=== PATIENT | male | born 1970 | race African-American/Black ===

== ENCOUNTER 2024-12-15 10:56 | Inpatient (IN) ==
--- NOTE | 2024-12-15 11:53 | Emergency Department Note ---
History of Present Illness General Chief complaint: Urinary Symptoms Stated complaint: CHEMO PATIENT, TROUBLE URINATING, DIARRHEA Time Seen by Provider: 12/15/24 11:50 History of Present Illness This is a 54-year-old male that presents to the emergency department via private vehicle accompanied by mother with complaints of "chemo, trouble urinating, diarrhea". The patient states that he was doing quite well up until Thanks of this past year. He notes from then he has had an overall decline. He states that he had his first chemotherapy session last and was fine for about 1 to 2 days. Then over the past few days he notes a sore mouth, trouble eating and can only have a few sips of water secondary to the mouth pain. He notes no vomiting. No cough. No chest pain or shortness of breath. No abdominal pain. The patient does note that he does have trouble urinating. He states he has metastatic colon cancer to the liver. He recently notes that he had a drain placed on 11/25/24 exiting from the left side of the abdomen. He states that following placement, there has been some yellow thin fluid draining which he states was previously evaluated at [facility] where the procedure was performed. He notes that prior to the procedure the T. bili reached 25 however post procedure was in the mid teens. He states that he was to take cephalexin but only took a few tablets and then felt unwell and stopped taking the medicine. He notes preceding diarrhea but no current diarrhea. No blood in the stool. He denies any fever. Home Medications Medication Instructions Recorded Confirmed Type furosemide 20 mg tablet 20 mg PO UD 04/13/22 12/15/24 History cephalexin 250 mg capsule 250 mg PO QID 12/15/24 12/15/24 History dexamethasone 4 mg tablet 4 mg PO DIRECTED 12/15/24 12/15/24 History furosemide 20 mg tablet (Lasix) 20 mg PO UD PRN edema 12/15/24 12/15/24 History loperamide 2 mg capsule 2 mg PO DIRECTED PRN Diarrhea 12/15/24 12/15/24 History ondansetron HCl 4 mg tablet 8 mg PO TID PRN n/v 12/15/24 12/15/24 History pantoprazole 40 mg tablet,delayed 40 mg PO DAILY 01/29/25 01/29/25 History release tamsulosin 0.4 mg capsule 0.4 mg PO UD 12/15/24 12/15/24 History Allergies Allergy/AdvReac Type Severity Reaction Status Date / Time levofloxacin Allergy Intermediate Difficulty Unverified 04/13/22 21:51 Breathing Penicillins Allergy Intermediate Difficulty Unverified 04/13/22 21:51 Breathing Past Med/Surg History Problem List (Updated 12/15/24 @ 23:10 by Renny Randolph PA-C) Mouth sore (Acute) Elevated bilirubin (Acute) Difficulty urinating (Acute) Metastatic colorectal cancer Medical History Metastatic colorectal cancer Social History Smoking Status: Never smoker Hx Alcohol Use: No Hx Substance Use: No Preferred Language: Nepali Security Ambassador Required: No Beliefs That Will Affect Care: None Current Living Situation: Family Current Living Situation Comment: Home with mother Feels Safe at Home: Yes Safety Concerns: Feels Safe At This Time Assistive Devices: Glasses Review of Systems A total of 10 systems reviewed and were otherwise negative Physical Exam Vital Signs Vital Signs - 24 hr 12/15/24 11:00 12/15/24 11:56 12/15/24 12:03 Temperature 36.0 C L Temperature Source Temporal Artery Scan Pulse Rate 97 H 89 Pulse Rate [Apical] 89 Pulse Strength Normal Pulse Strength [Apical] Respiratory Rate 16 18 Respiratory Effort / Characteristics Non-Labored Non-Labored Respiratory Depth Normal Normal Respiratory Pattern Regular Blood Pressure 154/110 H Blood Pressure [Right Arm] 146/97 H Blood Pressure Mean 124 Blood Pressure Mean [Right Arm] 113 Blood Pressure Position Sitting Blood Pressure Position [Right Arm] Pulse Oximetry 97 97 Oxygen Delivery Method Room Air Room Air Sepsis Recent Fever Within 48 Hours No Sepsis New/Unexplained Change in Mental Status No Sepsis Action Taken by Nursing No Action Required 12/15/24 13:00 12/15/24 14:42 12/15/24 16:13 Temperature Temperature Source Pulse Rate 84 Pulse Rate [Apical] 83 85 Pulse Strength Pulse Strength [Apical] Respiratory Rate 20 20 Respiratory Effort / Characteristics Non-Labored Respiratory Depth Normal Normal Respiratory Pattern Blood Pressure Blood Pressure [Right Arm] 144/81 H 141/85 H Blood Pressure Mean Blood Pressure Mean [Right Arm] 102 103 Blood Pressure Position Blood Pressure Position [Right Arm] Pulse Oximetry 96 98 Oxygen Delivery Method Room Air Room Air Sepsis Recent Fever Within 48 Hours Sepsis New/Unexplained Change in Mental Status Sepsis Action Taken by Nursing 12/15/24 16:18 Temperature Temperature Source Pulse Rate Pulse Rate [Apical] 94 H Pulse Strength Pulse Strength [Apical] Normal Respiratory Rate 26 H Respiratory Effort / Characteristics Non-Labored Spontaneous Respiratory Depth Normal Respiratory Pattern Regular Blood Pressure Blood Pressure [Right Arm] 142/77 H Blood Pressure Mean Blood Pressure Mean [Right Arm] 98 Blood Pressure Position Blood Pressure Position [Right Arm] Sitting Pulse Oximetry 98 Oxygen Delivery Method Room Air Sepsis Recent Fever Within 48 Hours Sepsis New/Unexplained Change in Mental Status Sepsis Action Taken by Nursing VITAL SIGNS - Vital signs and nursing notes were reviewed. Stable and afebrile. GENERAL -54-year-old male appearing his stated age who is in no acute distress. Communicates well with provider and answers questions appropriately. SKIN - Without rashes. No meningeal or petechial rash. Diffuse jaundice noted. HEAD - NC/AT. EYES - PERRL with EOMI bilaterally. Sclera significantly icteric. Palpebral conjunctiva pink and moist with no injection noted. EARS - No deformities of external structures noted on gross examination bilaterally. NOSE - Midline and without cyanosis. No epistaxis or purulent drainage noted. Septum midline without deviation or septal hematoma noted. MOUTH/OROPHARYNX - Without perioral cyanosis. Buccal mucosa pink and moist and without leukoplakia. Tongue midline with equal elevation of palate bilaterally. No tonsillar hypertrophy, erythema, or exudates noted. Good dentition noted. NECK - Neck with FROM. No nuchal rigidity. LUNGS - CTA CARDIAC - RRR ABDOMEN -bowel sounds normoactive. abdomen nontender. Drain exiting left upper quadrant region. Small amount of yellow drainage present on the bandage overlying the drain site to the left upper abdomen. No purulence. Small amount of surrounding erythema at the site ascites noted. No tenderness. No guarding or rigidity. EXTREMITIES - No clubbing or peripheral cyanosis. +5/5 strength noted in UE/LE bilaterally. NEUROLOGIC - Cranial nerves grossly intact. PSYCH -alert, oriented and pleasant on exam Course Administered Medications Heparin Sodium (Porcine) (Heparin Sod 5,000 Unit/0.5 Ml Vial) 5,000 units SQ Q12 MOHAN Stop: 01/14/25 20:59 Last Admin: 12/15/24 20:35 Dose: Not Given Documented By: THOMAS Sodium Chloride (Nss) 1,000 mls @ 125 mls/hr IV .Q8H MOHAN Stop: 12/16/24 00:00 Last Infusion: 12/15/24 22:28 Dose: Infused Documented By: Admin: 12/15/24 17:35 Dose: Not Given Documented By: Admin: 12/15/24 14:26 Dose: 125 mls/hr Documented By: BLADE Cefepime HCl (Maxipime 2000mg) 2,000 mg in 20 mls @ 5 mls/min IV Q8H MOHAN; Protocol Stop: 12/17/24 22:59 Last Admin: 12/15/24 22:33 Dose: 5 mls/min Documented By: THOMAS Sodium Chloride (Nss) 1,000 mls @ 80 mls/hr IV .[id number] [facility] Stop: 12/16/24 18:01 Last Admin: 12/15/24 22:33 Dose: 80 mls/hr Documented By: THOMAS Lidocaine HCl (Lidocaine Viscous 2% 15 Ml Udc) 15 ml MT QID PRN PRN Reason: mouth pain Stop: 01/14/25 16:50 Last Admin: 12/15/24 20:35 Dose: 15 ml Documented By: BOBO Multi-Ingredient Mouthwash/Gargle (First - Mouthwash Blm 5 Ml Udp) 5 ml PO QID MOHAN Stop: 01/14/25 20:59 Last Admin: 12/15/24 20:34 Dose: 5 ml Documented By: THOMAS Discontinued Medications Cefepime HCl (Maxipime 2000mg) 2,000 mg in 20 mls @ 5 mls/min IV NOW STA; Protocol Stop: 12/15/24 14:13 Last Admin: 12/15/24 14:26 Dose: 5 mls/min Documented By: BUNNYG Vancomycin HCl 1,750 mg/ (Sodium Chloride) 535 mls @ 200 mls/hr IV NOW ONE Stop: 12/15/24 19:40 Last Infusion: 12/15/24 20:12 Dose: Infused Documented By: Admin: 12/15/24 17:31 Dose: 200 mls/hr Documented By: LEXX Multi-Ingredient Mouthwash/Gargle (First - Mouthwash Blm 5 Ml Udp) 5 ml PO NOW ONE Stop: 12/15/24 16:01 Last Admin: 12/15/24 16:17 Dose: 5 ml Documented By: LEXX Medical Decision Making Laboratory Data 12/15/24 11:28 12/15/24 11:28 Lab Results 12/15/24 12/15/24 12/15/24 Range/Units 11:28 13:46 14:15 WBC 7.40 (4.8-10.8) K/ul RBC 3.95 L (4.70-6.10) M/uL Hgb 12.1 L (14.0-18.0) g/dl Hct 35.2 L (42.0-52.0) % MCV 89.1 (80.0-100.0) fL MCH 30.6 (25.0-34.0) pg MCHC 34.4 (32.0-36.0) g/dL RDW Std Deviation 50.9 H (36.4-46.3) fL RDW Coeff of Cris 15.5 H (11.5-14.5) % Plt Count 135 (130-400) K/uL Immature Gran % (Auto) 0.7 % Neut % (Auto) 90.1 % Lymph % (Auto) 6.8 % Lassen % (Auto) 1.6 % Eos % (Auto) 0.7 % Baso % (Auto) 0.1 % Neut # (Auto) 6.67 H (1.40-6.50) K/uL Lymph # (Auto) 0.50 L (1.20-3.40) K/uL Lassen # (Auto) 0.12 (0.11-0.59) K/uL Eos # (Auto) 0.05 (0.00-0.50) K/uL Baso # (Auto) 0.01 (0.00-0.20) K/uL Immature Gran # (Auto) 0.05 (0.01-0.20) K/uL Tear Drop Cells 1+ Ovalocytes 1+ PT 15.6 H (9.0-12.0) Seconds INR 1.5 H (0.9-1.1) Sodium 134 L (136-145) mmol/L Potassium 3.6 (3.5-5.1) mmol/L Chloride 104 (98-107) mmol/L Carbon Dioxide 23 (21-32) mmol/L Anion Gap 7 (3-11) BUN 18 (6-23) mg/dl Creatinine 0.80 (0.6-1.4) mg/dl Est Cr Clr Drug Dosing 101.3 ml/min eGFR 103.87 BUN/Creatinine Ratio 22.5 H (10-20) Glucose 124 H (70-99(Fasting)) mg/dl Calcium 8.3 L (8.6-10.3) mg/dl Total Bilirubin 18.8 H (0.2-1.0) mg/dl AST 114 H (13-39) U/L ALT 98 H (7-52) U/L Alkaline Phosphatase 132 H (34-104) U/L Total Protein 6.5 (6.0-8.3) gm/dl Albumin 3.3 L (3.4-5.0) gm/dl Globulin 3.2 (2.5-4.0) gm/dl Albumin/Globulin Ratio 1.0 (0.9-2) Lipase TNP Procalcitonin 0.61 H (0-0.5) ng/ml Urine Color Dark Yellow Urine Appearance Cloudy A (Clear) Urine pH 6.0 (4.5-7.5) Ur Specific [place] 1.018 (1.000-1.030) Urine Protein Trace H (Negative) Urine Glucose (UA) Negative (Negative) Urine Ketones Negative (Negative) Urine Blood Negative (Negative) Urine Nitrite Positive A (Negative) Urine Bilirubin 3+ H (Negative) Urine Urobilinogen Negative (Negative) Ur Leukocyte Esterase 1+ H (Negative) Urine WBC (Auto) 0-5 (0-5) /hpf Urine RBC (Auto) 0-2 (0-2) /hpf U Hyaline Cast (Auto) 0-2 (0-2) /lpf U Epithel Cells (Auto) 0-2 (0-2) /hpf Urine Bacteria (Auto) None Seen (None Seen) Imaging Data Radiologist's Impression: Abdomen/Pelvis CT 12/15/24 12:33 CT OF THE ABDOMEN AND PELVIS WITHOUT CONTRAST CLINICAL HISTORY: Trouble urinating, biliary stent in place, metastatic colon cancer. COMPARISON STUDY: CT of the abdomen and pelvis December 23, 2023. TECHNIQUE: Axial images of the abdomen and pelvis were obtained without IV contrast. Images were reviewed in the axial, sagittal, and coronal planes. Automated exposure control was utilized for the study. A dose lowering technique was utilized adhering to the principles of ALARA. FINDINGS: The heart is enlarged. There is a small right pleural effusion. No pneumatosis, free air or portal venous gas is present. No renal, ureteral or bladder calculi are present. The bladder is mildly distended. There is no hydronephrosis. Evaluation of the remainder of the abdomen and pelvis is suboptimal on this unenhanced exam. Numerous partially calcified hepatic metastases are present. Closely apposed right hepatic lobe lesions measure 11.3 x 10.9 cm in aggregate. Several additional hepatic lesions are present. Several of these lesions are new since CT of December 23, 2023. There is associated capsular retraction. A small amount of abdominal and pelvic ascites is present. There are no fluid collections. There is mild mesenteric stranding. Small collaterals are present. A 6 mm omental nodule on image 152 is unchanged. This favors a splenule. A percutaneous biliary catheter extends through the lateral segment of the liver. There is mild right intrahepatic biliary ductal dilatation. There is no evidence for a bowel obstruction. Right colon wall thickening is likely due to underdistention. The appendix is slightly dilated, measuring 8 mm in caliber. There is no convincing evidence for acute appendicitis. No abdominal or pelvic lymphadenopathy is present. There are no suspicious lesions within the visualized skeletal structures. IMPRESSION: 1. No urinary calculi or hydronephrosis. Mildly distended bladder. 2. Numerous hepatic metastases, several of which are new since CT of December 23, 2023. 3. Left hepatic lobe percutaneous biliary catheter in place. Mild right lobe biliary ductal dilatation. 4. Small amount of abdominal and pelvic ascites. Mild mesenteric stranding and small collaterals. 5. No evidence for a bowel obstruction. 6. Mild right colon wall thickening. This is likely due to underdistention. A mild nonspecific colitis could appear similar. ACT 112: Negative or not required by law. Electronically signed by: Bryant Villagran M.D. 12/15/2024 1:26 PM [facility]ESAR Narrative Patient was seen and evaluated as above in room A03. Review was performed of triage nursing notes and vital signs. I did review pertinent previous visits and patient history. After obtaining a thorough history and physical examination the above work up was performed. Patient presents to us today for evaluation of a sore mouth and difficulty urinating following start of chemotherapy this past . Patient notes that he does have metastatic colon cancer to the liver. He states that recently his bilirubin reached 25 and a drain was placed and now it is in the mid teens. He denies any pain at this time other than in the mouth. He notes that when he urinates it feels like he has to strain to urinate. No respiratory complaints. No fever. Bladder scan was performed and revealed 270 mL. Patient notes that the small amount of fluid leaking near the drain site in the abdomen is not new and he notes was already addressed and reviewed with his care team at [facility]. However he does state he was supposed to be on oral cephalexin but has not continue the prescription as prescribed. He denies any active diarrhea. IV access with established. Labs were drawn. There is no leukocytosis. There is minor anemia noted with hemoglobin of 12.1. INR 1.5. Mild hyponatremia at 134. There is evidence of elevated T. bili at 18.8 with a transaminitis. Alk phos 132. Mild hypocalcemia at 8.3. Mild hyperglycemia at 124. There is mild elevation of the BUN/creatinine ratio 22.5 and the patient does appear mildly dehydrated. Maintenance fluids ordered. Lipase not able to result and will be a send out test. A CT scan was ordered of the abdomen to further assess. No stones noted. Mildly distended bladder noted. Numerous hepatic metastases noted which the patient is already aware of. They do comment of left hepatic lobe percutaneous biliary catheter in place. They do comment on mild right lobe biliary ductal dilatation. Small amount of abdominal and pelvic ascites. Mild mesenteric stranding and small collaterals. No evidence for bowel obstruction. Mild right colon wall thickening. Likely due to understate tension. A mild nonspecific colitis could appear similar. There is no acute abdominal pain at this time. I do not suspect peritonitis. Nontender abdomen noted. The Pro-Mikel returned elevated at 0.61 and blood culture is pending. Urinalysis does reveal positive nitrites, 3+ bilirubin and 1+ leukocytes. No bacteria seen. The patient does follow at [facility] with Dr. Cartagena. I did have staff call to [facility] so that I could discuss case and plan with patient's established care team. After time had passed, decision was made to admit the patient to the hospital pending further evaluation and management and discussion with [facility]. I did not receive a call back from [facility] and repeat page was sent by staff. I discussed case with the hospitalist service. Patient was administered IV antibiotics for broad- spectrum coverage. He tolerated the cefepime here without issue. I did also have Magic mouthwash ordered for the patient as well to help with the mouth pain. Patient will be admitted to the hospitalist service. Patient amenable to this plan. Please refer to further documentation regarding his stay. GCS: 15 In the evaluation and treatment of this patient the following differential diagnoses were entertained: Side effects of chemotherapy, infection, UTI, urinary retention, acute abdomen, liver failure, among others. Impression & Plan Difficulty urinating, Elevated bilirubin, Mouth sore Discharge Plan Visit Data Chief Complaint: Urinary Symptoms Stated Complaint: CHEMO PATIENT, TROUBLE URINATING, DIARRHEA ED Provider: Maury Black ED Midlevel Provider: Renny Randolph Discharge Problem: Difficulty urinating, Elevated bilirubin, Mouth sore Patient Disposition: Admitted As Inpatient Discharge Instructions Interventions: ED Discharge Assessment Last Done: 12/15/24 17:50
[2024-12-15 11:59] LABS: Hematocrit (blood only) 35.2 % (42.0-52.0); Hemoglobin 12.1 g/dl (14.0-18.0); Mean Corpuscular Hemoglobin 30.6 pg (25.0-34.0); Mean Corpuscular Hgb Conc 34.4 g/dL (32.0-36.0); Mean Corpuscular Volume 89.1 fL (80.0-100.0); Platelet Count 135 K/uL (130-400); RDW Coefficient of Variation 15.5 % (11.5-14.5); RDW Standard Deviation 50.9 fL (36.4-46.3); Red Blood Count 3.95 M/uL (4.70-6.10)
[2024-12-15 12:14] LABS: Alanine Aminotransferase 98 U/L (7-52); Albumin Level 3.3 gm/dl (3.4-5.0); Alkaline Phosphatase 132 U/L (34-104); Anion Gap 7 (3-11); Aspartate Aminotransferase 114 U/L (13-39); BUN Creatinine Ratio 22.5 (10-20); Bilirubin,Total 18.8 mg/dl (0.2-1.0); Blood Urea Nitrogen 18 mg/dl (6-23); Calcium 8.3 mg/dl (8.6-10.3); Carbon Dioxide 23 mmol/L (21-32); Chloride 104 mmol/L (98-107); Creatinine Clr Calc Pharmacy 101.3 ml/min; Globulin 3.2 gm/dl (2.5-4.0); Glucose 124 mg/dl (70-99(Fasting)); Potassium 3.6 mmol/L (3.5-5.1); Sodium 134 mmol/L (136-145); Total Protein 6.5 gm/dl (6.0-8.3)
[2024-12-15 12:22] LABS: Basophils # (auto) 0.01 K/uL (0.00-0.20); Basophils % (auto) 0.1 %; Eosinophils # (auto) 0.05 K/uL (0.00-0.50); Eosinophils % (auto) 0.7 %; Immature Granulocytes # (auto) 0.05 K/uL (0.01-0.20); Immature Granulocytes % (auto) 0.7 %; Lymphocytes % (auto) 6.8 %; Monocytes # (auto) 0.12 K/uL (0.11-0.59); Monocytes % (auto) 1.6 %; Neutrophils # (auto) 6.67 K/uL (1.40-6.50); Neutrophils % (auto) 90.1 %; Ovalocytes 1+; Tear Drop Cells 1+
--- NOTE | 2024-12-15 13:28 | CT Scan Report ---
CT OF THE ABDOMEN AND PELVIS WITHOUT CONTRAST CLINICAL HISTORY: Trouble urinating, biliary stent in place, metastatic colon cancer. COMPARISON STUDY: CT of the abdomen and pelvis December 23, 2023. TECHNIQUE: Axial images of the abdomen and pelvis were obtained without IV contrast. Images were revi ewed in the axial, sagittal, and coronal planes. Automated exposure control was utilized for the subhash dy. A dose lowering technique was utilized adhering to the principles of ALARA. FINDINGS: The heart is enlarged. There is a small right pleural effusion. No pneumatosis, free air or portal venous gas is present. No renal, ureteral or bladder calculi are present. The bladder is mild ly distended. There is no hydronephrosis. Evaluation of the remainder of the abdomen and pelvis is baez boptimal on this unenhanced exam. Numerous partially calcified hepatic metastases are present. Closel y apposed right hepatic lobe lesions measure 11.3 x 10.9 cm in aggregate. Several additional hepatic lesions are present. Several of these lesions are new since CT of December 23, 2023. There is associat ed capsular retraction. A small amount of abdominal and pelvic ascites is present. There are no fluid collections. There is mild mesenteric stranding. Small collaterals are present. A 6 mm omental nodul e on image 152 is unchanged. This favors a splenule. A percutaneous biliary catheter extends through the lateral segment of the liver. There is mild right intrahepatic biliary ductal dilatation. There i s no evidence for a bowel obstruction. Right colon wall thickening is likely due to underdistention. The appendix is slightly dilated, measuring 8 mm in caliber. There is no convincing evidence for acut e appendicitis. No abdominal or pelvic lymphadenopathy is present. There are no suspicious lesions wi thin the visualized skeletal structures. IMPRESSION: 1. No urinary calculi or hydronephrosis. Mildly distended bladder. 2. Numerous hepatic metastases, several of which are new since CT of December 23, 2023. 3. Left hepatic lobe percutaneous biliary catheter in place. Mild right lobe biliary ductal dilatatio n. 4. Small amount of abdominal and pelvic ascites. Mild mesenteric stranding and small collaterals. 5. No evidence for a bowel obstruction. 6. Mild right colon wall thickening. This is likely due to underdistention. A mild nonspecific coliti s could appear similar. ACT 112: Negative or not required by law. Electronically signed by: Bryant Villagran M.D. 12/15/2024 1:26 PM
[2024-12-15] MEDS: SODIUM CHLORIDE 0.9% 1,000 ML IV SCH ×2 (14:26→22:33)
[2024-12-15] MEDS: CEFEPIME 2000MG 2,000 MG/20 ML SYR IV STA (14:26)
[2024-12-15 14:51] LABS: Appearance Urine Cloudy (Clear); Bacteria Urine Automated None Seen (None Seen); Bilirubin Urine 3+ (Negative); Blood Urine Negative (Negative); Color Urine Dark Yellow; Epithelial Cell Urine Auto 0-2 /hpf (0-2); Glucose Urine UA Negative (Negative); Ketones Urine Negative (Negative); Leukocyte Esterase Urine 1+ (Negative); Nitrite Urine Positive (Negative); Protein Urine Trace (Negative); RBC Urine Automated 0-2 /hpf (0-2); Specific Gravity Urine 1.018 (1.000-1.030); Urobilinogen Urine Negative (Negative); WBC Urine Automated 0-5 /hpf (0-5)
[2024-12-15 14:55] LABS: Cast Urine Automated 0-2 /lpf (0-2)
[2024-12-15 15:25] LABS: INR 1.5 (0.9-1.1); Prothrombin Time 15.6 Seconds (9.0-12.0)
[2024-12-15] MEDS: FIRST - Mouthwash BLM 5 ML UDP PO ONE (16:17)
--- OUTSIDE RECORDS SUMMARY | 2024-12-15 16:42 | External Medical Summary | Continuity of Care Document ---
Author Name Unknown Organization [facility] Address [address] [place] [id number] Care Team Providers Care Genetic Supervisor Name Role Phone Stoney Abdullahi I Primary Care Physician [phone] Encounter [facility] [id number] Date(s): 12/12/24 - 12/12/24 [facility] [address] [place] [address]- [phone] Encounter Diagnosis Cancer of colon(Discharge Diagnosis) - 12/12/24 Discharge Disposition: Home or Self Care Attending Physician: MD Cartagena Joseph J Referring Physician: MD Cartagena Joseph J Allergies, Adverse Reactions, Alerts Substance Criticality Severity Reaction Reaction Severity Status penicillin Unable to assess criticality Mild unknown Active levoFLOXacin difficulty breathing Active Medications aprepitant 125 mg oral capsule Start: 11/29/24 6:52:00 PM EST, 1 cap, PO, ONCE, Disp# 12 cap, Refills: 0, TAKE 1 (125 MG) CAPSULE BY MOUTH 1 HOUR BEFORE CHEMO, Pharmacy: [id number] Start Date: 11/29/24 Status: Ordered aprepitant 80 mg oral capsule Start: 11/29/24 6:53:00 PM EST, 1 cap, PO, qAM, Disp# 24 cap, Refills: 0, TAKE 1 (80 MG) CAPSULE BY MOUTH ON DAYS 2 & 3., Pharmacy: [id number] Start Date: 11/29/24 Status: Ordered dexAMETHasone 4 mg oral tablet Start: 11/29/24 6:56:00 PM EST, 2 tab, PO, Daily, Disp# 60 tab, Refills: 0, TAKE 2 tablets daily on days 2, 3 & 4., Pharmacy: [id number] Start Date: 11/29/24 Stop Date: 12/29/24 Status: Ordered Imodium 2 mg oral capsule Start: 10/29/24 2:38:00 PM EST, See Instructions, Disp# 30 cap, 1 cap PO after each loose stool notto exceed 8 capsules, or 16 mg, in 24 hours, Pharmacy: [facility] [place] Start Date: 10/29/24 Status: Ordered Keflex 250 mg oral capsule Start: 12/10/24 1:24:00 PM EST, 2 cap, PO, bid, Disp# 28 cap, Refills: 0, Pharmacy: [facility] Start Date: 12/10/24 Stop Date: 12/17/24 Status: Ordered ondansetron 4 mg oral tablet Start: 11/25/24 9:45:00 AM EST, 2 tab, PO, tid, Disp# 30 tab, Refills: 1, PRN: as needed for nausea/vomiting, Pharmacy: [id number] Start Date: 11/25/24 Status: Ordered Protonix 40 mg oral delayed release tablet Start: 11/29/24 5:19:00 PM EST, 1 tab, PO, Daily, Disp# 30 tab, Refills: 3, Pharmacy: [id number] Start Date: 11/29/24 Status: Ordered Problem List Condition Confirmation Course Effective Dates Status H ealth Status Informant Weight disorder Confirmed Active CHF due to valvular disease Confirmed Active History of colon cancer, stage III Confirmed Active Impaired fasting glucose Confirmed Active Mitral valve problem Confirmed Active Mitral regurgitation Confirmed Active Adenocarcinoma of colon metastatic to liver Confirmed Active Diagnosis Diagnosis Type Effective Dates Health Status Cl inical Service Informant Cancer of colon Discharge Diagnosis 12/12/24 Non-Specified Procedures Procedure Date Related Diagnosis Body Site Status Colonoscopy 1 12/17/[address] of chest, abdomen and pelvis 2 08/22/20 Completed Colonoscopy 3 08/14/20 Completed Pathology biopsy report colon 4 08/14/20 Completed 1COLO to cecum, 6 mm polyp AC CS, anastomosis at 20 cm, hemorrhoid, 21) 6.7 cm segment of moderate irregular circumferential wall thickening of the proximal sigmoid colon resulting in mild to moderate luminal narrowing without hig-grade stricture or obstruction likelycorrelates with the pt's reporedly known colorectal carcinoma. 2) Prominant percolonic lymph nodes adjacent ot the aformentioned mass are suspicious for local lymphatic metastasis. 3) No additional patholog adenopathy or evidence of distant metastatic disease within the chest or abdomen. 4) Additional findings as above. 3Impression: - A prostate nodule found on digital rectal exam. - Non-bleeding internal hemorrhoids. - Likely malignant partially obstructing tumor in the sigmoid colon. Biopsied. 41. colon, mass at 25cm, biopsy; - invasive moderately diffentiated adenocarcinoma arising from tubular adenoma. comment; depths of invasion cannot be precisely determined due to the superficial nature of the tissue. MMR testing is pending and the result will be issued in the addendum. scheduled colorectal surgery Social History Social History Type Response Smoking Status Never smoked cigaret sai Sex Male Sex Representation Male (finding) Patient Care team information Care Team Personnel Name: MD Kaylen, Stoney Feng Position: Referring DIRECT Member Role: Primary Care Provider Address: [address] [place] [address] [place] Name: Hai Mcneal Kyle Position: Pharmacist Member Role: Pharmacy - [facility] Address: [address] [place] [address] [place] Name: MD Hilario, Shannon Position: Physician - Pathologist Member Role: Lifetime Relationship Address: [address] [place] [address] [place] Care Team Related Persons Name: NAHED ZHANG Name: NAHED ACUÑA
--- OUTSIDE RECORDS SUMMARY | 2024-12-15 16:42 | External Medical Summary | Continuity of Care Document ---
Author Name Unknown Organization [facility] Address [address] [place] [id number] Care Team Providers Care Capacity Planning Engineer Name Role Phone Stoney Abdullahi I Primary Care Physician [phone] [facility] [id number] Date(s): 11/25/24 - 11/25/[address] [phone] Encounter Diagnosis Malignant neoplasm of colon, unspecified(Final) - Discharge Disposition: Home or Self Care Attending Physician: MD Vidal, Dg Ramirez Referring Physician: [facility] Saleh Carla Allergies, Adverse Reactions, Alerts Substance Criticality Severity Reaction Reaction Severity Status penicillin Unable to assess criticality Mild unknown Active levoFLOXacin difficulty breathing Active Assessment and Plan Extracted from: Title:CVIR Orders for 11/25/2024 Author :TYLER Baxter Sharon L Date:11/03/24 INTERVENTIONAL RADIOLOGY OUTPATIENT ORDERS Name: DOMINIC ROSADO Patient Number: [id number] : 1970 Date of Service: 11/03/2024 PROCEDURE: IR Biliary Drain Placement Int / Ext SCHEDULED DATE: 11/25/2024 Diet and Medications: No food after midnight except for clear non-carbonated liquids up to 1 hour prior to arrival time. Take all prescribed medications with small sips of water except as directed below. Other Orders: Extracted from: Title:CVIR Orders for 11/04/2024 Author :TYLER Baxter Sharon L Date:11/03/24 INTERVENTIONAL RADIOLOGY OUTPATIENT ORDERS Name: DOMINIC ROSADO Patient Number: [id number] : 1970 Date of Service: 11/03/2024 PROCEDURE: IR Biliary Drain Placement Int / Ext SCHEDULED DATE: 11/04/2024 Diet and Medications: No food after midnight except for clear non-carbonated liquids up to 1 hour prior to arrival time. Take all prescribed medications with small sips of water except as directed below. Other Orders: Functional Status 11/25/24 History of Fall in Last 3 Months Carver N o Presence of Secondary Diagnosis Carver Ye s Use of Ambulatory Aid Carver None/bedrest /nurse assist IV/Heparin Lock Fall Risk Carver No Gait/Transferring Fall Risk Carver Normal /bedrest/immobile Mental Status Fall Risk Carver Oriented t o own ability Carver Fall Risk Score 15 Carver Fall Risk No Risk Medications Imodium 2 mg oral capsule Start: 10/29/24 2:38:00 PM EST, See Instructions, Disp# 30 cap, 1 cap PO after each loose stool notto exceed 8 capsules, or 16 mg, in 24 hours, Pharmacy: [facility] Start Date: 10/29/24 Status: Ordered ondansetron 4 mg oral tablet Start: 11/25/24 9:45:00 AM EST, 2 tab, PO, tid, Disp# 30 tab, Refills: 1, PRN: as needed for nausea/vomiting, Pharmacy: [id number] Start Date: 11/25/24 Status: Ordered valsartan 80 mg oral tablet Start: 06/23/24 12:18:00 PM EDT, 1 tab, PO, Daily, Disp# 90 tab, Refills: 3, Pharmacy: [facility] Start Date: 06/23/24 Status: Ordered Problem List Condition Confirmation Course Effective Dates Status H ealth Status Informant Weight disorder Confirmed Active CHF due to valvular disease Confirmed Active History of colon cancer, stage III Confirmed Active Impaired fasting glucose Confirmed Active Mitral valve problem Confirmed Active Mitral regurgitation Confirmed Active Adenocarcinoma of colon metastatic to liver Confirmed Active Procedures Procedure Date Related Diagnosis Body Site [...] issued in the addendum. scheduled colorectal surgery Results Laboratory List Name Date Prothrombin Time w/ INR (PT/INR) 11/25/24 Complete Blood Count (CBC w Platelets) Most recent to oldest [Reference Range]: 1 MPV [9.0-12.2 fL] REQUEST CREDITED fL 1 (11/25/24 1:14 PM) RDW [11.5-14.2 %] REQUEST CREDITED % 2 (11/25/24 1:14 PM) Hct [39-48 %] REQUEST CREDITED % 3 (11/25/24 1:14 PM) Hgb [13.0-17.0 g/dL] REQUEST CREDITED g/ dL 4 (11/25/24 1:14 PM) INR [0.9-1.1] 1.7 5 *HI* (11/25/24 1:14 PM) MCH [28-33 pg] REQUEST CREDITED pg 6 (11/25/24 1:14 PM) MCHC [32-36 g/dL] REQUEST CREDITED g/d L 7 (11/25/24 1:14 PM) MCV [81-96 fL] REQUEST CREDITED fL 8 (11/25/24 1:14 PM) Plts [150-350 K/uL] REQUEST CREDITED K/u L 9 (11/25/24 1:14 PM) PT [12.0-14.2 seconds] 19.2 seconds *HI* (11/25/24 1:14 PM) RBC [4.40-5.60 M/uL] REQUEST CREDITED M/ uL 10 (11/25/24 1:14 PM) WBC [4.0-10.4 K/uL] REQUEST CREDITED K/u L 11 (11/25/24 1:14 PM) 1Result Comment: NO SAMPLE RECEIVED 2Result Comment: NO SAMPLE RECEIVED 3Result Comment: NO SAMPLE RECEIVED 4Result Comment: NO SAMPLE RECEIVED 5Result Comment: Suggested therapeutic range for low-intensity Coumadin therapy for venous thromboembolism is INR 2.0-3.0 (ex: atrial fibrillation, history of TIA/stroke). For high risk patients, the suggested therapeutic range is INR 2.5-3.5 (ex: mechanical prosthetic valves). 6Result Comment: NO SAMPLE RECEIVED 7Result Comment: NO SAMPLE RECEIVED 8Result Comment: NO SAMPLE RECEIVED 9Result Comment: NO SAMPLE RECEIVED 10Result Comment: NO SAMPLE RECEIVED 11Result Comment: NO SAMPLE RECEIVED Vital Signs Most recent to oldest [Reference Range]: 1 2 3 Temperature [36.5-37.9 DegC] 36.4 DegC *LOW* (11/25/24 6:15 PM) 36.3 DegC *LOW* (11/25/24 5:30 PM) 36.5 DegC (11/25/24 4:30 PM) Heart Rate 86 bpm (11/25/24 6:15 PM) 90 bpm (11/25/24 5:46 PM) 92 bpm (11/25/24 5:30 PM) Respiratory Rate 23 br/min (11/25/24 6:15 PM) 22 br/min (11/25/24 5:46 PM) 25 br/min (11/25/24 5:30 PM) Blood Pressure 122/67mmHg (11/25/24 6:15 PM) 137/76mmHg (11/25/24 5:46 PM) 126/70mmHg (11/25/24 5:15 PM) Mean Blood Pressure 83 mmHg (11/25/24 6:15 PM) 93 mmHg (11/25/24 5:46 PM) 87 mmHg (11/25/24 5:15 PM) Cuff Pulse Pressure 55 mmHg (11/25/24 6:15 PM) 61 mmHg (11/25/24 5:46 PM) 56 mmHg (11/25/24 5:15 PM) BP Location # 1 Left Arm, Non-invasive (11/25/24 6:15 PM) Left Arm, Non-invasive (11/25/24 5:46 PM) Left Arm, Non-invasive (11/25/24 5:15 PM) Social History Social History Type Response Smoking Status Never smoked cigaret sai Sex Male Sex Representation Male (finding) Pre-OP H & P * MD Vidal, Dg Ramirez: PERFORM Event Display: Pre-OP H & P Authored Date: [id number] PRE-OPERATIVE HISTORY AND PHYSICAL Name: DOMINIC ROSADO Patient Number: [id number] : 1970 Date of Service: 11/25/2024 Interventional Radiology Pre-procedure History and Physical Patient Name: DOMINIC ROSADO Date Of : 1970 Medical Record: [id number] Date of Service: 2024-11-25 Planned Procedure: IR BILIARY DRAIN PLACEMENT INT Reason For Consult: Biliary: Biliary Drainage History of Present Illness: 53 yom hx met colon adenoca w /liver mets s/p sigmoid colectomy & chemo w/ R hepatic mets. Y 9003. CT 10/28/24 dz progression & new intrahepatic biliary ductal dilation. Past Medical and Surgical History: metastatic colon adenocarcinoma w/ liver mets s/p surgery and chemotherapy, CHF due to valvular disease, Impaired fasting glucose, Mitral regurgitation, Mitral valve problem, Weight disorder, Patientdeclined systemic chemotherapy due to concerns for potential side effects, Past Procedural History:, S/p colonoscopy, S/p robotic assisted sigmoid colectomy on 08/30/2020, Allergies: Penicillin Levofloxacin Medications: Pantoprazole, Valsartan, Spironolcatone, Beet supplement Other Studies: , CT OSH 12/23/23., Lung shunt of 6.1%., CT AP 10/28/24:, *Marked interval progression of hepatic metastasis., *New intrahepatic biliary ductal dilation down to the confluence, likely secondary to periportal metastasis., *Possible pancreatic metastasis to the uncinate process. Physical Exam: LOC / Mental Status: Awake, Alert, Oriented Airway: Mallampati Score: Class 3: Visualization only of the base of the uvula Lungs: Clear Cardiac: Normal Sinus Rhythm Abdomen: soft mildly distended mildly RUQ tenderness Extremities: R IJ site c/d/no erythema no arm swelling or chest wall collaterals Other: severe scleral icteris ASA Classification: Class III: Severe systemic disease Assessment: 53 yo m hx met colon adenoca w /liver mets s/p sigmoid colectomy & chemo w/ R hepatic mets. Y 90 03/04/24. CT 10/28/24 dz progression & new intrahepatic biliary ductal dilation. Plan: plan for biliary drain placement and port placement sedation for prior Y 90 treatment. Sedation / Anesthesia Plan: Moderate Sedation Consent by Patient Electronic Signature on File Electronically Reviewed/Signed by: Dg Drake MD Author Signature Dt/Tm:11/25/2024 12:58 PM Division of Interventional Cardiology [facility] Interventional Rad Outpt Note * TYLER Baxter Sharon L: PERFORM Event Display: Interventional Rad Outpt Note Authored Date: [id number] INTERVENTIONAL RADIOLOGY OUTPATIENT ORDERS Name: DOMINIC ROSADO Patient Number: [id number] : 1970 Date of Service: 11/03/2024 PROCEDURE: IR Biliary Drain Placement Int / Ext SCHEDULED DATE: 11/25/2024 Diet and Medications: No food after midnight except for clear non-carbonated liquids up to 1 hour prior to arrival time. Take all prescribed medications with small sips of water except as directed below. Other Orders: Electronic Signature on File Electronically Reviewed/Signed by: Amanda Baxter PA-C Author Signature Dt/Tm:11/03/2024 04:53 PM Division of Interventional Cardiology [facility] * TYLER Baxter Sharon L: PERFORM Event Display: Interventional Rad Outpt Note Authored Date: [id number] INTERVENTIONAL RADIOLOGY OUTPATIENT ORDERS Name: DOMINIC ROSADO Patient Number: [id number] : 1970 Date of Service: 11/03/2024 PROCEDURE: IR Biliary Drain Placement Int / Ext SCHEDULED DATE: 11/04/2024 Diet and Medications: No food after midnight except for clear non-carbonated liquids up to 1 hour prior to arrival time. Take all prescribed medications with small sips of water except as directed below. Other Orders: Electronic Signature on File Electronically Reviewed/Signed by: Amanda Baxter PA-C Author Signature Dt/Tm:11/03/2024 01:15 PM Division of Interventional Cardiology [facility] Anesthesia records * Services, CPDI: PERFORM Event Display: Sedation & Analgesia Record Authored Date: [id number] Patient Care team information Care Team Personnel Name: MD Kaylen, Stoney Feng Position: Referring DIRECT Member Role: Primary Care Provider Address: [address] [place] [address] Name: Hai Mcneal Kyle Position: Pharmacist Member Role: Pharmacy - Lifetime Address: [address] [place] [address] [place] Name: MD Hilario, Shannon Position: Physician - Pathologist Member Role: Lifetime Relationship Address: [address] [place] [address] Care Team Related Persons Name: NAHED ZHANG Name: NAHED ACUÑA
--- OUTSIDE RECORDS SUMMARY | 2024-12-15 16:42 | External Medical Summary | Continuity of Care Document ---
Author Name Unknown Organization [facility] Address [address] [place] [address] [place] [id number] Care Team Providers Care Animal Park Code Enforcement Officer Name Role Phone Stoney Abdullahi I Primary Care Physician [phone] [facility] [id number] Date(s): 12/09/24 - 12/09/24 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) - 12/10/24 Encounter for chemotherapy management(Discharge Diagnosis) - 12/10/24 Discharge Disposition: Home or Self Care Attending [...] BY MOUTH 1 HOUR BEFORE CHEMO, Pharmacy: [facility] Start Date: 11/29/24 Status: Ordered aprepitant 80 mg oral capsule Start: 11/29/24 6:53:00 PM EST, 1 cap, PO, qAM, Disp# 24 cap, Refills: 0, TAKE 1 (80 MG) CAPSULE BY MOUTH ON DAYS 2 & 3., Pharmacy: [email or web address] Start Date: 11/29/24 Status: Ordered dexAMETHasone 4 mg oral tablet Start: 11/29/24 6:56:00 PM EST, 2 tab, PO, Daily, Disp# 60 tab, Refills: 0, TAKE 2 tablets daily on days 2, 3 & 4., Pharmacy: [email or web address] Start Date: 11/29/24 Stop Date: 12/29/24 Status: Ordered Imodium 2 mg oral capsule Start: 10/29/24 2:38:00 PM EST, See Instructions, Disp# 30 cap, 1 cap PO after each loose stool notto exceed 8 capsules, or 16 mg, in 24 hours, Pharmacy: [facility] [place] Start Date: 10/29/24 Status: Ordered Keflex 250 mg oral capsule Start: 12/10/24 1:24:00 PM EST, 2 cap, PO, bid, Disp# 28 cap, Refills: 0, Pharmacy: [id number] Start Date: 12/10/24 Stop Date: 12/17/24 Status: Ordered ondansetron 4 mg oral tablet Start: 11/25/24 9:45:00 AM EST, 2 tab, PO, tid, Disp# 30 tab, Refills: 1, PRN: as needed for nausea/vomiting, Pharmacy: [id number] Start Date: 11/25/24 Status: Ordered Protonix 40 mg oral delayed release tablet Start: 11/29/24 5:19:00 PM EST, 1 tab, PO, Daily, Disp# 30 tab, Refills: 3, Pharmacy: [id number] Start Date: 11/29/24 Status: Ordered Mental Status 12/09/24 Mandatory Health Literacy Documentation Yes Communication Barrier Present No Health Literacy Communication Barriers N ever Primary Language Tamazight Problem List Condition Confirmation Course Effective Dates Status H ealth Status Informant Weight disorder Confirmed Active CHF due to valvular disease Confirmed Active History of colon cancer, stage III Confirmed Active Impaired fasting glucose Confirmed Active Mitral valve problem Confirmed Active Mitral regurgitation Confirmed Active Adenocarcinoma of colon metastatic to liver Confirmed Active Diagnosis Diagnosis Type Effective Dates Health Status Clinical Service Informant Adenocarcinoma of colon metastatic to liver Discharge Diagnosis 12/09/24 Non-Specified 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 scheduled colorectal surgery Vital Signs Most recent to oldest [Reference Range]: 1 Height 160.0 cm (12/09/24 3:21 PM) Patient Weight 87.9 kg (12/09/24 3:21 PM) Body Mass Index 34.34 kg/m2 (12/09/24 3:21 PM) Temperature [36.5-37.9 DegC] 36.9 DegC (12/09/24 3:21 PM) Heart Rate 85 bpm (12/09/24 3:21 PM) Respiratory Rate 15 br/min (12/09/24 3:21 PM) Blood Pressure 145/86mmHg (12/09/24 3:21 PM) BP Location # 1 Left Arm (12/09/24 3:21 PM) Social History Social History Type Response Smoking Status Never smoked cigaret sai Sex Male Sex Representation Male (finding) Patient Care team information Care Team Personnel Name: MD Kaylen, Stoney Feng Position: Referring DIRECT Member Role: Primary Care Provider Address: [address] [place] [address] [place] Name: Hai Mcneal Kyle Position: Pharmacist Member Role: Pharmacy - Lifetime Address: [address] [place] [address] [place] Name: MD Hilario, Shannon Position: Physician - Pathologist Member Role: Lifetime Relationship Address: [address] [place] [address] [place] Care Team Related Persons Name: NAHED ZHANG Name: NAHED ACUÑA
--- OUTSIDE RECORDS SUMMARY | 2024-12-15 16:42 | External Medical Summary | Continuity of Care Document ---
Author Name Unknown Organization [facility] Address [address] [place] [id number] Care Team Providers Care Salvage Worker Name Role Phone Stoney Abdullahi I Primary Care Physician [phone] Encounter [facility] [id number] Date(s): 12/09/24 - 12/09/[address] [facility] [address] [place] [address] [phone] Encounter Diagnosis Cancer of colon(Discharge Diagnosis) - 12/09/24 Discharge Disposition: Home or Self Care Attending Physician: MD Cartagena Joseph J Referring Physician: MD Cartagena Joseph J Allergies, Adverse Reactions, Alerts Substance Criticality Severity Reaction Reaction Severity Status penicillin Unable to assess criticality Mild unknown Active levoFLOXacin difficulty breathing Active Functional Status 12/09/24 Gait Steady Medications aprepitant 125 mg oral capsule Start: 11/29/24 6:52:00 PM EST, 1 cap, PO, ONCE, Disp# 12 cap, Refills: 0, TAKE 1 (125 MG) CAPSULE BY MOUTH 1 HOUR BEFORE CHEMO, Pharmacy: [id number] Start Date: 11/29/24 Status: Ordered aprepitant 80 mg oral capsule Start: 11/29/24 6:53:00 PM EST, 1 cap, PO, qAM, Disp# 24 cap, Refills: 0, TAKE 1 (80 MG) CAPSULE BY MOUTH ON DAYS 2 & 3., Pharmacy: [id number] Start Date: 11/29/24 Status: Ordered dexAMETHasone 4 mg oral tablet Start: 11/29/24 6:56:00 PM EST, 2 tab, PO, Daily, Disp# 60 tab, Refills: 0, TAKE 2 tablets daily on days 2, 3 & 4., Pharmacy: [facility] Start Date: 11/29/24 Stop Date: 12/29/24 Status: Ordered Imodium 2 mg oral capsule Start: 10/29/24 2:38:00 PM EST, See Instructions, Disp# 30 cap, 1 cap PO after each loose stool notto exceed 8 capsules, or 16 mg, in 24 hours, Pharmacy: [facility] [place] Start Date: 10/29/24 Status: Ordered Keflex 250 mg oral capsule Start: 12/10/24 1:24:00 PM EST, 2 cap, PO, bid, Disp# 28 cap, Refills: 0, Pharmacy: [id number] Start Date: 12/10/24 Stop Date: 12/17/24 Status: Ordered ondansetron 4 mg oral tablet Start: 11/25/24 9:45:00 AM EST, 2 tab, PO, tid, Disp# 30 tab, Refills: 1, PRN: as needed for nausea/vomiting, Pharmacy: [id number] Start Date: 11/25/24 Status: Ordered Protonix 40 mg oral delayed release tablet Start: 11/29/24 5:19:00 PM EST, 1 tab, PO, Daily, Disp# 30 tab, Refills: 3, [facility]acy: [id number] Start Date: 11/29/24 Status: Ordered Problem List [...] Service Informant Cancer of colon Discharge Diagnosis 12/09/24 Non-Specified Procedures Procedure Date Related Diagnosis Body [...] Most recent to oldest [Reference Range]: 1 Temperature [36.5-37.9 DegC] 36.6 DegC (12/09/24 4:30 PM) Heart Rate 95 bpm (12/09/24 4:30 PM) Respiratory Rate 18 br/min (12/09/24 4:30 PM) Blood Pressure 149/80mmHg (12/09/24 4:30 PM) Mean Blood Pressure 96 mmHg (12/09/24 4:30 PM) Cuff Pulse Pressure 69 mmHg (12/09/24 4:30 PM) BP Location # 1 Right Arm (12/09/24 4:30 PM) Social History Social History Type Response Smoking Status Never smoked cigaret sai Sex Male Sex Representation Male (finding) Patient Care team information Care Team Personnel Name: MD Kaylen, Stoney I Position: Referring DIRECT Member Role: Primary Care Provider Address: [address] [place] [address] Name: Hai Mcneal Kyle Position: Pharmacist Member Role: Pharmacy - Lifetime Address: [address] [place] [address] [place] Name: MD Rich Ying Position: Physician - Pathologist Member Role: Lifetime Relationship Address: [address] [place] [address] [place] Care Team Related Persons Name: NAHED ZHANG Name: NAHED ACUÑA
--- OUTSIDE RECORDS SUMMARY | 2024-12-15 16:42 | External Medical Summary | Continuity of Care Document ---
Author Name Unknown Organization [facility] Address [address] [place] [address] MIKHAIL WADE [id number] Care Team Providers Care Print Line Supervisor Name Role Phone Stoney Abdullahi I Primary Care Physician [phone] Encounter [facility] [phone] Date(s): 12/09/24 - 12/09/24 [facility] [address] [place]IL [place] [phone]- [phone] Discharge Disposition: Home or Self Care Attending [...] BY MOUTH 1 HOUR BEFORE CHEMO, Pharmacy: [id number] Start Date: 11/29/24 Status: Ordered aprepitant 80 mg oral capsule Start: 11/29/24 6:53:00 PM EST, 1 cap, PO, qAM, Disp# 24 cap, Refills: 0, TAKE 1 (80 MG) CAPSULE BY MOUTH ON DAYS 2 & 3., Pharmacy: [id number] Start Date: 11/29/24 Status: Ordered dexAMETHasone 4 mg oral tablet Start: 11/29/24 6:56:00 PM EST, 2 tab, PO, Daily, Disp# 60 tab, Refills: 0, TAKE 2 tablets daily on days 2, 3 & 4., Pharmacy: [facility] Start Date: 11/29/24 Stop Date: 12/29/24 Status: Ordered Imodium 2 mg oral capsule Start: 10/29/24 2:38:00 PM EST, See Instructions, Disp# 30 cap, 1 cap PO after each loose stool notto exceed 8 capsules, or 16 mg, in 24 hours, Pharmacy: [facility] Start Date: 10/29/24 Status: Ordered Keflex 250 mg oral capsule Start: 12/10/24 1:24:00 PM EST, 2 cap, PO, bid, Disp# 28 cap, Refills: 0, [facility] Start Date: 12/10/24 Stop Date: 12/17/24 Status: Ordered ondansetron 4 mg oral tablet Start: 11/25/24 9:45:00 AM EST, 2 tab, PO, tid, Disp# 30 tab, Refills: 1, PRN: as needed for nausea/vomiting, [facility] Start Date: 11/25/24 Status: Ordered Protonix 40 mg oral delayed release tablet Start: 11/29/24 5:19:00 PM EST, 1 tab, PO, Daily, Disp# 30 tab, Refills: 3, Pharmacy: [id number] Start Date: 11/29/24 Status: Ordered Problem List [...] Type Response Smoking Status Never smoked cigaret sia Sex Male Sex Representation Male (finding) Patient Care team information Care Team Personnel Name: MD Abdullahi Lowell I Position: Referring DIRECT Member Role: Primary Care Provider Address: [address] [place] [address] Name: Hai Mcneal Kyle Position: Pharmacist Member Role: Pharmacy - Lifetime Address: [address] [place] [id number] [place] Name: MD Hilario, Shannon Position: Physician - Pathologist Member Role: Lifetime Relationship Address: [address] [place] [address] [place] Care Team Related Persons Name: NAHED ZHANG Name: NAHED ACUÑA
--- OUTSIDE RECORDS SUMMARY | 2024-12-15 16:42 | External Medical Summary | Continuity of Care Document ---
Author Name Unknown Organization [facility] Address [address] [place] [address] MIKHAIL WADE [id number] Care Team Providers Care Asic Verification Engineer Name Role Phone KaylenStoney loyd I Primary Care Physician [phone] Encounter [facility] [id number] Date(s): 11/25/24 - 11/25/24 [facility] [address], [place] [address]- [phone] Encounter Diagnosis Adenocarcinoma of colon metastatic to liver(Discharge Diagnosis) - 11/25/24 Hyperbilirubinemia(Discharge Diagnosis) - 11/26/24 Discharge Disposition: Home or Self Care Attending Physician: MD Cartagena Joseph J Referring Physician: MD Cartagena Joseph J Allergies, Adverse Reactions, Alerts Substance Criticality Severity Reaction Reaction Severity Status penicillin Unable to assess criticality Mild unknown Active levoFLOXacin difficulty breathing Active Assessment and Plan Extracted from: Title:Clinical Document Author:MD Joby , [facility] Date:11/25/24 OUTPATIENT NOTE Name: JOSE HAQUE Patient Number:1 [id number] : 1970 Date of Service: 11/25/2024 HEMATOLOGY-ONCOLOGY STAFF NOTE: Name: Jose Haque. [facility] MRN Number: [id number] : 1970 DATE: 11/25/2024 Hematology-Oncology Problems: 1) Colon Cancer, Lt sided, Sigmoid, Dx 08/2020 s/p Lt hemicolectomy 08/2020; Final Stage IIII (pT3pN1 M0 R0) declined adjuvant chemotherapy at that time and began surveillance. Rising CEA noted in early 2021 and imaging demonstrated metastatic Dz to liver and lung; Began CAPEOX began 02/2022 then with Bevacizumab and was intolerant after 2 months; Had PD in liver?? and s/p Y90 IH infusion 01/2023 and 06/2023 with VT to first Rx. PET 11/2023 showed PD in liver. 02/[address] CAP 10/2024 with new liver mets.IR guided biliary drain placement today. Requested port placement in 1 week. Plan to start single agent 5-FU and panitumumab in 2 weeks Physicians Involved in Care: PCP: Referring: Dr Leon Tang of [facility] Other: Dr Cristopher Wilhelm of [facility] ColoRectal Surg Dr. Campos with MIS CC/History of Presenting Illness/ Treatment Summary to Date: Pt is a 54 y old gentleman and resident of [place], [place] referred by Dr. Tang of [facility] for thoughts on management of recurrent heavily pretreated metastatic colon cancer involving the liver. Pt presented initially with change in stool caliber and with + hemoccult test in 08/2022. He had colo at [facility] which revealed a sigmoid tumor that was colonic adenocarcinoma. He underwent definitive surgery with Lt hemicolectomy on with Dr Wilhelm . Path showed a T3 primary with 0/15 LNs found but one locoregional deposit. Final Stage was III (pT3 pN1 M0 R0). He had visit with Med Onc and declined use of adjuvant chemotherapy for this high-risk sigmoid colon cancer and initiated surveillance alone. He had a rising CEA noted by early 2021 and PET/CT showed 3 FDG avid liver lesion and a 2 x 1 cm RLL lung lesions along with mediastinal LNs. He began CAPEOX chemo in 02/2022 and bevacizumab was added to that in 03/2022. Therapy stopped in with in 2 months due to significant Chest pain and SOB with Cape. Went back on surveillance with eventual Y90 liver-directed therapy x 2 in 01/2023 and again in 06/2023 with VT. He had f/u PET/CT imaging on 12/11/2023. This showed metabolic and volumetric disease progression in the liver. Incidentally some Rt subcarinal and Lt prevascular mediastinal LNs were stable over time, suspicious for chronic inflammatory vs metastatic disease. He had f/u with Dr. Tang in [facility] on 12/11/2023. 02/[address] CAP 10/2024 with new liver mets. Due to worsening hyperbilirubinemia, we recommended stent but there was no lesion/stricture noted on ERCP. So we planned for IR guided biliary drain. Interim History/Current Status: Patient was scheduled for biliary drain around holidays,. so he got it rescheduled and is due for today. He continues to work but reports difficulty eating and can manage only eggs and oatmeal. He also complains of fatigue, yellow discoloration and itching. He wanted to know about any scope for therabionic. We mentioned that it is used in metastatic HCC and thus not a treatment option for him We talked to him about single agent capecitabine but he would not like to get any treatment from CAPEOX regimen. We talked about rising bilirubin, LFTs, CEA titers and thus worse prognosis. Patient is agreeable for biliary drain and systemic therapy. He is hoping it will help with appetite, jaundice and itching. 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/Exercise habits: Work as above Marital Status/Family: Unmarried Spirituality: Social Support: Family and Friends Other: Medications: Medication list reviewed and reconciled in EHR Prescription: OTC self-prescribed: none Family History: Cancer: Cousin and Maternal Uncle has Colon cancer Other: Tumor Markers: CEA 06/2023: 68.5 CEA 12/2023: 90.8 CEA 01/2024 147.9 CEA 11/2024 910 Studies/Labs/Path: see HPI and EHR Special tests: Caris NGS: MSI-S, KRAS neg, NRAS neg, BRAF neg All labs, radiography studies and pathology reports reviewed in EHR Physical Exam: (Ht 160 cm Wt 97.7 kg) ECOG PS = 0, Pain score = 0/10 VS: BP 131/67 P 89 R 18 T 36.5 Wt today 93.1 kg BMI: 38.16 GEN: WD WN, A, Ox3, jaundiced, fect in NAD, HEENT: no mucosal lesions COR: RRR, 3/6 SULAIMAN at apex LUNGS: CTA bilat ABD: NT, no organomegaly or masses; Large fat pad in lower abdomen LYMPH: no cervical, supraclav, axillary or inguinal LAD EXT: no edema SKIN: no rash, GAIT: normal NEURO/MS: grossly intact MS: FROM all joints, no percussive spine tenderness Handedness: Rt Mediport: No Impression: 53 Y M with Stage III (pT3 pN1 M0 R0) Dx in Oct 2020 S/p Lt hemicolectomy. Denied adjuvant chemo and was kept on surveillance. Later with Metastatic Recurrence of disease in January 2022 in Liver and Lung. S/p brief treatment with CapeOX and discontinued due to intolerance. S/p Y90 Radioembolization of liver mets in 02/06 and 07/09 with Partial response. Now with PD in liver mets based on most recent PET scan on 12/11. At this point patient's main sites of disease are liver as well as thoracic lymph nodes. Although given stability of thoracic lymph nodes over the course of time without treatment making them suspicious for inflammatory rather than metastatic disease. In regards to metastatic liver disease, the options for patients include repeat Y90 vs SBRT versus resection of metastatic disease. Based on review of imaging, SBRT seems unlikely but patient is following with radiation oncology and will reach out to them in regards to that. Patient also has scheduled visit with surgical oncology today in regards to possible resection of metastatic disease. If patient is deemed candidate for liver resection, we will get a biopsy of thoracic lymph node to rule out metastatic disease and he can undergo liver resection with close follow-up after. If he is not a candidate for liver resection the options include FOLFOX plus panitumumab, irinotecan plus panitumumab, Lonsurf plus bevacizumab. Unfortunately patient is adamant of not getting up Mediport which will limit his options to single agent Lonsurf which is not an ideal treatment. Did have Y90 02/2024. More recently hospitalized for diarrhea.CTCAP 10/2024 with increased liver mets. stent placement attempted but unfortunately unable to be done due to extent of disease. CVIR consulted for biliary drain and due today. Previously discussed option lonsurf- but will need to have improvement in LFTs to give lonsurf. We offered Capecitabine + Panitumomab but patient doesn't want to try it given heart issues from CAPEOX in the past. We recommended single agent 5-FU and panitumumab. Patient Counseling and Education: We discussed the diagnosis, prognosis and management of recurrent metastatic colon cancer involving the liver s/p chemotherapy and liver directed therapy using Y90. Pt concurred with the overall plan. Plan: 1) Will obtain basic labs with CBC, CMP, LDH, CEA, CA 19-9 2) Due for IR guided biliary drain today 3) Will request port placement in 1 week 4) Will schedule for 5-FU, leucovorin and panitumumab q2 weeks Running Cancer Treatment Summary Here: 1) Initial Evaluation 2) Plan for C1 5-FU, leucovorin and panitumumab on 12/09/24 Attending Comments: Pt was seen and evaluated together with Dr Espinoza and the clinic team. I concur with findings, assessment and plan as outlined above. Activities that I specifically performed included review of the medical record, obtaining a history, counseling and educating the patient, documenting the care of the medical record, and the coordination of care. The management plan was also 100% formulated by me, Dr Cartagena, and involved time outside of the clinic encounter. Pt gets perc biliary drain today and will get mediport. Will plan 5FU/Leuc and panitumumab which can be used in him and hope for meaningful response Medications Imodium 2 mg oral capsule Start: 10/29/24 2:38:00 PM EST, See Instructions, Disp# 30 cap, 1 cap PO after each loose stool notto exceed 8 capsules, or 16 mg, in 24 hours, Pharmacy: [facility] Start Date: 10/29/24 Status: Ordered ondansetron 4 mg oral tablet Start: 11/25/24 9:45:00 AM EST, 2 tab, PO, tid, Disp# 30 tab, Refills: 1, PRN: as needed for nausea/vomiting, Pharmacy: [id number] Start Date: 11/25/24 Status: Ordered valsartan 80 mg oral tablet Start: 06/23/24 12:18:00 PM EDT, 1 tab, PO, Daily, Disp# 90 tab, Refills: 3, Pharmacy: [id number] Start Date: 06/23/24 Status: Ordered Mental Status 11/25/24 Barriers to Learning one year Vision imp airment Mandatory Health Literacy Documentation Yes Health Literacy Communication Barriers N ever Primary Language Cuban Problem List Condition Confirmation Course Effective Dates [...] of colon metastatic to liver Discharge Diagnosis 11/25/24 Non-Specified Hyperbilirubinemia Discharge Diagnosis 11/26/24 Procedures Procedure Date Related Diagnosis Body Site [...] colorectal surgery Results Laboratory List Name Date Carcinoembryonic Antigen (CEA) 11/25/24 Complete Blood Count w Differential (CBC ,DIFFH) 11/25/24 Comprehensive Metabolic Panel (COMP META B PANEL) 11/25/24 Lactate Dehydrogenase (LD) 11/25/24 Most recent to oldest [Reference Range]: 1 eGFR CKD-EPI [>60 mL/min/1.73 m2] >90 mL /min/1.73 m2 (11/25/24 8:24 AM) Estimated CrCl 350.25 mL/min (11/25/24 9:50 AM) MPV [9.0-12.2 fL] 12.6 fL *HI* (11/25/24 8:24 AM) Immature Gran% 4.3 % (11/25/24 8:24 AM) Neut% 80.5 % (11/25/24 8:24 AM) Lymph% 5.8 % (11/25/24 8:24 AM) [place]% 7.9 % (11/25/24 8:24 AM) Baso% 0.7 % (11/25/24 8:24 AM) Eos% 0.8 % (11/25/24 8:24 AM) Immat Gran, Abs [0-0.4 K/uL] 0.42 K/uL *HI* (11/25/24 8:24 AM) Neut, Abs [2.0-7.7 K/uL] 7.80 K/uL *HI* (11/25/24 8:24 AM) Lymph, Abs [1.0-3.4 K/uL] 0.56 K/uL *LOW* (11/25/24 8:24 AM) [place], Abs [0-1.0 K/uL] 0.77 K/uL (11/25/24 8:24 AM) Baso, Abs [0-0.1 K/uL] 0.07 K/uL (11/25/24 8:24 AM) Eos, Abs [0-0.5 K/uL] 0.08 K/uL (11/25/24 8:24 AM) Type of Diff: AUTO *Unknown* (11/25/24 8:24 AM) RDW [11.5-14.2 %] 18.6 % *HI* (11/25/24 8:24 AM) Anion Gap [5-14 mmol/L] 14 mmol/L (11/25/24 8:24 AM) Alb [3.5-5.2 g/dL] 3.2 g/dL *LOW* (11/25/24 8:24 AM) Alk Phos [40-130 unit/L] 312 unit/L 1 *HI* (11/25/24 8:24 AM) ALT [0-41 unit/L] 93 unit/L *HI* (11/25/24 8:24 AM) AST [0-40 unit/L] 178 unit/L *HI* (11/25/24 8:24 AM) BUN [6-23 mg/dL] 12 mg/dL (11/25/24 8:24 AM) Ca [8.4-10.2 mg/dL] 9.0 mg/dL (11/25/24 8:24 AM) CEA [<4.8 ng/mL] 910.5 ng/mL 2 *HI* (11/25/24 8:24 AM) Cl- [98-107 mmol/L] 102 mmol/L (11/25/24 8:24 AM) HCO3 [22-29 mmol/L] 20 mmol/L *LOW* (11/25/24 8:24 AM) Cret [0.70-1.30 mg/dL] 0.23 mg/dL 3 *LOW* (11/25/24 8:24 AM) Glu [74-109 mg/dL] 112 mg/dL 4 *HI* (11/25/24 8:24 AM) Hct [39-48 %] 34.4 % *LOW* (11/25/24 8:24 AM) Hgb [13.0-17.0 g/dL] 11.3 g/dL *LOW* (11/25/24 8:24 AM) K [3.5-5.1 mmol/L] 3.4 mmol/L *LOW* (11/25/24 8:24 AM) LDH [135-250 unit/L] 451 unit/L *HI* (11/25/24 8:24 AM) MCH [28-33 pg] 29.7 pg (11/25/24 8:24 AM) MCHC [32-36 g/dL] 32.8 g/dL (11/25/24 8:24 AM) MCV [81-96 fL] 90.3 fL (11/25/24 8:24 AM) Na [136-145 mmol/L] 136 mmol/L (11/25/24 8:24 AM) Plts [150-350 K/uL] 185 K/uL (11/25/24 8:24 AM) RBC [4.40-5.60 M/uL] 3.81 M/uL *LOW* (11/25/24 8:24 AM) T Bili [0.0-1.2 mg/dL] 25.8 mg/dL *HI* (11/25/24 8:24 AM) Prot [6.4-8.3 g/dL] 6.6 g/dL 5 (11/25/24 8:24 AM) WBC [4.0-10.4 K/uL] 9.70 K/uL (11/25/24 8:24 AM) 1Result Comment: Low levels of ALKP may indicate a deficiency in zinc, magnesium, or malnutritionbutcan also be an indicator of a rare genetic disease hypophosphatasia (HPP). 2Result Comment: NON-SMOKERS (PAST/NEVER SMOKERS) 20-69 (YEARS) 3.8 NG/ML (95TH PERCENTILE) 40-69 (YEARS) 5.0 NG/ML (95TH PERCENTILE) SMOKERS (CURRENT) 20-69 (YEARS) 5.5 NG/ML (95TH PERCENTILE) 40-69 (YEARS) 6.5 NG/ML (95TH PERCENTILE) "Methodology: Fina Ele[employer]ys CEA assay performed on the afshan e 601/602 analyzerutilizing electrochemiluminescence immunoassay technology (ECLIA). Results obtained with different assay methods or kitscannot be used interchangeably." 3Result Comment: ICTERIC SPECIMEN 4Result Comment: ADA recommendation for FASTING Serum/Plasma Glucose: Normal: 70-100 mg/dL Prediabetes: 100-125 mg/dL Diabetes: 126 mg/dL or higher 5Result Comment: ICTERIC SPECIMEN Vital Signs Most recent to oldest [Reference Range]: 1 Height 160.0 cm (11/25/24 9:19 AM) Patient Weight 87.3 kg (11/25/24 9:19 AM) Body Mass Index 34.1 kg/m2 (11/25/24 9:19 AM) Temperature [36.5-37.9 DegC] 36.0 DegC *LOW* (11/25/24 9:19 AM) Heart Rate 97 bpm (11/25/24 9:19 AM) Respiratory Rate 18 br/min (11/25/24 9:19 AM) Blood Pressure 147/83mmHg (11/25/24 9:19 AM) Cuff Pulse Pressure 64 mmHg (11/25/24 9:19 AM) BP Location # 1 Right Arm (11/25/24 9:19 AM) Social History Social History Type Response Smoking Status Never smoked cigaret sai Sex Male Sex Representation Male (finding) Outpatient Note * DrabiMD cain Joseph J: MODIFY MD Cartagena Joseph J: MODIFY, MODIFY, MODIFY, MODIFY, MODIFY, MODIFY, MODIFY, MODIFY, PERFORM Event Display: .Outpt Note Authored Date: [id number] OUTPATIENT NOTE Name: JOSE HAQUE Patient Number:1 [id number] : 1970 Date of Service: 11/25/2024 HEMATOLOGY-ONCOLOGY STAFF NOTE: Name: Jose Haque. [facility] MRN Number: [id number] : 1970 DATE: 11/25/2024 Hematology-Oncology Problems: 1) Colon Cancer, Lt sided, Sigmoid, Dx 08/2020 s/p Lt hemicolectomy 08/2020; Final Stage IIII (pT3pN1 M0 R0) declined adjuvant chemotherapy at that time and began surveillance. Rising CEA noted in early 2021 and imaging demonstrated metastatic Dz to liver and lung; Began CAPEOX began 02/2022 then with Bevacizumab and was intolerant after 2 months; Had PD in liver?? and s/p Y90 IH infusion 01/2023 and 06/2023 with VT to first Rx. PET 11/2023 showed PD in liver. 02/[address] CAP 10/2024 with new liver mets.IR guided biliary drain placement today. Requested port placement in 1 week. Plan to start single agent 5-FU and panitumumab in 2 weeks Physicians Involved in Care: PCP: Referring: Dr Leon Tang of [facility] Other: Dr Cristopher Wilhelm of [facility] ColoRectal Surg Dr. Campos with MIS CC/History of Presenting Illness/ Treatment Summary to Date: Pt is a 54 y old gentleman and resident of [place], [place] referred by Dr. Tang of [facility] for thoughts on management of recurrent heavily pretreated metastatic colon cancer involving the liver. Pt presented initially with change in stool caliber and with + hemoccult test in 08/2022. He had colo at [facility] which revealed a sigmoid tumor that was colonic adenocarcinoma. He underwent definitive surgery with Lt hemicolectomy on with Dr Wilhelm . Path showed a T3 primary with 0/15 LNs found but one locoregional deposit. Final Stage was III (pT3 pN1 M0 R0). He had visit with Med Onc and declined use of adjuvant chemotherapy for this high-risk sigmoid colon cancer and initiated surveillance alone. He had a rising CEA noted by early 2021 and PET/CT showed 3 FDG avid liver lesion and a 2 x 1 cm RLL lung lesions along with mediastinal LNs. He began CAPEOX chemo in 02/2022 and bevacizumab was added to that in 03/2022. Therapy stopped in with in 2 months due to significant Chest pain and SOB withCape. Went back on surveillance with eventual Y90 liver-directed therapy x 2 in 01/2023 and again in06/2023 with VT. He had f/u PET/CT imaging on 12/11/2023. This showed metabolic and volumetric disease progression in the liver. Incidentally some Rt subcarinal and Lt prevascular mediastinal LNs were stable over time, suspicious for chronic inflammatory vs metastatic disease. He had f/u with Dr. Lissette Rdz on 12/11/2023. 02/[address] CAP 10/2024 with new liver mets. Due to worsening hyperbilirubinemia, we recommended stent but there was no lesion/stricture noted on ERCP. So we planned for IR guided biliary drain. Interim History/Current Status: Patient was scheduled for biliary drain around holidays,. so he got it rescheduled and is due for today. He continues to work but reports difficulty eating and can manage only eggs and oatmeal. He also complains of fatigue, yellow discoloration and itching. He wanted to know about any scope for ther abionic. We mentioned that it is used in metastatic HCC and thus not a treatment option for him We talked to him about single agent capecitabine but he would not like to get any treatment from CAPEOX regimen. We talked about rising bilirubin, LFTs, CEA titers and thus worse prognosis. Patient is agreeable for biliary drain and systemic therapy. He is hoping it will help with appetite, jaundice and itching. 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/Exercise habits: Work as above Marital Status/Family: Unmarried Spirituality: Social Support: Family and Friends Other: Medications: Medication list reviewed and reconciled in EHR Prescription: OTC self-prescribed: none Family History: Cancer: Cousin and Maternal Uncle has Colon cancer Other: Tumor Markers: CEA 06/2023: 68.5 CEA 12/2023: 90.8 CEA 01/2024 147.9 CEA 11/2024 910 Studies/Labs/Path: see HPI and EHR Special tests: Caris NGS: MSI-S, KRAS neg, NRAS neg, BRAF neg All labs, radiography studies and pathology reports reviewed in EHR Physical Exam: (Ht 160 cm Wt 97.7 kg) ECOG PS = 0, Pain score = 0/10 VS: BP 131/67 P 89 R 18 T 36.5 Wt today 93.1 kg BMI: 38.16 GEN: WD WN, A, Ox3, jaundiced, fect in NAD, HEENT: no mucosal lesions COR: RRR, 3/6 SULAIMAN at apex LUNGS: CTA bilat ABD: NT, no organomegaly or masses; Large fat pad in lower abdomen LYMPH: no cervical, supraclav, axillary or inguinal LAD EXT: no edema SKIN: no rash, GAIT: normal NEURO/MS: grossly intact MS: FROM all joints, no percussive spine tenderness Handedness: Rt Mediport: No Impression: 53 Y M with Stage III (pT3 pN1 M0 R0) Dx in Oct 2020 S/p Lt hemicolectomy. Denied adjuvant chemo and was kept on surveillance. Later with Metastatic Recurrence of disease in January 2022 in Liver and Lung. S/p brief treatment with CapeOX and discontinued due to intolerance. S/p Y90 Radioembolization of liver mets in 02/06 and 07/09 with Partial response. Now with PD in liver mets based on most recentPET scan on 12/11. At this point patient's main sites of disease are liver as well as thoracic lymph nodes. Although given stability of thoracic lymph nodes over the course of time without treatment making them suspicious for inflammatory rather than metastatic disease. In regards to metastatic liver disease, the options for patients include repeat Y90 vs SBRT versus resection of metastatic disease. Based on review of imaging, SBRT seems unlikely but patient is following with radiation oncology and will reach out to them in regards to that. Patient also has scheduled visit with surgical oncology today in regards to possible resection of metastatic disease. If patient is deemed candidate for liver resection, we will get a biopsy of thoracic lymph node to rule out metastatic disease and he can undergo liver resection with close follow-up after. If he is not a candidate for liver resection the options include FOLFOX plus panitumumab, irinotecan plus panitumumab, Lonsurf plus bevacizumab. Unfortunately patient is adamant of not getting up Mediport which will limit his options to single agent Lonsurf which is not an ideal treatment. Did haveY90 02/2024. More recently hospitalized for diarrhea.CTCAP 10/2024 with increased liver mets. stent placement attempted but unfortunately unable to be done due to extent of disease. CVIR consulted forbiliary drain and due today. Previously discussed option lonsurf-but will need to have improvement in LFTs to give lonsurf. We offered Capecitabine + Panitumomab but patient doesn't want to try it given heart issues from CAPEOX in the past. We recommended single agent 5-FU and panitumumab. Patient Counseling and Education: We discussed the diagnosis, prognosis and management of recurrent metastatic colon cancer involvingthe liver s/p chemotherapy and liver directed therapy using Y90. Pt concurred with the overall plan. Plan: 1) Will obtain basic labs with CBC, CMP, LDH, CEA, CA 19-9 2) Due for IR guided biliary drain today 3) Will request port placement in 1 week 4) Will schedule for 5-FU, leucovorin and panitumumab q2 weeks Running Cancer Treatment Summary Here: 1) Initial Evaluation 2) Plan for C1 5-FU, leucovorin and panitumumab on 12/09/24 Attending Comments: Pt was seen and evaluated together with Dr Espinoza and the clinic team. I concur with findings, assessment and plan as outlined above. Activities that I specifically performed included review of the medical record, obtaining a history, counseling and educating the patient, documenting the care of the medical record, and the coordination of care. The management plan was also 100% formulated by me, Dr Cartagena, and involved time outside of the clinic encounter. Pt gets perc biliary drain today and will get mediport. Will plan 5FU/Leuc and panitumumab which can be used in him and hope for meaningful response Electronic Signature on File Electronically Reviewed/Signed by: Ashley Hemphill MD Author Signature Dt/Tm:11/25/2024 02:16PM Resident Division of Hematology Oncology Electronically Reviewed/Signed by: Kolby Cartagena MD, FACP Cosigner Signature Dt/Tm: 11/26/2024 09:06 AM transmission design engineer Division of Hematology-Oncology [facility] [address], [address], [place] [address] SP Patient Care team information Care Team Personnel Name: MD Kaylen, Stoney Feng Position: Referring DIRECT Member Role: Primary Care Provider Address: [address] [place] [address] [address] [place] [address] [place] Name: Hai Mcneal Kyle Position: Pharmacist Member Role: Pharmacy - Lifetime Address: [address] [place] [address] [place] Name: MD Hilario, Shannon Position: Physician - Pathologist Member Role: Lifetime Relationship Address: [address] [place] [address] [place] Care Team Related Persons Name: NAHED ZHANG Name: NAHED ACUÑA
--- OUTSIDE RECORDS SUMMARY | 2024-12-15 16:42 | External Medical Summary | Continuity of Care Document ---
Author Name Unknown Organization [facility] [address] [facility] [address] Address [address] [place], [place] [id number] Care Team Providers Care Health Records Technology Teacher Name Role Phone Stoney Abdullahi I Primary Care Physician [phone] [id number]s): 12/07/24 - 12/07/[address] [facility] [address] [facility], [facility] 1 [place], [place] [phone] Encounter Diagnosis Malignant neoplasm of colon, unspecified(Final) [...] BY MOUTH 1 HOUR BEFORE CHEMO, Pharmacy: [email or web address] Start Date: 11/29/24 Status: Ordered aprepitant 80 mg oral capsule Start: 11/29/24 6:53:00 PM EST, 1 cap, PO, qAM, Disp# 24 cap, Refills: 0, TAKE 1 (80 MG) CAPSULE BY MOUTH ON DAYS 2 & 3., Pharmacy: [facility] Start Date: 11/29/24 Status: Ordered dexAMETHasone 4 mg oral tablet Start: 11/29/24 6:56:00 PM EST, 2 tab, PO, Daily, Disp# 60 tab, Refills: 0, TAKE 2 tablets daily on days 2, 3 & 4., Pharmacy: [email or web address] Start Date: 11/29/24 Stop Date: 12/29/24 Status: Ordered Imodium 2 mg oral capsule Start: 10/29/24 2:38:00 PM EST, See Instructions, Disp# 30 cap, 1 cap PO after each loose stool notto exceed 8 capsules, or 16 mg, in 24 hours, Pharmacy: [facility] Start Date: 10/29/24 Status: Ordered Keflex 250 mg oral capsule Start: 12/09/24 4:20:00 PM EST, 2 cap, PO, bid, Disp# 28 cap, Refills: 0, Pharmacy: [facility] Start Date: 12/09/24 Stop Date: 12/16/24 Status: Ordered ondansetron 4 mg oral tablet Start: 11/25/24 9:45:00 AM EST, 2 tab, PO, tid, Disp# 30 tab, Refills: 1, PRN: as needed for nausea/vomiting, Pharmacy: [email or web address] Start Date: 11/25/24 Status: Ordered Protonix 40 mg oral delayed release tablet Start: 11/29/24 5:19:00 PM EST, 1 tab, PO, Daily, Disp# 30 tab, Refills: 3, Pharmacy: [email or web address] Start Date: 11/29/24 Status: Ordered Problem List [...] Laboratory List Name Date Carcinoembryonic Antigen (CEA) 12/07/24 Complete Blood Count w Differential (CBC ,DIFFH) 12/07/24 Comprehensive Metabolic Panel (COMP META B PANEL) 12/07/24 Lactate Dehydrogenase (LD) 12/07/24 Magnesium Level (MAGNESIUM) 12/07/24 Most recent to oldest [Reference Range]: 1 eGFR CKD-EPI [>60 mL/min/1.73 m2] >90 mL /min/1.73 m2 1 (12/07/24 10:40 AM) Estimated CrCl 97.06 mL/min (12/07/24 11:15 AM) MPV [9.0-12.2 fL] NOT AVAILABLE fL (12/07/24 10:40 AM) Immature Gran% 2.1 % (12/07/24 10:40 AM) Neut% 84.4 % (12/07/24 10:40 AM) Lymph% 5.0 % (12/07/24 10:40 AM) Collier% 7.2 % (12/07/24 10:40 AM) Baso% 0.6 % (12/07/24 10:40 AM) Eos% 0.7 % (12/07/24 10:40 AM) Immat Gran, Abs [0-0.4 K/uL] 0.17 K/uL (12/07/24 10:40 AM) Neut, Abs [2.0-7.7 K/uL] 6.87 K/uL (12/07/24 10:40 AM) Lymph, Abs [1.0-3.4 K/uL] 0.41 K/uL *LOW* (12/07/24 10:40 AM) Collier, Abs [0-1.0 K/uL] 0.59 K/uL (12/07/24 10:40 AM) Baso, Abs [0-0.1 K/uL] 0.05 K/uL (12/07/24 10:40 AM) Eos, Abs [0-0.5 K/uL] 0.06 K/uL (12/07/24 10:40 AM) Type of Diff: AUTO *Unknown* (12/07/24 10:40 AM) RDW [11.5-14.2 %] 16.3 % *HI* (12/07/24 10:40 AM) Anion Gap [5-14 mmol/L] 4 mmol/L *LOW* (12/07/24 10:40 AM) Alb [3.5-5.0 g/dL] 3.3 g/dL *LOW* (12/07/24 10:40 AM) Alk Phos [38-126 unit/L] 163 unit/L *HI* (12/07/24 10:40 AM) ALT [<50 unit/L] 102 unit/L *HI* (12/07/24 10:40 AM) AST [15-46 unit/L] 208 unit/L *HI* (12/07/24 10:40 AM) BUN [7-20 mg/dL] 15 mg/dL (12/07/24 10:40 AM) Ca [8.4-10.2 mg/dL] 8.9 mg/dL (12/07/24 10:40 AM) CEA [<4.8 ng/mL] 1208.0 ng/mL 2 *HI* (12/07/24 10:40 AM) Cl- [96-107 mmol/L] 110 mmol/L *HI* (12/07/24 10:40 AM) HCO3 [22-30 mmol/L] 23 mmol/L (12/07/24 10:40 AM) Cret [0.70-1.30 mg/dL] 0.83 mg/dL (12/07/24 10:40 AM) Glu [74-106 mg/dL] 118 mg/dL *HI* (12/07/24 10:40 AM) Hct [39-48 %] 36.8 % *LOW* (12/07/24 10:40 AM) Hgb [13.0-17.0 g/dL] 11.4 g/dL *LOW* (12/07/24 10:40 AM) K [3.5-5.1 mmol/L] 3.8 mmol/L (12/07/24 10:40 AM) LDH [120-246 unit/L] 478 unit/L 3 *HI* (12/07/24 10:40 AM) MCH [28-33 pg] 30.7 pg (12/07/24 10:40 AM) MCHC [32-36 g/dL] 31.0 g/dL *LOW* (12/07/24 10:40 AM) MCV [81-96 fL] 99.2 fL *HI* (12/07/24 10:40 AM) Mg [1.6-2.3 mg/dL] 2.2 mg/dL 4 (12/07/24 10:40 AM) Na [137-145 mmol/L] 137 mmol/L (12/07/24 10:40 AM) Plts [150-350 K/uL] 131 K/uL 5 *LOW* (12/07/24 10:40 AM) RBC [4.40-5.60 M/uL] 3.71 M/uL *LOW* (12/07/24 10:40 AM) T Bili [0.2-1.3 mg/dL] 15.2 mg/dL *HI* (12/07/24 10:40 AM) Prot [6.3-8.2 g/dL] 8.0 g/dL (12/07/24 10:40 AM) WBC [4.0-10.4 K/uL] 8.15 K/uL (12/07/24 10:40 AM) 1Result Comment: Testing Performed By: Dept of Pathology [facility] [address], [facility] [address], [place] [address] 2Result Comment: NON-SMOKERS (PAST/NEVER SMOKERS) 20-69 (YEARS) 3.8 NG/ML (95TH PERCENTILE) 40-69 (YEARS) 5.0 NG/ML (95TH PERCENTILE) SMOKERS (CURRENT) 20-69 (YEARS) 5.5 NG/ML (95TH PERCENTILE) 40-69 (YEARS) 6.5 NG/ML (95TH PERCENTILE) "Methodology: Fina Elecsys CEA assay performed on the afshan e 601/602 analyzerutilizing electrochemiluminescence immunoassay technology (ECLIA). Results obtained with different assay methods or kitscannot be used interchangeably." 3Result Comment: Testing Performed By: Dept of Pathology [facility] [address], [address], [place] [address] 4Result Comment: Testing Performed By: Dept of Pathology [facility] [address], [address], [place] [address] 5Result Comment: CHECKED Social History Social History Type Response Smoking Status Never smoked cigaret sai Sex Male Sex Representation Male (finding) Patient Care team information Care Team Personnel Name: MD Kaylen, Stoney Feng Position: Referring DIRECT Member Role: Primary Care Provider Address: [address] [place] [address] [place] Name: Hai Mcneal Kyle Position: Pharmacist Member Role: Pharmacy - Lifetime Address: [address] [place] [id number] [place] Name: MD Hilario, Shannon Position: Physician - Pathologist Member Role: Lifetime Relationship Address: [address] [place] [address] Care Team Related Persons Name: NAHED ZHANG Name: NAHED ACUÑA
--- OUTSIDE RECORDS SUMMARY | 2024-12-15 16:43 | External Medical Summary | Continuity of Care Document ---
Author Name Unknown Organization [facility] Address [address] [place] [address] MIKHAIL WADE [id number] Care Team Providers Care Medication Technician Name Role Phone Stoney Abdullahi I Primary Care Physician [phone] [id number] Date(s): 11/02/24 - 11/02/24 [facility] [address], [place] [address] [phone] Encounter Diagnosis Adenocarcinoma of colon metastatic to liver(Discharge Diagnosis) - 11/02/24 Discharge Disposition: Home or Self Care Attending Physician: MD Cartagena Joseph J Referring Physician: MD Cartagena Joseph J Allergies, Adverse Reactions, Alerts Substance Criticality Severity Reaction Reaction Severity Status penicillin Unable to assess criticality Mild unknown Active levoFLOXacin difficulty breathing Active Medications Imodium 2 mg oral capsule Start: 10/29/24 2:38:00 PM EST, See Instructions, Disp# 30 cap, 1 cap PO after each loose stool notto exceed 8 capsules, or 16 mg, in 24 hours, Pharmacy: [facility] Start Date: 10/29/24 Status: Ordered valsartan 80 mg oral tablet Start: 06/23/24 12:18:00 PM EDT, 1 tab, PO, Daily, Disp# 90 tab, Refills: 3, [email or web address] Start Date: 06/23/24 Status: Ordered Mental Status 11/02/24 Barriers to Learning one year Vision imp airment Mandatory Health Literacy Documentation Yes Health Literacy Communication Barriers N ever Primary Language Spanish Problem List Condition Confirmation Course Effective Dates [...] of colon metastatic to liver Discharge Diagnosis 11/02/24 Procedures Procedure Date Related Diagnosis Body Site [...] Most recent to oldest [Reference Range]: 1 Patient Weight 93.1 kg (11/02/24 2:14 PM) Temperature [36.5-37.9 DegC] 36.5 DegC (11/02/24 2:14 PM) Heart Rate 89 bpm (11/02/24 2:14 PM) Respiratory Rate 20 br/min (11/02/24 2:14 PM) Blood Pressure 131/67mmHg (11/02/24 2:14 PM) Cuff Pulse Pressure 64 mmHg (11/02/24 2:14 PM) BP Location # 1 Right Arm (11/02/24 2:14 PM) Social History Social History Type Response Smoking Status Never smoked cigaret sai Sex Male Sex Representation Male (finding) Patient Care team information Care Team Personnel Name: MD Abdullahi Lowell I Position: Referring DIRECT Member Role: Primary Care Provider Address: [address] [place] [address] Name: Hai Mcneal Kyle Position: Pharmacist Member Role: Pharmacy - Lifetime Address: [address] [place] [id number] Name: MD Rich Ying Position: Physician - Pathologist Member Role: Lifetime Relationship Address: [address] [place] [address] Care Team Related Persons Name: NAHED ZHANG Name: NAHED ACUÑA
--- OUTSIDE RECORDS SUMMARY | 2024-12-15 16:43 | External Medical Summary | Summary of Care ---
Author Name Unknown Organization [facility] Address [address] [place] [address] Phone [phone] Care Team Providers Care [facility] Television Rental Clerk Name Role Phone Stoney Abdullahi MD Primary Care Provider Encounter Details Date Type Department Care Team (Late st Contact Info) Description 11/01/2024 Result Scan Unspecified Department <No scans attached> Allergies Active Allergy Reactions Criticality Noted Date Comments Levofloxacin 07/30/2022 Other reaction(s): difficulty breathing Penicillins 03/02/2021 documented as of this encounter (statuses as of 11/02/2024) Medications Spironolactone 25 MG Oral Tablet (Aldactone) 1 Tablet. 2 Active Furosemide 20 MG Oral Tablet (Lasix) 2 Active Valsartan 80 MG Oral Tablet (Diovan) 1 Tablet. 2 Active Pantoprazole Sodium 20 MG Oral Tablet Delayed Release (Protonix) Take 1 Tablet by mouth in the morning. Active Fluconazole 100 MG Oral Tablet (Diflucan) Two tablets on the first day, then One tablet once a day for nine days. 11 Tablet 4 Active Additional Information Patient not taking.Reported on 10/21/2024 Tamsulosin HCl 0.4 MG Oral Capsule (Flomax) 1 Capsule. 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 06/21/2022 Pulmonary HTN 06/14/2022 Diastolic CHF 05/24/2022 Mitral valve insufficiency 05/24/2022 documented as of this encounter (statuses as of 11/02/2024) Resolved Problems Problem Noted Date Diagnosed Date Resolved Date INFORMATION 09/09/2023 09/10/2023 Overview (09/10/2023): Metastatic colon cancer to liver 07/30/2022 09/09/2023 HTN (hypertension) 05/24/2022 documented as of this encounter (statuses as of 11/02/2024) Social History Tobacco Use Types Packs/Day Years Used Date Smoking Tobacco: Never Smokeless Tobacco: Never PHQ-2 Answer Date Recorded PHQ Adult Total Score 0 11/20/2023 Hunger Vital Sign Answer Date Recorded Within the past 12 months, y ou worried that your food would run out before you got the money to buy more. Never true 11/20/19 Within the past 12 months, t he food you bought just didn't last and you didn't have money to get more. Never true 11/20/2023 Childcare Answer Date Recorded Do you feel overwhelmed with taking care of a child, family member or friend? No 11/20/2023 Does your family need help f inding childcare? (Household - for ages 0-17 years) Not on file 11/20/2023 Clothing Answer Date Recorded Have you been unable to get clothing when it was really needed? No 11/20/2023 Is your family able to get c lothes or diapers when needed? (Household - for ages 0-17 years) Not on file 11/20/2023 Personal Safety Answer Date Recorded Do you feel unsafe or have concerns for your saf ety? No 11/20/2023 Do you have concerns for you r family's safety? (Household - for ages 0-17 years) Not on file 11/20/2023 Utilities Answer Date Recorded Do you have trouble paying y our heating, water, or electric bill? No 11/20/2023 Is your family able to pay t he heat, water, or electric bill? (Household - for ages 0-17 years) Not on file 11/20/2023 Does your family have access to good internet? (Household - for ages 0-17 years) Not on file 11/20/2023 Employment Status Answer Date Recorded Are you unemployed or without regular income? No 11/20/2023 Does the household have a re lar source of income? (Household - for ages 0-17 years) Not on file 11/20/2023 Social Connections Answer Date Recorded How often do you feel lonely or isolated from th ose around you? Never 11/20/2023 Financial Resource Strain Answer Date R ecorded Do you have any trouble payi ng for your medications, or do you think you might in the future? No 11/20/2023 Does your family have troubl e paying for medicine? (Household - for ages 0-17 years) Not on file 11/20/2023 Transportation Needs Answer Date Record ed READ ONLY Do you have troubl e getting a ride to medical visits or work? Never True 11/20/2023 Does your family have a hard time getting a ride to doctors visits? (Household - for ages 0-17 years) Not on file 11/20/2023 Has lack of transportation k ept you from medical appointments, meetings, work, or from getting things needed for daily living? Check all that apply. (Adult - for ages 18 years and over) Not on file 11/20/2023 Do you (or your family) have trouble finding or paying for a ride (transportation)? (Household - for ages 0-17 years) Not on file 11/20/2023 Housing Stability Answer Date Recorded Do you currently live in a s helter or have no steady place to sleep at night? No 11/20/2023 READ ONLY Do you think you a re at risk of becoming homeless? No 11/20/2023 Does your family worry about paying for your home or becoming homeless? (Household - for ages 0-17 years) Not on file 0 11/20/2023 Are you homeless or worried that you might be in the future? (Adult - for ages 18 years and over) Not on file Are you (or your family) caesar eless or worried that you might be in the future? (Household - for ages 0-17 years) Not on file Food Insecurity Answer Date Recorded Do you need food for this week? No 11/20/2023 Are you able to get enough f ood for your family? (Household - for ages 0-17 years) Not on file 11/20/2023 Does your family need food t his week? (Household - for ages 0-17 years) Not on file 11/20/2023 Do you always have enough fo od for your family? (Household - for ages 0-17 years) Not on file 11/20/2023 Sex and Gender Information Value Date Recorded Sex Assigned at Not on file Legal Sex Male 5:22 AM EST Gender Identity Not on file Sexual Orientation Not on file documented as of this encounter Plan of Treatment Health Maintenance Due Date Last Done Comments Lipid Panel 1968 HIV Screening 1983 Albumin/Creatinine Ratio 1986 DTap/Tdap Vaccines (1 - Tdap) 1987 Hepatitis B Vaccine (1 of 3 - 19+ 3-dose series) 1987 Cologuard 2013 Colonoscopy 2013 Colorectal Cancer Screening 2013 Fecal Occult Blood Test 2013 Sigmoidoscopy 2013 Zoster Vaccines (1 of 2) 2018 COVID-19 Vaccine ( season) 2024 Influenza Vaccine (FLU shot) (#1) 2024 Depression Screening 11/20/2024 11/20/2023 GFR 10/21/2025 10/21/2024, 10/17, 07/01/2022, Additional history exists Diabetes Screening 10/21/2027 10/21/2024, 1 01/05/2022, 01/23/2022, Additional history exists Hepatitis C Screening Completed 10/21/2024 HPV (Gardasil) Vaccine Aged Out No lo nger eligible based on patient's age to complete this topic MENINGOCOCCAL (MENACTRA/MENVEO) Aged Out No longer eligible based on patient's age to complete this topic Pneumococcal Vaccine: Pediatrics (0 to 5 Years) and At-Risk Patients (6 to 64 Years) Aged Out No longer eligible based on patient's age to complete this topic documented as of this encounter Medical Devices Not on filedocumented as of this encounter Procedures Procedure Name Priority Date/Time Associated Diagnosis Comments PROCEDURE SCANNED RESULT 11/01/2024 documented in this encounter Results * PROCEDURE SCANNED RESULT (11/01/2024) 11/01/2024 us No Physician Data Unknown SURGERY Final Result documented in this encounter Additional Health Concerns Infection Onset Date Last Indicated Resolved Time Gastrointestinal Rule-Out 10/21/2024 10/21/2024 documented as of this encounter Care Teams Hospital Television Rental Clerk Relationship Specialty Start Date End Date Stoney Abdullahi MD [facility] [address] [facility] [place] [address] PCP - General Family Medicine 09/08/23 documented as of this encounter
--- OUTSIDE RECORDS SUMMARY | 2024-12-15 16:43 | External Medical Summary ---
Author Name Unknown Address Unknown Organization K[facility] - [address] [place] [address] Enma. Harsh [place] [id number] Laboratory Report Ordering Provider Test Date Status TOM DECKER 10/21/2024 12:57:32 Final Observation Date Value Abnormality Reference (Units ) Status Color of Urine by Auto 10/21/2024 12:57:32 Brown Abnormal Light Yellow, Yellow, Dark Yellow Final Clarity, Urine 10/21/2024 12:57:32 Cloudy Abnormal Clear Final Glucose [Mass/volume] in Urine by Automated test strip 10/21/2024 12:57:32 100 Abnormal Negative (mg/dL) Final Bilirubin.total [Presence] in Urine by Automated test strip 10/21/2024 12:57:32 Large Abnormal Negative Final Ketones [Mass/volume] in Urine by Automated test strip 10/21/2024 12:57:32 Negative Negative (mg/dL) Final Specific gravity, Urine 10/21/2024 12:57:32 1.027 1.003-1.030 Final Hemoglobin [Presence] in Urine by Automated test strip 10/21/2024 12:57:32 Negative Negative Final pH, Urine 10/21/2024 12:57:32 5.5 5.0-7.5 (Units) Final Protein [Mass/volume] in Urine by Automated test strip 10/21/2024 12:57:32 Trace Abnormal Negative (mg/dL) Final Urobilinogen [Mass/volume] in Urine by Automated test strip 10/21/2024 12:57:32 1.0 0.2, 1.0 (mg/dL) Final Nitrite [Presence] in Urine by Automated test strip 10/21/2024 12:57:32 Negative Negative Final Leukocyte esterase [Presence] in Urine by Automated test strip 10/21/2024 12:57:32 Negative Negative Final Performing Location [facility] - [address] [place] [address]
--- OUTSIDE RECORDS SUMMARY | 2024-12-15 16:43 | External Medical Summary ---
Author Name Unknown Address Unknown Organization K1F:[facility] - [address] [place] [id number] Laboratory Report Ordering Provider Test Date Status TOM DECKER 10/21/2024 12:57:32 Final Observation Date Value Abnormality Reference (Units ) Status RBC, Urine 10/21/2024 12:57:32 0-2 0-2 (/HPF) Final WBC, Urine 10/21/2024 12:57:32 0-2 0-2 (/HPF) Final Bacteria [#/area] in Urine sediment by Microscopy high power field 10/21/2024 12:57:32 0-25 0-25 (/HPF) Final Performing Location [facility] - [address] [place] [address]
--- OUTSIDE RECORDS SUMMARY | 2024-12-15 16:43 | External Medical Summary | Summary of Care ---
Author Name Unknown Organization [facility] Address [address] [place] [address] Phone [phone] Care Team Providers Care Denitrator Operator Name Role Phone Stoney Abdullahi MD Primary Care Provider Reason for Visit * Reason Comments Diarrhea Cold Symptoms Runny nose, cough Weakness, Generalized Encounter Details Date Type Department Care Team (Latest Contact Info) Description 10/21/2024 11:40 AM EST Convenient Care Visit [facility] Convenient [facility] [address] [place] [id number] Abbie Oneill PA-C [address] [place] [address] Generalized weakness*; Jaundice Allergies Active Allergy Reactions Criticality Noted Date Comments Levofloxacin 07/30/2022 Other reaction(s): difficulty breathing Penicillins 03/02/2021 documented as of this encounter (statuses as of 10/21/2024) Medications Spironolactone 25 MG Oral Tablet (Aldactone) [...] as of this encounter (statuses as of 10/21/2024) Active Problems Problem Noted Date Diagnosed Date Essential hypertension 09/10/2023 Thrombocytopenia 09/10/2023 History of colon cancer, stage III 09/09/2023 Overview (09/10/2023): 53M hx met colon adenoca w/liver mets s/p sigmoid colectomy & chemo w/R hepatic mets,s/p lobar R Y90 01/29/2023,PET CT 03/2023 w/increased size segm 4 lesion, decr R lobe lesions;S/p Y90 mapping [facility] Impaired fasting glucose 09/09/2023 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 06/21/2022 Pulmonary HTN 06/14/2022 Diastolic CHF 05/24/2022 Mitral valve insufficiency 05/24/2022 documented as of this encounter (statuses as of 10/21/2024) Resolved Problems Problem Noted Date Diagnosed Date Resolved Date INFORMATION 09/09/2023 09/10/2023 Overview (09/10/2023): Metastatic colon cancer to liver 07/30/2022 09/09/2023 HTN (hypertension) 05/24/2022 documented as of this encounter (statuses as of 10/21/2024) Social History Tobacco Use Types Packs/Day Years Used Date Smoking Tobacco: Never Smokeless Tobacco: Never Tobacco Cessation:Counseling Given: Not Answered PHQ-2 Answer Date Recorded PHQ Adult Total Score 0 11/20/2023 Hunger Vital Sign Answer Date Recorded Within the past 12 months, y ou worried that your food would run out before you got the money to buy more. Never true 11/20/19 24 Within the past 12 months, t he [...] No 11/20/2023 Does the household have a [facility] source of income? (Household - for ages [...] on file documented as of this encounter Last Filed Vital Signs Vital Sign Reading Time Taken Comments Blood Pressure 148/82 10/21/2024 11:12 AM EST Pulse 98 10/21/2024 11:12 AM EST Temperature 36.7 C (98.1 F) 10/21/2024 11:[address] Respiratory Rate 22 10/21/2024 11:12 AM EST Oxygen Saturation 98% 10/21/2024 11:12 AM EST Inhaled Oxygen Concentration - - Weight 93 kg (205 lb) 10/21/2024 11:12 AM EST Height 160 cm (5' 3") 10/21/2024 11:12 AM EST pt reported Body Mass Index 36.31 10/21/2024 11:12 AM EST documented in this encounter Progress Notes * Abbie Oneill PA-C - 10/21/2024 11:21 AM EST Subjective: Jose Haque is a 54 year old male. Chief Complaint Patient presents with Diarrhea Cold Symptoms Runny nose, cough Weakness, Generalized HPI: 54 yo male PMH CHF, HTN, Colon CA with mets to liver presents c/o rhinorrhea, congestion, cough, diarrhea x 1 week. Pt states he is having watery diarrhea, as soon as he eats/drinks anything it goes right through him. He states its at least 5-6+ episodes per day. No blood or black/tarry stools. He states he has also been jaundiced x 1 week, his eyes, skin are yellow, urine is bright orange/yellow in color. No fever, dizziness, cp, sob, wheezing, palpitations, abd pain, vomiting. He follows with [facility] for oncology, has appt next week. 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 Spironolactone 25 MG Oral Tablet (Aldactone) 1 Tablet. (Patient not taking: Reported on 10/21/2024) Furosemide 20 MG Oral Tablet (Lasix) (Patient not taking: Reported on 10/21/2024) Pantoprazole Sodium 20 MG Oral Tablet Delayed Release (Protonix) Take 1 Tablet by mouth in the morning. (Patient not taking: Reported on 10/21/2024) Fluconazole 100 MG Oral Tablet (Diflucan) Two tablets on the first day, then One tablet once a day for nine days. (Patient not taking: Reported on 10/21/2024) 11 Tablet 0 Tamsulosin HCl 0.4 MG Oral Capsule (Flomax) 1 Capsule. (Patient not taking: Reported on 10/21/2024) No current facility-administered medications for this visit. No past medical history on file. No past surgical history on file. Review of patient's allergies indicates: Allergen Reactions Levofloxacin Other reaction(s): difficulty breathing Penicillins No family history on file. No family status information on file. Social History Socioeconomic History Marital status: Single Spouse name: Not on file Number of children: Not on file Years of education: Not on file Highest education level: Not on file Occupational History Not on file Tobacco Use Smoking status: Never Smokeless tobacco: Never Substance and Sexual Activity Alcohol use: Not on file Drug use: Not on file Sexual activity: Not on file Other Topics Concern Not on file Social History Jaron Garcia is one of five siblings. Some steps Mom's side other with colon cancer. Social Needs Financial Resource Strain: Low Risk (11/20/2023) Financial Resource Strain Do you have any trouble paying for your medications, or do you think you might in the future? (Adult - for ages 18 years and over): No Does your family have trouble paying for medicine? (Household - for ages 0-17 years): Not on file Food Insecurity: No Food Insecurity (11/20/2023) Food Insecurity Do you need food for this week? (Adult - for ages 18 years and over): No Are you able to get enough food for your family? (Household - for ages 0-17 years): Not on file Does your family need food this week? (Household - for ages 0-17 years): Not on file Do you always have enough food for your family? (Household - for ages 0-17 years): Not on file Transportation Needs: No Transportation Needs (11/20/2023) Transportation Needs Do you have trouble getting a ride to medical visits or work? (Adult - for ages 18 years and over):Never True Does your family have a hard time getting a ride to doctors visits? (Household - for ages 0-17 years): Not on file Has lack of transportation kept you from medical appointments, meetings, work, or from getting things needed for daily living? Check all that apply. (Adult - for ages 18 years and over): Not on file Do you (or your family) have trouble finding or paying for a ride (transportation)? (Household - for ages 0-17 years): Not on file Social Connections: Socially Integrated (11/20/2023) Social Connections How often do you feel lonely or isolated from those around you? (Adult - for ages 18 years and over): Never Housing Stability: Low Risk (11/20/2023) Housing Stability Do you currently live in a fci or have no steady place to sleep at night? (Adult - for ages 18 years and over): No Do you think you are at risk of becoming homeless? (Adult - for ages 18 years and over): No Does your family worry about paying for your home or becoming homeless? (Household - for ages 0-17 years): Not on file Are you homeless or worried that you might be in the future? (Adult - for ages 18 years and over): Not on file Are you (or your family) homeless or worried that you might be in the future? (Household - for ages0-17 years): Not on file Review of Systems All other systems reviewed and are negative. Objective: BP 148/82 | Pulse 98 | Temp 36.7 C (98.1 F) (Tympanic) | Resp 22 | Ht 1.6 m (5' 3") Comment: ptreported | Wt 93 kg (205 lb) | SpO2 98% | BMI 36.31 kg/m | BSA 2.03 m Physical Exam Vitals and nursing note reviewed. Constitutional: General: He is not in acute distress. Appearance: He is normal weight. Comments: Pt is obviously jaundiced HENT: Head: Normocephalic and atraumatic. Nose: Congestion present. Mouth/Throat: Mouth: Mucous membranes are moist. Pharynx: Oropharynx is clear. Eyes: Conjunctiva/sclera: Conjunctivae normal. Pupils: Pupils are equal, round, and reactive to light. Cardiovascular: Rate and Rhythm: Normal rate. Heart sounds: No murmur heard. No friction rub. No gallop. Pulmonary: Effort: Pulmonary effort is normal. Breath sounds: Normal breath sounds. Abdominal: General: Abdomen is flat. Bowel sounds are normal. Palpations: Abdomen is soft. There is no hepatomegaly, splenomegaly or mass. Tenderness: There is no abdominal tenderness. Musculoskeletal: Cervical back: Neck supple. Skin: General: Skin is warm and dry. Coloration: Skin is jaundiced. Findings: No rash. Neurological: General: No focal deficit present. Mental Status: He is alert and oriented to person, place, and time. GPS STO texted and pt sent to [facility] ED for further evaluation ASSESSMENT: Generalized weakness (Primary) Jaundice Abbie Oneill PA-C documented in this encounter Nursing Notes * Leora Spivey MED ASSIST - 10/21/2024 11:10 AM EST Jose Haque is a 54 year old male who presents to walk-in clinic today complaining of Chief Complaint Patient presents with Diarrhea Cold Symptoms Runny nose, cough Weakness, Generalized X 1 week. Tried imodium and cough syrup. Alone in exam room. documented in this encounter Plan of Treatment Health Maintenance Due Date Last Done Comments Lipid Panel 1968 HIV Screening 1983 Albumin/Creatinine Ratio 1986 Hepatitis C Screening 1986 DTap/Tdap Vaccines (1 - Tdap) 1987 Hepatitis B Vaccine (1 of 3 - 19+ 3-dose series) 1987 Cologuard 2013 Colonoscopy 2013 Colorectal Cancer Screening 2013 Fecal Occult Blood Test 2013 Sigmoidoscopy 2013 Zoster Vaccines (1 of 2) 2018 GFR 11/04/2023 11/04/2022, 06/17, 07/01/2022, Additional history exists COVID-19 Vaccine ( season) 2024 Influenza Vaccine (FLU shot) (#1) 2024 Depression Screening 11/20/2024 11/20/2023 Diabetes Screening 11/04/2025 11/04/2022, 0 01/23/2022, 01/08/2022, Additional history exists HPV (Gardasil) Vaccine Aged Out No lo [...] Not on filedocumented as of this encounter Visit Diagnoses Diagnosis Generalized weakness- Primary Other malaise and fatigue Jaundice Jaundice, unspecified, not of documented in this encounter Care Teams Denitrator Operator Relationship Specialty Start Date End Date Stoney Abdullahi MD [address] [facility] [address] [place] [address] PCP - General Family Medicine 09/08/23 documented as of this encounter
--- OUTSIDE RECORDS SUMMARY | 2024-12-15 16:43 | External Medical Summary | Summary of Care ---
Author Name Unknown Organization [facility] [address] [place] [address] Phone [phone] Care Team Providers Care Occup Ther Name Role Phone Stoney Abdullahi MD Primary Care Provider Reason for Visit * Reason Comments Multiple Complaints * Auth/Cert Specialty Diagnoses / Procedures Referred By Yaneth witt Referred To Contact [address] [address] Phone: tel:[phone] [facility] Emergency Department ([facility]) [address] [place] [id number] Phone: tel: fax: Referral ID Status Reason Start Date Expiration Date Visits Re quested Visits Authorized [id number] Encounter Details Date Type Department Care Team (Late st Contact Info) Description 10/21/2024 11:39 AM EST - 10/21/2024 5:39 PM EST Emergency [facility] Emergency Department ([facility]) [address] [place] [id number] Denys Salter DO [address] [place] [id number] Oneyda Muñoz MD [address] [place], [place] [address] [address] Doe Tomas MD [address] [place] [id number] Hypophosphatemia (Primary Dx); Direct hyperbilirubinemia; Diarrhea, unspecified type; Malignant neoplasm of colon, unspecified part of colon (HCC); Metastases to the liver (HCC) Discharge Disposition: Home - Self Care Allergies Active Allergy Reactions Criticality Noted Date Comments Levofloxacin 07/30/2022 Other reaction(s): difficulty breathing Penicillins 03/02/2021 documented as of this encounter (statuses as of 10/22/2024) Medications Spironolactone 25 MG Oral Tablet (Aldactone) [...] as of this encounter (statuses as of 10/22/2024) Active Problems Problem Noted Date Diagnosed Date Essential hypertension 09/10/2023 Thrombocytopenia 09/10/2023 History of colon cancer, stage III 09/09/2023 Overview (09/10/2023): 53M hx met colon adenoca w/liver mets s/p sigmoid colectomy & chemo w/R hepatic mets,s/p lobar R Y90 01/29/2023,PET CT 03/2023 w/increased size segm 4 lesion, decr R lobe lesions;S/p Y90 mapping [place] Impaired fasting glucose 09/09/2023 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 (Household - for ages [...] Sign Reading Time Taken Comments Blood Pressure 130/79 10/21/2024 4:00 PM EST Pulse 94 10/21/2024 5:00 PM EST Temperature 36.6 C (97.9 F) 10/21/2024 11:[address] Respiratory Rate 20 10/21/2024 5:00 PM EST Oxygen Saturation 95% 10/21/2024 5:00 PM EST Inhaled Oxygen Concentration - - Weight - - Height - - Body Mass Index - - documented in this encounter Discharge Instructions * Discharge Instructions* Doe Tomas MD - 10/21/2024 4:28 PM EST You were seen in the emergency department for persistent diarrhea, yellowing of the skin. Your labsshowed significantly elevated bilirubin (16), which explains your skin discoloration. You were given IV fluids. An ultrasound of your abdomen did not show evidence of any blockage in the ducts of your liver. A CT scan of your liver was performed. You were case was discussed with Gastroenterology, and admission to the hospital here for further workup was offered, but you preferred to follow up in [place]. Your phosphorus level was low and you were given IV phosphorus supplementation. Please call your oncologist tomorrow for follow-up. They may refer you to Gastroenterology as well for further workup. You were provided with a disc with CT imaging to provide at follow-up. The result showed: IMPRESSION: 1. Interval progression of hepatic metastases with localized tumor spread now seen involving the gallbladder and hepatic flexure of the colon. Moderate biliary dilation. 2. Additional findings as described. Please make sure to keep up with fluid intake. Please see attached information for further recommendations and return precautions. documented in this encounter ED Notes * Doe Tomas MD - 10/21/2024 5:15 PM EST Patient here with history of liver cancer. Worsening jaundice today. LFTs significantly elevated. CT shows significantly worsening progression of hepatic metastases with localized tumor spread now involving the gallbladder and colon. Moderate biliary dilation was noted. Prior to taking over for his care today, the ER attending and Gastroenterology team here recommended admission for MRCP, ERCP. Patient declined. Would like to follow-up down at [place]. I offered to transfer him directly there today. He declined. We recommended he call his doctors at [place] as soon as possible. He was provided with a disc with his imaging tests today. He was given return precautions. Discharged in stable condition. Doe Tomas MD Emergency Medicine, [facility] * Cliff Bryson RN - 10/21/2024 11:41 AM EST Pt sent from urgent care d/t dehydration, flu-like symptoms, diarrhea x1 week, dark urine, loss of appetite, and jaundice. documented in this encounter Miscellaneous Notes * ED Equal Employment Opportunity Officer Note - Viky Perales RN - 10/21/2024 5:38 PM EST Pt given discharge instructions per physicians order. Made aware to follow up with PCP within the next 1-3 days. All questions answered, pt verbalized understanding. Pt ambulated out of this department with steady gait. * Pt Handout (on AVS) - Denys Salter DO - 10/21/2024 4:26 PM EST [id number] Discharge Instructions for Hypophosphatemia You have been diagnosed with hypophosphatemia (not enough phosphorus in your blood). Phosphorus helps develop bones and teeth. It also helps control energy metabolism. Most cases of hypophosphatemia are caused by other health problems. Diet changes Unless your healthcare provider tells you otherwise, drink at least 8 glasses of water every day. Keep track of how much fluid you drink. Eat more foods that contain phosphorus. o Increase your intake of milk, cream, cheese, cottage cheese, yogurt, puddings, custard, and ice cream. Add powdered milk to foods. o Eat meat, fish, poultry, eggs, and peanuts and other nuts and seeds. Also eat beans, lentils, peas, and soy products. o Eat bran cereal, granola, oatmeal, and wheat germ. Other home care Resume your normal activities as directed by your healthcare provider. Tell your provider about all prescription and nrlc-unz-sirnllf medicines you are taking. This includes vitamins and herbal preparations. Some of these may cause interactions with other medicines. Tell your provider if you have a history of diabetes or liver, kidney, or heart disease. Take all medicine exactly as directed. In some cases, your healthcare provider will prescribe oral phosphate supplements to you if you have an underlying condition that affects how your body handles phosphate. Don't take antacids that contain calcium, magnesium, or aluminum. They may keep you from absorbing the phosphorus in your food. Niacin can also interfere with absorbing phosphorus in your food. Follow-up care Make a follow-up appointment with your healthcare provider, or as directed. Keep all appointments for lab work and follow-up. Your provider needs to monitor your condition closely. When to call your healthcare provider Call your provider right away if you have any of these: Confusion Irritable behavior Pain in your muscles Nausea or vomiting Diarrhea that is not relieved by antidiarrhea medicine or by changing your diet Constipation that lasts longer than 2 days Last Reviewed Date: 2022 00:00:00 5864-1267 [employer]. All rights reserved. This information is not intended as a substitute for professional medical care. Always follow your healthcare professional's instructions. * Pt Handout (on AVS) - Denys Salter DO - 10/21/2024 4:11 PM EST total_bilirubin_blood Total Bilirubin (Blood) Does this test have other names? Total serum bilirubin, TSB What is this test? This is a blood test that measures the amount of a substance called bilirubin. This test is used tofind out how well your liver is working. It is often part of a panel of tests that measure liver function. A small amount of bilirubin in your blood is normal, but a high level may be a sign of liverdisease. The liver makes bile to help you digest food, and bile contains bilirubin. Most bilirubin comes from the body's normal process of breaking down old red blood cells. A healthy liver can normally get rid of bilirubin. But when you have liver problems, bilirubin can build up in your body to unhealthy levels. Why do I need this test? You may need this test if you have symptoms of liver damage or disease. Symptoms include: Yellowish skin or eyes (jaundice) Stomach pain Dark urine Light colored stool Flu-like symptoms, such as fever and chills You may also have your bilirubin level tested regularly if you are being treated for liver disease. Many healthy newborns also develop jaundice. Most jaundice in babies causes no problems. But babiesare often tested shortly after because a high bilirubin level may affect the brain, lead to deafness, and cause intellectual or developmental disabilities. What other tests might I have along with this test? You may have other blood tests to find the cause of your liver problems. You may also have urine tests, an ultrasound or other imaging scans of your belly, or a liver biopsy. For newborns, healthcare providers often order a urine test in addition to the bilirubin test. What do my test results mean? Test results may vary depending on your age, gender, health history, and other things. Your test results may be different depending on the lab used. They may not mean you have a problem. Ask your healthcare provider what your test results mean for you. Bilirubin results depend on your age, gender, and health. Normal bilirubin levels are generally less than 1 milligram per deciliter (mg/dL). Adults with jaundice generally have bilirubin levels greater than 2.5mg/dL. In an otherwise healthy , bilirubin levels greater than 15 mg/dL may cause problems. How is the test done? The test is done with a blood sample. A needle is used to draw blood from a vein in your arm or hand. For a baby, the blood sample is taken from the heel with a small needle stick. Does this test pose any risks? Having a blood test with a needle carries some risks. These include bleeding, infection, bruising, and feeling lightheaded. When the needle pricks your arm or hand, you may feel a slight sting or pain. Afterward, the site may be sore. What might affect my test results? Medicines and herbal supplements can increase your bilirubin level. and drinking alcohol can also cause a buildup of bilirubin in your liver. How do I get ready for this test? Follow your healthcare provider's directions about not eating or drinking before the test. Ask yourprovider if there is anything else you should do to get ready for this test. Tell your provider about all medicines, herbs, vitamins, and supplements you are taking. This includes medicines that don't need a prescription and any illegal drugs you may use. Last Reviewed Date: 2022 00:00:00 6798-6998 [employer]. All rights reserved. This information is not intended as a substitute for professional medical care. Always follow your healthcare professional's instructions. * Pt Handout (on AVS) - Denys Salter DO - 10/21/2024 4:11 PM EST bilirubin_direct Direct Bilirubin Does this test have other names? Conjugated bilirubin What is this test? This test looks for bilirubin in your blood or urine. Bilirubin is a substance made when your body breaks down red blood cells. This is a normal process.Bilirubin is also part of bile, which your liver makes to help digest the food you eat. A small amount of bilirubin in your blood is normal. Healthy adults make 250 to 350 milligrams (mg)of bilirubin each day. Some bilirubin is bound to a certain protein (albumin) in the blood. This type of bilirubin is called unconjugated, or indirect, bilirubin. In the liver, bilirubin is changed into a form that your body can get rid of. This is called conjugated bilirubin or direct bilirubin. This bilirubin travels from the liver into the small intestine. A very small amount passes into your kidneys and is excretedin your urine. This bilirubin also gives urine its distinctive yellow color. This test is often done to look for liver problems, such as hepatitis, or blockages, such as gallstones. Why do I need this test? You may need this test if your liver doesn't seem to be working the way it should. Symptoms include: Yellowing of your skin and whites of your eyes (jaundice) Dark yellow urine Light gore or jg-colored stools Nausea Vomiting Severe tiredness (fatigue) Belly pain or swelling You may also have this test to check for possible liver damage if you drink a lot of alcohol on a regular basis. Drinking too much alcohol can damage the liver over time. You may also need this test if your healthcare provider thinks that you may have: Hepatitis. Your liver can become inflamed for different reasons, such as infection with hepatitis virus, and excessive drug or alcohol use. When liver cells are damaged from hepatitis, the liver may release both indirect and direct bilirubin into the bloodstream. This causes higher levels. Gallstones. The bile duct is a tube that carries bile to the small intestine. Bilirubin or cholesterol can form stones that block the duct. This causes bilirubin?mostly direct bilirubin?to rise inyour bloodstream. Inflammation of the bile duct. Higher levels of direct bilirubin in your blood may stem from inflammation in the tube that carries bile to the small intestine. What other tests might I have along with this test? You will likely have this test as part of a liver panel, or group of related liver tests. A total bilirubin level may also be done. When your liver is damaged, liver enzymes may leak into your blood.You may need other blood tests, such as: Alkaline phosphatase, or ALP Aspartate transaminase, or AST Alanine transaminase, or ALT Gamma-glutamyl transferase, or GGT You may also need a test to check the levels of liver proteins like albumin. What do my test results mean? Test results may vary depending on your age, gender, health history, and other things. Your test results may be different depending on the lab used. They may not mean you have a problem. Ask your healthcare provider what your test results mean for you. Results are given in milligrams per deciliter (mg/dL). Normal results of the blood test range from 0 to 0.3 mg/dL in adults. If your results on the blood test are higher, bilirubin may also show up in your urine. Bilirubin is not present in the urine of normal, healthy people. Results that are higher may mean that you have a liver problem, hepatitis, or gallstones. Higher levels may also mean that you have: A blood infection (called blood poisoning or septicemia) Sickle cell anemia Certain cancers or tumors Certain rare inherited diseases Bile duct scarring Low levels of bilirubin are often not a concern. How is this test done? The test is done with a blood sample. A needle is used to draw blood from a vein in your arm or hand. Or it's done with a urine sample collected at any time and checked with a test strip. Does this test pose any risks? Having a blood test with a needle carries some risks. These include bleeding, infection, bruising, and feeling lightheaded. When the needle pricks your arm or hand, you may feel a slight sting or pain. Afterward, the site may be sore. What might affect my test results? Strenuous exercise and can affect your results. Vitamin C, androgen hormones, and certainmedicines, such as phenazopyridine and rifampin, can affect your results. Anorexia or fasting for a long time can also affect your results. How do I get ready for this test? You don't need to prepare for this test. Tell your healthcare provider about all medicines, herbs, vitamins, and supplements you are taking. This includes medicines that don't need a prescription andany illegal drugs you may use. Last Reviewed Date: 2022 00:00:00 [id number] [employer]. All rights reserved. This information is not intended as a substitute for professional medical care. Always follow your healthcare professional's instructions. * Pt Handout (on AVS) - Denys Salter DO - 10/21/2024 4:11 PM EST Images from the original note were not included. [id number] Treating Diarrhea Diarrhea happens when you have loose, watery, or frequent bowel movements. It's a common problem with many causes. Most cases of diarrhea clear up on their own. But certain cases may need treatment. Be sure to see your health care provider if your symptoms don't get better in a few days. Getting relief Treatment of diarrhea depends on its cause. If it's caused by bacterial or parasite infection, it'soften treated with antibiotics. Diarrhea from other causes, such as a stomach virus, often improveswith simple home treatment. The tips below may help ease your symptoms. Drink plenty of fluids. This helps prevent too much fluid loss (dehydration). The fluids should contain water, salt, and sugar. Oral rehydration solution (ORS), a mixture of glucose and sodium, works best. You can buy it without a prescription. Don't have drinks with caffeine. Don't drink alcohol, coffee, tea, or milk. These can irritate your intestines and make symptoms worse. Avoid fruits and vegetables that can cause gas. These include broccoli, peppers, beans, peas, berries, prunes, chickpeas, green leafy vegetables, and corn. Don't drink fruit juices or liquids that are high in sugar. Suck on ice chips first if drinking fluids makes you queasy. Eat more starchy foods like rice, cereal, and crackers. Don't eat red foods. They might look like blood in diarrhea. Return to your normal diet slowly. You may want to eat bland foods at first, such as rice and toast. You may need to stay away from certain foods for a while, such as dairy products. These can make symptoms worse. Ask your health care provider if there are any other foods you should stay away from. If your doctor prescribed antibiotics, take them as directed. Don't stop taking them just because you feel better. You need to take the full course of antibiotics. Don't take anti-diarrhea medicines without asking your provider first. Keep in mind that you may be infectious. Wash your hands often with soap and clean, running water. Or use an alcohol-based stone circular sawyer that contains at least 60% alcohol. Call your health care provider Call your provider right away if: You have chills or a fever of 100.4F ( 38.0C) or higher, or as directed by your provider. You have severe pain. You have worsening diarrhea or diarrhea for more than 2 days. Your vomit or stool has blood in it. You have symptoms of dehydration (dizziness, dry mouth and tongue, rapid pulse, dark urine). Last Reviewed Date: 2024 00:00:00 2349-4296 [employer]. All rights reserved. This information is not intended as a substitute for professional medical care. Always follow your healthcare professional's instructions. * Communication - Ashlyn Dockery PA-C - 10/21/2024 3:52 PM EST Called to see this patient in the ED for evaluation of painless jaundice/elevated LFTs. Patient hasa hx of colon cancer with hepatic metastasis. Sees GI and oncology in [place]. Has a scheduled appointment in the next week there for follow up. He reports an approximate week long hx of intermittent diarrhea and nausea and thought he had "the flu." He noted some jaundice and very dark urine that started over the past day or so and presented to the ED here for further evaluation. Ultrasound shows multiple hepatic metastases and cholelithiasis, but no evidence of cholecystitis. CBD is 4mm. Labs show AST 112, ALT 163, ALP 228, Tbili 16.1, Dbili 11.7. Patient denies any fever/chills. No abdominal pain. Initially, plan was to obtain an MRI/MRCP and schedule an EUS/ERCP for tomorrow. However, patient expresses that he would rather not be admitted here for procedures. He would like to go to [place]. Recommended therefore to do a liver protocol CT scan and send images/report with him to be reviewedby his established physicians [place] [facility] Would have him follow up there in the next few days, rather than waiting for his upcoming scheduled appointment. Patient is agreeable and prefers this plan. Cosigned by Walt Cunningham DO at 10/21/2024 4:07 PM EST Associated attestation - Walt Cunningham DO - 10/21/2024 4:07 PM EST I was able to see the patient in the Emergency Room. We did offer the patient an inpatient evaluation with MRI and possible EUS with ERCP on Friday. After some discussion the patient has made us aware of his preference to not have any procedures performed at our facility. The patient is without pain nausea or vomiting and simply came in because of diarrhea. The patient was found to have a significant elevation of his bilirubin and initial imaging suggest that he may have significant metastatic disease to his liver from a history of colon cancer which is managed at [facility]. Recommendation Hepatic protocol CT Send CT to patient's Oncology provider to arrange follow up with GI at [facility] Please call with any questions or concerns GI to sign off * ED Equal Employment Opportunity Officer Note - Nico Oseguera RN - 10/21/2024 11:53 AM EST Pt reports to the ED with complaints of flu like symptoms. Pt reports using imodium without relief.Pt reports diarrhea without blood or black stool. 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 Pt reports nausea and concentrated urine. Pt reports dx of liver CA, has check up in 1 wk. Pt reports that his skin color is more pale and yellow than baseline. Pt noted to have yellowed sclera. Pt Aox4, +pulses and sensation, no obvious signs of resp distress at this time. documented in this encounter Plan of Treatment Pending Results Name Type Priority Associated Diagnoses Date /Time ACUTE HEPATITIS PANEL Lab STAT 03/2024 12:06 PM EST Scheduled Orders Name Type Priority Associated Diagnoses Orde r Schedule GASTROINTESTINAL PATHOGEN PANEL, STOOL Lab Routine One Time for 1 Occurrences starting 10/21/2024 until 10/21/2024 CLOSTRIDIUM DIFFICILE, PCR Lab Routine One Time for 1 Occurrences starting 10/21/2024 until 10/21/2024 GASTROINTESTINAL PATHOGEN PANEL PCR Lab Routine Once for 1 Occur rences starting 10/21/2024 until 10/21/2024 GASTROINTESTINAL PATHOGEN PANEL CULTURE Lab Routine Once for 1 Occur rences starting 10/21/2024 until 10/21/2024 ACUTE HEPATITIS PANEL Lab STAT Per form Now for 1 Occurrences starting 10/21/2024 until 10/21/2024 Health Maintenance Due Date Last Done Comments Lipid Panel 1968 HIV Screening 1983 Albumin/Creatinine Ratio 1986 Hepatitis C Screening 1986 DTap/Tdap Vaccines (1 - Tdap) 1987 Hepatitis B Vaccine (1 of 3 - 19+ 3-dose series) 1987 Cologuard 2013 Colonoscopy 2013 Colorectal Cancer Screening 2013 Fecal Occult Blood Test 2013 Sigmoidoscopy 2013 Zoster Vaccines (1 of 2) 2018 COVID-19 Vaccine (1 - season) 2024 Influenza Vaccine (FLU shot) (#1) 2024 Depression Screening 11/20/2024 11/20/2023 GFR 10/21/2025 10/21/2024, 10/17, 07/01/2022, Additional history exists Diabetes Screening 10/21/2027 10/21/2024, 1 01/05/2022, 01/23/2022, Additional history exists HPV (Gardasil) Vaccine Aged [...] Procedure Name Priority Date/Time Associated Diagnosis Comments CT LIVER W WO IV CONTRAST - WO ORAL CONTRAST STAT 10/21/2024 4:40 PM EST US ABDOMEN LIMITED STAT 10/21/2024 1: 48 PM EST MICROSCOPIC EXAM, URINE STAT 10/21/2024 12:57 PM EST URINALYSIS, REFLEX TO MICROSCOPIC STAT 10/21/2024 12:57 PM EST RESPIRATORY PATHOGEN PANEL, PCR STAT 10/21/2024 12:07 PM EST DIFFERENTIAL, AUTOMATED STAT 10/21/2024 12:06 PM EST HEPATIC FUNCTION PANEL STAT 10/21/2024 12:06 PM EST BASIC METABOLIC PANEL Routine 10/21/2024 12:06 PM EST CK Routine 10/21/2024 12:06 PM EST CBC STAT 10/21/2024 12:06 PM EST PT INR STAT 10/21/2024 12:06 PM EST PHOSPHORUS Routine 10/21/2024 12:06 PM EST LIPASE STAT 10/21/2024 12:06 PM EST LD Add-on 10/21/2024 12:06 PM EST LACTATE Routine 10/21/2024 12:06 PM EST CBC STAT 10/21/2024 12:06 PM EST MAGNESIUM STAT 10/21/2024 12:06 PM EST documented in this encounter Results * CT LIVER W WO IV CONTRAST - WO ORAL CONTRAST (10/21/2024 4:40 PM EST) Anatomical Region Laterality Modality Abdomen, Body Computed Tomogra phy 10/21/2024 4:23 PM EST Impressions 10/21/2024 5:02 PM EST IMPRESSION: 1. Interval progression of hepatic metastases with localized tumor spread now seen involving the gallbladder and hepatic flexure of the colon. Moderate biliary dilation. 2. Additional findings as described. COMMENTS: Consistent with the [employer]'s Incidental Findings Committee white paper (J Am Antonio Radiol 2018): Any incidental renal lesion less than 1 cm or classified as too small to characterize, or any incidental cystic renal lesion characterized as simple-appearing, is likely benign. No follow-up imaging is recommended for these lesions per consensus recommendations based on imaging criteria. THIS DOCUMENT HAS BEEN ELECTRONICALLY SIGNED BY MD Jaron RIVERA 10/21/2024 5:02 PM EST PROCEDURE INFORMATION: Exam: CT Abdomen Without And With Contrast Exam date and time: 10/21/2024 4:23 PM Age: 54 years old Clinical indication: Abdominal pain; Additional info: Hyperbilirubinemia. Jaundice. History of colon cancer with mets to the liver. TECHNIQUE: Imaging protocol: Computed tomography of the abdomen without and with contrast. Radiation optimization: All CT scans at this facility use at least one of these dose optimization techniques: automated exposure control; mA and/or kV adjustment per patient size (includes targeted exams where dose is matched to clinical indication); or iterative reconstruction. Contrast material: ISOVUE; Contrast volume: 80 ml; Contrast route: INTRAVENOUS (IV); COMPARISON: CT CHEST/ABDOMEN/PELVI 06/24/2022 2:46 PM FINDINGS: Liver: Multiple partially calcified liver masses consistent with metastases, increased in size and number compared to prior exam of 06/24/2022, with the largest mass or confluence of masses measuring up to 11 cm in the right lobe. Gallbladder and biliary ducts: There is direct tumor invasion of the gallbladder by large tumor mass in the right lobe. [id number] intrahepatic biliary dilation. The mass also abuts the superior wall of the colon which appears thickened. Pancreas: Normal. No ductal dilation. Spleen: Normal. No splenomegaly. Adrenal glands: Normal. No mass. Kidneys: There is a simple cyst in the left kidney. Stomach and bowel: As above. No evidence of a bowel obstruction. A normal appendix is identified. Intraperitoneal space: Unremarkable. No free air. No significant fluid collection. Vasculature: Unremarkable. No abdominal aortic aneurysm. Lymph nodes: Unremarkable. No enlarged lymph nodes. Bones/joints: Unremarkable. No acute fracture. No dislocation. Soft tissues: Unremarkable. Procedure Note Martin Clifton MD - 10/21/2024 PROCEDURE INFORMATION: Exam: CT Abdomen Without And With Contrast Exam date and time: 10/21/2024 4:23 PM Age: 54 years old Clinical indication: Abdominal pain; Additional info: Hyperbilirubinemia. Jaundice. History of colon cancer with mets to the liver. TECHNIQUE: Imaging protocol: Computed tomography of the abdomen without and withcontrast. Radiation optimization: All CT scans at this facility use at least one ofthese dose optimization techniques: automated exposure control; mA and/or kV adjustment per patient size (includes targeted exams where dose is matchedto clinical indication); or iterative reconstruction. Contrast material: ISOVUE; Contrast volume: 80 ml; Contrast route:INTRAVENOUS (IV); COMPARISON: CT CHEST/ABDOMEN/PELVI 06/24/2022 2:46 PM FINDINGS: Liver: Multiple partially calcified liver masses consistent withmetastases, increased in size and number compared to prior exam of 06/24/2022, withthe largest mass or confluence of masses measuring up to 11 cm in the rightlobe. Gallbladder and biliary ducts: There is direct tumor invasion of the gallbladder by large tumor mass in the right lobe. [id number] intrahepatic biliary dilation. The mass also abuts the superior wall ofthe colon which appears thickened. Pancreas: Normal. No ductal dilation. Spleen: Normal. No splenomegaly. Adrenal glands: Normal. No mass. Kidneys: There is a simple cyst in the left kidney. Stomach and bowel: As above. No evidence of a bowel obstruction. A normal appendix is identified. Intraperitoneal space: Unremarkable. No free air. No significant fluid collection. Vasculature: Unremarkable. No abdominal aortic aneurysm. Lymph nodes: Unremarkable. No enlarged lymph nodes. Bones/joints: Unremarkable. No acute fracture. No dislocation. Soft tissues: Unremarkable. IMPRESSION IMPRESSION: 1. Interval progression of hepatic metastases with localized tumorspread now seen involving the gallbladder and hepatic flexure of the colon. Moderate biliary dilation. 2. Additional findings as described. COMMENTS: Consistent with the [employer]'s Incidental Findings Committee white paper (J Am Antonio Radiol 2018): Any incidental renal lesionless than 1 cm or classified as too small to characterize, or any incidentalcystic renal lesion characterized as simple-appearing, is likely benign. Nofollow-up imaging is recommended for these lesions per consensus recommendationsbased on imaging criteria. THIS DOCUMENT HAS BEEN ELECTRONICALLY SIGNED BY MARTIN CLIFTON MD us Denys Alexandr Salter DO RAD CT Final Result * US ABDOMEN LIMITED (10/21/2024 1:48 PM EST) Anatomical Region Laterality Modality Abdomen, Body Ultrasound 10/21/2024 1:03 PM EST Impressions 10/21/2024 2:09 PM EST IMPRESSION: Multiple hepatic metastases. No evidence of acute cholecystitis. Cholelithiasis. THIS DOCUMENT HAS BEEN ELECTRONICALLY SIGNED BY MARTIN CLIFTON MD Narrative 10/21/2024 2:09 PM EST PROCEDURE INFORMATION: Exam: US Abdomen, Limited; Right Upper Quadrant Exam date and time: 10/21/2024 1:03 PM Age: 54 years old Clinical indication: Abnormal findings; Abnormal lab test; Elevated liver enzymes; Other: Diarrhea; Additional info: Jaundice, hyperbilirubinemia, elevated liver enzymes. History of colon cancer with mets to the liver. TECHNIQUE: Imaging protocol: Real time ultrasound of the abdomen with image documentation. Limited exam focused on the right upper quadrant. COMPARISON: CT CHEST/ABDOMEN/PELVI 06/24/2022 2:46 PM FINDINGS: Liver: Multiple liver masses, the largest measuring 7.3 x 6.3 x 6.2 cm in the right lobe. Gallbladder: Multiple gallstones with wall echo shadow sign noted. There is mild gallbladder wall thickening. Negative sonographic Lugo's sign. Biliary ducts: Common duct measures 4 mm. No stones. No dilation. Pancreas: Visualized pancreas is unremarkable. Right kidney: Normal. No mass. No hydronephrosis. Intraperitoneal space: No ascites. Procedure Note Martin Clifton MD - 10/21/2024 PROCEDURE INFORMATION: Exam: US Abdomen, Limited; Right Upper Quadrant Exam date and time: 10/21/2024 1:03 PM Age: 54 years old Clinical indication: Abnormal findings; Abnormal lab test; Elevated liver enzymes; Other: Diarrhea; Additional info: Jaundice, hyperbilirubinemia, elevated liver enzymes. History of colon cancer with mets to the liver. TECHNIQUE: Imaging protocol: Real time ultrasound of the abdomen with imagedocumentation. Limited exam focused on the right upper quadrant. COMPARISON: CT CHEST/ABDOMEN/PELVI 06/24/2022 2:46 PM FINDINGS: Liver: Multiple liver masses, the largest measuring 7.3 x 6.3 x 6.2 cm inthe right lobe. Gallbladder: Multiple gallstones with wall echo shadow sign noted. Thereis mild gallbladder wall thickening. Negative sonographic Lugo's sign. Biliary ducts: Common duct measures 4 mm. No stones. No dilation. Pancreas: Visualized pancreas is unremarkable. Right kidney: Normal. No mass. No hydronephrosis. Intraperitoneal space: No ascites. IMPRESSION IMPRESSION: Multiple hepatic metastases. No evidence of acute cholecystitis. Cholelithiasis. THIS DOCUMENT HAS BEEN ELECTRONICALLY SIGNED BY MARTIN CLIFTON MD us Denys Salter DO RAD ULTRASOUND Final Result * MICROSCOPIC EXAM, URINE (10/21/2024 12:57 PM EST) RBC, Urine 0-2 0 - 2 /HPF 10/21/2024 1:15 PM EST LAB[facility] WBC, Urine 0-2 0 - 2 /HPF 10/21/2024 1:15 PM EST [facility] Bacteria, Urine 0-25 0 - 25 /HPF 10/21/2024 1:15 PM EST [facility] Urine Non-blood Collection / Unknown 10/21/2024 12:57 PM EST 10/21/2024 1:02 PM EST us Denys Salter DO LAB URINE ORDERABLES Final Resu lt LABORATORY [address] [address] * (ABNORMAL) URINALYSIS, REFLEX TO MICROSCOPIC (10/21/2024 12:57 PM EST) Color, Urine Brown(A) Light Yellow, Yellow, Dark Yellow 10/21/2024 1:14 PM EST [facility] Clarity, Urine Cloudy(A) Clear 10/21/2024 1:14 PM EST [facility] Glucose, Urine 100(A) Negative mg/dL 10/21/2024 1:14 PM EST [facility] Bilirubin, Urine Large(A) Negative 10/21/2024 1:14 PM EST [facility] Ketone, Urine Negative Negative mg/dL 10/21/2024 1:14 PM EST LABORATORY [facility] Specific [place], Urine 1.027 1.003 - 1.030 10/21/2024 1:14 PM EST [facility] Blood, Urine Negative Negative 10/21/2024 1:14 PM EST [facility] pH, Urine 5.5 5.0 - 7.5 Units 10/21/2024 1:14 PM EST LABORATORY [facility] Protein, Urine Trace(A) Negative mg/dL 10/21/2024 1:14 PM EST [facility] Urobilinogen, Urine 1.0 0.2, 1.0 mg/dL 10/21/2024 1:14 PM EST [facility] Nitrite, Urine Negative Negative 10/21/2024 1:14 PM EST [facility] Esterase, Urine Negative Negative 10/21/2024 1:14 PM EST [facility] Urine Non-blood Collection / Unknown 10/21/2024 12:57 PM EST 10/21/2024 1:02 PM EST us Denys Salter DO LAB URINE ORDERABLES Final Resu lt LAB[facility]AT[facility] [address] [place] [address] * RESPIRATORY PATHOGEN PANEL, PCR (10/21/2024 12:07 PM EST) Adenovirus by PCR Negative Negative 024 1:19 PM EST [facility] Coronavirus 229E by PCR Negative Negative 10/21/2024 1:19 PM EST [facility] Coronavirus HKU1 by PCR Negative Negative 10/21/2024 1:19 PM EST [facility] Coronavirus NL63 by PCR Negative Negative 10/21/2024 1:19 PM EST [facility] Coronavirus OC43 by PCR Negative Negative 10/21/2024 1:19 PM EST [facility] Coronavirus SARS-CoV-2 by PCR Negative Negative 10/21/2024 1:19 PM EST [facility] Human Metapneumovirus by PCR Negative Negative 10/21/2024 1:19 PM EST [facility] Rhinovirus/Enterovi mike by PCR Negative Negative 10/21/2024 1:19 PM EST [facility] Influenza A Virus by PCR Negative Negative 10/21/2024 1:19 PM EST [facility] Influenza B Virus by PCR Negative Negative 10/21/2024 1:19 PM EST [facility] Parainfluenza Virus 1 by PCR Negative Negative 10/21/2024 1:19 PM EST [facility] Parainfluenza Virus 2 by PCR Negative Negative 10/21/2024 1:19 PM EST [facility] Parainfluenza Virus 3 by PCR Negative Negative 10/21/2024 1:19 PM EST [facility] Parainfluenza Virus 4 by PCR Negative Negative 10/21/2024 1:19 PM EST [facility] Respiratory Syncytial Virus by PCR Negative Negative 10/21/2024 1:19 PM EST [facility] Bordetella pertussis by PCR Negative Negative 10/21/2024 1:19 PM EST [facility] Chlamydia pneumoniae by PCR Negative Negative 10/21/2024 1:19 PM EST [facility] Mycoplasma pneumoniae by PCR Negative Negative 10/21/2024 1:19 PM EST [facility] Bordetella parapertussis by PCR Negative Negative 10/21/2024 1:19 PM EST [facility] Comment: The primers that detect Rhinovirus may cross react with some Enterorviruses. The validation of bronchial specimens, tracheal aspirates, and throats for this assay was developed and performance characteristics determined by [employer]. The validation of alternate specimen types has not been cleared or approved by the U[place]. Food and Drug Administration (FDA). It has been determined that such clearance or approval is not necessary. Upper Respiratory Mid-turbinate nasal swab / Unknown Non-blood Collection / Unknown 10/21/2024 12:07 PM EST 10/21/2024 12:24 PM EST us Denys Salter DO LAB MICRO - GENERAL ORDERABLES Final Result Performing Organization Address City/[facility]/ZIP Co de Phone Number LABORATORY [address] [address] * (ABNORMAL) LD (10/21/2024 12:06 PM EST) LD 409(H) <=250 U/L 10/21/2024 1:12 PM EST [facility] Blood Venous blood specimen / Unknown Venipuncture / Unknown 10/21/2024 12:06 PM EST 10/21/2024 12:11 PM EST Denys Salter DO LAB BLOOD ORDERABLES Final Resu lt LABORATORY [address] [phone] * LIPASE (10/21/2024 12:06 PM EST) Lipase 57 13 - 60 U/L 10/21/2024 12:31 PM EST [facility] Blood Venous blood specimen / Unknown Venipuncture / Unknown 10/21/2024 12:06 PM EST 10/21/2024 12:11 PM EST us Denys Salter DO LAB BLOOD ORDERABLES Final Resu lt LABORATORY [address] [address] * (ABNORMAL) DIFFERENTIAL, AUTOMATED (10/21/2024 12:06 PM EST) WBC 7.58 4.00 - 10.80 K/uL 10/21/2024 12:22 PM EST [facility] Neutrophils % 79.7(H) 40.0 - 75.0 % 10/21/2024 12:22 PM EST [facility] Lymphocytes % 8.4(L) 18.0 - 42.0 % 10/21/2024 12:22 PM EST [facility] Monocytes % 8.3 1.0 - 11.0 % 10/21/2024 12:22 PM EST [facility] Eosinophils % 1.2 0.0 - 6.0 % 10/21/2024 12:22 PM EST [facility] Basophils % 0.7 0.0 - 2.0 % 10/21/2024 12:22 PM EST [facility] Immature Granulocytes % 1.7 0.0 - 2.0 % 10/21/2024 12:22 PM EST [facility] Absolute Neutrophils 6.04 1.80 - 7.70 K/uL 10/21/2024 12:22 PM EST [facility] Absolute Lymphocytes 0.64(L) 1.00 - 4.80 K/ul 10/21/2024 12:22 PM EST [facility] Absolute Monocytes 0.63 0.00 - 1.10 K/uL 10/21/2024 12:22 PM EST [facility] Absolute Eosinophils 0.09 0.00 - 0.70 K/uL 10/21/2024 12:22 PM EST [facility] Absolute Basophils 0.05 0.00 - 0.20 K/uL 10/21/2024 12:22 PM EST [facility] Absolute Immature Granulocytes 0.13 0.00 - 0.20 K/uL 10/21/2024 12:22 PM EST LABORATORY [facility] Blood Venous blood specimen / Unknown Venipuncture / Unknown 10/21/2024 12:06 PM EST 10/21/2024 12:11 PM EST us Denys Salter DO LAB BLOOD ORDERABLES Final Resu lt LAB[facility]ATORY [facility] [address] [place] [address] * (ABNORMAL) CBC (10/21/2024 12:06 PM EST) WBC 7.58 4.00 - 10.80 K/uL 10/21/2024 12:22 PM EST [facility] RBC 4.56 4.50 - 5.25 M/uL 10/21/2024 12:22 PM EST [facility] HGB 13.0(L) 14.0 - 16.8 g/dL 10/21/2024 12:22 PM EST [facility] HCT 40.0 40.0 - 48.4 % 10/21/2024 12:22 PM EST LABORATORY [facility] MCV 87.7 82.0 - 99.5 fL 10/21/2024 12:22 PM EST LABORATORY GL MCH 28.5 27.0 - 34.0 pg 10/21/2024 12:22 PM EST [facility] MCHC 32.5 32.0 - 36.0 g/dL 10/21/2024 12:22 PM EST [facility] RDW 16.9 11.5 - 15.5 % 10/21/2024 12:22 PM EST [facility] PLT 121(L) 140 - 400 K/uL 10/21/2024 12:22 PM EST LABORATORY [facility] Comment: Results rechecked. MPV 14.6 6.6 - 11.1 fL 10/21/2024 12:22 PM EST [facility] nRBCs 0 <=0 /100 WBCs 10/21/2024 12:22 PM EST [facility] Blood Venous blood specimen / Unknown Venipuncture / Unknown 10/21/2024 12:06 PM EST 10/21/2024 12:11 PM EST us Denys Alexandr Databraidk DO LAB BLOOD ORDERABLES Final Resu lt LABORATORY [address] [address] * CK (10/21/2024 12:06 PM EST) CK 128 39 - 308 U/L 10/21/2024 12:31 PM EST [facility] Blood Venous blood specimen / Unknown Venipuncture / Unknown 10/21/2024 12:06 PM EST 10/21/2024 12:11 PM EST us Denys Salter DO LAB BLOOD ORDERABLES Final Resu lt Performing Organization Address [facility]/ZIP Co de Phone Number LABORATORY [address] [address] * (ABNORMAL) HEPATIC FUNCTION PANEL (10/21/2024 12:06 PM EST) Albumin 3.8 3.8 - 5.0 g/dL 10/21/2024 12:35 PM EST [facility] AST 112(H) 10 - 50 U/L 10/21/2024 12:35 PM EST [facility] Alkaline Phosphatase 228(H) 35 - 130 U/L 10/21/2024 12:35 PM EST [facility] ALT 163(H) 10 - 50 U/L 10/21/2024 12:35 PM EST [facility] Bilirubin, Total 16.1(H) <=1.2 mg/dL 10/21/2024 12:35 PM EST [facility] Bilirubin, Direct 11.7(H) 0.0 - 0.3 mg/dL 10/21/2024 12:35 PM EST [facility] Protein 7.7 6.0 - 8.3 g/dL 10/21/2024 12:35 PM EST [facility] Comment:Result may be falsel y decreased due to icterus. Blood Venous blood specimen / Unknown Venipuncture / Unknown 10/21/2024 12:06 PM EST 10/21/2024 12:11 PM EST us Denys Salter DO LAB BLOOD ORDERABLES Final Resu lt Performing Organization Address City/[facility]/ZIP Co de Phone Number LABORATORY [address] [address] * (ABNORMAL) BASIC METABOLIC PANEL (10/21/2024 12:06 PM EST) BUN 24(H) 6 - 20 mg/dL 10/21/2024 12:35 PM EST [facility] CREATININE 0.7 0.6 - 1.2 mg/dL 10/21/2024 12:35 PM EST [facility] Comment:Result may be falsel y decreased due to icterus. EGFR >90 >=60 mL/min 10/21/2024 12:35 PM EST [facility] Comment:eGFR is calculated b ased on the CKD-EPI 2020 equation. SODIUM 136 135 - 146 mmol/L 10/21/2024 12:35 PM EST [facility] POTASSIUM 3.8 3.5 - 5.1 mmol/L 10/21/2024 12:35 PM EST [facility] CHLORIDE 102 98 - 107 mmol/L 10/21/2024 12:35 PM EST [facility] CO2 21(L) 22 - 32 mmol/L 10/21/2024 12:35 PM EST [facility] ANION GAP 13 7 - 15 mmol/L 10/21/2024 12:35 PM EST [facility] GLUCOSE 133(H) 70 - 120 mg/dL 10/21/2024 12:35 PM EST [facility] CALCIUM 9.6 8.4 - 10.2 mg/dL 10/21/2024 12:35 PM EST [facility] Blood Venous blood specimen / Unknown Venipuncture / Unknown 10/21/2024 12:06 PM EST 10/21/2024 12:11 PM EST us Denys Salter DO LAB BLOOD ORDERABLES Final Resu lt Performing Organization Address City/[facility]/ZIP Co de Phone Number LABORATORY [address] [phone] * PT INR (10/21/2024 12:06 PM EST) Prothrombin Time 14.1 11.6 - 15.2 seconds 10/21/2024 12:32 PM EST [facility] INR 1.1 0.8 - 1.2 10/21/2024 12:32 PM EST [facility] Blood Venous blood specimen / Unknown Venipuncture / Unknown 10/21/2024 12:06 PM EST 10/21/2024 12:11 PM EST Narrative [facility] - 10/21/2024 12:32 PM EST Warfarin Therapy INR: 2.0-3.0 conventional anticoagulation INR: 2.5-3.5 high intensity anticoagulation us Denys Salter DO LAB BLOOD ORDERABLES Final Resu lt Performing Organization Address City/[facility]/ZIP Co de Phone Number LABORATORY [address] [address] * (ABNORMAL) PHOSPHORUS (10/21/2024 12:06 PM EST) Phosphorus 1.6(L) 2.5 - 4.8 mg/dL 10/21/2024 12:35 PM EST [facility] Blood Venous blood specimen / Unknown Venipuncture / Unknown 10/21/2024 12:06 PM EST 10/21/2024 12:11 PM EST us Denys Salter DO LAB BLOOD ORDERABLES Final Resu lt LABORATORY [address] [phone] * MAGNESIUM (10/21/2024 12:06 PM EST) Magnesium 2.2 1.5 - 2.6 mg/dL 10/21/2024 12:35 PM EST [facility] Blood Venous blood specimen / Unknown Venipuncture / Unknown 10/21/2024 12:06 PM EST 10/21/2024 12:11 PM EST us Denys Salter DO LAB BLOOD ORDERABLES Final Resu lt Performing Organization Address City/[facility]/ZIP Co de Phone Number LAB[facility]ATORY [facility] [address] [place] [address] * LACTATE (10/21/2024 12:06 PM EST) Lactate 1.4 0.4 - 2.0 mmol/L 10/21/2024 12:27 PM EST [facility] Blood Venous blood specimen / Unknown Venipuncture / Unknown 10/21/2024 12:06 PM EST 10/21/2024 12:11 PM EST Denys Alexandr Joie LARA LAB BLOOD ORDERABLES Final Resu lt Performing Organization Address City/[facility]/ZIP Co de Phone Number LABORATORY [address] [phone] documented in this encounter Visit Diagnoses Diagnosis Hypophosphatemia- Primary Disorders of phosphorus metabolism Direct hyperbilirubinemia Disorders of bilirubin excretion Diarrhea, unspecified type Malignant neoplasm of colon, unspecified part of colon (HCC) Metastases to the liver (HCC) Secondary malignant neoplasm of liver documented in this encounter Administered Medications Inactive Administered Medications - up to 3 most recent administrations Medication Order MAR Action Action Date Dose Rate Site Iopamidol (Isovue 370) inj 80 mL 80 mL, Intravenous, ONCE, On Maria T 10/21/24 at 1715, For 1 dose, Radiology Medication Routing (Non-IR) Given 10/21/2024 5:15 PM EST 80 mL NSS 0.9% 500 mL bolus infusion Intravenous, at 500 mL/hr Administer over 60 Minutes, Wide open, This infusion may be completed in less than 1 hour, since it will be a wide open rate, ONCE, 1 dose, On Maria T 10/21/24 at 1230 Restarted 10/21/2024 1:01 PM EST 500 mL/hr Restarted 10/21/2024 12:50 PM EST 500 mL/hr New Bag 10/21/2024 12:12 PM EST 500 mL 500 mL/hr potassium phosphate 30 mmol in NSS 250 mL (K phos) ivpb 30 mmol, Peripheral IV, ONCE, 1 dose, On Maria T 10/21/24 at 1315 Restarted 10/21/2024 4:37 PM EST 6 mmol/hr 53 mL/hr Rate Verify 10/21/2024 3:53 PM EST 6 mmol/hr 53 mL/hr New Bag 10/21/2024 1:31 PM EST 30 mmol 53 mL/hr documented in this encounter Active and Recently Administered Medications Times are shown in EST. Scheduled Medication Order 10/19/2024 10/20/2024 10/21/2024 Iopamidol (Isovue 370) inj 80 mL (COMPLETED) 80 mL, Intravenous, ONCE, On Maria T 10/21/24 at 1715, For 1 dose, Radiology Medication Routing (Non-IR) 1715 (Given - Provid er: Britney Henriquez, RT) NSS 0.9% 500 mL bolus infusion (COMPLETED) Intravenous, at 500 mL/hr Administer over 60 Minutes, Wide open, This infusion may be completed in less than 1 hour, since it will be a wide open rate, ONCE, 1 dose, On Maria T 10/21/24 at 1230 1212 (New Bag - Prov ider: Nico Oseguera RN)1236 (Paused - Provider: Viyk Perales RN)1250 (Restarted - Provider: Viky Perales, CHRISTOPHER)1253 (Paused - Provider: Viky Perales RN)1301 (Restarted - Provider: Viky Perales, CHRISTOPHER)1335 (Stopped - Provider: Viky Perales, CHRISTOPHER) potassium phosphate 30 mmol in NSS 250 mL (K phos) ivpb (COMPLETED) 30 mmol, Peripheral IV, ONCE, 1 dose, On Maria T 10/21/24 at 1315 1331 (New Bag - Prov ider: Nico Oseguera RN)1553 (Rate Verify - Provider: Viky Perales RN)1618 (Paused - Provider: Viky Perales RN)1637 (Restarted - Provider: Viky Perales RN)1734 (Stopped - Provider: Viky Perales, CHRISTOPHER) documented in this encounter Additional Health Concerns Infection Onset Date Last Indicated Resolved Time Gastrointestinal Rule-Out 10/21/2024 10/21/2024 C. difficile Rule-Out 10/21/2024 10/21/2024 Respiratory Rule-Out 10/21/2024 10/21/20242 024 1:19 PM EST COVID-19 Rule-Out 10/21/2024 10/21/2024 10/21/2024 1:19 PM EST documented as of this encounter Care Teams Occup Ther Relationship Specialty Start Date End Date Stoney Abdullahi MD [facility] [place] [address] [place] [address] PCP - General Family Medicine 09/08/23 documented as of this encounter
--- OUTSIDE RECORDS SUMMARY | 2024-12-15 16:43 | External Medical Summary | Continuity of Care Document ---
Author Name Unknown Organization [facility] Address [address] [place] [id number] Care Team Providers Care Screen Room Operator Name Role Phone Stoney Abdullahi I Primary Care Physician [phone] Encounter [facility] [id number] Date(s): 10/28/24 - 10/28/[address] [phone] Discharge Disposition: Home or Self Care Attending Physician: MESFIN Damico Peter V Referring Physician: MESFIN Damico Peter V Allergies, Adverse Reactions, Alerts Substance Criticality Severity Reaction Reaction Severity Status penicillin Unable to assess criticality Mild unknown Active levoFLOXacin difficulty breathing Active Medications Imodium 2 mg oral capsule Start: 10/29/24 2:38:00 PM EST, See Instructions, Disp# 30 cap, 1 cap PO after each loose stool notto exceed 8 capsules, or 16 mg, in 24 hours, Pharmacy: [facility] Start Date: 10/29/24 Status: Ordered valsartan 80 mg oral tablet Start: 06/23/24 12:18:00 PM EDT, 1 tab, PO, Daily, Disp# 90 tab, Refills: 3, Pharmacy: [id number] Start Date: 06/23/24 Status: Ordered Problem List [...] colorectal surgery Results Laboratory List Name Date Creatinine, POC (RAD) (CREATININE,POC (R AD)) 10/28/24 Most recent to oldest [Reference Range]: 1 Estimated CrCl 101.95 mL/min (10/28/24 9:47 AM) Cret, POC [0.6-1.3 mg/dL] 1.0 mg/dL (10/28/24 9:37 AM) Radiology Reports * Exam Date Time Procedure Performing Provider Status 10/28/24 10:[address] Thorax w/ Contrast Tino Lay V; Final Notes: (CT Thorax w/ Contrast) Reason For Exam: 54 y/o male with colon cancer with liver mets, s/p liver embolization CT Thorax w/ Contrast EXAMINATION: CT Abdomen and Pelvis w/ Contrast, CT Thorax w/ Contrast CLINICAL HISTORY: C18.9: Malignant neoplasm of colon, unspecified; 54 y/o male with colon cancer with liver mets, s/p liver embolization COMPARISON: CT abdomen dated 03/04/2024. PET scan dated 12/11/2023 TECHNIQUE: CT Abdomen and Pelvis w/ Contrast, CT Thorax w/ Contrast CONTRAST: Contrast Type (IV): Omnipaque 350 Contrast Volume (IV) in ml: 100.00 Contrast Type (Oral): Contrast Volume (Oral) in ml: DOSE: Total Reported Dose Length Product (DLP) = 936.62 mGy.cm FINDINGS: CHEST Pleura and Lungs: No pleural effusion. Hypoventilated lungs. No suspicious pulmonary nodules. Central airways: No filling defects in the major airways Lymph nodes: No adenopathy Thyroid and Mediastinum: Unremarkable Heart and Great vessels: Borderline heart size ABDOMEN Liver, Gallbladder \T\ bile ducts: Interval development of multiple new hepatic metastatic foci involving both right and left liver lobes. Treated inferior right liver lobe metastasis measures approximately 13.7 cm in diameter. Interval development of intrahepatic biliary ductal dilation down to level of the biliary confluence, likely due to metastasis in the juanita hepatis region. Pancreas: 1.5 cm hypodensity in the uncinate process. Spleen: Unremarkable Adrenals: Unremarkable Kidneys, collecting system and ureters: Unremarkable Retroperitoneum, lymph nodes, and vessels: No adenopathy Bowel \T\ Mesentery: No bowel obstruction. No ascites. Postsurgical changes in the rectosigmoid colon PELVIS Bladder: Unremarkable for degree of distention Reproductive organs: Unremarkable Extraperitoneal, lymph nodes, vessels: No pelvic adenopathy Osseous and body wall: Degenerative changes IMPRESSION: Marked interval progression of hepatic metastasis. New intrahepatic biliary ductal dilation down to the confluence, likely secondary to periportal metastasis. Possible pancreatic metastasis to the uncinate process. [place] Act 112: This study does not meet the requirements of [place] Act 112. Workstation ID: [id number] Final Dictated by:MD Lauren Nabeel I Dictated DT/TM:10/28/2024 4:23 Signed by:MD Lauren Nabeel I Signed (Electronic Signature):10/28/2024 4:22 p * Exam Date Time Procedure Performing Provider Status 10/28/24 10:[address] Abdomen and Pelvis w/ Contrast Igor Villa V; Final Notes: (CT Abdomen and Pelvis w/ Contrast) Reason For Exam: 54 y/o male with colon cancer with liver mets,s/p liver embolization CT Abdomen and Pelvis w/ Contrast EXAMINATION: CT Abdomen and Pelvis w/ Contrast, CT Thorax w/ Contrast CLINICAL HISTORY: C18.9: Malignant neoplasm of colon, unspecified; 54 y/o male with colon cancer with liver mets, s/p liver embolization COMPARISON: CT abdomen dated 03/04/2024. PET scan dated 12/11/2023 TECHNIQUE: CT Abdomen and Pelvis w/ Contrast, CT Thorax w/ Contrast CONTRAST: Contrast Type (IV): Omnipaque 350 Contrast Volume (IV) in ml: 100.00 Contrast Type (Oral): Contrast Volume (Oral) in ml: DOSE: Total Reported Dose Length Product (DLP) = 936.62 mGy.cm FINDINGS: CHEST Pleura and Lungs: No pleural effusion. Hypoventilated lungs. No suspicious pulmonary nodules. Central airways: No filling defects in the major airways Lymph nodes: No adenopathy Thyroid and Mediastinum: Unremarkable Heart and Great vessels: Borderline heart size ABDOMEN Liver, Gallbladder \T\ bile ducts: Interval development of multiple new hepatic metastatic foci involving both right and left liver lobes. Treated inferior right liver lobe metastasis measures approximately 13.7 cm in diameter. Interval development of intrahepatic biliary ductal dilation down to level of the biliary confluence, likely due to metastasis in the juanita hepatis region. Pancreas: 1.5 cm hypodensity in the uncinate process. Spleen: Unremarkable Adrenals: Unremarkable Kidneys, collecting system and ureters: Unremarkable Retroperitoneum, lymph nodes, and vessels: No adenopathy Bowel \T\ Mesentery: No bowel obstruction. No ascites. Postsurgical changes in the rectosigmoid colon PELVIS Bladder: Unremarkable for degree of distention Reproductive organs: Unremarkable Extraperitoneal, lymph nodes, vessels: No pelvic adenopathy Osseous and body wall: Degenerative changes IMPRESSION: Marked interval progression of hepatic metastasis. New intrahepatic biliary ductal dilation down to the confluence, likely secondary to periportal metastasis. Possible pancreatic metastasis to the uncinate process. [place] Act 112: This study does not meet the requirements of [place] Act 112. Workstation ID: [id number] Final Dictated by:MD Lauren Nabeel I Dictated DT/TM:10/28/2024 4:23 Signed by:MD Lauren Nabeel I Signed (Electronic Signature):10/28/2024 4:22 p Social History Social History Type Response Smoking Status Never smoked cigaret sai Sex Male Sex Representation Male (finding) Patient Care team information Care Team Personnel Name: MD Abdullahi Lowell I Position: Referring DIRECT Member Role: Primary Care Provider Address: [address] [place] [address] Name: Hai Mcneal Kyle Position: Pharmacist Member Role: Pharmacy - Lifetime Address: [address] [place] [id number] [place] Name: MD Rich Ying Position: Physician - Pathologist Member Role: Lifetime Relationship Address: [address] [place] [id number] [place] Care Team Related Persons Name: NAHED ZHANG Name: NAHED ACUÑA
--- OUTSIDE RECORDS SUMMARY | 2024-12-15 16:43 | External Medical Summary | Continuity of Care Document ---
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) - Malignant neoplasm of rectosigmoid junction(Final) - Heart failure, unspecified(Final) - Nonrheumatic mitral (valve) insufficiency(Final) - Intestinal bypass and anastomosis status(Final) - Discharge Disposition: Home or Self Care Attending Physician: MD Baez Abraham Referring Physician: MD Ector, Mahamed Reyes Allergies, Adverse Reactions, Alerts Substance Criticality Severity Reaction Reaction Severity Status penicillin Unable to assess criticality Mild unknown Active levoFLOXacin difficulty breathing Active Medications Imodium 2 mg oral capsule Start: 10/29/24 2:38:00 PM EST, See Instructions, Disp# 30 cap, 1 cap PO after each loose stool notto exceed 8 capsules, or 16 mg, in 24 hours, Pharmacy: [facility] [place] Start Date: 10/29/24 Status: Ordered valsartan 80 [...] to oldest [Reference Range]: 1 2 3 Patient Weight 91.9 kg (11/01/24 2:01 PM) Temperature [36.5-37.9 DegC] 36.3 DegC *LOW* (11/01/24 3:31 PM) 36.3 DegC *LOW* (11/01/24 3:21 PM) 36.1 DegC *LOW* (11/01/24 2:01 PM) Heart Rate 81 bpm (11/01/24 3:31 PM) 81 bpm (11/01/24 3:21 PM) 92 bpm (11/01/24 2:01 PM) Respiratory Rate 29 br/min (11/01/24 3:31 PM) 29 br/min (11/01/24 3:21 PM) 26 br/min (11/01/24 2:01 PM) Blood Pressure 119/73mmHg (11/01/24 3:31 PM) 119/73mmHg (11/01/24 3:21 PM) 133/78mmHg (11/01/24 2:01 PM) Mean Blood Pressure 86 mmHg (11/01/24 3:21 PM) Cuff Pulse Pressure 46 mmHg (11/01/24 3:21 PM) BP Location # 1 Left Arm (11/01/24 3:21 PM) Social History Social History Type Response Smoking Status Never smoked cigaret sai Sex Male Sex Representation Male (finding) Endoscopy study * MD Baez Abraham: VERIFY, PERFORM Event Display: Endoscopy Authored Date: [id number] Please click on link to see image. Anes H&P * MD Bar Daniel: MODIFY, PERFORM, SIGN, VERIFY Event Display: Anes H&P Authored Date: [id number] Patient: DOMINIC ROSADO Age: 54 years Sex: Male : 1970 Associated Diagnoses: None Author: MD Bar Daniel Preoperative Information Pre-Operative Diagnosis: Bile duct stricture . Anesthiesia Preop Info: Procedure: Endoscopic retrograde cholangiopancreatography Date: 11/01/24 14:00 Surgeons: MD Baez Abraham Diagnosis: bile duct stricture . History of Present Illness 54 year old male here for the above procedure. He has a past medical history of CHF EF maintained, adenocarcinoma of colon with mets to liver, & mitral valve regurg. Previous A/W -> MAC 4 G1V easy mask TTE (July): Medical History Medical Devices: Medical Devices: none . Health Status Allergies: Allergic Reactions (Selected) Mild Penicillin- Unknown. Severity Not Documented LevoFLOXacin- Difficulty breathing.. Medications: Medication List (Selected) Prescriptions Prescribed Imodium 2 mg oral capsule: See Instructions, 1 cap PO after each loose stool not to exceed 8 capsules, or 16 mg, in 24 hours, 30 cap valsartan 80 mg oral tablet: 1 tab, PO, Daily, 90 tab, 3 Refill(s). Problem List: All Problems Adenocarcinoma of colon metastatic to liver / SNOMED CT 4088257236 / Confirmed CHF due to valvular disease / SNOMED CT 2561358237 / Confirmed History of colon cancer, stage III / SNOMED CT 4586379043 / Confirmed Impaired fasting glucose / SNOMED CT 8284605149 / Confirmed Mitral regurgitation / SNOMED CT 34855802 / Confirmed Mitral valve problem / SNOMED CT 56726811 / Confirmed Weight disorder / SNOMED CT 701429130 / Confirmed Canceled: No Chronic Problems / Cerner NKP. Histories Procedure History: Colonoscopy ([id number]) on 12/17/2021 at 51 Years. Comments: 12/17/2021 08:08 [facility]YER - MD Elizabeth Brian D COLO to cecum, 6 mm polyp AC CS, anastomosis at 20 cm, hemorrhoid, CT of chest, abdomen and pelvis ([id number]) on 08/22/2020 at 50 Years. Comments: 08/23/2020 16:16 EDT - SHIRLENE Casey, Jnena 1) 6.7 cm segment of moderate irregular circumferential [...] or abdomen. 4) Additional findings as above. Colonoscopy ([id number]) on 08/14/2020 at 50 Years. Comments: 08/14/2020 09:42 EDT - SHIRLENE Keane Shania Impression: - A prostate nodule found on digital rectal exam. - Non-bleeding internal hemorrhoids. - Likely malignant partially obstructing tumor in the sigmoid colon. Biopsied. Pathology biopsy report colon ([id number]) on 08/14/2020 at 50 Years. Comments: 08/22/2020 10:21 BOBT Edwin Townsend LPN, Natasha 1. colon, mass at 25cm, biopsy; - invasive moderately diffentiated adenocarcinoma arising from tubular adenoma. comment; depths of invasion cannot be precisely determined due to the superficial nature of the tissue. MMR testing is pending and the result will be issued in the addendum. scheduled colorectal surgery. Social History: Cigarrette Smoker? Other Tobacco Use: Alcohol: Recreational Drugs: . Physical Examination VS/Measurements: Vital Signs 11/01/2024 14:01 EST Temperature 36.1 DegC LOW Heart Rate 92 bpm Respiratory Rate 26 br/min Systolic Blood Pressure 133 mmHg Diastolic Blood Pressure 78 mmHg SpO2 97 % . General: Alert and oriented. Airway: Mallampati classification: II (soft palate, fauces, uvula visible). Mouth: Within normal limits, Teeth ( Within normal limits ). Respiratory: Lungs are clear to auscultation, Respirations are non-labored, Breath sounds are equal. Cardiovascular: Normal rate, Regular rhythm, No murmur. Anesthesiologist Assessment and Plan Problems: No active cardiac conditions, No previous anesthetic complications, No a/w concerns. Disposition: No further testing or evaluation indicated preoperatively, may proceed with procedure as scheduled. ASA Classification: Class II. Anesthetic Plan: Anesthesia provided by other physicians and anesthesia team. Anesthetic technique discussed: General anesthesia. Induction discussed: Intravenously. Airway plan discussed: Oral endotracheal tube, Nasal Cannula. Risks discussed: Nausea-vomiting, Headache, Sore throat, Dental injury, Eye injury, Allergic reaction, Serious complications, Nerve damage, Aspiration. Informed consent: Signed by patient. History, Physical Exam, Assessment and Plan Completed: 11/01/2024 14:20:00, MD Dipika, Russ. Review / Management Results Review: Lab results 10/29/2024 06:47 EST Estimated CrCl 90.37 mL/min 10/29/2024 05:34 EST Sodium 134 mmol/L LOW Potassium 3.7 mmol/L Chloride 102 mmol/L HCO3 20 mmol/L LOW Anion Gap 12 mmol/L BUN 12 mg/dL Creatinine 0.91 mg/dL eGFR CKD-EPI >90 mL/min/1.73 m2 Glucose 127 mg/dL HI Calcium 9.0 mg/dL Magnesium 2.2 mg/dL Phosphorus 2.0 mg/dL LOW WBC Count 8.22 K/uL Hemoglobin 10.5 g/dL LOW Hematocrit 32.2 % LOW RBC Count 3.69 M/uL LOW MCV 87.3 fL MCHC 32.6 g/dL MCH 28.5 pg RDW 19.6 % HI Platelet Count 95 K/uL LOW MPV NOT AVAILABLE fL Type of Diff: AUTO Immature Gran% 2.3 % Neut% 81.4 % Lymph% 5.2 % [place]% 9.2 % Baso% 0.6 % Eos% 1.3 % Immat Gran, Abs 0.19 K/uL Neut, Abs 6.68 K/uL Lymph, Abs 0.43 K/uL LOW [place], Abs 0.76 K/uL Baso, Abs 0.05 K/uL Eos, Abs 0.11 K/uL ALT 91 unit/L HI Bilirubin, Total 22.8 mg/dL HI Alkaline Phosphatase 199 unit/L HI AST 94 unit/L HI Albumin 3.2 g/dL LOW Total Protein 6.5 g/dL 10/28/2024 19:08 EST Protime INR 1.3 HI PTT 31 seconds Protime 16.4 seconds HI Lactic Acid 1.3 mmol/L Acetaminophen <5.0 ug/mL LOW Ammonia Level 51 umol/L Hepatitis A Antibody, IgM NEGATIVE Hepatitis B Surf Ag NONREACTIVE Hepatitis B Surf Ab Concentration NONREACTIVE mIU/mL HepatitisBSurfAb Scr NONREACTIVE Hepatitis B Core Ab NONREACTIVE Hepatitis C Virus Ab NONREACTIVE CMV IgM Antibody NONREACTIVE CMV IgG Antibody NONREACTIVE EBV, by PCR (bld) QNS FOR ANALYSIS I.U./mL EBV, by PCR (bld), Log Pending I.U./mL (Pending) EBV, by PCR, Srce BLOOD Varicella Zoster IgG POSITIVE 10/28/2024 17:35 EST ABO/Rh A POSITIVE 10/28/2024 17:33 EST Respiratory Virus Panel, by PCR Final: ABO/Rh A POSITIVE Antibody Screen NEGATIVE Crossmatch Exp 10/31/2024 [facility] # NRQ Component Type RED CELLS # Units Ordered 0 10/28/2024 15:08 EST Estimated CrCl 95.62 mL/min 10/28/2024 13:57 EST Color, Urine LEMUEL Appearance, Urine SLIGHTLY CLOUDY Glucose, Urine NEGATIVE mg/dL Bilirubin, Urine MODERATE Ketones, Urine NEGATIVE mg/dL Spec Grav, Urine >1.030 Hemoglobin, Urine NEGATIVE pH, Urine 5.0 unit Protein, Urine 30 mg/dL Abnormal Urobilinogen, Urine 4.0 EU/dL HI Nitrite, Urine NEGATIVE Leuk Est, Urine NEGATIVE 10/28/2024 12:51 EST Sodium 136 mmol/L Potassium 4.4 mmol/L Chloride 101 mmol/L HCO3 15 mmol/L LOW Anion Gap 20 mmol/L HI BUN 15 mg/dL Creatinine 0.86 mg/dL eGFR CKD-EPI >90 mL/min/1.73 m2 Glucose 129 mg/dL HI Calcium 9.6 mg/dL WBC Count 8.23 K/uL Hemoglobin 12.1 g/dL LOW Hematocrit 37.3 % LOW RBC Count 4.15 M/uL LOW MCV 89.9 fL MCHC 32.4 g/dL MCH 29.2 pg RDW 19.7 % HI Platelet Count 115 K/uL LOW MPV 14.7 fL HI Type of Diff: AUTO Immature Gran% 4.1 % Neut% 79.4 % Lymph% 6.4 % [place]% 8.6 % Baso% 0.9 % Eos% 0.6 % Immat Gran, Abs 0.34 K/uL Neut, Abs 6.53 K/uL Lymph, Abs 0.53 K/uL LOW [place], Abs 0.71 K/uL Baso, Abs 0.07 K/uL Eos, Abs 0.05 K/uL ALT 110 unit/L HI Bilirubin, Total 24.9 mg/dL HI Alkaline Phosphatase 228 unit/L HI AST 120 unit/L HI Lipase 77 unit/L HI Albumin 3.4 g/dL LOW Total Protein 7.3 g/dL 10/28/2024 09:47 EST Estimated CrCl 101.95 mL/min 10/28/2024 09:37 EST Creatinine, POC 1.0 mg/dL . Electronic Signature on File Electronically Reviewed/Signed by: Russ Bar MD Author Signature Dt/Tm:11/01/2024 02:32 PM Department of Anesthesia Patient Care team information Care Team Personnel Name: MD Kaylen, Stoney I Position: Referring DIRECT Member Role: Primary Care Provider Address: [address] [place] [address] [place] Name: Hai Mcneal Kyle Position: Pharmacist Member Role: Pharmacy - Lifetime Address: [address] [place] [address] [place] Name: MD Rich Ying Position: Physician - Pathologist Member Role: Lifetime Relationship Address: [address] [place] [address] [place] Care Team Related Persons Name: NAHED ZHANG Name: NAHED ACUÑA
--- OUTSIDE RECORDS SUMMARY | 2024-12-15 16:43 | External Medical Summary | Continuity of Care Document ---
Author Name Unknown Organization [facility] Address [address] [place] [address] [phone] Care Team Providers Care Regulatory Affairs Internship Name Role Phone Stoney Abdullahi I Primary Care Physician [phone] Encounter [facility] [id number] Date(s): 10/28/24 - 10/29/[address] [phone] Encounter Diagnosis Diarrhea(Discharge Diagnosis) - 10/28/24 Dehydration(Discharge Diagnosis) - 10/28/24 Adenocarcinoma, colon(Discharge Diagnosis) - 10/28/24 Adenocarcinoma of colon metastatic to liver(Discharge Diagnosis) - 10/28/24 Discharge Disposition: Home or Self Care Attending Physician: MD Ainsley, Mounika Powers Admitting Physician: MD Schmitz Hyma V Referring Physician: MD Cartagena Joseph J Allergies, Adverse Reactions, Alerts Substance Criticality Severity Reaction Reaction Severity Status penicillin Unable to assess criticality Mild unknown Active levoFLOXacin difficulty breathing Active Functional Status 10/29/24 Neurological Symptoms None ADLs Independent Facial Symmetry Symmetric Gait Steady Swallowing Difficulty None Level of Consciousness Neuro Alert Hallucinations Present None Speech Pattern Clear 10/29/24 History of Fall in Last 3 Months Carver N o Presence of Secondary Diagnosis Carver No Use of Ambulatory Aid Carver None/bedrest /nurse assist IV/Heparin Lock Fall Risk Carver No Gait/Transferring Fall Risk Carver Normal /bedrest/immobile Mental Status Fall Risk Carver Oriented t o own ability Carver Fall Risk Score 0 Carver Fall Risk No Risk Medications Imodium 2 mg oral capsule Start: 10/29/24 2:38:00 PM EST, See Instructions, Disp# 30 cap, 1 cap PO after each loose stool notto exceed 8 capsules, or 16 mg, in 24 hours, Pharmacy: [facility] [place] Start Date: 10/29/24 Status: Ordered valsartan 80 mg oral tablet Start: 06/23/24 12:18:00 PM EDT, 1 tab, PO, Daily, Disp# 90 tab, Refills: 3, [facility]: [id number] Start Date: 06/23/24 Status: Ordered Mental Status 10/28/24 Communication Barrier Present No Primary Language Micronesian Problem List Condition Confirmation Course Effective Dates Status H ealth Status Informant Weight disorder Confirmed Active CHF due to valvular disease Confirmed Active History of colon cancer, stage III Confirmed Active Impaired fasting glucose Confirmed Active Mitral valve problem Confirmed Active Mitral regurgitation Confirmed Active Adenocarcinoma of colon metastatic to liver Confirmed Active Diagnosis Diagnosis Type Effective Dates Health Status Clinical Service Informant Diarrhea Discharge Diagnosis 10/28/24 Non-Specified Dehydration Discharge Diagnosis 10/28/24 Non-Specified Adenocarcinoma, colon Discharge Diagnosis 10/28/24 Non-Specified Adenocarcinoma of colon metastatic to liver Discharge Diagnosis 10/28/24 Non-Specified Procedures Procedure Date Related Diagnosis Body [...] colorectal surgery Results Laboratory List Name Date Complete Blood Count w Differential (CBC w Platelets and Diff) 10/29/24 Comprehensive Metabolic Panel (CMP) 10/17 02/07 Magnesium Level (Mg Level) 10/29/24 Phosphorus Level 10/29/24 Hepatitis A Antibody, IgM 10/28/24 Hepatitis B Surface Antigen 10/28/24 Hepatitis C Antibody 10/28/24 Varicella zoster IgG Antibody (VZV IgG A ntibody) 10/28/24 Cytomegalovirus IgG Antibody (CMV IgG An tibody) 10/28/24 Cytomegalovirus IgM Antibody (CMV IgM An tibody) 10/28/24 Fuad Walters Virus, by PCR, Blood (EBV, by PCR, Blood) 10/28/24 Hepatitis B Core Antibody, IgG and IgM 1 12/29/23 Hepatitis B Surface Antibody 10/28/24 Acetaminophen Level (Tylenol Level) 10/17 01/10 Ammonia Level 10/28/24 Lactic Acid Level 10/28/24 Partial Thromboplastin Time (PTT) Prothrombin Time w/ INR (PT/INR) 4 Blood Type (ABO/Rh) (ABO/RH) 10/28/24 Blood Type/Antibody Screen ( for possible transfusion) (Type and Screen (for possible transfusion)) 10/28/24 Urine Analysis w/ Reflexed Microscopic. 10/28/24 Complete Blood Count w Differential (CBC w Platelets and Diff) 10/28/24 Comprehensive Metabolic Panel 10/28/24 Lipase Level 10/28/24 Most recent to oldest [Refer ence Range]: 1 2 ABO/Rh A POSITIVE (10/28/24 5:35 PM) A POSITIVE (10/28/24 5:33 PM) Antibody Scr NEGATIVE (10/28/24 5:33 PM) Expires at 0600AM on 10/31/2024 (10/28/24 5:33 PM) # Units 0 (10/28/24 5:33 PM) R Number NRQ (10/28/24 5:33 PM) eGFR CKD-EPI [>60 mL/min/1.73 m2] >90 mL /min/1.73 m2 (10/29/24 5:34 AM) >90 mL/min/1.73 m2 (10/28/24 12:51 PM) CMV IgM Ab [NR] NONREACTIVE 1 (10/28/24 7:08 PM) Hep A Ab, IgM NEGATIVE 2 (10/28/24 7:08 PM) EBV, by PCR (bld) QNS FOR ANALYSIS I.U ./mL 3 (10/28/24 7:08 PM) EBV, by PCR, Srce BLOOD (10/28/24 7:08 PM) HBsAb Concentration [NR mIU/mL] NONREACT KONG mIU/mL 4 (10/28/24 7:08 PM) Estimated CrCl 90.37 mL/min (10/29/24 6:47 AM) 95.62 mL/min (10/28/24 3:08 PM) MPV [9.0-12.2 fL] NOT AVAILABLE fL (10/29/24 5:34 AM) 14.7 fL *HI* (10/28/24 12:51 PM) Immature Gran% 2.3 % (10/29/24 5:34 AM) 4.1 % (10/28/24 12:51 PM) Neut% 81.4 % (10/29/24 5:34 AM) 79.4 % (10/28/24 12:51 PM) Lymph% 5.2 % (10/29/24 5:34 AM) 6.4 % (10/28/24 12:51 PM) [place]% 9.2 % (10/29/24 5:34 AM) 8.6 % (10/28/24 12:51 PM) Baso% 0.6 % (10/29/24 5:34 AM) 0.9 % (10/28/24 12:51 PM) Eos% 1.3 % (10/29/24 5:34 AM) 0.6 % (10/28/24 12:51 PM) Immat Gran, Abs [0-0.4 K/uL] 0.19 K/uL (10/29/24 5:34 AM) 0.34 K/uL (10/28/24 12:51 PM) Neut, Abs [2.0-7.7 K/uL] 6.68 K/uL (10/29/24 5:34 AM) 6.53 K/uL (10/28/24 12:51 PM) Lymph, Abs [1.0-3.4 K/uL] 0.43 K/uL *LOW* (10/29/24 5:34 AM) 0.53 K/uL *LOW* (10/28/24 12:51 PM) [place], Abs [0-1.0 K/uL] 0.76 K/uL (10/29/24 5:34 AM) 0.71 K/uL (10/28/24 12:51 PM) Baso, Abs [0-0.1 K/uL] 0.05 K/uL (10/29/24 5:34 AM) 0.07 K/uL (10/28/24 12:51 PM) Eos, Abs [0-0.5 K/uL] 0.11 K/uL (10/29/24 5:34 AM) 0.05 K/uL (10/28/24 12:51 PM) Type of Diff: AUTO (10/29/24 5:34 AM) AUTO (10/28/24 12:51 PM) RDW [11.5-14.2 %] 19.6 % *HI* (10/29/24 5:34 AM) 19.7 % *HI* (10/28/24 12:51 PM) Component RED CELLS (10/28/24 5:33 PM) Acetaminophen [10-30 ug/mL] <5.0 ug/mL 5 *LOW* (10/28/24 7:08 PM) Anion Gap [5-14 mmol/L] 12 mmol/L (10/29/24 5:34 AM) 20 mmol/L *HI* (10/28/24 12:51 PM) Alb [3.5-5.2 g/dL] 3.2 g/dL *LOW* (10/29/24 5:34 AM) 3.4 g/dL *LOW* (10/28/24 12:51 PM) Alk Phos [40-130 unit/L] 199 unit/L 6 *HI* (10/29/24 5:34 AM) 228 unit/L 7 *HI* (10/28/24 12:51 PM) ALT [0-41 unit/L] 91 unit/L *HI* (10/29/24 5:34 AM) 110 unit/L *HI* (10/28/24 12:51 PM) AST [0-40 unit/L] 94 unit/L *HI* (10/29/24 5:34 AM) 120 unit/L *HI* (10/28/24 12:51 PM) Bili (u) [NEG] MODERATE *Abnormal* (10/28/24 1:57 PM) BUN [6-23 mg/dL] 12 mg/dL (10/29/24 5:34 AM) 15 mg/dL (10/28/24 12:51 PM) Ca [8.4-10.2 mg/dL] 9.0 mg/dL (10/29/24 5:34 AM) 9.6 mg/dL (10/28/24 12:51 PM) Cl- [98-107 mmol/L] 102 mmol/L (10/29/24 5:34 AM) 101 mmol/L (10/28/24 12:51 PM) HCO3 [22-29 mmol/L] 20 mmol/L *LOW* (10/29/24 5:34 AM) 15 mmol/L *LOW* (10/28/24 12:51 PM) HBcAb [NR] NONREACTIVE 8 (10/28/24 7:08 PM) Cret [0.70-1.30 mg/dL] 0.91 mg/dL 9 (10/29/24 5:34 AM) 0.86 mg/dL 10 (10/28/24 12:51 PM) Glu [74-109 mg/dL] 127 mg/dL 11 *HI* (10/29/24 5:34 AM) 129 mg/dL 12 *HI* (10/28/24 12:51 PM) HBsAg [NR] NONREACTIVE (10/28/24 7:08 PM) HBsAb [NR] NONREACTIVE (10/28/24 7:08 PM) Hct [39-48 %] 32.2 % *LOW* (10/29/24 5:34 AM) 37.3 % *LOW* (10/28/24 12:51 PM) HCV Ab [NR] NONREACTIVE (10/28/24 7:08 PM) Hgb [13.0-17.0 g/dL] 10.5 g/dL *LOW* (10/29/24 5:34 AM) 12.1 g/dL *LOW* (10/28/24 12:51 PM) INR [0.9-1.1] 1.3 13 *HI* (10/28/24 7:08 PM) K [3.5-5.1 mmol/L] 3.7 mmol/L (10/29/24 5:34 AM) 4.4 mmol/L (10/28/24 12:51 PM) Ketones [NEG mg/dL] NEGATIVE mg/dL (10/28/24 1:57 PM) Lactate [0.5-2.2 mmol/L] 1.3 mmol/L (10/28/24 7:08 PM) Lipase [13-60 unit/L] 77 unit/L *HI* (10/28/24 12:51 PM) Leuk Est [NEG] NEGATIVE (10/28/24 1:57 PM) MCH [28-33 pg] 28.5 pg (10/29/24 5:34 AM) 29.2 pg (10/28/24 12:51 PM) MCHC [32-36 g/dL] 32.6 g/dL (10/29/24 5:34 AM) 32.4 g/dL (10/28/24 12:51 PM) MCV [81-96 fL] 87.3 fL (10/29/24 5:34 AM) 89.9 fL (10/28/24 12:51 PM) Mg [1.6-2.6 mg/dL] 2.2 mg/dL (10/29/24 5:34 AM) Na [136-145 mmol/L] 134 mmol/L *LOW* (10/29/24 5:34 AM) 136 mmol/L (10/28/24 12:51 PM) NH3 [11-51 umol/L] 51 umol/L (10/28/24 7:08 PM) Nitrite (u) [NEG] NEGATIVE (10/28/24 1:57 PM) PO4 [2.5-4.5 mg/dL] 2.0 mg/dL *LOW* (10/29/24 5:34 AM) Plts [150-350 K/uL] 95 K/uL *LOW* (10/29/24 5:34 AM) 115 K/uL *LOW* (10/28/24 12:51 PM) PT [12.0-14.2 seconds] 16.4 seconds *HI* (10/28/24 7:08 PM) PTT [23-35 seconds] 31 seconds (10/28/24 7:08 PM) RBC [4.40-5.60 M/uL] 3.69 M/uL *LOW* (10/29/24 5:34 AM) 4.15 M/uL *LOW* (10/28/24 12:51 PM) T Bili [0.0-1.2 mg/dL] 22.8 mg/dL *HI* (10/29/24 5:34 AM) 24.9 mg/dL *HI* (10/28/24 12:51 PM) Prot [6.4-8.3 g/dL] 6.5 g/dL 14 (10/29/24 5:34 AM) 7.3 g/dL 15 (10/28/24 12:51 PM) Appear (u) SLIGHTLY CLOUDY (10/28/24 1:57 PM) Color (u) LEMUEL (10/28/24 1:57 PM) Glu (u) [NEG mg/dL] NEGATIVE mg/dL (10/28/24 1:57 PM) Hgb (u) [NEG] NEGATIVE (10/28/24 1:57 PM) pH (u) [5.0-8.0 unit] 5.0 unit (10/28/24 1:57 PM) Prot (u) [NEG mg/dL] 30 mg/dL *Abnormal* (10/28/24 1:57 PM) Urobili [0.1-1.0 EU/dL] 4.0 EU/dL *HI* (10/28/24 1:57 PM) SG [1.005-1.030] >1.030 *HI* (10/28/24 1:57 PM) VZV IgG [POS] POSITIVE (10/28/24 7:08 PM) WBC [4.0-10.4 K/uL] 8.22 K/uL (10/29/24 5:34 AM) 8.23 K/uL (10/28/24 12:51 PM) CMV IgG Antibody NONREACTIVE 16 (10/28/24 7:08 PM) 1Result Comment: The following results were obtained with the [employer] CMV IgM assay. Results fromassays of other manufacturers cannot be used interchangeably. ICTERIC SPECIMEN 2Result Comment: Reference range: NEGATIVE Performed By: [employer] [address] [place] [address] Vendor: Ryan Degroot MD, PhD CLIA Number: [id number] 3Result Comment: REQUEST CREDITED 4Result Comment: ICTERIC SPECIMEN 5Result Comment: ICTERIC SPECIMEN 6Result Comment: Low levels of ALKP may indicate a deficiency in zinc, magnesium, or malnutritionbutcan also be an indicator of a rare genetic disease hypophosphatasia (HPP). 7Result Comment: Low levels of ALKP may indicate a deficiency in zinc, magnesium, or malnutritionbutcan also be an indicator of a rare genetic disease hypophosphatasia (HPP). 8Result Comment: ICTERIC SPECIMEN 9Result Comment: ICTERIC SPECIMEN 10Result Comment: ICTERIC SPECIMEN CHECKED 11Result Comment: ADA recommendation for FASTING Serum/Plasma Glucose: Normal: 70-100 mg/dL Prediabetes: 100-125 mg/dL Diabetes: 126 mg/dL or higher 12Result Comment: ADA recommendation for FASTING Serum/Plasma Glucose: Normal: 70-100 mg/dL Prediabetes: 100-125 mg/dL Diabetes: 126 mg/dL or higher 13Result Comment: Suggested therapeutic range for low-intensity Coumadin therapy for venous thromboembolism is INR 2.0-3.0 (ex: atrial fibrillation, history of TIA/stroke). For high risk patients, the suggested therapeutic range is INR 2.5-3.5 (ex: mechanical prosthetic valves). 14Result Comment: ICTERIC SPECIMEN 15Result Comment: ICTERIC SPECIMEN 16Result Comment: The following results were obtained with the Ele[employer]ys CMV IgG assay. Results fromassays of other manufacturers cannot be used interchangeably. Orders for Microbiology Reports Name Date Respiratory Pathogen Panel, by PCR (RVP) 10/28/24 Microbiology Reports TEST:Respiratory Virus Panel, by PCR STATUS:Auth (Verified) BODY SITE: SOURCE:Nasal/Pharyngeal COLLECTED DATE/TIME:10/28/24 5:33 PM Status FINAL 10/28/2024 Vital Signs Most recent to oldest [Reference Range]: 1 2 3 Height 160 cm (10/28/24 10:28 AM) Patient Weight 90.9 kg (10/28/24 10:28 AM) Body Mass Index 35.51 kg/m2 (10/28/24 10:28 AM) Temperature [36.5-37.9 DegC] 36.0 DegC *LOW* (10/29/24 11:55 AM) 36.3 DegC *LOW* (10/29/24 4:05 AM) 36.5 DegC (10/28/24 8:15 PM) Heart Rate 88 bpm (10/29/24 11:55 AM) 87 bpm (10/29/24 4:05 AM) 104 bpm (10/28/24 8:15 PM) Respiratory Rate 16 br/min (10/29/24 11:55 AM) 16 br/min (10/29/24 4:05 AM) 18 br/min (10/28/24 8:15 PM) Blood Pressure 144/89mmHg (10/29/24 11:55 AM) 126/64mmHg (10/29/24 4:05 AM) 151/88mmHg (10/28/24 8:15 PM) Mean Blood Pressure 101 mmHg (10/29/24 11:55 AM) 77 mmHg (10/29/24 4:05 AM) 102 mmHg (10/28/24 8:15 PM) Cuff Pulse Pressure 55 mmHg (10/29/24 11:55 AM) 62 mmHg (10/29/24 4:05 AM) 63 mmHg (10/28/24 8:15 PM) BP Location # 1 Left Arm (10/29/24 11:55 AM) Left Arm (10/29/24 4:05 AM) Left Arm (10/28/24 8:15 PM) Social History Social History Type Response Smoking Status Never smoked cigaret sai Sex Male Sex Representation Male (finding) Gastroenterology Consult note * MD Ector, Mahamed Reyes: MODIFY MD Barney Matthew T: MODIFY, PERFORM MD Sandee, Rancho: PERFORM, MODIFY MD Sandee, Rancho: MODIFY Event Display: Gastroenterology Consult Authored Date: Chief Complaint c/o diarrhea w/ dark urine x 2 wks. dx colon cancer w/ liver mets, no current treatment. - abd pain. + nausea. - fevers but endorses chills. also has dry cough Reason for Consultation Biliary obstructive pathology suspected from metastatic malignancy History of Present Illness In the ED patient was mildly tachycardic 103 but stable on room air. Labs were notable for low bicarb 15, anion gap 20, normocytic anemia 12.1, transaminitis ALT 110, AST 120, T. bili 24.9, alk phos 228, lipase 77. CT abdomen/pelvis notable for newfound hepatic metastatic foci in both the rightand left liver lobes. Previously treated inferior right liver lobe metastasis of 13.7 cm. Additionally it was noted that patient had intrahepatic biliary ductal dilation reaching down to the biliary confluence. 1.5 cm hypodensity in the uncinate process of the pancreas Surgical oncologywas consulted and saw the patient. They did not recommend any surgical intervention at this time. Patient had recommendedGI consult for possible ERCP. On interview patient noted thatfor approximately 2 weeks hehas been experiencing nauseaand watery diarrhea. Patient notes thathe has notvomited. Patient notes that he has not been experiencing any abdominal pain. Patient notes that he has become more jaundiced over the last few days. Patient denies any fever or chills. Patient denies any lightheadedness or dizziness. Patientnotes thatthewatery diarrheais also interspersed with floating stooland does not show anyblack stool orbloody stool. Patientwas not able totolerate capecitabine andoxaliplatin in the past for his adenocarcinomaof colon. Patienthad refusedsurgicaltreatmentfor a suspected metastatic lesion to the liver.Patient notes thathe has attempted toseekadditional treatment for his carcinomabut has had difficulty with scheduling. FH: noncontributory SH:Denies any tobacco use, recreational drug use, alcohol use Review of Systems A 10-point review of systems was conducted with pertinent positives and negatives in HPI, otherwisenegative. Physical Exam Vitals & Measurements T:36.0C TMIN:36.0C TMAX:36.5C HR:88(Monitored) RR:16 BP:144/89 SpO2:95% Oxygen Therapy:Room Air BMI:35.51 kg/m2 Input and Output - Last 24 hours (Last 8 hours) Total In: 500 (0) Total Out: 0 (0) Total Balance: 500 (0) MED INTAKE:500 (0) General - well-appearing, resting comfortably in NAD HEENT - PERRLA, EOMI,scleral icterus CV - regular rate & rhythm, no murmurs/rubs/gallops, no edema Resp - CTAB, normal work of breathing Abd - soft, nondistended, nontender; present bowel sounds; negativeMurphy sign Skin -jaundiced Neuro - alert &oriented, 5/5 strength Diagnostic Results (10/28/2024 10:[address] Abdomen and Pelvis w/ Contrast) Reason For Exam 54 y/o male with colon cancer with liver mets, s/p liver embolization CT Abdomen and Pelvis w/ [...] vessels: Borderline heart size ABDOMEN Liver, Gallbladder \\T\\ bile ducts: Interval development of multiple new [...] lymph nodes, and vessels: No adenopathy Bowel \\T\\ Mesentery: No bowel obstruction. No ascites. Postsurgical changes in the rectosigmoid colon PELVIS Bladder: Unremarkable for degree of distention Reproductive organs: Unremarkable Extraperitoneal, lymph nodes, vessels: No pelvic adenopathy Osseous and body wall: Degenerative changes IMPRESSION: Marked interval progression of hepatic metastasis. New intrahepatic biliary ductal dilation down to the confluence, likely secondary to periportal metastasis. Possible pancreatic metastasis to the uncinate process. [1] Assessment/Plan Patient is a 54-year-old male with apast medical history ofHFpEF secondary to mitral regurgitation, stage III adenocarcinoma of the colon s/p sigmoid colectomy 2019 with metastasis to the liver trialed on capecitabine and oxaliplatin but not tolerate and subsequently treated with Y90 radioembolization in January 2024 and not on active chemotherapy, presenting to the ED for 2 weeks of progressive diarrhea, nausea, jaundice found to have obstructive biliary pathology c/f malignant etiology. Gastroenterology was consulted for biliary obstruction and potential ERCP. Cholestatic LFTs and CTAbd/Pelv w/ contrastwas diagnosticfor biliary obstructive pathology. Biliary tree dilation noted from intrahepatic to biliary confluence.Considering patient's metastatic adenocarcinoma, this obstructive pathology is most likely 2/2 malignancy. Patient's symptoms of nausea and poor PO intake are most likely due to this obstructive biliary pathology. No signs of cholangitis. We will need to evaluate the biliary structure with an ERCP and plan for a potential stent. Patientwill need outpatient follow up for stent replacement. Pt is scheduled for 11/01 at 1pm. Patient will asloneedoutpatientfollow up with oncologywhich iscurrentlyscheduled fornext week with . RECOMMENDATIONS -Outpatient ERCP scheduled for 1pm on 11/01 -will need outpatient follow up after biliary stent -patient would benefit from nutritional supplement considering his decreased appetite and PO intakedue to the biliary obstruction -f/u with oncology outpatient Thank you for allowing us to help in the care of this patient. Gastroenterology will continue tofollow Attestation I have seen and evaluated this patient and I agree with the above assessment and plan Problem List/Past Medical History Ongoing Adenocarcinoma of colon metastatic to liver CHF due to valvular disease History of colon cancer, stage III Impaired fasting glucose Mitral regurgitation Mitral valve problem Weight disorder Procedure/Surgical History Colonoscopy| Service Date: 2CT of chest, abdomen and pelvis| Service Date: 08/22/2020Pathology biopsy report colon| Service Date: 08/14/2020Colonoscopy| Service Date: 08/14/2020 Medications Inpatient potassium phosphate-sodium phosphate(K-Phos Neutral), 2 tab, PO, qid valsartan, 80 mg= 1 tab, PO, Daily Home pantoprazole(pantoprazole 20 mg oral delayed release tablet), 20 mg= 1 tab, PO, Daily, 1 refills spironolactone(spironolactone 25 mg oral tablet), 25 mg= 1 tab, PO, Daily, 11 refills unknown medication, PO, Daily valsartan(valsartan 80 mg oral tablet), 1 tab, PO, Daily Allergies penicillin (Mild)unknown levoFLOXacindifficulty breathing Social History Smoking Status Never smoked cigarettes Alcohol - Denies Alcohol Use Employment/School - Low Risk - Comments: [employer] Exercise - Does not exercise - Comments: [employer], very active with [employer] job Home/Environment - Low Risk - Comments: Mother moved with him recently Tobacco - Denies Tobacco Use Family History Alcoholism: Brother. HLD - Hyperlipidemia: Negative: Mother and Father. Heart attack: MGF and PGF.Negative: Mother and Father. Hypertension: Negative: Mother and Father. Health Status Family Member(s) Lab Results BMP: Date Na K Cl HC03 BUN Cret Glu Ca 10/29/2024 05:34 134 3.7 102 20 12 0.91 127 9.0 10/28/2024 12:51 136 4.4 101 15 15 0.86 129 9.6 CBC: Date WBC Hgb Hct Plts Neut, Abs 10/29/2024 05:34 8.2 10.5 32.2 95 6.7 10/28/2024 12:51 8.2 12.1 37.3 115 6.5 eGFR CKD-EPI:>90 Lactate: 10/28 19:08 1.3 Liver/GI: Date: ALT TBili DBili Alk Phos Amylase Lipase 10/29 05:34 91 22.8 199 10/28 12:51 110 24.9 228 77 Urinalysis: Date: Nitrite Leukocyte Esterate WBC RBC 10/28 13:57 NEGATIVE NEGATIVE [1]CT Abdomen and Pelvis w/ Contrast; MD Leonidas, Rodríguez I 10/28/2024 10:15 EST Electronic Signature on File CC: Forward 1 to: Electronically Reviewed/Signed by: Rancho Ignacio MD Author Signature Dt/Tm:10/29/2024 01:58 PM Resident Division of Internal Medicine Electronically Reviewed/Signed by: Rancho Ignacio MD Cosigner Signature Dt/Tm: 10/29/2024 04:40 PM Resident Division of Internal Medicine Electronically Reviewed/Signed by: Mahmaed Barney MD, MS, BRIJESH Cosigner Signature Dt/Tm: 10/29/2024 06:17 PM water quality tester Division of Gastroenterology & Hepatology [facility] [address], [facility], [place] [address] [place] Emergency department Summary note * MD Gonzalez Lawrence E: MODIFY MD Gonzalez Lawrence E: MODIFY, MODIFY, MODIFY, MODIFY, MODIFY, PERFORM Poisson, PA-C, Kathi E: PERFORM, MODIFY Poisson, PA-C, Kathi E: MODIFY, MODIFY Poisson, PA-C, Kathi E: MODIFY, MODIFY Poisson, PA-C, Kathi E: MODIFY, MODIFY Poisson, PA-C, Kathi E: MODIFY Event Display: ED Summary Authored Date: [id number] Basic Information Time Seen: TYLER Gramajo Collette E 10/28/2024 14:04 Chief Complaint c/o diarrhea w/ dark urine x 2 wks. dx colon cancer w/ liver mets, no current treatment. - abd pain. + nausea. - fevers but endorses chills. also has dry cough History of Present Illness DOMINIC ROSADO Sis [id number] male with a past medical history ofCHF,mitral regurgitation,stage III adenocarcinomaof the colon with mets to the liver, who presents to the emergency department due todiarrhea and overall weaknessfor the last 2 weeks. The patient states that he was in his normal state of healthwhen approximately two weeks agohe developedpersistentdiarrhea. Patient states that since the onsetof this diarrheal illness,the frequency of episodes dependson the day, as some days he is able tohaveregular solid bowel movements, and other days hefinds that he is unable to toleratefood without havingdiarrhea immediately after. The patient states thatwhile his diarrhea is nonbloody, it has become aclay- like color, which is new since the onset of thisdiarrheal illness. The patient does endorsecold-like symptomsthat began shortlyafter the diarrhea, and reports a residual cough, however,the patient's nasal congestionhas sinc e resolved. Due to the symptoms, thepatientpresented to the emergency department at an outside hospital for further evaluation. At that time,the patient was given IV fluids and treated for dehydration. It was recommended that the patient be admitted for further evaluation and treatment regardinghis condition, however, the patient refused, stating that he would prefer to be treated at [facility] his oncology team is here.The patient was offered [facility] [place] from the outside hospital, however, the patient refusedstating that he would bring himself to the emergency departmentfor further evaluation should his symptoms persist. The patient denies any recent internationaltravel or antibiotic use. He denies having any known sick contacts with similar symptoms. Of note, the patient received routine CT abdomen/pelvisand CT thoraximagingtoday as an outpatientoncology patient. Patient otherwise denies any fever, headache,cold-like symptoms,chest pain, shortness of breath, abdominal pain, rashes,confusion, or decreased level consciousness. Review of Systems In addition to what is documented in the HPI, the additional ROS was obtained: Constitutional:Reports chillsand weakness. Denies feveror headache Ears, Nose, Mouth & Throat: Denies nasal congestion, rhinorrhea, sore throat,earache Cardiovascular: Denies chest pain, peripheral edema Respiratory:Reports nonproductive cough. Denies shortness of breath, hemoptysis Gastrointestinal:Reports nausea without vomitingand diarrhea. Also reports change in stoolcolor to a "clayl-pranay color." Denies abdominal pain, vomiting, or blood in his stool Genitourinary: Reports dark urine. Denies hematuria, dysuria, urinary frequency, urinary urgency Musculoskeletal: Denies joint swelling or muscle pain Integumentary: Denies rash, new skin lesion Neurologic: Denies numbness, tingling, gait changes,balance problems, confusion,loss of consciousness Physical Exam Vitals & Measurements T:36.4C HR:97(Monitored) RR:18 BP:116/80 SpO2:97% Oxygen Therapy:Room Air HT:160cm WT:90.900kg(Dosing) WT:90.9kg BMI:35.51 I have reviewed the patient's triage vital signs. CONST:Notably jaundice, chronically ill-appearing 54-year-old male in no acute distress. EYES:Pupils equal, round, and reactive to light directly and consensually (5 mm to 4 mm) bilaterally. Significant scleral icterus noted. EOMI. HENT:Normal cephalic, atraumatic, dry membranes moist. NECK: No neck pain or stiffness, no cervical lymphadenopathy CV:Regular rate and rhythm, 4/6harshsystolic murmur noted on exam. Skin warm with well-perfused extremities. Radial and DP pulses +2 bilaterally. No noted peripheral edema to bilateral lower extremities. RESP:Clear to auscultation bilaterally, no stridor, wheezes, rhonchi, or rales. Unlabored respiratory effort. GI:Abdomen is soft, non-tender, andnon-distended on palpation. No masses or organomegaly. MSK:No gross deformities appreciated SKIN:Warm, dry, no rashes NEURO:Alert, oriented x 4, GCS 15, fluid speech and coordination. Sensation and motor function ofextremities grossly intact PSYCH:Appropriate mood and affect. Cooperative. Medical Decision Making DDx: Dehydration, YOLI, anemia, viralURI, urinary tract infection, pancreatitis,hepatobiliary pathology, pneumonia,pleural effusion Patient is is [id number] male with a past medical history ofCHF,mitral regurgitation,stage III adenocarcinomaof the colon with mets to the liver, who presents to the emergency department due todiarrhea and overall weaknessfor the last 2 weeks. On arrival to the emergency department, the patient is afebrile with stable vital signs including a temperature of 36.4 C, heart rate of 97 bpm, respiratory rate of 18 breaths/min, SpO2 of 97% on room air, and blood pressure 160/80. Physical exam revealed a chronically [id number]-old male in no acute distress, however, he wasnoted to be extremely jaundiced. Upon cardiopulmonary exam, the patient was noted to have a 4/6 harshsystolic murmur, however, no other acute cardiopulmonary abnormalities were noted. The patient denied any abdominal painor tenderness to palpation. No acuteabdominalabnormalities were noted on physical exam. Patient did appear dehydrated, with dry mucous membranes andborderline tachycardia. Due to the patient'sduration of symptomsand comorbidities, the patient was given a 500 ccnormal saline bolusto assist in hydration. The patient was not given agreater volume of IV fluidsdue to the patient'shistory of heart failure. The patient symptoms were evaluated with a CBC, CMP, urinalysis, lipase level, C. difficile toxin assay, extended enteric stool pathogen panel, and respiratory viral panel. This workup was remarkable for a bicarb of 15, anion gap of 20, suggesting dehydration, however no signs of an YOLI were noted, as the patient's BUN and creatinine were found to be 15 and 0.86 respectively, compared ot previous labs which show 19 and 0.81. No signs of leukocytosis were found on workup,as the patient had awhite blood cell count 8.23K. The patient was noted to havemild anemia with an H&H of 12.1 and 37.3% respectively which is down from his previous labs in February 2024 which showed an H&H of 13.6 and 41.5% respectively. Patient showed elevated liver enzymes with a ALT of 110 T. bili of 24.9, alk phos of 228, AST of 120. Compared to previous laboratory studies in February 2024, the patient's ALT was previously noted to be 86 T. bili of 0.5, alk phos of 80, and AST of 72. The patient also was noted to have a lipase of 77 which is increased from previous workup in August 2023 witha lipase of 32. Urinalysis did not reveal anyleuk esterase or nitrites,ruling out urinary tract infection as a possible cause for the patient's presenting symptoms. The patient received a CT abdomen/pelvis with contrast and a CT thorax with contrast that was ordered by his oncology team,earlier today as an outpatient. The results of this imaging was still pending at time of requested admission, therefore, acute intra-abdominal pathology, such as pancreatitis, hepatobiliary pathology, orother conditions could not be ruled out at this time. Additionally, CXR was not ordered due to the patient's lack of fever and normal WBC count, and the fact that a CT thorax with contrast was pending at time of arrival to the emergency department. As a result, the patient did not need further urgent imagingas one imaging modality was alreadycurrently pending. Any acute intra-abdominal pathologyor intrathoracic pathologycould not be determined until these images are read. Due to the patient's significant increase inhisbilirubin andoverall liver enzymes, as well asdehydration, oncology was consulted for admission. 1532: Oncology contacted for admission for dehydration and hyperbilirubinemia 1643: Patient admitted to oncology instable conditionfor continued evaluation and treatment Assessment/Plan Admit to oncology for further evaluation and treatment 1.Adenocarcinoma of colon metastatic to liver This note was completed in part, utilizing [employer] Voice Recognition Software. Grammatical errors, random word substitutions, spelling mistakes and incomplete sentences are an occasional consequence of this system due to software limitations, ambient noise, and hardware issues. If you have any concerns regarding the context or information contained within the body of this dictation; please contact the provider for clarification. Medication Reconciliation Unchanged pantoprazole (pantoprazole 20 mg oral delayed release tablet)1 tab(s) by mouth once daily for 30 Days. Refills: 1. spironolactone (spironolactone 25 mg oral tablet)1 tab(s) by mouth once daily. Refills: 11. unknown medicationby mouth once daily. valsartan (valsartan 80 mg oral tablet)1 tab(s) by mouth once daily. Refills: 3. Attestation I have personally performed in its entirety thehistory,physical exam,and medical decision making for this patient.I have reviewed and agree with the care plan documented above by the ANDIE. Problem List/Past Medical History Ongoing Adenocarcinoma of colon metastatic to liver CHF due to valvular disease History of colon cancer, stage III Impaired fasting glucose Mitral regurgitation Mitral valve problem Weight disorder Procedure/Surgical History Colonoscopy| Service Date: 2CT of chest, abdomen and pelvis| Service Date: 08/22/2020Pathology biopsy report colon| Service Date: 08/14/2020Colonoscopy| Service Date: 08/14/2020 Medication Administration Administered: Medications: NS Bolus, 500 mL, Bolus-IV (10/28/2024 14:57 EST) Allergies penicillin (Mild)unknown levoFLOXacindifficulty breathing Family History Alcoholism: Brother. HLD - Hyperlipidemia: Negative: Mother and Father. Heart attack: MGF and PGF.Negative: Mother and Father. Hypertension: Negative: Mother and Father. Health Status Family Member(s) Lab Results Chemistry LATEST RESULTS HISTORICAL RESULTS Na 10/28/24 12:51 136 mmol/L 01/21/24 138 mmol/L K 10/28/24 12:51 4.4 mmol/L 01/21/24 4.1 mmol/L Cl- 10/28/24 12:51 101 mmol/L 01/21/24 104 mmol/L HCO3 10/28/24 12:51 15 mmol/L Low 01/21/24 21 mmol/L Low Anion Gap 10/28/24 12:51 20 mmol/L High 01/21/24 13 mmol/L BUN 10/28/24 12:51 15 mg/dL 02/19/24 19 mg/dL Cret 10/28/24 12:51 0.86 mg/dL 02/19/24 0.81 mg/dL Estimated CrCl 10/28/24 15:08 95.62 10/28/24 101.95 eGFR CKD-EPI 10/28/24 12:51 >90 mL/min/1.73 m2 02/19/24 >90 mL/min/1.73 m2 Glu 10/28/24 12:51 129 mg/dL High 01/21/24 276 mg/dL High Ca 10/28/24 12:51 9.6 mg/dL 01/21/24 9.2 mg/dL CBC LATEST RESULTS HISTORICAL RESULTS WBC 10/28/24 12:51 8.23 K/uL 02/19/24 5.21 K/uL Hgb 10/28/24 12:51 12.1 g/dL Low 02/19/24 13.6 g/dL Hct 10/28/24 12:51 37.3 % Low 02/19/24 41.5 % RBC 10/28/24 12:51 4.15 M/uL Low 02/19/24 4.77 M/uL MCV 10/28/24 12:51 89.9 fL 02/19/24 87.0 fL MCHC 10/28/24 12:51 32.4 g/dL 02/19/24 32.8 g/dL MCH 10/28/24 12:51 29.2 pg 02/19/24 28.5 pg RDW 10/28/24 12:51 19.7 % High 02/19/24 13.5 % Plts 10/28/24 12:51 115 K/uL Low 02/19/24 84 K/uL Low MPV 10/28/24 12:51 14.7 fL High 02/19/24 NOT AVAILABLE fL Type of Diff: 10/28/24 12:51 AUTO 01/21/24 AUTO Immature Gran% 10/28/24 12:51 4.1 % 01/21/24 0.8 % Neut% 10/28/24 12:51 79.4 % 01/21/24 72.6 % Lymph% 10/28/24 12:51 6.4 % 01/21/24 14.1 % [place]% 10/28/24 12:51 8.6 % 01/21/24 9.3 % Baso% 10/28/24 12:51 0.9 % 01/21/24 0.6 % Eos% 10/28/24 12:51 0.6 % 01/21/24 2.6 % Immat Gran, Abs 10/28/24 12:51 0.34 K/uL 01/21/24 0.04 K/uL Neut, Abs 10/28/24 12:51 6.53 K/uL 01/21/24 3.61 K/uL Lymph, Abs 10/28/24 12:51 0.53 K/uL Low 01/21/24 0.70 K/uL Low [place], Abs 10/28/24 12:51 0.71 K/uL 01/21/24 0.46 K/uL Baso, Abs 10/28/24 12:51 0.07 K/uL 01/21/24 0.03 K/uL Eos, Abs 10/28/24 12:51 0.05 K/uL 01/21/24 0.13 K/uL Liver/GI LATEST RESULTS HISTORICAL RESULTS ALT 10/28/24 12:51 110 unit/L High 02/19/24 86 unit/L High T Bili 10/28/24 12:51 24.9 mg/dL High 02/19/24 0.5 mg/dL Alk Phos 10/28/24 12:51 228 unit/L High 02/19/24 80 unit/L AST 10/28/24 12:51 120 unit/L High 01/21/24 72 unit/L High Lipase 10/28/24 12:51 77 unit/L High 09/06/23 32 unit/L Nutrition LATEST RESULTS HISTORICAL RESULTS Alb 10/28/24 12:51 3.4 g/dL Low 01/21/24 4.5 g/dL Prot 10/28/24 12:51 7.3 g/dL 01/21/24 7.5 g/dL Urine LATEST RESULTS Color (u) 10/28/24 13:57 LEMUEL Appear (u) 10/28/24 13:57 SLIGHTLY CLOUDY Glu (u) 10/28/24 13:57 NEGATIVE mg/dL Bili (u) 10/28/24 13:57 MODERATE Abnormal Ketones 10/28/24 13:57 NEGATIVE mg/dL SG 10/28/24 13:57 >1.030 High Hgb (u) 10/28/24 13:57 NEGATIVE pH (u) 10/28/24 13:57 5.0 unit Prot (u) 10/28/24 13:57 30 mg/dL Abnormal Urobili 10/28/24 13:57 4.0 EU/dL High Nitrite (u) 10/28/24 13:57 NEGATIVE Leuk Est 10/28/24 13:57 NEGATIVE Electronic Signature on File Electronically Reviewed/Signed by: Kathi Gramajo PA-C Author Signature Dt/Tm:10/29/2024 11:01AM Department of Emergency Medicine Electronically Reviewed/Signed by: Wai Gonzalez MD, FACEP, FAAEM Cosigner Signature Dt/Tm: 10/31/2024 06:28 PM Professor, Emergency Medicine [facility] [address], [address] [place] [id number] CEP Discharge instructions * CHRISTOPHER Abdullahi, Crystal: MODIFY CHRISTOPHER Abdullahi, Crystal: MODIFY, MODIFY MD Brooklyn, Judy: MODIFY Event Display: Patient Discharge Instructions Authored Date: [id number] DOMINIC ROSADO :1970 Visit Date:10/28/2024 Patient Discharge Instructions [facility] For medical concerns, call: . Date of Admission:10/28/2024 Date of Discharge:10/29/2024 Physician:MD Ainsley, Mounika Powers Service:Hematology/Oncology Discharge Disposition:Home . Advance Directive:None Reason for Hospitalization Adenocarcinoma of colon metastatic to liver Your Diagnoses Adenocarcinoma of colon metastatic to liver Adenocarcinoma, colon Dehydration Diarrhea My Health Patient Portal: [place] Help[employer]ive makes it easy for you to manage your health information online. My [facility] [employer] is a free service that provides you instant, secure access to your medical information anytime, anywhere. Sign in or set up your account today at [email or web address]/[employer] Thank you for allowing us to assist you with your healthcare needs. If you need additional community resources, [place] can help at https://www.pa211.org. 211 can assist you in connecting with social programs based on your unique needs and locations. 211 is an anonymous search that can help you locate resources for: Food, Housing, Transportation, Goods, Education and Healthcare. Medications What How Much When Instructions Next Dose New loperamide (Imodium 2 mg oral capsule) See instructions 1 cap PO after each loose stool not to exceed 8 capsules, or 16 mg, in 24 hours Pickup at [facility] as needed Unchanged valsartan (valsartan 80 mg oral tablet) 1 tab(s) by mouth Once daily 12, 9am Pharmacy Information [facility] [place]: [address] [place] [address] [place] Hernandez [phone] What How Much When Comments Stop Taking pantoprazole (pantoprazole 20 mg oral delayed release tablet) 1 tab(s) by mouth Once daily Duration: 30 Days Stop Taking spironolactone (spironolactone 25 mg oral tablet) 1 tab(s) by mouth Once daily Stop Taking unknown medication by mouth Once daily Allergies penicillin (Mild)unknown levoFLOXacindifficulty breathing What to do next Instructions From Your Doctor [facility]. You presented to us withsome diarrhea. However,in our emergency room, itwas found that you hada very elevatedbilirubin. This is a substance that is elevatedin liver diseaseor when there is ablockageof your biliary system. A CT scan of your abdomen showedthat the cancerin your liverhas increased in sizeblocking normal biliary drainage. You will require a stent to be placed to drainbile. This can be done endoscopicallybyourstomachdoctors(gastroenterology). You are being dischargedbut will have to [facility]to [facility] to our endoscopy suitefor this procedure. As outlined belowyou are scheduled to be seen at 1 PMon Friday(11/01/2024). On Friday (11/02/2024), you will have to come back here to see your medical oncologist, , in order to discuss your treatment options going forward. If you noticeany new confusion,disorientation,agitation,bleeding(nosebleeds,cuts that do not heal, blood in your urine or stool) fevers, or abdominal pain - pleasecall 911 or go to your nearest emergency room. If you notice the following symptoms 1. Please call the [facility] at during normal business hours (Friday - Friday 8:00am 4:30pm) for any new symptoms including, but not limited to: fevers (temperatures >100.4 degrees F or 38.1 degrees Celsius), chills, intractable nausea or vomiting, diarrhea, rash, shortness of breath, dehydration, dizziness, yellowing of skin or eyes, bleeding, pain, redness, or drainage at your catheter site. Other concerns can be directed to the [facility] as well. 2. For emergency and very serious health related issues (including fever > 100.4) after normal business hours, please contact the Hematology/Oncology After Hours Careline at [phone], option #4. Depending on the issue, you may be directed to go to the Emergency Room. For other serious healthissues such as chest pain and/or shortness of breath you may need to call 911 or go directly to theEmergency Room. 3. If you are unable to reach anyone at the after business hours number or do not receive a return call within 1 hour, please contact the hospital rotary soil stabilizer operator at [phone] and ask to speak with the hematology/oncology fellow on-call. If unable to contact your physician and you feel it is an emergency, go to the nearest Emergency Room or call 911. An additional resource now available to you is the [facility] located in the Infusion Room. You can be seen by a provider 7 days per week, 8am-4:30pm. This service was created to provide supportive care and help you manage urgent side effects/symptoms related to your cancer or cancer treatment with the goal of decreasing emergency room visits and hospital admissions. Visits are often the same day by appointment only. You can schedule your appointment by callingthe [facility] at . You will be directed to a triage nurse who will gather your information and help you schedule an appointment. If unable to contact your physician and you feel it is an emergency, go to the nearest Emergency Room or call 911 Diet Instructions You may resume your normal diet. Activity Instructions You may resume your previous home activities, but go slowly and pace yourself as tolerated. Always take fall precautions, and ask for assistance as you regain your strength, coordination, and endurance. Follow-Up Appointments Scheduled Follow-Up Appointments Date/Time:Provider/Resource: Oct 01:00 MD Guzman Abraham Location/Instructions:[facility], [address], [address], [address], [place] [address]Xptww: [phone] Option 1Your Appointment is in the Endoscopy Suite - [address]. You will be receiving a packet of information in the mail regarding your procedure. If youdo not receive your packet in the next two weeks or you have any questions, please call [phone]. Thank you. Date/Time:Provider/Resource: Oct 12:30 pmLab/Specimen Location/Instructions:[facility] [place], [address], 1st floor, [address], [place] [address] Date/Time:Provider/Resource: Oct 01:40 MD Harmon Joseph J Location/Instructions:[facility] [place], [address], [address], [address], [facility] [address] Date/Time:Provider/Resource: Dec 11:00 [facility] CV Rm2 Location/Instructions:[facility] [address], [facility] [address], [address], [place] [address] . Please arrive 15 min earlier than your appointment time for Check In Process. Date/Time:Provider/Resource: Dec 01:10 DO Hurst Jason D Location/Instructions:[facility] [address], [address], [address], [place] [address] . Please arrive 15 min earlier than your appointment time for Check In Process. The Following Services Have Been Arranged for You No Post-Acute Placement(s) Listed No Post-Acute Service(s) Listed Tests Pending Extra Blue Extra Green ([place] Heparin) Fuad Walters Virus, by PCR, Blood Varicella zoster IgM Antibody Hepatitis A Antibody, IgM To obtain results pending at hospital discharge, call and ask for the following Physician:MD Ainsley, Mounika V Special Instructions Common Emergency Awareness Tips Call 911 immediately if: experiencing any of the warning signs and symptoms of stroke: B.E. F.A.S.T. Balance: is there trouble with walking or coordination Eyes: is there double vision or visual loss Face: Smile, do both sides of face move equally Arm: Raise arms, do both arms move equally Speech: Is speech slurred or inappropriate Time: Time is critical, call 911 immediately Heart Attack Signs Chest discomfort: Most heart attacks involve discomfort in the center of the chest and lasts more than a few minutes, or goes away and comes back. It can feel like uncomfortable pressure, squeezing, fullness or pain. Discomfort in upper body: Symptoms can include pain or discomfort in one or both arms, back, neck, jaw or stomach. Shortness of breath: With or without discomfort. Other signs: Breaking out in a cold sweat, nausea, or lightheaded. Remember, MINUTES DO MATTER. If you experience any of these heart attack warning signs, call to get immediate medical attention! Patient Care team information Care Team Personnel Name: MD Kaylen, Stoney I Position: Referring DIRECT Member Role: Primary Care Provider Address: [address] [place] [address] Name: Hai Mcneal Kyle Position: Pharmacist Member Role: Pharmacy - Lifetime Address: [address] [place] [address] [place] Name: MD Hilario, Shannon Position: Physician - Pathologist Member Role: Lifetime Relationship Address: [address] [place] [address] Name: Esequiel Guerra Position: Admissions I Name: CHRISTOPHER Hernández Stacey Position: RN Member Role: Direct Care Nurse Name: MD Ainsley, Mounika Powers Position: Physician - Hem/Onc Member Role: Admitting Physician Address: [address] [place] [address] [place] Name: R.E.S. Not Needed Position: Resident Care Team Related Persons Name: NAHED ZHANG Name: NAHED ACUÑA
--- OUTSIDE RECORDS SUMMARY | 2024-12-15 16:43 | External Medical Summary ---
Author Name Unknown Address Unknown Organization [id number]:[facility] [address] [facility] [place] [address] Laboratory Report Ordering Provider Test Date Status TOM DECKER 10/21/2024 12:07:10 Final ADMITTED patient Observation Date Value Abnormality Reference (Units ) Status Adenovirus DNA [Presence] in Nasopharynx by RASHAUN with non-probe detection 10/21/2024 12:07:10 Negative Negative Final Human coronavirus 229E RNA [Presence] in Nasopharynx by RASHAUN with non-probe detection 10/21/2024 12:07:10 Negative Negative Final Human coronavirus HKU1 RNA [Presence] in Nasopharynx by RASHAUN with non-probe detection 10/21/2024 12:07:10 Negative Negative Final Human coronavirus NL63 RNA [Presence] in Nasopharynx by RASHAUN with non-probe detection 10/21/2024 12:07:10 Negative Negative Final Human coronavirus OC43 RNA [Presence] in Nasopharynx by RASHAUN with non-probe detection 10/21/2024 12:07:10 Negative Negative Final SARS-CoV-2 (COVID-19) RNA [Presence] in Nasopharynx by RASHAUN with non-probe detection 10/21/2024 12:07:10 Negative Negative Final Human metapneumovirus RNA [Presence] in Nasopharynx by RASHAUN with non-probe detection 10/21/2024 12:07:10 Negative Negative Final Rhinovirus+Enterovirus RNA [Presence] in Nasopharynx by RASHAUN with non-probe detection 10/21/2024 12:07:10 Negative Negative Final Influenza virus A RNA [Presence] in Nasopharynx by RASHAUN with non-probe detection 10/21/2024 12:07:10 Negative Negative Final Influenza virus B RNA [Presence] in Nasopharynx by RASHAUN with non-probe detection 10/21/2024 12:07:10 Negative Negative Final Parainfluenza virus 1 RNA [Presence] in Nasopharynx by RASHAUN with non-probe detection 10/21/2024 12:07:10 Negative Negative Final Parainfluenza virus 2 RNA [Presence] in Nasopharynx by RASHAUN with non-probe detection 10/21/2024 12:07:10 Negative Negative Final Parainfluenza virus 3 RNA [Presence] in Nasopharynx by RASHAUN with non-probe detection 10/21/2024 12:07:10 Negative Negative Final Parainfluenza virus 4 RNA [Presence] in Nasopharynx by RASHAUN with non-probe detection 10/21/2024 12:07:10 Negative Negative Final Respiratory syncytial virus RNA [Presence] in Nasopharynx by RASHAUN with non-probe detection 10/21/2024 12:07:10 Negative Negative Final Bordetella pertussis.pertussis toxin promoter region [Presence] in Nasopharynx by RASHAUN with non-probe detection 10/21/2024 12:07:10 Negative Negative Final Chlamydophila pneumoniae DNA [Presence] in Nasopharynx by RASHAUN with non-probe detection 10/21/2024 12:07:10 Negative Negative Final Mycoplasma pneumoniae DNA [Presence] in Nasopharynx by RASHAUN with non-probe detection 10/21/2024 12:07:10 Negative Negative Final Bordetella parapertussis [id number] DNA [Presence] in Nasopharynx by RASHAUN with non-probe detection 10/21/2024 12:07:10 Negative Negative Final The primers that detect Rhin ovirus may cross react with some Enterorviruses. The validation of bronchial specimens, tracheal aspirates, and throats for this assay was developed and performance characteristics determined by [employer]. The validation of alternate specimen types has not been cleared or approved by the U.S. Food and Drug Administration (FDA). It has been determined that such clearance or approval is not necessary. [facility] - [address] [place] [address] ruth ann [facility] [id number]
--- OUTSIDE RECORDS SUMMARY | 2024-12-15 16:44 | External Medical Summary ---
Author Name Unknown Address Unknown Organization K1F:LABORATORY [facility] - [address] [place] [address] Laboratory Report Ordering Provider Test Date Status TOM DECKER 10/21/2024 12:06:31 Final Observation Date Value Abnormality Reference (Units ) Status BUN 10/21/2024 12:06:31 24 Above high normal 6- 20 (mg/dL) Final Creatinine 10/21/2024 12:06:31 0.7 0.6-1.2 ( mg/dL) Final Result may be falsely decrea sed due to icterus. Glomerular filtration rate/1 .73 sq M.predicted [Volume Rate/Area] in Serum, Plasma or Blood by Creatinine-based formula (CKD-EPI) 10/21/2024 12:06:31 >90 >=60 (mL/min) Final eGFR is calculated based on the CKD-EPI 2020 equation. Sodium 10/21/2024 12:06:31 136 135-146 (m mol/L) Final Potassium 10/21/2024 12:06:31 3.8 3.5-5.1 (m mol/L) Final Cl 10/21/2024 12:06:31 102 98-107 (mm ol/L) Final CO2 10/21/2024 12:06:31 21 Below low normal 22- 32 (mmol/L) Final Anion gap 10/21/2024 12:06:31 13 7-15 (mmol /L) Final Glucose 10/21/2024 12:06:31 133 Above high normal 70 -120 (mg/dL) Final Calcium 10/21/2024 12:06:31 9.6 8.4-10.2 ( mg/dL) Final Performing Location LABORATORY [facility] - [address] [place] [address]
--- OUTSIDE RECORDS SUMMARY | 2024-12-15 16:44 | External Medical Summary ---
Author Name Unknown Address Unknown Organization K1F:LABORATORY [facility] - [address] [place] [address] Laboratory Report Ordering Provider Test Date Status BRIANNETOM 10/21/2024 12:06:31 Final Warfarin Therapy
INR: 2 .0-3.0 conventional anticoagulation
INR: 2.5- 3.5 high intensity anticoagulation Observation Date Value Abnormality Reference (Units ) Status PT 10/21/2024 12:06:31 14.1 11.6-15.2 (seconds) Final INR 10/21/2024 12:06:31 1.1 0.8-1.2 Final Performing Location LABORATORY [facility] - [address] [place] [address]
--- OUTSIDE RECORDS SUMMARY | 2024-12-15 16:44 | External Medical Summary ---
Author Name Unknown Address Unknown Organization K1F:[facility]ORY [facility] - [address] [place] [address] Laboratory Report Ordering Provider Test Date Status TOM DECKER 10/21/2024 12:06:31 Final Observation Date Value Abnormality Reference (Units ) Status SYNC LEUKOCYTES IN BLOOD BY AUTOMATED COUNT 10/21/2024 12:06:31 7.58 4.00-10.80 (K/uL) Final Segs 10/21/2024 12:06:31 79.7 Above high normal 40.0-75.0 (%) Final Lymphs % 10/21/2024 12:06:31 8.4 Below low normal 18.0-42.0 (%) Final Monos 10/21/2024 12:06:31 8.3 1.0-11.0 (%) Final Eosinophils 10/21/2024 12:06:31 1.2 0.0-6.0 (%) Final Basos 10/21/2024 12:06:31 0.7 0.0-2.0 (%) Final Immature Granulocyte, Percent 10/21/2024 12:06:31 1.7 0.0-2.0 (%) Final Absolute Segs 10/21/2024 12:06:31 6.04 1.80-7.70 (K/uL) Final Lymphs, absolute 10/21/2024 12:06:31 0.64 Below low normal 1.00-4.80 (K/ul) Final Monos, Abs 10/21/2024 12:06:31 0.63 0.00-1.10 (K/uL) Final Eos, Abs 10/21/2024 12:06:31 0.09 0.00-0.70 (K/uL) Final Basos, Abs 10/21/2024 12:06:31 0.05 0.00-0.20 (K/uL) Final Immature Granulocytes, Number 10/21/2024 12:06:31 0.13 0.00-0.20 (K/uL) Final Performing Location LAB[facility]ORY [facility] - [facility] [address] [place] [address]
--- OUTSIDE RECORDS SUMMARY | 2024-12-15 16:44 | External Medical Summary ---
Author Name Unknown Address Unknown Organization K1F:LABORATORY [facility] [place] - [address] [place] [address] Laboratory Report Ordering Provider Test Date Status TOM DECKER 10/21/2024 12:06:31 Final Observation Date Value Abnormality Reference (Units ) Status WBC, Total 10/21/2024 12:06:31 7.58 4.00-10.8 0 (K/uL) Final RBC 10/21/2024 12:06:31 4.56 4.50-5.25 (M/uL) Final Hemoglobin 10/21/2024 12:06:31 13.0 Below low normal 14 .0-16.8 (g/dL) Final HCT 10/21/2024 12:06:31 40.0 40.0-48.4 (%) Final MCV 10/21/2024 12:06:31 87.7 82.0-99.5 (fL) Final MCH 10/21/2024 12:06:31 28.5 27.0-34.0 (pg) Final MCHC 10/21/2024 12:06:31 32.5 32.0-36.0 (g/dL) Final RDW 10/21/2024 12:06:31 16.9 11.5-15.5 (%) Final Platelets 10/21/2024 12:06:31 121 Below low normal 140 -400 (K/uL) Final Results rechecked. MPV 10/21/2024 12:06:31 14.6 6.6-11.1 ( fL) Final Nucleated erythrocytes/100 leukocytes [Ratio] in Blood by Automated count 10/21/2024 12:06:31 0 <=0 (/100 WBCs) Fi nal Performing Location LABORATORY [facility] [place] - [address] [place] [address]
--- OUTSIDE RECORDS SUMMARY | 2024-12-15 16:44 | External Medical Summary ---
Author Name Unknown Address Unknown Organization K1F:LABORATORY [facility] - [address] [place] [address] Laboratory Report Ordering Provider Test Date Status RAJWINDER DECKERGuera 10/21/2024 12:06:31 Final Observation Date Value Abnormality Reference (Units ) Status Magnesium 10/21/2024 12:06:31 2.2 1.5-2.6 (m g/dL) Final Performing Location LABORATORY [facility] - [address] [place] [address]
--- OUTSIDE RECORDS SUMMARY | 2024-12-15 16:44 | External Medical Summary ---
Author Name Unknown Address Unknown Organization K1F:LABORATORY [facility] - [address] [place] [address] Laboratory Report Ordering Provider Test Date Status TOM DECKER 10/21/2024 12:06:31 Final Observation Date Value Abnormality Reference (Units ) Status Albumin 10/21/2024 12:06:31 3.8 3.8-5.0 (g/dL) Final AST (Aspartate aminotransferase) 10/21/2024 12:06:31 112 Above high normal 10-50 (U/L) Final Alk Phos 10/21/2024 12:06:31 228 Above high normal 35-130 (U/L) Final ALT (Alanine aminotransferase) 10/21/2024 12:06:31 163 Above high normal 10-50 (U/L) Final Bilirubin, Total 10/21/2024 12:06:31 16.1 Above high normal <=1.2 (mg/dL) Final Bilirubin, Direct 10/21/2024 12:06:31 11.7 Above high normal 0.0-0.3 (mg/dL) Final Protein 10/21/2024 12:06:31 7.7 6.0-8.3 (g/dL) Final Result may be falsely decrea sed due to icterus. Performing Location LABORATORY [facility] - [address] [place] [address]
--- OUTSIDE RECORDS SUMMARY | 2024-12-15 16:44 | External Medical Summary ---
Author Name Unknown Address Unknown Organization K1F:LABORATORY [facility] - [address] [place] [address] Laboratory Report Ordering Provider Test Date Status TOM DECKER 10/21/2024 12:06:31 Final Observation Date Value Abnormality Reference (Units ) Status CK 10/21/2024 12:06:31 128 39-308 (U/ L) Final Performing Location LABORATORY [facility] - [address] [place] [address]
--- OUTSIDE RECORDS SUMMARY | 2024-12-15 16:44 | External Medical Summary ---
Author Name Unknown Address Unknown Organization K1F:LABORATORY [facility] - [address] [place] [address] Laboratory Report Ordering Provider Test Date Status TOM DECKER 10/21/2024 12:06:31 Final Observation Date Value Abnormality Reference (Units ) Status Phosphate 10/21/2024 12:06:31 1.6 Below low normal 2.5 -4.8 (mg/dL) Final Performing Location LABORATORY [facility] - [address] [place] [address]
--- OUTSIDE RECORDS SUMMARY | 2024-12-15 16:44 | External Medical Summary ---
Author Name Unknown Address Unknown Organization K1F:LABORATORY [facility] - [address] [place] [address] Laboratory Report Ordering Provider Test Date Status TOM DECKER 10/21/2024 12:06:31 Final Observation Date Value Abnormality Reference (Units ) Status Lactic Acid 10/21/2024 12:06:31 1.4 0.4-2.0 (mmol/L) Final Performing Location LABORATORY [facility] - [address] [place] [address]
--- OUTSIDE RECORDS SUMMARY | 2024-12-15 16:44 | External Medical Summary ---
Author Name Unknown Address Unknown Organization K1F:LABORATORY [facility] - [address] [place] [address] Laboratory Report Ordering Provider Test Date Status TOM DECKER 10/21/2024 12:06:31 Final Observation Date Value Abnormality Reference (Units ) Status Lipase 10/21/2024 12:06:31 57 13-60 (U/L ) Final Performing Location LABORATORY [facility] - [address] [place] [address]
--- OUTSIDE RECORDS SUMMARY | 2024-12-15 16:44 | External Medical Summary | Continuity of Care Document ---
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 Diagnosis) - 06/29/24 Mitral regurgitation(Discharge Diagnosis) - 06/29/24 Discharge Disposition: Home or Self Care Attending Physician: DO Olivares Jason D Allergies, Adverse Reactions, Alerts Substance Criticality Severity Reaction Reaction Severity Status penicillin Unable to assess criticality Mild unknown Active levoFLOXacin difficulty breathing Active Assessment and Plan Extracted from: Title:Cardiology Office Visit Note Author:DO Olivares Jason D Date:06/29/24 1.CHF due to valvular dise ase 2.Mitral regurgitation 3.Adenocarcinoma of colon metastatic to liver He does not want to consider systemic chemotherapy. He is also happy with most of the medical oncologist that he had seen. At this point I do not think he would ever reconsider systemic chemotherapy. His last PET scan from early in 2023 suggests progression of his liver disease along with new lesions. In the past we have discussed mitral valve repair versus mitral valve replacements as well as even a MitraClip understanding that this is more palliative. Given his progressive liver disease (metastatic colon cancer) and mitral clip would be an option in a palliative way. This potentially reduce his risk of LV dysfunction. At this point he wants to think about it. He has not been interested as he feels well. I discussed with him noted increasing shortness of breath or heart failure symptoms he needs to immediately let us know. Additionally if you wish to proceed with a MitraClip we Dr. Noe arrange for ALEXANDRA to determine whether that posterior leaflet can be grabbed for the procedure. See him back in 6 months with an echo. Sooner if there are any issues. Medications pantoprazole 20 mg oral delayed release tablet Start: 09/06/23 3:28:00 PM EDT, 1 tab, PO, Daily, Disp# 30 tab, Refills: 1, Pharmacy: [id number] Start Date: 09/06/23 Stop Date: 11/05/23 Status: Ordered spironolactone 25 mg oral tablet Start: 06/20/23 3:58:00 PM EDT, 1 tab, PO, Daily, Disp# 30 tab, Refills: 11, Pharmacy: [id number] Start Date: 06/20/23 Status: Ordered unknown medication Start: 02/18/24 2:44:00 PM EDT, PO, Daily Start Date: 02/18/24 Status: Ordered valsartan 80 mg oral tablet Start: 06/23/24 12:18:00 PM EDT, 1 tab, PO, Daily, Disp# 90 tab, Refills: 3, Pharmacy: [id number] Start Date: 06/23/24 Status: Ordered Mental Status 06/29/24 Barriers to Learning one year Vision imp airment Mandatory Health Literacy Documentation Yes Health Literacy Communication Barriers N ever Primary Language Malian Problem List Condition Confirmation Course Effective Dates [...] of colon metastatic to liver Discharge Diagnosis 06/29/24 CHF due to valvular disease Discharge Diagnosis 06/29/24 Mitral regurgitation Discharge Diagnosis 06/29/24 Procedures Procedure Date Related Diagnosis Body Site [...] to oldest [Reference Range]: 1 Patient Weight 93 kg (06/29/24 9:56 AM) Heart Rate 96 bpm (06/29/24 9:56 AM) Blood Pressure 162/92mmHg (06/29/24 9:56 AM) BP Location # 1 Right Arm (06/29/24 9:56 AM) Social History Social History Type Response Smoking Status Never smoked cigaret sai Sex Male Sex Representation Male (finding) Cardiology Outpatient Note * DO Olivares Jason D: PERFORM Event Display: Cardiology Outpt Note Authored Date: Primary Care Provider MD Abdullahi Lowell I Chief Complaint 6 mon f/u Mitral regurg. History of Present Illness He denies any chest pain or chest pressure. No shortness of breath. He notes he is heavy labor and denies significant dyspnea. He has no lightheadedness or dizziness. He denies any presyncopeor syncope. He had a cough. He notes he does not think it is any better with stopping his valsartan. The cough is not worse lying flat and sleeping on 1 pillow. He is unaware of any palpitations while walking. He denies any presyncope or syncope. He has no edema. He is had falls. She notes overall he feels really well. In the interim he underwent chemo ablation again for her liver lesions. Unfortunately based onhis last PET scan his liver lesions continue with to increase in size and number. Review of Systems PAST MEDICAL HISTORY: 1. Severe mitral regurgitation secondary to a flail posterior mitral valve leaflet with a large PISA cap and a large flail segment between the anterior and posterior mitral valve leaflet. 2. Left ventricular systolic function in the range of 70% with mild pulmonary hypertension. 3. Chronic valvular heart failure. 4. Stage IV colon cancer with metastatic disease to his lungs and liver with worsening liver dz despite interventions (PET 11/2023) 5. Hypertension. 6. Resection by Dr. Wilhelm 08/2020 with local regional tumor deposit stage T3, N1 Physical Exam Vitals & Measurements HR:96(Monitored) BP:162/92 SpO2:98% WT:93kg WT:93.000kg(Dosing) PHYSICAL EXAMINATION: He is awake, alert, oriented x3, is in no acute distress. He did not appear short of breath talking in sentences. HEENT: His carotid upstrokes felt normal but not hyperdynamic. Lungs:CTA bilaterally. Heart: Regular rate and rhythm with a harsh grade 3/6 holosystolic murmur loudest at the apex. Abdomen: Soft, nontender, nondistended, positive bowel sounds. Extremities: No clubbing, cyanosis or edema. Psychiatric: His affect appeared appropriate. Assessment/Plan 1.CHF due to valvular disease 2.Mitral regurgitation 3.Adenocarcinoma of colon metastatic to liver He does not want to consider systemic chemotherapy. He is also happy with most of the medical oncologist that he had seen. At this point I do not think he would ever reconsider systemic chemotherapy. His last PET scan from early in 2023 suggests progression of his liver disease along with new lesions. In the past we have discussed mitral valve repair versus mitral valve replacements as well as even a MitraClip understanding that this is more palliative. Given his progressive liver disease (metastatic colon cancer) and mitral clip would be an option linda palliative way. This potentially reduce his risk of LV dysfunction. At this point he wants tothink about it. He has not been interested as he feels well. I discussed with him noted increasing shortness of breath or heart failure symptoms he needs to immediately let us know. Additionally if you wish to proceed with a MitraClip we Dr. Noe arrange for ALEXANDRA to determine whether that posterior leaflet can be grabbed for the procedure. See him back in 6 months with an echo. Sooner if there are any issues. 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 HLD - Hyperlipidemia: Negative: Mother and Father. Heart attack: MGF and PGF.Negative: Mother and Father. Hypertension: Negative: Mother and Father. 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 [facility] [place], [address] [place] [address] JDF Patient Care team information Care Team Personnel Name: MD Abdullahi Lowell I Position: Referring DIRECT Member Role: Primary Care Provider Address: [address] [place] [address] [place] Name: Hai Mcneal Kyle Position: Pharmacist Member Role: Pharmacy - Lifetime Address: [address] [place] [id number] [place] Name: MD Rich Ying Position: Physician - Pathologist Member Role: Lifetime Relationship Address: [address] [place] [address] Care Team Related Persons Name: NAHED ZHANG Name: NAHED ACUÑA"
--- OUTSIDE RECORDS SUMMARY | 2024-12-15 16:44 | External Medical Summary ---
Author Name Unknown Address Unknown Organization K1F:LAB[facility]ATORY [facility] - [address] [place] [address] Laboratory Report Ordering Provider Test Date Status BRIANNETOM JAVED 10/21/2024 12:06:31 Final Observation Date Value Abnormality Reference (Units ) Status LDH 10/21/2024 12:06:31 409 Above high normal <= 250 (U/L) Final Performing Location LABORATORY [facility] - [address] [place] [address]
--- OUTSIDE RECORDS SUMMARY | 2024-12-15 16:44 | External Medical Summary ---
Author Name Unknown Address Unknown Organization K01:LAB[facility]ATORY [facility] - [address] [place] [address] Laboratory Report Ordering Provider Test Date Status TOM DECKER 10/21/2024 12:06:31 Final Observation Date Value Abnormality Reference (Units ) Status Hep A IgM 10/21/2024 12:06:31 Negative Negative Final Hep B Core IgM 10/21/2024 12:06:31 Negative Negat celina Final Hep B surface Ag 10/21/2024 12:06:31 Negative Neg ative Final Hep C Ab 10/21/2024 12:06:31 Negative Negative Final Performing Location LABORATORY [facility] - [address] [place] [address]
[2024-12-15] MEDS ORDERED: VANCOMYCIN CONSULT ACTIVE PRN (16:52)
--- NOTE | 2024-12-15 17:02 | History & Physical Report ---
Date of Service December 15, 2024 Assessment & Plan (1) Metastatic colorectal cancer: (2) Difficulty urinating: Plan The patient is a 54-year-old male with a past medical history of mitral regurgitation and metastatic colon CA to the gallbladder/liver who presents to the ED on 12/15/2024 with complaints of issues urinating and mouth pain. Has been unable to eat over the past few days. Assessment and plan: Transaminitis/elevated bili s/p biliary stent 11/25/2024 Hx colon CA with mets to the liver LFTs actually improved from last month, total bili mildly elevated at 18 from 16 last month Reports some leaking fluid from biliary stent site, continue IV cefepime/Vanco Await blood cultures, procalcitonin elevated could be secondary to infection versus malignancy Recently started first round of chemo infusions 12/09/[address] Boggs at [facility] Difficulty urinating: IV fluids, bladder scan every 8 hours to rule out retention Likely side effect from chemo, creatinine within normal limits Continue tamsulosin Mouth pain: Continue Magic mouthwash and lidocaine swish and spit IV fluids, encourage oral intake A total of 60 minutes was spent on chart review/reviewing diagnostic data/discussion with consultants/facilitating plan of care Full code DVT prophylaxis: Heparin sub-cu History of Present Illness Chief Complaint: Issues urinating, mouth pain, inability to eat/drink Primary Care Provider: Stoney Abdullahi MD The patient is a 54-year-old male with a past medical history of mitral regurgitation and metastatic colon cancer to the liver. Patient was diagnosed with colon cancer in August 2020. He follows with [facility] oncology outpatient - Dr. Boggs. In January 2022 he was found to have a lung and liver met with a rising CEA level at that time he was treated with a combination of capecitabine oxaliplatin plus Avastin. There were concerns with side effects including palpitations and shortness of breath and this was stopped. He was seen by Dr. Kaplan in 2021 for a second opinion on treatment. The patient was seen in October 2024 at [facility] for persistent diarrhea. At this time, the patient had worsening jaundice and his LFTs were significantly elevated. He had a CT scan of his abdomen showing significantly worsening progression of hepatic mets with localized tumor spreading now involving the gallbladder and colon and biliary dilation was noted. It was recommended at this time for admission and to be seen by GI for MRCP/ERCP which patient declined because he preferred to follow-up at [facility]. Patient reports he had a biliary stent placed on 11/25/2024. On arrival to the ED, labs were remarkable for hemoglobin of 12.1, INR 1.5, PT 15.6, total bilirubin 18.8, this is elevated from a month ago at 16, AST 114 and ALT 98 which are improved from recent blood work alk phos 132, also improved. Procalcitonin elevated at 0.61 Patient reports being started on chemo his first round 6 days ago. He reports after few days developing issues urinating and mouth pain. He has been unable to eat or drink over the past few days. Patient also reports some yellow leakage around his biliary site that he was started on Keflex for a few days ago but never finished. Abdomen/pelvis CT today showed: 1. No urinary calculi or hydronephrosis. Mildly distended bladder. 2. Numerous hepatic metastases, several of which are new since CT of December 23, 2023. 3. Left hepatic lobe percutaneous biliary catheter in place. Mild right lobe biliary ductal dilatation. 4. Small amount of abdominal and pelvic ascites. Mild mesenteric stranding and small collaterals. 5. No evidence for a bowel obstruction. 6. Mild right colon wall thickening. This is likely due to underdistention. A mild nonspecific colitis could appear similar. Blood cultures were sent, the patient was given IV cefepime in the ER and IV fluids and will be admitted for further management Allergies Allergy/AdvReac Type Severity Reaction Status Date / Time levofloxacin Allergy Intermediate Difficulty Unverified 04/13/22 21:51 Breathing Penicillins Allergy Intermediate Difficulty Unverified 04/13/22 21:51 Breathing Home Medications Medication Instructions Recorded Confirmed Type furosemide 20 mg tablet 20 mg PO UD 04/13/22 12/15/24 History cephalexin 250 mg capsule 250 mg PO QID 12/15/24 12/15/24 History dexamethasone 4 mg tablet 4 mg PO DIRECTED 12/15/24 12/15/24 History furosemide 20 mg tablet (Lasix) 20 mg PO UD PRN edema 12/15/24 12/15/24 History loperamide 2 mg capsule 2 mg PO DIRECTED PRN Diarrhea 12/15/24 12/15/24 History ondansetron HCl 4 mg tablet 8 mg PO TID PRN n/v 12/15/24 12/15/24 History pantoprazole 40 mg tablet,delayed 40 mg PO DAILY 12/15/24 12/15/24 History release tamsulosin 0.4 mg capsule 0.4 mg PO UD 12/15/24 12/15/24 History Past Med/Surg History Problem List (Updated 12/15/24 @ 16:54 by MESFIN Edwards) Difficulty urinating Metastatic colorectal cancer Medical History Metastatic colorectal cancer Social History Smoking Status: Never smoker Hx Alcohol Use: No Hx Substance Use: No Preferred Language: [place] [employer] Required: No Beliefs That Will Affect Care: None Current Living Situation: Family Current Living Situation Comment: Home with mother Feels Safe at Home: Yes Safety Concerns: Feels Safe At This Time Assistive Devices: Glasses Review of Systems Review of Systems: All systems reviewed & are unremarkable except as noted in HPI & below Physical Exam Constitutional: WD/WN, vitals as above + ill appearing Eyes: PERRL, conjunctivae normal, anicteric sclerae ENMT: external ear and nose normal, oropharynx normal (Lips are red and chapped, tongue is raw, no visible lesions) Neck: trachea midline, no thyromegaly Respiratory: normal respiratory effort, lungs clear to auscultation Cardiovascular: RRR, no murmur, no edema ( trace bilateral lower extremity edema) Gastrointestinal (Abdomen): normal bowel sounds, soft, nontender, no hepatosplenomegaly (Left-sided biliary drain in place, jaundice) Musculoskeletal: no cyanosis or clubbing, extremities motor strength 5/5 Skin: no rashes, warm and dry (jaundice) Neurologic: PERRL, EOMI, accommodation nl, no face palsy, no dysarthria Psychiatric: A+Ox3, euthymic affect Lymphatic: no cervical or axillary lymphadenopathy Results & Data Results & Data Vital Signs (Past 12 Hours) Vital Signs Temp Pulse Pulse Resp BP BP Pulse Ox 12/15/24 16:18 94 H 26 H 142/77 H 98 12/15/24 16:13 84 12/15/24 14:42 85 20 141/85 H 98 12/15/24 13:00 83 20 144/81 H 96 12/15/24 12:03 89 12/15/24 11:56 89 18 146/97 H 97 12/15/24 11:00 36.0 C L 97 H 16 154/110 H 97 O2 Del Method 12/15/24 16:18 Room Air 12/15/24 16:13 12/15/24 14:42 Room Air 12/15/24 13:00 Room Air 12/15/24 12:03 12/15/24 11:56 Room Air 12/15/24 11:00 Room Air Diagnostic Findings Laboratory Results WBC 7.40 K/ul (4.8-10.8) 12/15/24 11:28 RBC 3.95 M/uL (4.70-6.10) L 12/15/24 11:28 Hgb 12.1 g/dl (14.0-18.0) L 12/15/24 11:28 Hct 35.2 % (42.0-52.0) L 12/15/24 11:28 MCV 89.1 fL (80.0-100.0) 12/15/24 11:28 MCH 30.6 pg (25.0-34.0) 12/15/24 11:28 MCHC 34.4 g/dL (32.0-36.0) 12/15/24 11:28 RDW Std Deviation 50.9 fL (36.4-46.3) H 12/15/24 11:28 RDW Coeff of Cris 15.5 % (11.5-14.5) H 12/15/24 11:28 Plt Count 135 K/uL (130-400) 12/15/24 11:28 Immature Gran % (Auto) 0.7 % 12/15/24 11:28 Neut % (Auto) 90.1 % 12/15/24 11:28 Lymph % (Auto) 6.8 % 12/15/24 11:28 Dougherty % (Auto) 1.6 % 12/15/24 11:28 Eos % (Auto) 0.7 % 12/15/24 11:28 Baso % (Auto) 0.1 % 12/15/24 11:28 Neut # (Auto) 6.67 K/uL (1.40-6.50) H 12/15/24 11:28 Lymph # (Auto) 0.50 K/uL (1.20-3.40) L 12/15/24 11:28 Dougherty # (Auto) 0.12 K/uL (0.11-0.59) 12/15/24 11:28 Eos # (Auto) 0.05 K/uL (0.00-0.50) 12/15/24 11:28 Baso # (Auto) 0.01 K/uL (0.00-0.20) 12/15/24 11:28 Immature Gran # (Auto) 0.05 K/uL (0.01-0.20) 12/15/24 11:28 Tear Drop Cells 1+ 12/15/24 11:28 Ovalocytes 1+ 12/15/24 11:28 PT 15.6 Seconds (9.0-12.0) H 12/15/24 13:46 INR 1.5 (0.9-1.1) H 12/15/24 13:46 Sodium 134 mmol/L (136-145) L 12/15/24 11:28 Potassium 3.6 mmol/L (3.5-5.1) 12/15/24 11:28 Chloride 104 mmol/L (98-107) 12/15/24 11:28 Carbon Dioxide 23 mmol/L (21-32) 12/15/24 11:28 Anion Gap 7 (3-11) 12/15/24 11:28 BUN 18 mg/dl (6-23) 12/15/24 11:28 Creatinine 0.80 mg/dl (0.6-1.4) 12/15/24 11:28 Est Cr Clr Drug Dosing 101.3 ml/min 12/15/24 11:28 eGFR 103.87 12/15/24 11:28 BUN/Creatinine Ratio 22.5 (10-20) H 12/15/24 11:28 Glucose 124 mg/dl (70-99(Fasting)) H 12/15/24 11:28 Calcium 8.3 mg/dl (8.6-10.3) L 12/15/24 11:28 Total Bilirubin 18.8 mg/dl (0.2-1.0) H 12/15/24 11:28 AST 114 U/L (13-39) H 12/15/24 11:28 ALT 98 U/L (7-52) H 12/15/24 11:28 Alkaline Phosphatase 132 U/L (34-104) H 12/15/24 11:28 Total Protein 6.5 gm/dl (6.0-8.3) 12/15/24 11:28 Albumin 3.3 gm/dl (3.4-5.0) L 12/15/24 11:28 Globulin 3.2 gm/dl (2.5-4.0) 12/15/24 11:28 Albumin/Globulin Ratio 1.0 (0.9-2) 12/15/24 11:28 Lipase TNP 12/15/24 11:28 Procalcitonin 0.61 ng/ml (0-0.5) H 12/15/24 11:28 Urine Color Dark Yellow 12/15/24 14:15 Urine Appearance Cloudy (Clear) A 12/15/24 14:15 Urine pH 6.0 (4.5-7.5) 12/15/24 14:15 Ur Specific [place] 1.018 (1.000-1.030) 12/15/24 14:15 Urine Protein Trace (Negative) H 12/15/24 14:15 Urine Glucose (UA) Negative (Negative) 12/15/24 14:15 Urine Ketones Negative (Negative) 12/15/24 14:15 Urine Blood Negative (Negative) 12/15/24 14:15 Urine Nitrite Positive (Negative) A 12/15/24 14:15 Urine Bilirubin 3+ (Negative) H 12/15/24 14:15 Urine Urobilinogen Negative (Negative) 12/15/24 14:15 Ur Leukocyte Esterase 1+ (Negative) H 12/15/24 14:15 Urine WBC (Auto) 0-5 /hpf (0-5) 12/15/24 14:15 Urine RBC (Auto) 0-2 /hpf (0-2) 12/15/24 14:15 U Hyaline Cast (Auto) 0-2 /lpf (0-2) 12/15/24 14:15 U Epithel Cells (Auto) 0-2 /hpf (0-2) 12/15/24 14:15 Urine Bacteria (Auto) None Seen (None Seen) 12/15/24 14:15 Impressions Abdomen/Pelvis CT 12/15/24 12:33 CT OF THE ABDOMEN AND PELVIS WITHOUT CONTRAST CLINICAL HISTORY: Trouble urinating, biliary stent in place, metastatic colon cancer. COMPARISON STUDY: CT of the abdomen and pelvis December 23, 2023. TECHNIQUE: Axial images of the abdomen and pelvis were obtained without IV contrast. Images were reviewed in the axial, sagittal, and coronal planes. Automated exposure control was utilized for the study. A dose lowering technique was utilized adhering to the principles of ALARA. FINDINGS: The heart is enlarged. There is a small right pleural effusion. No pneumatosis, free air or portal venous gas is present. No renal, ureteral or bladder calculi are present. The bladder is mildly distended. There is no hydronephrosis. Evaluation of the remainder of the abdomen and pelvis is suboptimal on this unenhanced exam. Numerous partially calcified hepatic metastases are present. Closely apposed right hepatic lobe lesions measure 11.3 x 10.9 cm in aggregate. Several additional hepatic lesions are present. Several of these lesions are new since CT of December 23, 2023. There is associated capsular retraction. A small amount of abdominal and pelvic ascites is present. There are no fluid collections. There is mild mesenteric stranding. Small collaterals are present. A 6 mm omental nodule on image 152 is unchanged. This favors a splenule. A percutaneous biliary catheter extends through the lateral segment of the liver. There is mild right intrahepatic biliary ductal dilatation. There is no evidence for a bowel obstruction. Right colon wall thickening is likely due to underdistention. The appendix is slightly dilated, measuring 8 mm in caliber. There is no convincing evidence for acute appendicitis. No abdominal or pelvic lymphadenopathy is present. There are no suspicious lesions within the visualized skeletal structures. IMPRESSION: 1. No urinary calculi or hydronephrosis. Mildly distended bladder. 2. Numerous hepatic metastases, several of which are new since CT of December 23, 2023. 3. Left hepatic lobe percutaneous biliary catheter in place. Mild right lobe biliary ductal dilatation. 4. Small amount of abdominal and pelvic ascites. Mild mesenteric stranding and small collaterals. 5. No evidence for a bowel obstruction. 6. Mild right colon wall thickening. This is likely due to underdistention. A mild nonspecific colitis could appear similar. ACT 112: Negative or not required by law. Electronically signed by: Bryant Villagran M.D. 12/15/2024 1:26 PM Supervising Physician Co-Signing Physician Notes Patient seen and examined independently. Discussed with above provider. Patient presents to the hospital with complaints of generalized weakness, fatigue and tiredness. Workup reveals elevated total bilirubin, elevated liver enzymes which is similar to his baseline. Will obtain blood culture, start on empiric antibiotic, continue IV fluid. Bladder scan every 8 hour. I have reviewed the advanced practitioner's documentation, and I agree with, and take responsibility for the plan of care I spent a total of 30 minutes coordinating, documenting, and providing care for this patient excluding time spent in the performance of separately billed services. All of the aforementioned completed while collaborating with the assigned advanced practitioner for a full treatment plan
[2024-12-15] MEDS: VANCOMYCIN HCL 1,750 MG in SODIUM CHLORIDE 0.9% 500 ML IV ONE (17:31)
[2024-12-15] MEDS ORDERED: ACETAMINOPHEN 325 MG TAB PO PRN (18:02)
[2024-12-15] MEDS: FIRST - Mouthwash BLM 5 ML UDP PO SCH (20:34)
[2024-12-15] MEDS: HEPARIN SOD 5,000 UNIT/0.5 ML VIAL SQ SCH (20:35)
[2024-12-15] MEDS: LIDOCAINE VISCOUS 2% 15 ML UDC MT PRN (20:35)
--- NOTE | 2024-12-15 21:00 | Pharmacy Report ---
Pharmacy PK ABX Note - Date of Service December 15, 2024 - Assessment and Plan Assessment 54 year old M receiving vancomycin and cefepime empirically. Patient presenting with decreased PO intake/urinary issues. Hx of metastatic colon cancer to gallbladder/liver. S/P biliary stent 11/25/24. Recently started first round of chemo infusions 12/09/24. Blood cultures pending. Plan Vancomycin * Loading dose: 1750 mg IV x 1 * Maintenance dose: 1250 mg IV every 12 hours * Will plan to order random level if vancomycin continued >48 hours Pharmacy will continue to follow and will adjust dose/frequency as necessary. Thank you. Pharmacy has transitioned to AUC monitoring for vancomycin. AUC/SHEA is the preferred PK/PD target and is associated with decreased risk of nephrotoxicity compared to traditional trough targets.
[2024-12-15] MEDS: CEFEPIME 2000MG 2,000 MG/20 ML SYR IV SCH (22:33)
[2024-12-16] MEDS: VANCOMYCIN HCL 1,250 MG in SODIUM CHLORIDE 0.9% 250 ML IV SCH (04:49)
[2024-12-16 06:59] LABS: Basophils # (auto) 0.02 K/uL (0.00-0.20); Basophils % (auto) 0.3 %; Eosinophils # (auto) 0.11 K/uL (0.00-0.50); Eosinophils % (auto) 1.5 %; Hematocrit (blood only) 31.3 % (42.0-52.0); Hemoglobin 10.4 g/dl (14.0-18.0); Immature Granulocytes # (auto) 0.19 K/uL (0.01-0.20); Immature Granulocytes % (auto) 2.5 %; Lymphocytes # (auto) 0.53 K/uL (1.20-3.40); Mean Corpuscular Hemoglobin 30.3 pg (25.0-34.0); Mean Corpuscular Hgb Conc 33.2 g/dL (32.0-36.0); Mean Corpuscular Volume 91.3 fL (80.0-100.0); Monocytes # (auto) 0.23 K/uL (0.11-0.59); Neutrophils # (auto) 6.48 K/uL (1.40-6.50); Neutrophils % (auto) 85.7 %; Platelet Count 93 K/uL (130-400); RDW Coefficient of Variation 15.9 % (11.5-14.5); RDW Standard Deviation 52.7 fL (36.4-46.3); Red Blood Count 3.43 M/uL (4.70-6.10); White Blood Count 7.56 K/ul (4.8-10.8)
[2024-12-16 07:18] LABS: Albumin Globulin Ratio 1.2 (0.9-2); Bilirubin,Total 15.7 mg/dl (0.2-1.0); Calcium 8.4 mg/dl (8.6-10.3); Creatinine Clr Calc Pharmacy 106.2 ml/min; Globulin 2.6 gm/dl (2.5-4.0); Potassium 3.6 mmol/L (3.5-5.1); Total Protein 5.6 gm/dl (6.0-8.3)
[2024-12-16] MEDS: PANTOprazole 40 MG TAB PO SCH (08:04)
[2024-12-16] MEDS: TAMSULOSIN HCL 0.4 MG CAP PO SCH (08:04)
--- NOTE | 2024-12-16 10:09 | Electrocardiogram Report ---
Test Reason : Blood Pressure : */* mmHG Vent. Rate : 71 BPM Atrial Rate : 71 BPM P-R Int : 170 ms QRS Dur : 160 ms QT Int : 438 ms P-R-T Axes : 1 -4 -4 degrees QTcB Int : 475 ms Poor data quality, interpretation may be adversely affected Normal sinus rhythm Nonspecific ST and T wave abnormality Abnormal ECG When compared with ECG of 31-Aug-2023 21:37, Nonspecific T wave abnormality now evident in Anterior leads Confirmed by Cristopher Jimenez ([id number]) on 12/16/2024 10:09:34 AM Referred By: REFERRED SELF Confirmed By: Cristopher Jimenez
--- NOTE | 2024-12-16 15:58 | Hospitalist Progress Note ---
Date of Service December 16, 2024 Assessment & Plan (1) Metastatic colorectal cancer: (2) Difficulty urinating: Plan The patient is a 54-year-old male with a past medical history of mitral regurgitation and metastatic colon CA to the gallbladder/liver who presents to the ED on 12/15/2024 with complaints of issues urinating and mouth pain. Has been unable to eat over the past few days. Assessment and plan: Presented with extreme weakness and tiredness Likely secondary to side effects of chemotherapeutic drugs consisting of capecitabine oxaliplatin and Avastin which was given recently-12/09/2024 Complained to have oral ulceration with pain and that has been improving He has appointment with Dr. Boggs on coming for further chemotherapy and follow-up He remains weak but has been feeling little better since admission Transaminitis/elevated bili s/p biliary stent 11/25/2024 Hx colon CA with mets to the liver LFTs actually improved from last month, total bili mildly elevated at 18 from 16 last month Reports some leaking fluid from biliary stent site, continue IV cefepime/Vanco Await blood cultures, procalcitonin elevated could be secondary to infection versus malignancy Recently started first round of chemo infusions 12/09/[address] Boggs at [facility] He remains afebrile with improvement of weakness and general wellbeing since admission He will repeat LFTs and also await for blood culture report to come back If his bilirubin has been improving and the blood culture is negative he can be discharged home tomorrow Difficulty urinating: IV fluids, bladder scan every 8 hours to rule out retention Likely side effect from chemo, creatinine within normal limits Continue tamsulosin Tamsulosin is helping his urinary symptoms Mouth pain: Continue Magic mouthwash and lidocaine swish and spit IV fluids, encourage oral intake Full code DVT prophylaxis: Heparin sub-cu Discussed with his mother in detail Admission and Anticipated Discharge Date Admission Date: December 15, 2024 Subjective 12/16/2024 Patient was seen and examined in medical telemetry unit He remains very weak and lethargic but the pain in the mouth is improved and denies any abdominal pain, distention nausea or vomiting Generalized weakness is persisting Review of Systems Review of Systems: All systems reviewed and are unremarkable except as noted below Physical Exam Physical Exam: Lying in bed without any acute distress Constitutional: well developed, well nourished, + ill appearing and + obese Eyes: PERRL, conjunctivae normal, anicteric sclerae ENMT: external ear and nose normal, oropharynx normal Respiratory: no respiratory distress Auscultation: lungs clear to auscultation bilaterally; no crackles Cardiovascular: Rate/Rhythm: regular rate and regular rhythm; not tachycardic Heart Sounds: normal S1 and normal S2; no murmur Extremities: + edema (Trace to 1+ edema bilaterally) Gastrointestinal (Abdomen): Inspection/Auscultation: + abdomen distended and normal bowel sounds Percussion/Palpation: + abdomen tender (Mildly tender all over) and abdomen soft Has biliary drain is in place Musculoskeletal: No acute arthritis involving any of the joint Neurologic: normal touch/pain/proprioception and moves all extremities; no focal motor deficits Lymphatic: no cervical or axillary lymphadenopathy Results & Data Results & Data Vital Signs (Past 12 Hours) Vital Signs Temp Pulse Pulse Resp BP Pulse Ox O2 Del Method 12/16/24 15:05 36.3 C L 82 20 126/76 97 Room Air 12/16/24 14:50 84 12/16/24 11:03 36.3 C L 81 20 137/82 99 Room Air 12/16/24 08:05 Room Air 12/16/24 07:41 36.6 C 75 20 134/79 99 Room Air 12/16/24 07:00 79 Laboratory Results Short CBC 12/16/24 Range/Units 05:45 WBC 7.56 (4.8-10.8) K/ul Hgb 10.4 L (14.0-18.0) g/dl Hct 31.3 L (42.0-52.0) % Plt Count 93 L (130-400) K/uL BMP 12/16/24 05:45 Sodium 136 Potassium 3.6 Chloride 108 H Carbon Dioxide 22 BUN 18 Creatinine 0.75 Glucose 127 H Calcium 8.4 L Liver Function 12/16/24 Range/Units 05:45 Total Bilirubin 15.7 H (0.2-1.0) mg/dl AST 90 H (13-39) U/L ALT 80 H (7-52) U/L Alkaline Phosphatase 116 H (34-104) U/L Albumin 3.0 L (3.4-5.0) gm/dl Medications Administered Current Inpatient Medications Acetaminophen (Acetaminophen 325 Mg Tab) 650 mg PO Q4H PRN PRN Reason: Pain or Fever Stop: 01/14/25 18:01 Heparin Sodium (Porcine) (Heparin Sod 5,000 Unit/0.5 Ml Vial) 5,000 units SQ Q12 [facility] Stop: 01/14/25 20:59 Last Admin: 12/16/24 08:02 Dose: Not Given Cefepime HCl (Maxipime 2000mg) 2,000 mg in 20 mls @ 5 mls/min IV Q8H [facility]; Protocol Stop: 12/17/24 22:59 Last Admin: 12/16/24 15:11 Dose: 5 mls/min Sodium Chloride (Nss) 1,000 mls @ 80 mls/hr IV .[id number] [facility] Stop: 12/16/24 18:01 Last Admin: 12/16/24 11:28 Dose: 80 mls/hr Vancomycin HCl 1,250 mg/ (Sodium Chloride) 275 mls @ 200 mls/hr IV Q12H [facility] Stop: 12/18/24 03:59 Last Admin: 12/16/24 15:12 Dose: 200 mls/hr Lidocaine HCl (Lidocaine Viscous 2% 15 Ml Udc) 15 ml MT QID PRN PRN Reason: mouth pain Stop: 01/14/25 16:50 Last Admin: 12/15/24 20:35 Dose: 15 ml Miscellaneous Information (Vancomycin Consult Active) 1 each N/A UD PRN PRN Reason: Consult Stop: 01/14/25 16:51 Multi-Ingredient Mouthwash/Gargle (First - Mouthwash Blm 5 Ml Udp) 5 ml PO QID [facility] Stop: 01/14/25 20:59 Last Admin: 12/16/24 12:12 Dose: Not Given Pantoprazole Sodium (Pantoprazole 40 Mg Tab) 40 mg PO DAILY [facility] Stop: 01/15/25 08:59 Last Admin: 12/16/24 08:04 Dose: 40 mg Tamsulosin HCl (Tamsulosin Hcl 0.4 Mg Cap) 0.4 mg PO DAILY [facility] Stop: 01/15/25 08:59 Last Admin: 12/16/24 08:04 Dose: 0.4 mg
[2024-12-17 07:11] LABS: Hematocrit (blood only) 27.5 % (42.0-52.0); Hemoglobin 9.3 g/dl (14.0-18.0); Mean Corpuscular Hemoglobin 30.9 pg (25.0-34.0); Mean Corpuscular Hgb Conc 33.8 g/dL (32.0-36.0); Mean Corpuscular Volume 91.4 fL (80.0-100.0); Platelet Count 57 K/uL (130-400); RDW Standard Deviation 52.8 fL (36.4-46.3); Red Blood Count 3.01 M/uL (4.70-6.10); White Blood Count 3.46 K/ul (4.8-10.8)
[2024-12-17 07:16] LABS: Albumin Globulin Ratio 1.1 (0.9-2); Albumin Level 2.7 gm/dl (3.4-5.0); BUN Creatinine Ratio 19.4 (10-20); Creatinine Clr Calc Pharmacy 110.6 ml/min; Globulin 2.5 gm/dl (2.5-4.0); Magnesium 1.9 mg/dl (1.7-2.4); Phosphorus 1.9 mg/dl (2.5-4.9); Potassium 3.3 mmol/L (3.5-5.1); Total Protein 5.2 gm/dl (6.0-8.3)
[2024-12-17 07:28] LABS: ALC (manual) 0.14 K/uL (1.2-3.4); ANC (manual) 3.18 K/uL (1.4-6.5); Basophils # (manual) 0.03 K/uL (0-0.2); Basophils % (manual) 1 %; Eosinophils % (manual) 3 %; Hypersegmented Neutrophils 1+; Lymphocytes # (manual) 0.14 K/uL (1.2-3.4); Lymphocytes % (manual) 4 %; Neutrophils # (manual) 3.18 K/uL (1.40-6.50); Neutrophils % (manual) 92 %
[2024-12-17] MEDS: POTASSIUM CHLORIDE CRTAB 20 MEQ TABCR PO STA (08:47)
[2024-12-17 11:13] VITALS: RESP 20; O2SAT 98
--- NOTE | 2024-12-17 14:20 | Pharmacy Report ---
Pharmacy PK ABX Note - Date of Service December 17, 2024 - Assessment and Plan Assessment 12/17/24 * Vanc/cefepime therapy continues empirically. Per MD, would like to continue until BCx have been negative x48hr at least. * Random vanc level obtained today, suggesting that vanc AUC is falling in the lower end of goal range. 12/15/24 54 year old M receiving vancomycin and cefepime empirically. Patient presenting with decreased PO intake/urinary issues. Hx of metastatic colon cancer to gallbladder/liver. S/P biliary stent 11/25/24. Recently started first round of chemo infusions 12/09/24. Blood cultures pending. Plan Vancomycin * Increase maintenance dose to 1500 mg IV every 12 hours * Will consider the need for additional monitoring if pt continues to receive vancomycin beyond another 48hr. Pharmacy will continue to follow and will adjust dose/frequency as necessary. Thank you. Pharmacy has transitioned to AUC monitoring for vancomycin. AUC/SHEA is the preferred PK/PD target and is associated with decreased risk of nephrotoxicity compared to traditional trough targets.
--- NOTE | 2024-12-17 14:38 | Electrocardiogram Report ---
Test Reason : Blood Pressure : */* mmHG Vent. Rate : 82 BPM Atrial Rate : 82 BPM P-R Int : 144 ms QRS Dur : 88 ms QT Int : 414 ms P-R-T Axes : -3 5 5 degrees QTcB Int : 483 ms Poor data quality, interpretation may be adversely affected Normal sinus rhythm Abnormal ECG When compared with ECG of 16-Dec-2024 06:35, ST now depressed in Anterior leads Inverted T waves have replaced nonspecific T wave abnormality in Anterior leads T wave inversion no longer evident in Lateral leads Confirmed by Cristopher Jimenez ([id number]) on 12/17/2024 2:38:17 PM Referred By: REFERRED SELF Confirmed By: Cristopher Jimenez
--- NOTE | 2024-12-17 15:16 | Discharge Summary ---
Date of Service December 17, 2024 Admission HPI Per Admitting Provider The patient is a 54-year-old male with a past medical history of mitral regurgitation and metastatic colon cancer to the liver. Patient was diagnosed with colon cancer in August 2020. He follows with [facility] oncology outpatient - Dr. Boggs. In January 2022 he was found to have a lung and liver met with a rising CEA level at that time he was treated with a combination of capecitabine oxaliplatin plus Avastin. There were concerns with side effects including palpitations and shortness of breath and this was stopped. He was seen by Dr. Kaplan in 2021 for a second opinion on treatment. The patient was seen in October 2024 at [facility] for persistent diarrhea. At this time, the patient had worsening jaundice and his LFTs were significantly elevated. He had a CT scan of his abdomen showing significantly worsening progression of hepatic mets with localized tumor spreading now involving the gallbladder and colon and biliary dilation was noted. It was recommended at this time for admission and to be seen by GI for MRCP/ERCP which patient declined because he preferred to follow-up at [place]. Patient reports he had a biliary stent placed on 11/25/2024. On arrival to the ED, labs were remarkable for hemoglobin of 12.1, INR 1.5, PT 15.6, total bilirubin 18.8, this is elevated from a month ago at 16, AST 114 and ALT 98 which are improved from recent blood work alk phos 132, also improved. Pr ocalcitonin elevated at 0.61 Patient reports being started on chemo his first round 6 days ago. He reports after few days developing issues urinating and mouth pain. He has been unable to eat or drink over the past few days. Patient also reports some yellow leakage around his biliary site that he was started on Keflex for a few days ago but never finished. Abdomen/pelvis CT today showed: 1. No urinary calculi or hydronephrosis. Mildly distended bladder. 2. Numerous hepatic metastases, several of which are new since CT of December 23, 2023. 3. Left hepatic lobe percutaneous biliary catheter in place. Mild right lobe biliary ductal dilatation. 4. Small amount of abdominal and pelvic ascites. Mild mesenteric stranding and small collaterals. 5. No evidence for a bowel obstruction. 6. Mild right colon wall thickening. This is likely due to underdistention. A mild nonspecific colitis could appear similar. Blood cultures were sent, the patient was given IV cefepime in the ER and IV fluids and will be admitted for further management Admission Exam Per Admitting Provider Constitutional: WD/WN, vitals as above + ill appearing Eyes: PERRL, conjunctivae normal, anicteric sclerae ENMT: external ear and nose normal, oropharynx normal (Lips are red and chapped, tongue is raw, no visible lesions) Neck: trachea midline, no thyromegaly Respiratory: normal respiratory effort, lungs clear to auscultation Cardiovascular: RRR, no murmur, no edema ( trace bilateral lower extremity edema) Gastrointestinal (Abdomen): normal bowel sounds, soft, nontender, no hepatosplenomegaly (Left-sided biliary drain in place, jaundice) Musculoskeletal: no cyanosis or clubbing, extremities motor strength 5/5 Skin: no rashes, warm and dry (jaundice) Neurologic: PERRL, EOMI, accommodation nl, no face palsy, no dysarthria Psychiatric: A+Ox3, euthymic affect Lymphatic: no cervical or axillary lymphadenopathy Principal Diagnosis Generalized weakness postchemotherapy Discharge Exam Constitutional: WD/WN, awake and alert and active Eyes: PERRL, conjunctivae normal, anicteric sclerae ENMT: external ear and nose normal, oropharynx normal (Lips are red and chapped, tongue is raw, no visible lesions) Neck: trachea midline, no thyromegaly Respiratory: normal respiratory effort, lungs clear to auscultation Cardiovascular: RRR, no murmur, no edema ( trace bilateral lower extremity edema) Gastrointestinal (Abdomen): normal bowel sounds, soft, nontender, no hepatosplenomegaly (Left-sided biliary drain in place, jaundice) Musculoskeletal: no cyanosis or clubbing, extremities motor strength 5/5 Skin: no rashes, warm and dry (jaundice) Neurologic: PERRL, EOMI, accommodation nl, no face palsy, no dysarthria Psychiatric: A+Ox3, euthymic affect Lymphatic: no cervical or axillary lymphadenopathy Discharge Data Allergies Allergy/AdvReac Type Severity Reaction Status Date / Time levofloxacin Allergy Intermediate Difficulty Unverified 04/13/22 21:51 Breathing Penicillins Allergy Intermediate Difficulty Unverified 04/13/22 21:51 Breathing Consultations 12/15/24 16:23 ED Decision to Admit Stat Ordered Studies 12/15/24 12:33 CT abd pelvis wo con Stat Hospital Course (1) Metastatic colorectal cancer: (2) Difficulty urinating: Plan Per prior attending with addendum: The patient is a 54-year-old male with a past medical history of mitral regurgitation and metastatic colon CA to the gallbladder/liver who presents to the ED on 12/15/2024 with complaints of issues urinating and mouth pain. Has been unable to eat over the past few days. Assessment and plan: Presented with extreme weakness and tiredness Likely secondary to side effects of chemotherapeutic drugs consisting of capecitabine oxaliplatin and Avastin which was given recently-12/09/2024 Complained to have oral ulceration with pain and that has been improving He has appointment with Dr. Boggs on coming for further chemotherapy and follow-up He remains weak but has been feeling little better since admission Transaminitis/elevated bili s/p biliary stent 11/25/2024 Hx colon CA with mets to the liver LFTs actually improved from last month, total bili mildly elevated at 18 from 16 last month Reports some leaking fluid from biliary stent site, continue IV cefepime/Vanco Await blood cultures, procalcitonin elevated could be secondary to infection versus malignancy Recently started first round of chemo infusions 12/09/[address] Boggs at [place] He remains afebrile with improvement of weakness and general wellbeing since admission He will repeat LFTs and also await for blood culture report to come back If his bilirubin has been improving and the blood culture is negative he can be discharged home tomorrow Difficulty urinating: IV fluids, bladder scan every 8 hours to rule out retention Likely side effect from chemo, creatinine within normal limits Continue tamsulosin Tamsulosin is helping his urinary symptoms Mouth pain: Continue Magic mouthwash and lidocaine swish and spit IV fluids, encourage oral intake Full code DVT prophylaxis: Heparin sub-cu Discussed with his mother in detail Addendum 12/17/2024: Patient was seen and examined at bedside as a follow-up of extreme weakness and tiredness likely secondary to recent chemotherapy. Patient reports his strength has recovered and he is back to near baseline strength. He is hemodynamically stable and would like to go home. He does not want to stay until physical therapy evaluation. Ideally I would like to keep him off of antibiotic for next 24 hours and see if he develops fever/ Hemodynamic instability, patient does not want to stay and would like to go home. Patient understand the risks that he might develop fever and may end up coming back to the hospital. He still would like to go home. Blood culture has been negative for 48 hours, his IV antibiotics has been discontinued. He is to complete his prior to arrival Keflex as prescribed PAT. Patient denies any difficulty passing urine. Patient is independent in the room per RN. patient reports improvement in his mild sore. His LFTs are trending down, patient to follow-up with oncology upon discharge. He is being discharged with following instructions at the point of discharge: Follow-up with your primary care physician within a week time and likely you will need labs CBC/CMP/magnesium/phosphorus. Follow-up with oncology in 1 to 2 weeks time upon discharge. Ideally would like to monitor you for next 24 hours off of antibiotic, since you insisted on going home today, recommend that you follow-up with your PCP within a week time and follow-up on the final blood culture results. If you have any fever or worsening weakness or severe lethargy, contact your primary care office or emergency immediately. Continue to use mouthwash as prescribed for next 5 days. Utilize [id number] Magic mouthwash 5 mL 4 times a day for next 5 days. Take your medications as prescribed. Please make sure that you are able to get your medications today by calling your pharmacy before you leave the hospital so that your treatment continuity is not broken. Home Health Attestation I certify that this patient is under my care and that I, or a physicians assistant plant manager working with me, had a face to-face encounter that meets the home health [id number] encounter requirements with this patient. The encounter with the patient was in whole, or in part, for the following medical condition, which is the primary reason for home health care (list medical condition): I certify that, based on my findings, the following services are medically necessary home health services: My clinical findings support the need for the above services because: Further, I certify that my clinical findings support that this patient is homebound (i.e. absences from home require considerable and taxing effort and are for medical reasons or shinto services or infrequently or of short duration when for other reasons) because: Certification for Home Health Services: Based on the above findings, I certify that this patient is confined to the home and needs intermittent shelter care, physical therapy and/or speech therapy or continues to need occupational therapy. The patient is under my care, and I have initiated the establishment of the plan of care. This patient will be followed by a physician who will periodically review the plan of care. Total Time Total Time Spent Total Time Spent (In Minutes): 35 Discharge Plan Discharge Items Patient Disposition: Home - Self-Care Reason For Visit: MOUTH PAIN, DIFFICULTY URINATING Discharge Diagnosis: Generalized weakness postchemotherapy Condition on Discharge: Fair Activity: Resume your previous activity Non-emergency contact: Primary Care Provider Call non-emergency contact if: you have any medication questions and your symptoms worsen Follow-up/Referrals: Stoney Abdullahi MD [Primary Care Provider] - Diet: Regular Addtl Attending Provider Instructions: Follow-up with your primary care physician within a week time and likely you will need labs CBC/CMP/magnesium/phosphorus. Follow-up with oncology in 1 to 2 weeks time upon discharge. Ideally would like to monitor you for next 24 hours off of antibiotic, since you insisted on going home today, recommend that you follow-up with your PCP within a week time and follow-up on the final blood culture results. If you have any fever or worsening weakness or severe lethargy, contact your primary care office or emergency immediately. Continue to use mouthwash as prescribed for next 5 days. Utilize [id number] Magic mouthwash 5 mL 4 times a day for next 5 days. Take your medications as prescribed. Please make sure that you are able to get your medications today by calling your pharmacy before you leave the hospital so that your treatment continuity is not broken. Pending Studies at Discharge: Yes Stand-Alone Forms: [facility], Sm[facility] Cess[facility] Medications and DC Order Prescriptions: New lidocaine HCl [Lidocaine Viscous] 2 % Solution 15 ml MT QID PRN (Reason: mouth pain) 5 Days Qty: 600 0RF First - Mouthwash Blm [Magic Mouthwash] 5 ml PO QID 5 Days Qty: 100 0RF Continued furosemide 20 mg tablet 20 mg PO UD Rx Instructions: 20 mg po daily. No fill history available loperamide 2 mg capsule 2 mg PO DIRECTED PRN (Reason: Diarrhea) Rx Instructions: filled 10/29 5 day supply cephalexin 250 mg capsule 250 mg PO QID Rx Instructions: filled 12/09/24 7 day supply ondansetron HCl 4 mg tablet 8 mg PO TID PRN (Reason: n/v) Rx Instructions: filled 11/25 8 day supply pantoprazole 40 mg tablet,delayed release (DR/EC) 40 mg PO DAILY Rx Instructions: filled 11/29/24 30 day supply dexamethasone 4 mg tablet 4 mg PO DIRECTED Rx Instructions: TAKE 2 TABLETS BY MOUTH DAILY ON DAYS 2, 3, AND 4. filled 11/29 30 day supply tamsulosin 0.4 mg capsule 0.4 mg PO UD Rx Instructions: 0.4 mg po dailyfilled 03/09/24 90 day supply furosemide [Lasix] 20 mg tablet 20 mg PO UD PRN (Reason: edema) Rx Instructions: 20 mg po daily prn. No fill history available Discharge Orders: Discharge Order (Routine); Ordered 12/17/24 Ordered By: Kiet Hawkins Admission Data Admit Date/Time: 12/15/24 16:50 Attending Provider: Kiet Hawkins Admit Provider: Keith Hill Primary Care Provider: Stoney Abdullahi I. Other Providers: Keith Hill
[2024-12-17 15:22] VITALS: TEMP 98.1
[2024-12-17 15:31] VITALS: BP 130/83
[2024-12-17] MEDS ORDERED: VANCOMYCIN HCL 1,500 MG in SODIUM CHLORIDE 0.9% 500 ML IV SCH (16:00)
[2024-12-17 16:54] VITALS: PULSE 90
[2024-12-17] MEDS ORDERED: POT PHOSPHATE MONOBASIC W/ SOD TAB PO SCH (17:00)
== END 2024-12-17 17:58 | disposition home or self-care (01) | DRG 948 ==
LOC: ED 10:56 → 2N 16:50 → SUATTDRO 16:50 → 2N 17:50

== ENCOUNTER 2025-01-17 20:22 | Observation (INO) ==
[2025-01-17] MEDS: ONDANSETRON INJ 2 MG/ML 2 ML VIAL IV STA (20:56)
[2025-01-17 21:31] LABS: Basophils # (auto) 0.02 K/uL (0.00-0.20); Basophils % (auto) 0.1 %; Hematocrit (blood only) 28.7 % (42.0-52.0); Hemoglobin 9.2 g/dl (14.0-18.0); Immature Granulocytes # (auto) 0.27 K/uL (0.01-0.20); Immature Granulocytes % (auto) 1.7 %; Lymphocytes # (auto) 1.02 K/uL (1.20-3.40); Lymphocytes % (auto) 6.5 %; Mean Corpuscular Hgb Conc 32.1 g/dL (32.0-36.0); Mean Corpuscular Volume 93.5 fL (80.0-100.0); Mean Platelet Volume 13.5 fL (9.4-12.4); Monocytes # (auto) 0.74 K/uL (0.11-0.59); Monocytes % (auto) 4.7 %; Neutrophils # (auto) 13.76 K/uL (1.40-6.50); Nucleated RBC # (auto) 0.14 K/uL (0.00-0.12); Nucleated RBC % (auto) 0.9 %; Platelet Count 264 K/uL (130-400); RDW Coefficient of Variation 16.6 % (11.5-14.5); RDW Standard Deviation 55.6 fL (36.4-46.3); Red Blood Count 3.07 M/uL (4.70-6.10); White Blood Count 15.81 K/ul (4.8-10.8)
[2025-01-17 21:46] LABS: Alanine Aminotransferase 58 U/L (7-52); Albumin Globulin Ratio 1.1 (0.9-2); Albumin Level 3.2 gm/dl (3.4-5.0); Alkaline Phosphatase 147 U/L (34-104); Anion Gap 8 (3-11); Aspartate Aminotransferase 82 U/L (13-39); BUN Creatinine Ratio 39.8 (10-20); Bilirubin,Total 13.3 mg/dl (0.2-1.0); Blood Urea Nitrogen 33 mg/dl (6-23); Calcium 9.2 mg/dl (8.6-10.3); Carbon Dioxide 21 mmol/L (21-32); Chloride 105 mmol/L (98-107); Creatinine Clr Calc Pharmacy 95.2 ml/min; Glucose 275 mg/dl (70-99(Fasting)); Potassium 3.6 mmol/L (3.5-5.1); Sodium 134 mmol/L (136-145); Total Protein 6.2 gm/dl (6.0-8.3)
--- NOTE | 2025-01-17 22:44 | Emergency Department Note ---
Impression & Plan Abdominal pain, RUQ ED Provider Note NAME: DOMINIC ROSADO AGE: 54 SEX: Male INFORMANT: Patient and mother ED PROVIDER(S): Solomon Rey MD CHIEF COMPLAINT: Abdominal pain PLAN: Disposition: Admitted Outpatient prescription management: none Referral: None MEDICAL DECISION MAKING: Patient presented because of abdominal pain. He recently underwent biliary drain manipulation. He had no fever. Patient had a moderate leukocytosis. Chemistry panel revealed elevated LFTs but improved from prior. His pain was treated with Dilaudid and he was also given Zofran. He was feeling better on reassessment. Patient underwent CT imaging. He does have a right-sided pleural effusion, ascites, and the biliary drain is in place. Patient's CT question pancreatitis. He had a normal lipase. Patient was treated with cefepime and metronidazole empirically. I did consult with his interventional radiologist, Dr. Smith. She and I discussed his presentation and findings on workup. She felt it was reasonable to have him admitted here for pain management, antibiotics, and monitoring. She is sales representative education courses all week if any issues arise. Patient and family in agreement. [facility] Stub[facility]. Case discussed and diagnostics were reviewed. Patient was evaluated in the ER and admitted for further management Care/management discussed with: manager credit collections, interventional radiology at [facility] [place] Level of care consideration(s): After review of the information above and other included data, I feel the patient requires escalation of care to admission Triage Nursing notes: reviewed and agree them. Vital Signs: reviewed and remarkable for hypertension Additional History obtained from: Patient's mother Chronic Medical/Social Conditions affecting care: Metastatic colon cancer Prior/ Outside/ External records reviewed: Discharge summary from November 2024 reviewed. Patient has metastatic colon cancer to the liver. Biliary drain done at [facility]. Differential Diagnosis: Complication of recent radiology procedure, cholangitis, perforation, pancreatitis, renal colic, UTI, appendicitis, diverticulitis, mesenteric ischemia, aortic pathology, infections, inflammatory bowel disease, PUD, biliary pathology, as well as other pathologies. Diagnostics, independently interpreted by me: ECG: none Cardiac Monitoring: Cardiac monitoring ordered by me: The patient was placed on continuous cardiac monitoring and observed. It revealed a sinus tachycardic rhythm at 102 beats per minute without ectopy or evidence of dysrhythmia. Medical decision rules: none Imaging studies: CT scan as above. HPI: 54 year old Male arrives for evaluation of RUQ abd pain. This started today at 1630 and is worsening. Pt had a reposition of biliary stent at [facility] [place] today by Dr. Smith. The patient also notes the following associated symptoms, nausea. The patient has tried OTC meds relieving factors. Current pain is rated as 8/10. Pt denies LOC, headache, fevers, chills, diaphoresis, visual changes, neck pain, chest pain, breathing difficulties, back pain, melena, hematochezia, urinary symptoms, numbness, weakness, lymphadenopathy, rash, or other complaints. PAST MEDICAL HISTORY: See Below, metastatic colon cancer PAST SURGICAL HISTORY: See Below, biliary stent SOCIAL HISTORY: See Below, non-smoker HOME MEDICATIONS: See Below ALLERGIES: See Below VITALS: See Below PHYSICAL EXAMINATION: GENERAL: Awake, alert, uncomfortable-appearing, in no distress HENT: Normocephalic, atraumatic. Oropharynx unremarkable. EYES: Normal conjunctiva. Sclera are icteric. NECK: Inspection normal. Non-tender. Supple. No nuchal rigidity. FROM. No masses. RESPIRATORY: Clear to auscultation. No wheezes. No rales. Normal respiratory effort. CARDIAC: Normal rate. Normal rhythm. No murmurs. No rubs. Extremities warm and well perfused. Pulses equal. No JVD. GI: Soft, non-distended. RUQ tenderness to palpation. No rebound but guarding. No masses. RECTAL: Deferred. MUSCULOSKELETAL: Atraumatic. Chest examination reveals no tenderness. The back is symmetrical on inspection without obvious abnormality. There is no CVA tenderness to palpation. No joint edema. LOWER EXTREMITIES: Calves are equal size bilaterally and non-tender. No edema. No discoloration. NEURO: Normal sensorium. No sensory or motor deficits noted. SKIN: No rash or jaundice noted. PROCEDURES: none CRITICAL CARE: none OBSERVATION NOTE: none Past Med/Surg History Problem List (Updated 01/17/25 @ 22:44 by Solomon Rey MD) Abdominal pain, RUQ (Acute) Metastatic cancer (Acute) Mouth sore (Acute) Elevated bilirubin (Acute) Difficulty urinating (Acute) Metastatic colorectal cancer Medical History Metastatic colorectal cancer Social History Smoking Status: Never smoker Hx Alcohol Use: No Hx Substance Use: No Preferred Language: Singaporean Communication Ability: Effective Patents Examiner Required: No Beliefs That Will Affect Care: None Current Living Situation: Family Current Living Situation Comment: Home with mother Feels Safe at Home: Yes Assistive Devices: None Allergies Allergies Allergy/AdvReac Type Severity Reaction Status Date / Time levofloxacin Allergy Intermediate Difficulty Unverified 04/13/22 21:51 Breathing Penicillins Allergy Intermediate Difficulty Unverified 04/13/22 21:51 Breathing Home Meds Home Medications Medication Instructions Recorded Confirmed dexamethasone 4 mg tablet 4 mg PO DIRECTED 12/15/24 01/18/25 ondansetron HCl 4 mg tablet 8 mg PO TID PRN n/v 12/15/24 01/18/25 pantoprazole 40 mg tablet,delayed 40 mg PO DAILY 12/15/24 01/18/25 release tamsulosin 0.4 mg capsule 0.4 mg PO QAM 12/15/24 01/18/25 loperamide 2 mg capsule 2 mg PO UD PRN Loose Stool 01/18/25 01/18/25 Results & Data (ED) Vital Signs Vital Signs - 24 hr 01/17/25 20:38 01/17/25 21:02 01/17/25 21:09 Temperature 36.9 C Temperature Source Temporal Artery Scan Pulse Rate 103 H 94 H Pulse Rate [Left Apical] 94 H Pulse Rate from SpO2 Sensor Respiratory Rate 18 22 Respiratory Effort / Characteristics Non-Labored Spontaneous Non-Labored Spontaneous Respiratory Depth Normal Normal Respiratory Pattern Regular Regular Blood Pressure 151/96 H Blood Pressure [Right Arm] 132/76 Blood Pressure Mean 114 Blood Pressure Mean [Right Arm] 94 Pulse Oximetry 96 99 Oxygen Delivery Method Room Air Room Air Sepsis Recent Fever Within 48 Hours No Sepsis New/Unexplained Change in Mental Status N/A Sepsis Action Taken by Nursing No Action Required 01/17/25 21:24 01/17/25 21:30 01/17/25 21:33 Temperature Temperature Source Pulse Rate 88 91 H Pulse Rate [Left Apical] Pulse Rate from SpO2 Sensor Respiratory Rate 23 19 Respiratory Effort / Characteristics Respiratory Depth Respiratory Pattern Blood Pressure 135/80 Blood Pressure [Right Arm] Blood Pressure Mean 104 Blood Pressure Mean [Right Arm] Pulse Oximetry 98 98 Oxygen Delivery Method Room Air Room Air Sepsis Recent Fever Within 48 Hours Sepsis New/Unexplained Change in Mental Status Sepsis Action Taken by Nursing 01/17/25 21:51 01/17/25 21:57 01/17/25 22:00 Temperature Temperature Source Pulse Rate 90 99 H Pulse Rate [Left Apical] Pulse Rate from SpO2 Sensor Respiratory Rate 19 16 Respiratory Effort / Characteristics Respiratory Depth Respiratory Pattern Blood Pressure 141/86 H Blood Pressure [Right Arm] Blood Pressure Mean 101 Blood Pressure Mean [Right Arm] Pulse Oximetry 98 96 Oxygen Delivery Method Room Air Room Air Sepsis Recent Fever Within 48 Hours Sepsis New/Unexplained Change in Mental Status Sepsis Action Taken by Nursing 01/17/25 22:30 01/17/25 22:30 01/17/25 22:42 Temperature Temperature Source Pulse Rate 103 H 94 H Pulse Rate [Left Apical] Pulse Rate from SpO2 Sensor Respiratory Rate 23 23 Respiratory Effort / Characteristics Respiratory Depth Respiratory Pattern Blood Pressure 145/75 H Blood Pressure [Right Arm] Blood Pressure Mean 90 Blood Pressure Mean [Right Arm] Pulse Oximetry Oxygen Delivery Method Sepsis Recent Fever Within 48 Hours Sepsis New/Unexplained Change in Mental Status Sepsis Action Taken by Nursing 01/17/25 22:48 01/17/25 23:00 01/17/25 23:30 Temperature Temperature Source Pulse Rate 91 H Pulse Rate [Left Apical] Pulse Rate from SpO2 Sensor Respiratory Rate 18 Respiratory Effort / Characteristics Non-Labored Respiratory Depth Normal Respiratory Pattern Blood Pressure 152/84 H Blood Pressure [Right Arm] Blood Pressure Mean 98 Blood Pressure Mean [Right Arm] Pulse Oximetry Oxygen Delivery Method Room Air Sepsis Recent Fever Within 48 Hours Sepsis New/Unexplained Change in Mental Status Sepsis Action Taken by Nursing 01/17/25 23:30 01/17/25 23:30 01/17/25 23:33 Temperature Temperature Source Pulse Rate 95 H Pulse Rate [Left Apical] Pulse Rate from SpO2 Sensor 94 H Respiratory Rate 19 Respiratory Effort / Characteristics Respiratory Depth Respiratory Pattern Blood Pressure 152/84 H 152/84 H Blood Pressure [Right Arm] Blood Pressure Mean 98 98 Blood Pressure Mean [Right Arm] Pulse Oximetry 100 Oxygen Delivery Method Sepsis Recent Fever Within 48 Hours Sepsis New/Unexplained Change in Mental Status Sepsis Action Taken by Nursing 01/17/25 23:42 01/18/25 00:00 01/18/25 00:00 Temperature Temperature Source Pulse Rate 90 Pulse Rate [Left Apical] Pulse Rate from SpO2 Sensor 90 Respiratory Rate 16 Respiratory Effort / Characteristics Respiratory Depth Respiratory Pattern Blood Pressure 163/92 H 163/92 H Blood Pressure [Right Arm] Blood Pressure Mean 124 124 Blood Pressure Mean [Right Arm] Pulse Oximetry 99 Oxygen Delivery Method Sepsis Recent Fever Within 48 Hours Sepsis New/Unexplained Change in Mental Status Sepsis Action Taken by Nursing 01/18/25 00:00 01/18/25 00:12 01/18/25 00:30 Temperature Temperature Source Pulse Rate 91 H 89 Pulse Rate [Left Apical] Pulse Rate from SpO2 Sensor 91 H 81 Respiratory Rate 16 20 Respiratory Effort / Characteristics Respiratory Depth Respiratory Pattern Blood Pressure 163/88 H Blood Pressure [Right Arm] Blood Pressure Mean 111 Blood Pressure Mean [Right Arm] Pulse Oximetry 100 96 Oxygen Delivery Method Sepsis Recent Fever Within 48 Hours Sepsis New/Unexplained Change in Mental Status Sepsis Action Taken by Nursing 01/18/25 00:30 01/18/25 00:42 01/18/25 00:51 Temperature Temperature Source Pulse Rate 91 H 115 H Pulse Rate [Left Apical] Pulse Rate from SpO2 Sensor 84 Respiratory Rate 24 20 Respiratory Effort / Characteristics Respiratory Depth Respiratory Pattern Blood Pressure 163/88 H Blood Pressure [Right Arm] Blood Pressure Mean 111 Blood Pressure Mean [Right Arm] Pulse Oximetry 99 Oxygen Delivery Method Sepsis Recent Fever Within 48 Hours Sepsis New/Unexplained Change in Mental Status Sepsis Action Taken by Nursing 01/18/25 01:00 01/18/25 01:02 01/18/25 01:03 Temperature Temperature Source Pulse Rate 110 H Pulse Rate [Left Apical] Pulse Rate from SpO2 Sensor Respiratory Rate Respiratory Effort / Characteristics Non-Labored Respiratory Depth Normal Respiratory Pattern Blood Pressure 168/96 H Blood Pressure [Right Arm] Blood Pressure Mean 129 Blood Pressure Mean [Right Arm] Pulse Oximetry Oxygen Delivery Method Sepsis Recent Fever Within 48 Hours Sepsis New/Unexplained Change in Mental Status Sepsis Action Taken by Nursing 01/18/25 01:03 01/18/25 01:15 01/18/25 01:24 Temperature Temperature Source Pulse Rate 95 H 102 H Pulse Rate [Left Apical] Pulse Rate from SpO2 Sensor 94 H 89 Respiratory Rate 22 16 Respiratory Effort / Characteristics Respiratory Depth Respiratory Pattern Blood Pressure 168/96 H Blood Pressure [Right Arm] Blood Pressure Mean 129 Blood Pressure Mean [Right Arm] Pulse Oximetry 98 98 Oxygen Delivery Method Sepsis Recent Fever Within 48 Hours Sepsis New/Unexplained Change in Mental Status Sepsis Action Taken by Nursing Laboratory Data 01/17/25 20:56 01/17/25 20:56 Lab Results 01/17/25 Range/Units 20:56 WBC 15.81 H (4.8-10.8) K/ul RBC 3.07 L (4.70-6.10) M/uL Hgb 9.2 L (14.0-18.0) g/dl Hct 28.7 L (42.0-52.0) % MCV 93.5 (80.0-100.0) fL MCH 30.0 (25.0-34.0) pg MCHC 32.1 (32.0-36.0) g/dL RDW Std Deviation 55.6 H (36.4-46.3) fL RDW Coeff of Cris 16.6 H (11.5-14.5) % Plt Count 264 (130-400) K/uL MPV 13.5 H (9.4-12.4) fL Immature Gran % (Auto) 1.7 % Neut % (Auto) 87.0 % Lymph % (Auto) 6.5 % [place] % (Auto) 4.7 % Eos % (Auto) 0.0 % Baso % (Auto) 0.1 % Neut # (Auto) 13.76 H (1.40-6.50) K/uL Lymph # (Auto) 1.02 L (1.20-3.40) K/uL [place] # (Auto) 0.74 H (0.11-0.59) K/uL Eos # (Auto) 0.00 (0.00-0.50) K/uL Baso # (Auto) 0.02 (0.00-0.20) K/uL Immature Gran # (Auto) 0.27 H (0.01-0.20) K/uL Absolute Nucleated RBC 0.14 H (0.00-0.12) K/uL Nucleated RBC % (auto) 0.9 % Sodium 134 L (136-145) mmol/L Potassium 3.6 (3.5-5.1) mmol/L Chloride 105 (98-107) mmol/L Carbon Dioxide 21 (21-32) mmol/L Anion Gap 8 (3-11) BUN 33 H (6-23) mg/dl Creatinine 0.83 (0.6-1.4) mg/dl Est Cr Clr Drug Dosing 95.2 ml/min eGFR 102.72 BUN/Creatinine Ratio 39.8 H (10-20) Glucose 275 H (70-99(Fasting)) mg/dl Calcium 9.2 (8.6-10.3) mg/dl Total Bilirubin 13.3 H (0.2-1.0) mg/dl AST 82 H (13-39) U/L ALT 58 H (7-52) U/L Alkaline Phosphatase 147 H (34-104) U/L Total Protein 6.2 (6.0-8.3) gm/dl Albumin 3.2 L (3.4-5.0) gm/dl Globulin 3.0 (2.5-4.0) gm/dl Albumin/Globulin Ratio 1.1 (0.9-2) Lipase TNP Administered Medications Hydromorphone HCl (Hydromorphone Inj 0.5 Mg/0.5 Ml Syr) 0.5 mg IV Q15M PRN PRN Reason: Pain Stop: 01/31/25 22:49 Last Admin: 01/17/25 22:55 Dose: 0.5 mg Documented By: HIRAM Sodium Chloride (Nss) 1,000 mls @ 125 mls/hr IV .Q8H MOHAN Stop: 01/18/25 22:59 Last Admin: 01/18/25 00:21 Dose: 125 mls/hr Documented By: ANIYA Discontinued Medications Sodium Chloride (Nss) 500 mls @ 999 mls/hr IV .Q31M ONE Stop: 01/17/25 23:20 Last Infusion: 01/18/25 00:00 Dose: Infused Documented By: Admin: 01/17/25 23:30 Dose: 999 mls/hr Documented By: ANIYA Metronidazole (Flagyl) 500 mg in 100 mls @ 100 mls/hr IV NOW STA; Protocol Stop: 01/18/25 01:00 Last Infusion: 01/18/25 01:20 Dose: Infused Documented By: Admin: 01/18/25 00:19 Dose: 100 mls/hr Documented By: ANIYA Cefepime HCl (Maxipime 2000mg) 2,000 mg in 20 mls @ 5 mls/min IV NOW STA; Protocol Stop: 01/18/25 00:04 Last Admin: 01/18/25 00:19 Dose: 5 mls/min Documented By: ANIYA Ioversol (Optiray 320 100ml) 100 ml IV ONCE ONE Stop: 01/17/25 23:26 Last Admin: 01/17/25 23:25 Dose: 93 ml Documented By: MARI Ondansetron HCl (Ondansetron Inj 2 Mg/Ml 2 Ml Vial) 4 mg IV NOW STA Stop: 01/17/25 20:45 Last Admin: 01/17/25 20:56 Dose: 4 mg Documented By: DARSHAN Imaging Data Radiologist's Impression: Abdomen/Pelvis CT 01/17/25 22:50 Exam(s): CT ABDOMEN + PELVIS With Contrast IV Amt: 93 ML OPTIRAY 320 EXAM: CT Abdomen and Pelvis With Intravenous Contrast CLINICAL HISTORY: RUQ pain, elev WBC, biliary stent, colon ca. TECHNIQUE: Axial computed tomography images of the abdomen and pelvis with intravenous contrast. CTDI is 27.7 mGy and DLP is 1420.65 mGy-cm. Automated exposure control was utilized for the study. A dose lowering technique was utilized adhering to the principles of ALARA. CONTRAST: Patient received 93 ML OPTIRAY 320 of IV contrast COMPARISON: CT abdomen and pelvis with contrast dated 08/31/2023 FINDINGS: Lung bases: As below. Pleural space: Moderate right pleural effusion now identified posteriorly. No loculation. ABDOMEN: Liver: There has been interval progression of disease involving the right lobe of the liver with relative interval atrophy of the right lobe and hypertrophy of the left lobe. Irregular hypodense metastatic involvement noted. There are scattered areas of calcification which are new from the previous examination, suggesting intervening endovascular directed therapy. However, no intervening imaging available. There is a new irregular hypodense area centrally in the left lobe measuring 1.4 cm. In addition to the confluent disease in segment 4 of the liver, there is a somewhat isolated rounded hypodense area at the anterior dome of the diaphragm measuring 1.4 cm at the junction of segment 4A and the left lobe of the liver. Gallbladder and bile ducts: An internal/external biliary stent is noted via left-sided approach which extends through the common bile duct into the duodenum. Mild intrahepatic biliary ectasia noted in the left lobe without significant dilation. Common bile duct is completely decompressed. No calcified stones. Pancreas: There is peripancreatic fat stranding noted most prominently surrounding the tail the pancreas. There is 9 retroperitoneal fat stranding and edema along the anterior pararenal fascia bilaterally. No pancreatic ductal dilation. Spleen: Unremarkable. No splenomegaly. Adrenals: Unremarkable. No mass. Kidneys and ureters: Unremarkable. No solid mass. No hydronephrosis. Stomach and bowel: Postsurgical changes involving the sigmoid colon, stable. No bowel obstruction. Evaluation of bowel mucosa is limited. Mild mucosal prominence of the colon is presumed related to under distention or portal hypertension rather than inflammatory infectious process. PELVIS: Appendix: Not clearly delineated. No significant findings to suggest an acute process. Bladder: Unremarkable. No mass. Reproductive: Unremarkable as visualized. ABDOMEN and PELVIS: Intraperitoneal space: Mild ascites. No loculation. Mild free fluid in the dependent pelvis. No free air. Bones/joints: No acute fracture. No dislocation. Soft tissues: Unremarkable. Vasculature: Unremarkable. No abdominal aortic aneurysm. Lymph nodes: Unremarkable. No enlarged lymph nodes. IMPRESSION: 1. There has been interval progression of disease involving the right lobe of the liver with relative interval atrophy of the right lobe and hypertrophy of the left lobe. Irregular hypodense metastatic involvement noted. There are scattered areas of calcification which are new from the previous examination, suggesting intervening endovascular directed therapy. However, no intervening imaging available. There is a new irregular hypodense area centrally in the left lobe measuring 1.4 cm. In addition to the confluent disease in segment 4 of the liver, there is a somewhat isolated rounded hypodense area at the anterior dome of the diaphragm measuring 1.4 cm at the junction of segment 4A and the left lobe of the liver. 2. An internal/external biliary stent is noted via left-sided approach which extends through the common bile duct into the duodenum. Mild intrahepatic biliary ectasia noted in the left lobe without significant dilation. Common bile duct is completely decompressed. 3. There is peripancreatic fat stranding noted most prominently surrounding the tail the pancreas. There is 9 retroperitoneal fat stranding and edema along the anterior pararenal fascia bilaterally. The findings are highly suggestive of acute pancreatitis. Please correlate with laboratory findings. No ductal dilation or loculated pseudocyst. 4. Mild ascites. No loculation. 5. Moderate right pleural effusion now identified posteriorly. No loculation. Electronically signed by: Mahamed Bailey MD 01/18/25 00:50 AM Discharge Plan Visit Data Chief Complaint: Abdominal Pain Stated Complaint: ABDOMINAL PAIN ED Provider: Solomon Rey Discharge Problem: Abdominal pain, RUQ Forms Stand Alone Forms: My [facility] [place] Prescriptions Prescriptions: No Action ondansetron HCl 4 mg tablet 8 mg PO TID PRN (Reason: n/v) pantoprazole 40 mg tablet,delayed release (DR/EC) 40 mg PO DAILY dexamethasone 4 mg tablet 4 mg PO DIRECTED Rx Instructions: TAKE 2 TABLETS BY MOUTH DAILY ON DAYS 2, 3, AND 4. filled 11/29 30 day supply tamsulosin 0.4 mg capsule 0.4 mg PO QAM loperamide 2 mg capsule 2 mg PO UD MDD 8 CAPS/24 HRS PRN (Reason: Loose Stool) Rx Instructions: 1 CAPSULE AFTER EACH LOOSE STOOL..DO NOT 8 CAPSULES IN 24 HOURS Referrals Referrals: Stoney Abdullahi MD [Primary Care Provider] -
[2025-01-17] MEDS: HYDROmorphone INJ 0.5 MG/0.5 ML SYR IV PRN (22:55)
[2025-01-17] MEDS: OPTIRAY 320 100ml IV ONE (23:25)
[2025-01-17] MEDS: SODIUM CHLORIDE 0.9% 500 ML IV ONE (23:30)
[2025-01-18] MEDS: CEFEPIME 2000MG 2,000 MG/20 ML SYR IV STA (00:19)
[2025-01-18] MEDS: metroNIDAZOLE 500 MG/100 ML BAG IV STA (00:19)
[2025-01-18] MEDS: SODIUM CHLORIDE 0.9% 1,000 ML IV SCH (00:21)
--- NOTE | 2025-01-18 00:51 | CT Scan Report ---
Exam(s): CT ABDOMEN + PELVIS With Contrast IV Amt: 93 ML OPTIRAY 320 EXAM: CT Abdomen and Pelvis With Intravenous Contrast CLINICAL HISTORY: RUQ pain, elev WBC, biliary stent, colon ca. TECHNIQUE: Axial computed tomography images of the abdomen and pelvis with intravenous contrast. CTDI is 27.7 mGy and DLP is 1420.65 mGy-cm. Automated exposure control was utilized for the study. A dose lowering technique was utilized adhering to the principles of ALARA. CONTRAST: Patient received 93 ML OPTIRAY 320 of IV contrast COMPARISON: CT abdomen and pelvis with contrast dated 08/31/2023 FINDINGS: Lung bases: As below. Pleural space: Moderate right pleural effusion now identified posteriorly. No loculation. ABDOMEN: Liver: There has been interval progression of disease involving the right lobe of the liver with relative interval atrophy of the right lobe and hypertrophy of the left lobe. Irregular hypodense metastatic involvement noted. There are scattered areas of calcification which are new from the previous examination, suggesting intervening endovascular directed therapy. However, no intervening imaging available. There is a new irregular hypodense area centrally in the left lobe measuring 1.4 cm. In addition to the confluent disease in segment 4 of the liver, there is a somewhat isolated rounded hypodense area at the anterior dome of the diaphragm measuring 1.4 cm at the junction of segment 4A and the left lobe of the liver. Gallbladder and bile ducts: An internal/external biliary stent is noted via left-sided approach which extends through the common bile duct into the duodenum. Mild intrahepatic biliary ectasia noted in the left lobe without significant dilation. Common bile duct is completely decompressed. No calcified stones. Pancreas: There is peripancreatic fat stranding noted most prominently surrounding the tail the pancreas. There is 9 retroperitoneal fat stranding and edema along the anterior pararenal fascia bilaterally. No pancreatic ductal dilation. Spleen: Unremarkable. No splenomegaly. Adrenals: Unremarkable. No mass. Kidneys and ureters: Unremarkable. No solid mass. No hydronephrosis. Stomach and bowel: Postsurgical changes involving the sigmoid colon, stable. No bowel obstruction. Evaluation of bowel mucosa is limited. Mild mucosal prominence of the colon is presumed related to under distention or portal hypertension rather than inflammatory infectious process. PELVIS: Appendix: Not clearly delineated. No significant findings to suggest an acute process. Bladder: Unremarkable. No mass. Reproductive: Unremarkable as visualized. ABDOMEN and PELVIS: Intraperitoneal space: Mild ascites. No loculation. Mild free fluid in the dependent pelvis. No free air. Bones/joints: No acute fracture. No dislocation. Soft tissues: Unremarkable. Vasculature: Unremarkable. No abdominal aortic aneurysm. Lymph nodes: Unremarkable. No enlarged lymph nodes. IMPRESSION: 1. There has been interval progression of disease involving the right lobe of the liver with relative interval atrophy of the right lobe and hypertrophy of the left lobe. Irregular hypodense metastatic involvement noted. There are scattered areas of calcification which are new from the previous examination, suggesting intervening endovascular directed therapy. However, no intervening imaging available. There is a new irregular hypodense area centrally in the left lobe measuring 1.4 cm. In addition to the confluent disease in segment 4 of the liver, there is a somewhat isolated rounded hypodense area at the anterior dome of the diaphragm measuring 1.4 cm at the junction of segment 4A and the left lobe of the liver. 2. An internal/external biliary stent is noted via left-sided approach which extends through the common bile duct into the duodenum. Mild intrahepatic biliary ectasia noted in the left lobe without significant dilation. Common bile duct is completely decompressed. 3. There is peripancreatic fat stranding noted most prominently surrounding the tail the pancreas. There is 9 retroperitoneal fat stranding and edema along the anterior pararenal fascia bilaterally. The findings are highly suggestive of acute pancreatitis. Please correlate with laboratory findings. No ductal dilation or loculated pseudocyst. 4. Mild ascites. No loculation. 5. Moderate right pleural effusion now identified posteriorly. No loculation. Electronically signed by: Mahamed Bailey MD 01/18/25 00:50 AM
[2025-01-18 03:21] LABS: Appearance Urine Clear (Clear); Bacteria Urine Automated None Seen (None Seen); Bilirubin Urine 3+ (Negative); Blood Urine Negative (Negative); Calcium Oxalate Crystals Urine Present (None Prsent); Cast Urine Automated 0-2 /lpf (0-2); Color Urine Dark Yellow; Epithelial Cell Urine Auto 0-2 /hpf (0-2); Glucose Urine UA Trace (Negative); Ketones Urine Negative (Negative); Leukocyte Esterase Urine 1+ (Negative); Nitrite Urine Positive (Negative); Protein Urine 1+ (Negative); RBC Urine Automated 0-2 /hpf (0-2); Specific Gravity Urine > 1.045 (1.000-1.030); Urobilinogen Urine Negative (Negative); WBC Urine Automated 0-5 /hpf (0-5); pH Urine 5.5 (4.5-7.5)
--- NOTE | 2025-01-18 04:06 | History & Physical Report ---
Date of Service January 18, 2025 Assessment & Plan (1) Pancreatitis: Plan: 54-year-old male with past medical history significant for metastatic colon cancer mets to liver and lung and on chemo, history of mitral regurgitation, impaired fasting glucose, pulmonary hypertension, hypertension, who had reposition of biliary stent at [facility] by interventional radiology Dr. Smith yesterday comes because of abdominal pain. Patient s states after going home developed severe abdominal pain which prompted come to the ER. With the pain medicine currently pain is under control. Denies any diarrhea or constipation. Micturating okay. Denies any nausea. Denies chest pain or shortness of breath. Denies fevers. No headache or runny nose. No sore throat. Hemodynamics are okay. Patient has leukocytosis. CAT scan showing possible pancreatitis. Er discussed the CAT scan findings with Dr. Smith. It was felt was reasonable to observe the patient here for pain management and antibiotics and to call Dr. Smith if any issue arises. Pancreatitis on the CAT scan N.p.o. IV fluids Pain control Consult GI in a.m. Abdominal pain From above Also patient had replacement biliary stent at [facility] by IR yesterday ER spoke with interventional radiologist Dr. Smith and plan to observe and pain control and antibiotics for now. Can call Dr. Smith for any issues Metastatic colon cancer Mets to the liver and lung On chemo Had chemo last Friday Follows with [facility] Dr. Boggs CHF due to valvular disease Mitral valve insufficiency Getting fluids Monitor for volume overload Anemia Mostly from chemo Will follow labs Elevated bilirubin Transaminitis Bilirubin 13.3 AST 82, ALT 58, alkaline phos 147 Similar as last admission Follow repeat labs Follows with heme-onc DVT prophylaxis Lovenox Disposition Medical floor Full code History of Present Illness Chief Complaint: Abdominal pain Primary Care Provider: Stoney Abdullahi MD 54-year-old male with past medical history significant for metastatic colon cancer mets to liver and lung and on chemo, history of mitral regurgitation, impaired fasting glucose, pulmonary hypertension, hypertension, who had reposition of biliary stent at [facility] by interventional radiology Dr. Smith yesterday comes because of abdominal pain. Patient s states after going home developed severe abdominal pain which prompted come to the ER. With the pain medicine currently pain is under control. Denies any diarrhea or constipation. Micturating okay. Denies any nausea. Denies chest pain or shortness of breath. Denies fevers. No headache or runny nose. No sore throat. Hemodynamics are okay. Patient has leukocytosis. CAT scan showing possible pancreatitis. Er discussed the CAT scan findings with Dr. Smith. It was felt was reasonable to observe the patient here for pain management and antibiotics and to call Dr. Smith if any issue arises. Past medical history. As mentioned above Past surgical history. No surgery history on file. Social history. No smoking. No alcohol use.. No drug use. Family history. No family history on file. Allergies Allergy/AdvReac Type Severity Reaction Status Date / Time levofloxacin Allergy Intermediate Difficulty Unverified 04/13/22 21:51 Breathing Penicillins Allergy Intermediate Difficulty Unverified 04/13/22 21:51 Breathing Home Medications Medication Instructions Recorded Confirmed Type dexamethasone 4 mg tablet 4 mg PO DIRECTED 12/15/24 01/18/25 History ondansetron HCl 4 mg tablet 8 mg PO TID PRN n/v 12/15/24 01/18/25 History pantoprazole 40 mg tablet,delayed 40 mg PO DAILY 12/15/24 01/18/25 History release tamsulosin 0.4 mg capsule 0.4 mg PO QAM 12/15/24 01/18/25 History loperamide 2 mg capsule 2 mg PO UD PRN Loose Stool 01/18/25 01/18/25 History Past Med/Surg History Problem List (Updated 01/18/25 @ 04:01 by Faustino Stubbs MD) Pancreatitis Abdominal pain, RUQ (Acute) Metastatic cancer (Acute) Mouth sore (Acute) Elevated bilirubin (Acute) Difficulty urinating (Acute) Metastatic colorectal cancer Medical History Metastatic colorectal cancer Social History Smoking Status: Never smoker Second Hand Exposure: No; Do You Dip or Chew Tobacco: No; Hx Alcohol Use: No Hx Substance Use: No Preferred Language: [place] Communication Ability: Effective Bell[employer] Captain Required: No Beliefs That Will Affect Care: None Current Living Situation: Family Current Living Situation Comment: lives with mother Feels Safe at Home: Yes Safety Concerns: Feels Safe At This Time Assistive Devices: None Review of Systems Review of Systems: All systems reviewed & are unremarkable except as noted in HPI & below Physical Exam Physical Exam: General- Not in distress Head- atraumatic Eyes- PERRL. ENT- oropharynx clear Neck- supple, no JVD. Lungs- clear to auscultation no wheezing or crackles Heart- regular rhythm; no murmur, no gallop. Abdomen- normal bowel sounds, soft, mild diffuse discomfort, no distension. Extremities- no pretibial edema, no erythema seen Neuro- alert, oriented PERRL, no facial palsy; no dysarthria; moves extremities Results & Data Results & Data Vital Signs (Past 12 Hours) Vital Signs Temp Pulse Pulse Resp BP BP Pulse Ox 01/18/25 03:00 93 H 20 99 01/18/25 03:00 167/116 H 01/18/25 03:00 167/116 H 01/18/25 03:00 167/116 H 01/18/25 02:42 95 H 22 98 01/18/25 02:03 93 H 16 98 01/18/25 02:00 157/92 H 01/18/25 02:00 157/92 H 01/18/25 01:54 91 H 15 99 01/18/25 01:39 92 H 16 98 01/18/25 01:24 102 H 16 98 01/18/25 01:15 95 H 22 98 01/18/25 01:03 168/96 H 01/18/25 01:03 168/96 H 01/18/25 01:02 110 H 01/18/25 00:51 115 H 20 01/18/25 00:42 91 H 24 99 01/18/25 00:30 163/88 H 01/18/25 00:30 163/88 H 01/18/25 00:12 89 20 96 01/18/25 00:00 91 H 16 100 01/18/25 00:00 163/92 H 01/18/25 00:00 163/92 H 01/17/25 23:42 90 16 99 01/17/25 23:33 95 H 19 100 01/17/25 23:30 152/84 H 01/17/25 23:30 152/84 H 01/17/25 23:30 152/84 H 01/17/25 23:00 01/17/25 22:48 91 H 18 01/17/25 22:42 94 H 23 01/17/25 22:30 145/75 H 01/17/25 22:30 103 H 23 01/17/25 22:00 141/86 H 01/17/25 21:57 99 H 16 96 01/17/25 21:51 90 19 98 01/17/25 21:33 91 H 19 98 01/17/25 21:30 135/80 01/17/25 21:24 88 23 98 01/17/25 21:09 94 H 22 132/76 99 01/17/25 21:02 94 H 01/17/25 20:38 36.9 C 103 H 18 151/96 H 96 O2 Del Method 01/18/25 03:00 01/18/25 03:00 01/18/25 03:00 01/18/25 03:00 01/18/25 02:42 01/18/25 02:03 01/18/25 02:00 01/18/25 02:00 01/18/25 01:54 01/18/25 01:39 01/18/25 01:24 01/18/25 01:15 01/18/25 01:03 01/18/25 01:03 01/18/25 01:02 01/18/25 00:51 01/18/25 00:42 01/18/25 00:30 01/18/25 00:30 01/18/25 00:12 01/18/25 00:00 01/18/25 00:00 01/18/25 00:00 01/17/25 23:42 01/17/25 23:33 01/17/25 23:30 01/17/25 23:30 01/17/25 23:30 01/17/25 23:00 Room Air 01/17/25 22:48 01/17/25 22:42 01/17/25 22:30 01/17/25 22:30 01/17/25 22:00 01/17/25 21:57 Room Air 01/17/25 21:51 Room Air 01/17/25 21:33 Room Air 01/17/25 21:30 01/17/25 21:24 Room Air 01/17/25 21:09 Room Air 01/17/25 21:02 01/17/25 20:38 Room Air Diagnostic Findings Laboratory Results WBC 15.81 K/ul (4.8-10.8) H 01/17/25 20:56 RBC 3.07 M/uL (4.70-6.10) L 01/17/25 20:56 Hgb 9.2 g/dl (14.0-18.0) L 01/17/25 20:56 Hct 28.7 % (42.0-52.0) L 01/17/25 20:56 MCV 93.5 fL (80.0-100.0) 01/17/25 20:56 MCH 30.0 pg (25.0-34.0) 01/17/25 20:56 MCHC 32.1 g/dL (32.0-36.0) 01/17/25 20:56 RDW Std Deviation 55.6 fL (36.4-46.3) H 01/17/25 20:56 RDW Coeff of Cris 16.6 % (11.5-14.5) H 01/17/25 20:56 Plt Count 264 K/uL (130-400) 01/17/25 20:56 MPV 13.5 fL (9.4-12.4) H 01/17/25 20:56 Immature Gran % (Auto) 1.7 % 01/17/25 20:56 Neut % (Auto) 87.0 % 01/17/25 20:56 Lymph % (Auto) 6.5 % 01/17/25 20:56 [place] % (Auto) 4.7 % 01/17/25 20:56 Eos % (Auto) 0.0 % 01/17/25 20:56 Baso % (Auto) 0.1 % 01/17/25 20:56 Neut # (Auto) 13.76 K/uL (1.40-6.50) H 01/17/25 20:56 Lymph # (Auto) 1.02 K/uL (1.20-3.40) L 01/17/25 20:56 [place] # (Auto) 0.74 K/uL (0.11-0.59) H 01/17/25 20:56 Eos # (Auto) 0.00 K/uL (0.00-0.50) 01/17/25 20:56 Baso # (Auto) 0.02 K/uL (0.00-0.20) 01/17/25 20:56 Immature Gran # (Auto) 0.27 K/uL (0.01-0.20) H 01/17/25 20:56 Absolute Nucleated RBC 0.14 K/uL (0.00-0.12) H 01/17/25 20:56 Nucleated RBC % (auto) 0.9 % 01/17/25 20:56 Sodium 134 mmol/L (136-145) L 01/17/25 20:56 Potassium 3.6 mmol/L (3.5-5.1) 01/17/25 20:56 Chloride 105 mmol/L (98-107) 01/17/25 20:56 Carbon Dioxide 21 mmol/L (21-32) 01/17/25 20:56 Anion Gap 8 (3-11) 01/17/25 20:56 BUN 33 mg/dl (6-23) H 01/17/25 20:56 Creatinine 0.83 mg/dl (0.6-1.4) 01/17/25 20:56 Est Cr Clr Drug Dosing 95.2 ml/min 01/17/25 20:56 eGFR 102.72 01/17/25 20:56 BUN/Creatinine Ratio 39.8 (10-20) H 01/17/25 20:56 Glucose 275 mg/dl (70-99(Fasting)) H 01/17/25 20:56 Calcium 9.2 mg/dl (8.6-10.3) 01/17/25 20:56 Total Bilirubin 13.3 mg/dl (0.2-1.0) H 01/17/25 20:56 AST 82 U/L (13-39) H 01/17/25 20:56 ALT 58 U/L (7-52) H 01/17/25 20:56 Alkaline Phosphatase 147 U/L (34-104) H 01/17/25 20:56 Total Protein 6.2 gm/dl (6.0-8.3) 01/17/25 20:56 Albumin 3.2 gm/dl (3.4-5.0) L 01/17/25 20:56 Globulin 3.0 gm/dl (2.5-4.0) 01/17/25 20:56 Albumin/Globulin Ratio 1.1 (0.9-2) 01/17/25 20:56 Lipase TNP 01/17/25 20:56 Urine Color Dark Yellow 01/18/25 02:30 Urine Appearance Clear (Clear) 01/18/25 02:30 Urine pH 5.5 (4.5-7.5) 01/18/25 02:30 Ur Specific [place] > 1.045 (1.000-1.030) H 01/18/25 02:30 Urine Protein 1+ (Negative) H 01/18/25 02:30 Urine Glucose (UA) Trace (Negative) H 01/18/25 02:30 Urine Ketones Negative (Negative) 01/18/25 02:30 Urine Blood Negative (Negative) 01/18/25 02:30 Urine Nitrite Positive (Negative) A 01/18/25 02:30 Urine Bilirubin 3+ (Negative) H 01/18/25 02:30 Urine Urobilinogen Negative (Negative) 01/18/25 02:30 Ur Leukocyte Esterase 1+ (Negative) H 01/18/25 02:30 Urine WBC (Auto) 0-5 /hpf (0-5) 01/18/25 02:30 Urine RBC (Auto) 0-2 /hpf (0-2) 01/18/25 02:30 U Hyaline Cast (Auto) 0-2 /lpf (0-2) 01/18/25 02:30 U Epithel Cells (Auto) 0-2 /hpf (0-2) 01/18/25 02:30 Urine Bacteria (Auto) None Seen (None Seen) 01/18/25 02:30 Calcium Oxalate Crystal Present (None Prsent) A 01/18/25 02:30 Nasal Screen MRSA (PCR) Negative (Negative) 01/18/25 01:35 Impressions Abdomen/Pelvis CT 01/17/25 22:50 Exam(s): CT ABDOMEN + PELVIS With Contrast IV Amt: 93 ML OPTIRAY 320 EXAM: CT Abdomen and Pelvis With Intravenous Contrast CLINICAL HISTORY: RUQ pain, elev WBC, biliary stent, colon ca. TECHNIQUE: Axial computed tomography images of the abdomen and pelvis with intravenous contrast. CTDI is 27.7 mGy and DLP is 1420.65 mGy-cm. Automated exposure control was utilized for the study. A dose lowering technique was utilized adhering to the principles of ALARA. CONTRAST: Patient received 93 ML OPTIRAY 320 of IV contrast COMPARISON: CT abdomen and pelvis with contrast dated 08/31/2023 FINDINGS: Lung bases: As below. Pleural space: Moderate right pleural effusion now identified posteriorly. No loculation. ABDOMEN: Liver: There has been interval progression of disease involving the right lobe of the liver with relative interval atrophy of the right lobe and hypertrophy of the left lobe. Irregular hypodense metastatic involvement noted. There are scattered areas of calcification which are new from the previous examination, suggesting intervening endovascular directed therapy. However, no intervening imaging available. There is a new irregular hypodense area centrally in the left lobe measuring 1.4 cm. In addition to the confluent disease in segment 4 of the liver, there is a somewhat isolated rounded hypodense area at the anterior dome of the diaphragm measuring 1.4 cm at the junction of segment 4A and the left lobe of the liver. Gallbladder and bile ducts: An internal/external biliary stent is noted via left-sided approach which extends through the common bile duct into the duodenum. Mild intrahepatic biliary ectasia noted in the left lobe without significant dilation. Common bile duct is completely decompressed. No calcified stones. Pancreas: There is peripancreatic fat stranding noted most prominently surrounding the tail the pancreas. There is 9 retroperitoneal fat stranding and edema along the anterior pararenal fascia bilaterally. No pancreatic ductal dilation. Spleen: Unremarkable. No splenomegaly. Adrenals: Unremarkable. No mass. Kidneys and ureters: Unremarkable. No solid mass. No hydronephrosis. Stomach and bowel: Postsurgical changes involving the sigmoid colon, stable. No bowel obstruction. Evaluation of bowel mucosa is limited. Mild mucosal prominence of the colon is presumed related to under distention or portal hypertension rather than inflammatory infectious process. PELVIS: Appendix: Not clearly delineated. No significant findings to suggest an acute process. Bladder: Unremarkable. No mass. Reproductive: Unremarkable as visualized. ABDOMEN and PELVIS: Intraperitoneal space: Mild ascites. No loculation. Mild free fluid in the dependent pelvis. No free air. Bones/joints: No acute fracture. No dislocation. Soft tissues: Unremarkable. Vasculature: Unremarkable. No abdominal aortic aneurysm. Lymph nodes: Unremarkable. No enlarged lymph nodes. IMPRESSION: 1. There has been interval progression of disease involving the right lobe of the liver with relative interval atrophy of the right lobe and hypertrophy of the left lobe. Irregular hypodense metastatic involvement noted. There are scattered areas of calcification which are new from the previous examination, suggesting intervening endovascular directed therapy. However, no intervening imaging available. There is a new irregular hypodense area centrally in the left lobe measuring 1.4 cm. In addition to the confluent disease in segment 4 of the liver, there is a somewhat isolated rounded hypodense area at the anterior dome of the diaphragm measuring 1.4 cm at the junction of segment 4A and the left lobe of the liver. 2. An internal/external biliary stent is noted via left-sided approach which extends through the common bile duct into the duodenum. Mild intrahepatic biliary ectasia noted in the left lobe without significant dilation. Common bile duct is completely decompressed. 3. There is peripancreatic fat stranding noted most prominently surrounding the tail the pancreas. There is 9 retroperitoneal fat stranding and edema along the anterior pararenal fascia bilaterally. The findings are highly suggestive of acute pancreatitis. Please correlate with laboratory findings. No ductal dilation or loculated pseudocyst. 4. Mild ascites. No loculation. 5. Moderate right pleural effusion now identified posteriorly. No loculation. Electronically signed by: Mahamed Bailey MD 01/18/25 00:50 AM Code Status & VTE Plan VTE Prophylaxis Plan VTE Prophylaxis will be ordered: Yes
[2025-01-18] MEDS: LACTATED RINGER'S 1,000 ML IV SCH (06:05)
--- OUTSIDE RECORDS SUMMARY | 2025-01-18 06:21 | External Medical Summary | Continuity of Care Document ---
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 Role Phone Stoney Abdullahi I Primary Care Physician [phone] Encounter [facility] [phone] Date(s): 01/12/25 - 01/12/25 [facility] [address] [facility] [address] [address]- [phone] Encounter Diagnosis Cancer of colon(Discharge Diagnosis) - 12/23/24 Adenocarcinoma of colon metastatic to liver(Discharge Diagnosis) - 01/12/25 Hyperbilirubinemia(Discharge Diagnosis) - 01/12/25 Encounter for chemotherapy management(Discharge Diagnosis) - 01/12/25 Discharge Disposition: Home or Self Care Attending Physician: MD Cartagena Joseph J Referring Physician: MD Cartagena Joseph J Encounter Type: [facility] [place] Allergies, Adverse Reactions, Alerts Substance Criticality Severity Reaction Reaction Severity Status penicillin Unable to assess criticality Mild unknown Active levoFLOXacin difficulty breathing Active Assessment and Plan Extracted from: Title:Clinical Document Author:MD Mitzi, Rashid ph J Date:01/12/25 OUTPATIENT NOTE HEMATOLOGY-ONCOLOGY STAFF NOTE: Name: Jose Haque. [facility] MRN Number: [id number] : 1970 DATE: 01/12/2025 Hematology-Oncology Problems: 1) Colon Cancer, Lt sided, [...] Y90 IH infusion 01/2023 and 06/2023 with [place] to first Rx. PET 11/2023 showed PD in liver. 02/[address] CAP 10/2024 with new liver mets.IR guided biliary drain placed on 11/25/24. Port placed on 11/25/24. Plan to start single agent 5-FU and panitumumab on 12/09/24; had mraked toxicity from C1 with diarrhea and pancytopenia but CEA plummeted c/w response Physicians Involved in Care: PCP: Referring: Dr Leon Tang of [facility] Other: Dr Cristopher Wilhelm of [facility] ColoRectal Surg Dr. Campos with MIS CC/History of Presenting Illness/ Treatment Summary to Date: Pt is a 54 y old gentleman and resident of [place], [place] referred by Dr. Tang of Rad Onc for thoughts on management of recurrent heavily pretreated metastatic colon cancer involving the liver. Pt presented initially with change in stool caliber and with + hemoccult test in 08/2022. He had colo at [facility] which revealed a sigmoid tumor that was [...] in 01/2023 and again in 06/2023 with [place]. He had f/u PET/CT imaging on 12/11/2023. This showed metabolic and volumetric disease progression in the liver. Incidentally some Rt subcarinal and Lt prevascular mediastinal LNs were stable over time, suspicious for chronic inflammatory vs metastatic disease. He had f/u with Dr. Tang in [facility] on 12/11/2023. 02/[address] CAP 10/2024 with new liver mets. Due to worsening hyperbilirubinemia, we recommended stent but there was no lesion/stricture noted on ERCP. IR guided biliary drain was planned and placed on 11/25/24. We began 5FU/leuc + arshad next on 12/09/2024 with full dose 5FU. He has sgniifant toxicity necessitating admit for supportive care (diarhea, mucositis, pnacytopenia). He recovered nicely and CEA dropp substantially and LFTs improved c/w response. After dalys due to weather reports for C2 Interim History/Current Status: Patient feels overall better. 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 biliary drain noted on LUQ with mild purulent discharge at the drain site LYMPH: no cervical, supraclav, axillary or inguinal [...] issues from CAPEOX in the past. We will start single agent 5-FU and panitumumab. Pt given full dose 5FU although T-bili very high to push. He had toxicity but had excellent response. WIll push on but reduce 5FU Patient Counseling and Education: We discussed the diagnosis, prognosis and management of recurrent metastatic colon cancer involving the liver s/p chemotherapy and liver directed therapy using Y90. Pt concurred with the overall plan. Plan: 1) Will obtain basic labs with CBC, CMP, LDH, CEA, CA 19-9 2) C2 5-FU, leucovorin and panitumumab today; sicne T-bili still up although improved will reduce 5FU by 50% 3) RTC in 2 weeks for C3 with labs 4) [facility] if needed Running Cancer Treatment Summary Here: 1) Initial Evaluation 2) Plan for C1 5-FU, leucovorin and panitumumab on 12/09/24 3) C2 5FU/leuc + arshad 50% DR Name: JOSE HAQUE Patient Number:1 [id number] : 1970 Date of Service: 01/12/2025 _ Medications BD Normal Saline Flush 0.9% injectable solution Start: 01/06/25 3:40:00 PM EST, 10cc, intracatheter, Daily, Disp# 30 each, Refills: 3, Pharmacy: [email or web address] Start Date: 01/06/25 Status: Ordered Quantity: 30.0 Unit: each Repeat number: 4 dexAMETHasone 4 mg oral tablet Start: 11/29/24 6:56:00 PM EST, 2 tab, PO, Daily, Disp# 60 tab, Refills: 0, TAKE 2 tablets daily on days 2, 3 & 4., Pharmacy: [email or web address] Start Date: 11/29/24 Stop Date: 12/29/24 Status: Ordered Quantity: 60.0 Unit: tab Repeat number: 1 Imodium 2 mg oral capsule Start: 12/20/24 11:14:00 AM EST, See Instructions, Disp# 30 cap, Refills: 0, 1 cap PO after each loose stool not to exceed 8 capsules, or 16 mg, in 24 hours, Pharmacy: [email or web address] Start Date: 12/20/24 Status: Ordered Quantity: 30.0 Unit: cap Repeat number: 1 ondansetron 4 mg oral tablet Start: 11/25/24 9:45:00 AM EST, 2 tab, PO, tid, Disp# 30 tab, Refills: 1, PRN: as needed for nausea/vomiting, Pharmacy: [id number] Start Date: 11/25/24 Status: Ordered Quantity: 30.0 Unit: tab Repeat number: 2 tamsulosin 0.4 mg oral capsule Start: 01/06/25 1:29:00 PM EST, 1 cap, PO, Daily Start Date: 01/06/25 Status: Ordered Repeat number: 1 Mental Status 01/12/25 Barriers to Learning one year Vision imp airment Mandatory Health Literacy Documentation Yes Health Literacy Communication Barriers N ever Primary Language Colombian Problem List Condition Confirmation Course Effective Dates Status H ealth Status Informant Weight disorder Confirmed Active CHF due to valvular disease Confirmed Active History of colon cancer, stage III Confirmed Active Impaired fasting glucose Confirmed Active Mitral valve problem Confirmed Active Mitral regurgitation Confirmed Active Adenocarcinoma of colon metastatic to liver Confirmed Active Diagnosis Diagnosis Type Effective Dates Health Status Clinical Service Informant Cancer of colon Discharge Diagnosis 12/23/24 Non-Specified Encounter for chemotherapy management Discharge Diagnosis 01/12/25 Hyperbilirubinemia Discharge Diagnosis 01/12/25 Adenocarcinoma of colon metastatic to liver Discharge Diagnosis 01/12/25 Procedures Procedure Date Related Diagnosis Body Site [...] oldest [Reference Range]: 1 Height 160.0 cm (01/12/25 2:17 PM) Patient Weight 81.8 kg (01/12/25 2:17 PM) Body Mass Index 31.95 kg/m2 (01/12/25 2:17 PM) Temperature [36.5-37.9 DegC] 36.6 DegC (01/12/25 2:17 PM) Heart Rate 112 bpm (01/12/25 2:17 PM) Respiratory Rate 16 br/min (01/12/25 2:17 PM) Blood Pressure 135/76mmHg (01/12/25 2:17 PM) Cuff Pulse Pressure 59 mmHg (01/12/25 2:17 PM) BP Location # 1 Left Arm (01/12/25 2:17 PM) Social History Social History Type Response Smoking Status Never smoked cigaret sai Sex Male Sex Representation Male (finding) Outpatient Note * MD Mitzi, Kolby Liu: PERFORM Event Display: .Outpt Note Authored Date: [id number] OUTPATIENT NOTE HEMATOLOGY-ONCOLOGY STAFF NOTE: Name: Jose Haque [facility] MRN Number: [id number] : 1970 DATE: 01/12/2025 Hematology-Oncology Problems: 1) Colon Cancer, Lt sided, [...] Y90 IH infusion 01/2023 and 06/2023 with [place] to first Rx. PET 11/2023 showed PD in liver. 02/[address] CAP 10/2024 with new liver mets.IR guided biliary drain placed on 11/25/24. Port placed on 11/25/24. Plan to start single agent 5-FU and panitumumab on 12/09/24; had mraked toxicity from C1 with diarrhea and pancytopeniabut CEA plummeted c/w response Physicians Involved in Care: [facility]: [facility]: Dr Cristopher Wilhelm of [facility] ColoRectal Surg Dr. Campos with MIS CC/History of Presenting Illness/ Treatment Summary to Date: Pt is a 54 y old gentleman and resident of [place], [place] referred by Dr. Tang of Rad Onc for thoughts on management of recurrent heavily pretreated metastatic colon cancer involving the liver. Pt presented initially with change in stool caliber and with + hemoccult test in 08/2022. He had colo at [facility] which revealed a sigmoid tumor that was [...] 2 in 01/2023 and again in06/2023 with [place]. He had f/u PET/CT imaging on 12/11/2023. [...] there was no lesion/stricture noted on ERCP. IR guided biliary drain was planned and placed on 11/25/24. We began 5FU/leuc + arshad next on 12/09/2024 with full dose 5FU. He has sgniifant toxicity necessitating admit for supportive care (diarhea, mucositis, pnacytopenia). He recovered nicely and CEA dropp substantially and LFTs improved c/w response. After dalys due to weather reports for C2 Interim History/Current Status: Patient feels overall better. 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 biliary drain noted on LUQ withmild purulent discharge at the drain site LYMPH: no cervical, supraclav, axillary or inguinal [...] issues from CAPEOX in the past. We will start single agent 5-FU and panitumumab. Pt given full dose 5FU although T-bili very high to push. He had toxicity but had excellent response. WIll push on but reduce 5FU Patient Counseling and Education: We discussed the diagnosis, prognosis and management of recurrent metastatic colon cancer involvingthe liver s/p chemotherapy and liver directed therapy using Y90. Pt concurred with the overall plan. Plan: 1) Will obtain basic labs with CBC, CMP, LDH, CEA, CA 19-9 2) C2 5-FU, leucovorin and panitumumab today; sicne T-bili still up although improved will reduce 5FU by 50% 3) RTC in 2 weeks for C3 with labs 4) [facility] if needed Running Cancer Treatment Summary Here: 1) Initial Evaluation 2) Plan for C1 5-FU, leucovorin and panitumumab on 12/09/24 3) C2 5FU/leuc + arshad 50% DR Name: JOSE HAQUE Patient Number:1 [id number] : 1970 Date of Service: 01/12/2025 _ Electronic Signature on File Electronically Reviewed/Signed by: Kolby Cartagena MD, FACP Author Signature Dt/Tm:01/12/2025 02:55 PM microstrategy developer Division of Hematology-Oncology [facility] [address], [address], [place] [address] JJD Patient Care team information Care Team Personnel Name: MD Kaylen, Stoney Feng Position: Referring DIRECT Member Role: Primary Care Provider Address: [address] [place] [address] Telecom: [phone] Name: Hai Mcneal Kyle Position: Pharmacist Member Role: Pharmacy - Lifetime Address: [address] [place] [address] Name: MD Hilario, Shannon Position: Physician - Pathologist Member Role: Lifetime Relationship Address: [address] [place] [address] Telecom: [phone] Care Team Related Persons Name: NAHED ZHANG Name: NAHED ACUÑA Insurance Providers Guarantor name: JOSE HAQUE Health Plan Information #: 1 Payer: [employer] Member Number: [id number] Policy Number: NA Group Number: [id number] Health Plan Information #: 2 Payer: [employer] Member Number: [id number] Policy Number: NA Group Number: [id number]
--- OUTSIDE RECORDS SUMMARY | 2025-01-18 06:21 | External Medical Summary ---
Author Name Unknown Address Unknown Organization K01:LABORATORY [facility] - [address] [place] [address] Laboratory Report Ordering Provider Test Date Status DEBORAH KAUFMAN 01/10/2025 11:24:41 Final Observation Date Value Abnormality Reference (Units ) Status MYCODE SPECIMEN-SST 01/10/2025 11:24:41 Freezing of extracted DNA, whole blood and/or serum. Final Performing Location LABORATORY [facility] [address] [facility] [address]
--- OUTSIDE RECORDS SUMMARY | 2025-01-18 06:21 | External Medical Summary ---
Author Name Unknown Address Unknown Organization K01:LABORATORY [facility] - [address] [facility] [address] Laboratory Report Ordering Provider Test Date Status CASPER MARTIN 01/10/2025 11:24:41 Final Observation Date Value Abnormality Reference (Units ) Status CEA 01/10/2025 11:24:41 282.9 Above high normal <= 5.2 (ng/mL) Final Performing Location [facility] [address] [facility] [address]
--- OUTSIDE RECORDS SUMMARY | 2025-01-18 06:21 | External Medical Summary ---
Author Name Unknown Address Unknown Organization K01:LABORATORY [facility] - [address] [place] [address] Laboratory Report Ordering Provider Test Date Status SHAYLA CASTRO 01/10/2025 11:24:41 Final Standing order for every oth er week. Observation Date Value Abnormality Reference (Units ) Status Magnesium 01/10/2025 11:24:41 2.1 1.5-2.6 (m g/dL) Final Performing Location LABORATORY [facility] - [address] [place] [address]
--- OUTSIDE RECORDS SUMMARY | 2025-01-18 06:21 | External Medical Summary ---
Author Name Unknown Address Unknown Organization K1F[facility] [address] [facility] [place] [address] Laboratory Report Ordering Provider Test Date Status DR MARIOCALIN 01/10/2025 11:24:41 Final Observation Date Value Abnormality Reference (Units ) Status BUN 01/10/2025 11:24:41 10 6-20 (mg/d L) Final Creatinine 01/10/2025 11:24:41 0.7 0.6-1.2 ( mg/dL) Final Result may be falsely decrea sed due to icterus. Glomerular filtration rate/1 .73 sq M.predicted [Volume Rate/Area] in Serum, Plasma or Blood by Creatinine-based formula (CKD-EPI) 01/10/2025 11:24:41 >90 >=60 (mL/min) Final eGFR is calculated based on the CKD-EPI 2020 equation. Sodium 01/10/2025 11:24:41 138 135-146 (m mol/L) Final Potassium 01/10/2025 11:24:41 3.8 3.5-5.1 (m mol/L) Final Cl 01/10/2025 11:24:41 105 98-107 (mm ol/L) Final CO2 01/10/2025 11:24:41 22 22-32 (mmo l/L) Final Anion gap 01/10/2025 11:24:41 11 7-15 (mmol /L) Final Glucose 01/10/2025 11:24:41 136 Above high normal 70 -120 (mg/dL) Final Albumin 01/10/2025 11:24:41 3.1 Below low normal 3.8 -5.0 (g/dL) Final AST (Aspartate aminotransferase) 01/10/2025 11:24:41 115 Above high normal 10-50 (U/L) Final Alk Phos 01/10/2025 11:24:41 188 Above high normal 35 -130 (U/L) Final Bilirubin, Total 01/10/2025 11:24:41 11.8 Above high no rmal <=1.2 (mg/dL) Final Calcium 01/10/2025 11:24:41 8.6 8.4-10.2 ( mg/dL) Final Protein 01/10/2025 11:24:41 6.2 6.0-8.3 (g /dL) Final ALT (Alanine aminotransferase) 01/10/2025 11:24:41 42 10-50 (U/L) Toby simmons [facility] Location LABORATORY [facility] - [address] [place], [place] [address] [place] [id number]
--- OUTSIDE RECORDS SUMMARY | 2025-01-18 06:21 | External Medical Summary ---
Author Name Unknown Address Unknown Organization K01:LABORATORY [facility] - [address] [place] [address] Laboratory Report Ordering Provider Test Date Status DEBORAH KAUFMAN 01/10/2025 11:24:41 Final Observation Date Value Abnormality Reference (Units ) Status LORI SPECIMEN-LAV 01/10/2025 11:24:41 Freezing of extracted DNA, whole blood and/or serum. Final Performing Location LAB[facility]ATORY [facility] [address] [facility] [address]
--- OUTSIDE RECORDS SUMMARY | 2025-01-18 06:21 | External Medical Summary | Summary of Care ---
Author Name Unknown Organization [facility] Address [address] [place] [address] Phone [phone] Care Team Providers Care Sales And Business Development Manager Name Role Phone Stoney Abdullahi MD Primary Care Provider Reason for Visit * Reason Onset Date Comments Hospital Follow-Up Pt arrives to day for a hospital follow up from [facility] 12/17/2024 - states was ill from completing chemo. Pt has general health concerns/questions that he would like to speak with PCP. Hospital Follow-Up 12/28/2024 Encounter Details Date Type Department Care Team (Late st Contact Info) Description 12/27/2024 11:20 AM EST Office Visit [facility] [address] [place] [address] Stoney Abdullahi MD [address] [place] [address] Hospital discharge follow-up*; Metastases to the liver (HCC) Allergies Active Allergy Reactions Criticality Noted Date Comments Levofloxacin 07/30/2022 Other reaction(s): difficulty breathing Penicillins 03/02/2021 documented as of this encounter (statuses as of 12/28/2024) Medications Pantoprazole Sodium 20 MG Oral Tablet Delayed Release (Protonix) Take 1 Tablet by mouth in the morning. Active Imodium A-D 2 MG Oral Capsule Take 1 Capsule by mouth 4 times a day as needed for Diarrhea. 10/29/20 24 Active Ondansetron HCl 4 MG Oral Tablet (Zofran) Take 2 Tablets by mouth every 8 hours as needed for Nausea. 11/25/19 25 Active dexAMETHasone 4 MG Oral Tablet (Decadron) 2 Tablets. 11/29/19 25 025 Active Aprepitant 80 MG Oral Capsule (Emend) 1 Capsule. 11/29/19 Active Aprepitant 125 MG Oral Capsule (Emend) 1 Capsule. 11/29/19 Active Tamsulosin HCl 0.4 MG Oral Capsule (Flomax) Take 1 Capsule by mouth in the morning. 90 Capsule 1 12/27/19 Active Spironolactone 25 MG Oral Tablet (Aldactone) 1 Tablet. 05/24/20 025 Discontinued Furosemide 20 MG Oral Tablet (Lasix) 07/26/20 025 Discontinued Valsartan 80 MG Oral Tablet (Diovan) 1 Tablet. 05/10/20 025 Discontinued Fluconazole 100 MG Oral Tablet (Diflucan) Two tablets on the first day, then One tablet once a day for nine days. 11 Tablet 11/20/19 025 Discontinued Tamsulosin HCl 0.4 MG Oral Capsule (Flomax) 1 Capsule. 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 06/21/2022 Pulmonary HTN 06/14/2022 Mitral valve insufficiency 05/24/2022 documented as of this encounter (statuses as of 12/28/2024) Resolved Problems Problem Noted Date Diagnosed Date Resolved Date INFORMATION 09/09/2023 09/10/2023 Overview (09/10/2023): Metastatic colon cancer to liver 07/30/2022 09/09/2023 Diastolic congestive heart failure 05/24/2022 12/27/2024 HTN (hypertension) 05/24/2022 documented as of this encounter (statuses as of 12/28/2024) Social History Tobacco Use Types Packs/Day Years Used Date Smoking Tobacco: Never Smokeless Tobacco: Never Alcohol Use Standard Drinks/Week Comments Not Currently 0 (1 standard drink = 0.6 oz pur e alcohol) PHQ-2 Answer Date Recorded PHQ Adult Total [...] Sign Reading Time Taken Comments Blood Pressure 126/72 12/27/2024 11:34 AM EST Pulse 99 12/27/2024 11:34 AM EST Temperature 36.6 C (97.8 F) 12/27/2024 11:[address] Respiratory Rate 16 12/27/2024 11:34 AM EST Oxygen Saturation 98% 12/27/2024 11:34 AM EST Inhaled Oxygen Concentration - - Weight 82 kg (180 lb 12.8 oz) 12/27/2024 11:34 A M EST Height 160 cm (5' 3") 12/27/2024 11:34 AM EST Body Mass Index 32.03 12/27/2024 11:34 AM EST documented in this encounter Progress Notes * Stoney Abdullahi MD - 12/28/2024 2:48 PM EST SUBJECTIVE: Jose Haque is a 54 year old male. Chief Complaint Patient presents with Hospital Follow-Up Pt arrives today for a hospital follow up from [facility] 12/17/2024 - states was ill from completing chemo. Pt has general health concerns/questions that he would like to speak with PCP. Hospital Follow-Up Recent Admission: Patient was recently admitted to Hospital. The date of discharge was 12/17/24. Discharge report received and reviewed. HPI: Pleasant 54-year-old gentleman reports to clinic for hospital follow-up Here with his mom today Sometime ago had been diagnosed with colon cancer More recently found to have metastasis in the liver extensively +above the diaphragm He started treatment at [facility] some weeks ago and then had significant side effects and presented at [facility] He was stabilized and came home on December 17 We reviewed his hospital course and blood work We reviewed his most recent blood work He is functioning at [facility] also placed a drain apparently in the or around biliary duct There is a bloody discharge in the bag He denies fevers vomiting or pain and has follow-up Patient Active Problem List Diagnosis Pulmonary HTN (HCC) History of colon cancer, stage III 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 Imodium A-D 2 MG Oral Capsule Take 1 Capsule by mouth 4 times a day as needed for Diarrhea. Ondansetron HCl 4 MG Oral Tablet (Zofran) Take 2 Tablets by mouth every 8 hours as needed for Nausea. dexAMETHasone 4 MG Oral Tablet (Decadron) 2 Tablets. Aprepitant 80 MG Oral Capsule (Emend) 1 Capsule. Aprepitant 125 MG Oral Capsule (Emend) 1 Capsule. Tamsulosin HCl 0.4 MG Oral Capsule (Flomax) Take 1 Capsule by mouth in the morning. 90 Capsule 1 No current facility-administered medications for this visit. Current and discharge medications have been reconciled. Review of patient's allergies indicates: Allergen Reactions Levofloxacin Other reaction(s): difficulty breathing Penicillins OBJECTIVE: BP 126/72 | Pulse 99 | Temp 97.8 F (36.6 C) (Temporal Artery) | Resp 16 | Ht 5' 3" (1.6 m) | Wt180 lb 12.8 oz (82 kg) | SpO2 98% | BMI 32.03 kg/m | BSA 1.91 m Review Of Systems: Since returning home Skin. Patient denies new or different rashes or skin breakdown. Eyes. Denies visual changes eye redness or eye discharge. Ear nose and throat. Denies sinus pain or teeth pain. Respiratory. Denies cough or hemoptysis. Cardiovascular. Denies paroxysmal nocturnal dyspnea dyspnea exertion. Gastrointestinal. Denies vomiting or melanotic stool. Genitourinary. Denies hematuria or dysuria. Constitutional. Denies fevers or weight loss PHYSICAL EXAM: BP 126/72 | Pulse 99 | Temp 97.8 F (36.6 C) (Temporal Artery) | Resp 16 | Ht 5' 3" (1.6 m) | Wt180 lb 12.8 oz (82 kg) | SpO2 98% | BMI 32.03 kg/m | BSA 1.91 m General: alert and no distress Overtly jaundiced Head: Normocephalic, No masses, lesions, tenderness or abnormalities Eye Exam: PERRLA, extraocular movements intact, icteric Ears: External ears normal, Canals clear, TM's Normal Oropharynx: no exudate, no erythema, lips, buccal mucosa, and tongue normal, and mucous membranes are moist Neck: supple, no adenopathy, no JVD Lymph: no palpable lymphadenopathy Heart: regular rate & rhythm Lungs: lungs clear to auscultation Some bloody discharge in bag No CVA tenderness ASSESSMENT: Hospital discharge follow-up (Primary) - DISCH MED RECON CUR MED LIS Metastases to the liver (HCC) Other orders - Tamsulosin HCl 0.4 MG Oral Capsule (Flomax); Take 1 Capsule by mouth in the morning. He has follow-up at [facility] PLAN: Continue present medication(s): Follow up per [facility]. I spent a total of 40-54 minutes (exact time 44 mins) minutes on the date of service in preparation, delivery, and documentation of the care provided to Jose Haque excluding any time spent in performance of separately billed services. Stoney Abdullahi MD documented in this encounter Nursing Notes * Nancy Maciel CCMA - 12/27/2024 11:31 AM EST Chief Complaint Patient presents with Hospital Follow-Up Pt arrives today for a hospital follow up from [facility] 12/17/2024 - states was ill from completing chemo. Pt has general health concerns/questions that he would like to speak with PCP. documented in this encounter Plan of Treatment Health Maintenance Due Date Last Done Comments Lipid Panel 1968 COVID-19 Vaccine (#1) 1973 HIV Screening 1983 Albumin/Creatinine Ratio 1986 DTap/Tdap Vaccines (1 - Tdap) 1987 Hepatitis B Vaccine (1 of 3 - 19+ 3-dose series) 1987 Pneumococcal Vaccine: 50+ Years (1 of 2 - PCV) 1987 Zoster Vaccines (1 of 2) 1987 Cologuard 2013 Colonoscopy 2013 Colorectal Cancer Screening 2013 Fecal Occult Blood Test 2013 Sigmoidoscopy 2013 Influenza Vaccine (FLU shot) (#1) 2024 Depression Screening 11/20/2024 11/20/2023 GFR 12/28/2025 12/28/2024, 12/03/2024, 11/04/2022, Additional history exists Diabetes Screening 12/28/2027 12/28/2024, 1 12/22/2023, 11/04/2022, Additional history exists Hepatitis C Screening Completed 10/21/2024 HPV (Gardasil) Vaccine Aged Out No lo nger eligible based on patient's age to complete this topic MENINGOCOCCAL (MENACTRA/MENVEO) Aged Out No longer eligible based on patient's age to complete this topic documented as of this encounter Medical Devices Not on filedocumented as of this encounter Visit Diagnoses Diagnosis Hospital discharge follow-up- Primary Other follow-up examination Metastases to the liver (HCC) Secondary malignant neoplasm of liver documented in this encounter Care Teams Sales And Business Development Manager Relationship Specialty Start Date End Date Stoney Abdullahi MD [facility] [place] [address] [place] [address] PCP - General Family Medicine 09/08/23 documented as of this encounter
--- OUTSIDE RECORDS SUMMARY | 2025-01-18 06:21 | External Medical Summary | Summary of Care ---
Author Name Unknown Organization [facility] Address [address] [place] [address] Phone [phone] Care Team Providers Care Stick Puller Name Role Phone Stoney Abdullahi MD Primary Care Provider Reason for Visit * Reason Comments Outpatient Testing Encounter Details Date Type Department Care Team (Late st Contact Info) Description 01/10/2025 11:10 AM EST Laboratory Laboratory, [place] [address] [place] [address] [facility] [address] [place] [address] [employer] Other*[id number]; Malignant neoplasm of colon (HCC) Allergies Active Allergy Reactions Criticality Noted Date Comments Levofloxacin 07/30/2022 Other reaction(s): difficulty breathing Penicillins 03/02/2021 documented as of this encounter (statuses as of 01/10/2025) Medications Pantoprazole Sodium 20 MG Oral Tablet Delayed Release (Protonix) Take 1 Tablet by mouth in the morning. Active Imodium A-D 2 MG Oral Capsule Take 1 Capsule by mouth 4 times a day as needed for Diarrhea. 10/29/2024 Active Ondansetron HCl 4 MG Oral Tablet (Zofran) Take 2 Tablets by mouth every 8 hours as needed for Nausea. 11/25/2024 Active Aprepitant 80 MG Oral Capsule (Emend) 1 Capsule. 11/29/2024 Active Aprepitant 125 MG Oral Capsule (Emend) 1 Capsule. 11/29/2024 Active Tamsulosin HCl 0.4 MG Oral Capsule (Flomax) Take 1 Capsule by mouth in the morning. 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 06/21/2022 Pulmonary HTN 06/14/2022 Mitral valve insufficiency 05/24/2022 documented as of this encounter (statuses as of 01/10/2025) Resolved Problems Problem Noted Date Diagnosed Date Resolved Date INFORMATION 09/09/2023 09/10/2023 Overview (09/10/2023): Metastatic colon cancer to liver 07/30/2022 09/09/2023 Diastolic congestive heart failure 05/24/2022 12/27/2024 HTN (hypertension) 05/24/2022 documented as of this encounter (statuses as of 01/10/2025) Social History Tobacco Use Types Packs/Day Years [...] No 11/20/2023 Does the household have a [facility] source [facility]? (Household - for ages [...] as of this encounter Plan of Treatment Pending Results Name Type Priority Associated Diagnoses Date /Time MYCODE INITIAL ADULT Lab Routine [employer] Other*[id number] 01/10/2025 11:24 AM EST CEA Lab Routine Malignant neoplasm of colon (HCC) 01/10/2025 11:24 AM EST CBC WITH WBC DIFFERENTIAL Lab STAT Malignant neoplasm of colon (HCC) 01/10/2025 11:24 AM EST COMPREHENSIVE METABOLIC PANEL Lab STAT Malignant neoplasm of colon (HCC) 01/10/2025 11:24 AM EST MAGNESIUM Lab Routine Malignant neoplasm of colon (HCC) 01/10/2025 11:24 AM EST MYCODE INITIAL ADULT-PINK Lab Routine [employer] Other*[id number] 01/10/2025 11:24 AM EST MYCODE SST1 Lab Routine [employer] Other*[id number] 01/10/2025 11:24 AM EST MYCODE SST2 Lab Routine [employer] Other*[id number] 01/10/2025 11:24 AM EST CBC Lab STAT Malignant neoplasm of colon (HCC) 01/10/2025 11:24 AM EST DIFFERENTIAL, AUTOMATED Lab STAT Malignant neoplasm of colon (HCC) 01/10/2025 11:24 AM EST Health Maintenance Due Date Last Done Comments [...] on patient's age to complete this topic Meningitis B Vaccine (Bexsero/Trumemba) Aged Out No longer eligible based on patient's age to complete this topic documented as of this encounter Medical Devices Not on filedocumented as of this encounter Visit Diagnoses Diagnosis [employer] Other*[id number] Malignant neoplasm of colon (HCC) Malignant neoplasm of colon, unspecified site documented in this encounter Care Teams Stick Puller Relationship Specialty Start Date End Date Stoney Abdullahi MD PCP - General Family Medicine 09/08/23 documented as of this encounter
--- OUTSIDE RECORDS SUMMARY | 2025-01-18 06:21 | External Medical Summary | Summary of Care ---
Author Name Unknown Organization [facility] Address [address] [place] [address] Phone [phone] Care Team Providers Care Rehab Care Assistant Name Role Phone Stoney Abdullahi MD Primary Care Provider Reason for Visit * Reason Comments Outpatient Testing Encounter Details Date Type Department Care Team (Late st Contact Info) Description 12/28/2024 1:30 PM EST Laboratory Laboratory, [place] [address] [place] [address] [facility] [address] [place] [id number] Malignant neoplasm of colon (HCC) Allergies Active [...] hours as needed for Nausea. 11/25/2024 Active dexAMETHasone 4 MG Oral Tablet (Decadron) 2 Tablets. 11/29/2024 Active Aprepitant 80 MG Oral Capsule (Emend) [...] lesion, decr R lobe lesions;S/p Y90 mapping [place] Impaired fasting glucose 09/09/2023 Congestive heart failure [...] Name Type Priority Associated Diagnoses Date /Time CEA Lab Routine Malignant neoplasm of colon (HCC) 12/28/2024 12:48 PM EST Health Maintenance Due Date Last Done [...] Depression Screening 11/20/2024 11/20/2023 GFR 12/28/2025 12/28/2024, 1203/2024, 11/04/2022, Additional history exists Diabetes Screening 12/28/2027 [...] Procedure Name Priority Date/Time Associated Diagnosis Comments DIFFERENTIAL, AUTOMATED STAT 12/28/2024 12:48 PM EST Malignant neoplasm of colon (HCC) COMPREHENSIVE METABOLIC PANEL STAT 12/28/2024 12:48 PM EST Malignant neoplasm of colon (HCC) CBC STAT 12/28/2024 12:48 PM EST Malignant neoplasm of colon (HCC) CBC STAT 12/28/2024 12:48 PM EST Malignant neoplasm of colon (HCC) DIFFERENTIAL, TECHNOLOGIST REVIEW Routine 12/28/2024 12:48 PM EST Malignant neoplasm of colon (HCC) documented in this encounter Results * (ABNORMAL) DIFFERENTIAL, TECHNOLOGIST REVIEW (12/28/2024 12:48 PM EST) WBC 6.18 4.00 - 10.80 K/uL 12/28/2024 5:35 PM EST LAB[facility]ATORY [facility] Neutrophils % 79.0(H) 40.0 - 75.0 % 12/28/2024 5:35 PM EST [facility] Lymphocytes % 9.0(L) 18.0 - 42.0 % 12/28/2024 5:35 PM EST [facility] Monocytes % 8.0 1.0 - 11.0 % 12/28/2024 5:35 PM EST [facility] Eosinophils % 1.0 0.0 - 6.0 % 12/28/2024 5:35 PM EST [facility] Metamyelocytes % 3.0(H) <=0.0 % 12/28/19 5:35 PM EST [facility] Absolute Neutrophils 4.88 1.80 - 7.70 K/uL 12/28/2024 5:35 PM EST [facility] Absolute Lymphocytes 0.56(L) 1.00 - 4.80 K/uL 12/28/2024 5:35 PM EST [facility] Absolute Monocytes 0.49 0.00 - 1.10 K/uL 12/28/2024 5:35 PM EST [facility] Absolute Eosinophils 0.06 0.00 - 0.70 K/uL 12/28/2024 5:35 PM EST [facility] Absolute Metamyelocytes 0.19(H) <=0.00 K/uL 12/28/2024 5:35 PM EST [facility] Vacuolated Neutrophils Present(A ) None Seen 12/28/2024 5:35 PM EST [facility] Blood Venous blood specimen / Unknown Venipuncture / Unknown 12/28/2024 12:48 PM EST 12/28/2024 12:48 PM EST Kolby Cartagena MD LAB BLOOD ORDERABLES Terese l Result Performing Organization Address City/[facility] Co de Phone Number LABORATORY [address] [address] * DIFFERENTIAL, AUTOMATED (12/28/2024 12:48 PM EST) Blood Venous blood specimen / Unknown Venipuncture / Unknown 12/28/2024 12:48 PM EST 12/28/2024 12:48 PM EST Kolby Cartagena MD LAB BLOOD ORDERABLES Terese l Result Performing Organization Address City/[facility]/ZIP Co de Phone Number LABORATORY [address] [address] * (ABNORMAL) CBC (12/28/2024 12:48 PM EST) WBC 6.18 4.00 - 10.80 K/uL 12/28/2024 4:49 PM EST LABORATORY GL RBC 2.95 4.50 - 5.25 M/uL 12/28/2024 4:49 PM EST LABORATORY GL HGB 9.0(L) 14.0 - 16.8 g/dL 12/28/2024 4:49 PM EST LABORATORY GL HCT 28.7(L) 40.0 - 48.4 % 12/28/2024 4:49 PM EST LABORATORY GL MCV 97.3 82.0 - 99.5 fL 12/28/2024 4:49 PM EST LABORATORY GL MCH 30.5 27.0 - 34.0 pg 12/28/2024 4:49 PM EST LABORATORY GL MCHC 31.4 32.0 - 36.0 g/dL 12/28/2024 4:49 PM EST LABORATORY [facility] RDW 17.2 11.5 - 15.5 % 12/28/2024 4:49 PM EST LABORATORY [facility] PLT 168 140 - 400 K/uL 12/28/2024 4:49 PM EST LAB[facility] MPV 12/28/2024 4:49 PM EST LABORATORY GL Comment:No result - abnormal platelet distribution. nRBCs 0 <=0 /100 WBCs 12/28/2024 4:49 PM EST LABORATORY GL Blood Venous blood specimen / Unknown Venipuncture / Unknown 12/28/2024 12:48 PM EST 12/28/2024 12:48 PM EST us Kolby Cartagena MD LAB BLOOD ORDERABLES Terese l Result LABORATORY [facility] [address] [place] [address] * (ABNORMAL) COMPREHENSIVE METABOLIC PANEL (12/28/2024 12:48 PM EST) BUN 15 6 - 20 mg/dL 12/28/2024 5:07 PM EST LABORATORY GL CREATININE 0.7 0.6 - 1.2 mg/dL 12/28/2024 5:07 PM EST [facility] Comment:Result may be falsel y decreased due to icterus. EGFR >90 >=60 mL/min 12/28/2024 5:07 PM EST [facility] Comment:eGFR is calculated b ased on the CKD-EPI 2020 equation. SODIUM 134(L) 135 - 146 mmol/L 12/28/2024 5:07 PM EST [facility] POTASSIUM 3.3(L) 3.5 - 5.1 mmol/L 12/28/2024 5:07 PM EST [facility] CHLORIDE 100 98 - 107 mmol/L 12/28/2024 5:07 PM EST [facility] CO2 21(L) 22 - 32 mmol/L 12/28/2024 5:07 PM EST [facility] ANION GAP 13 7 - 15 mmol/L 12/28/2024 5:07 PM EST [facility] GLUCOSE 165(H) 70 - 120 mg/dL 12/28/2024 5:07 PM EST [facility] Albumin 2.9(L) 3.8 - 5.0 g/dL 12/28/2024 5:07 PM EST [facility] AST 101(H) 10 - 50 U/L 12/28/2024 5:07 PM EST [facility] Alkaline Phosphatase 164(H) 35 - 130 U/L 12/28/2024 5:07 PM EST [facility] Bilirubin, Total 12.1(H) <=1.2 mg/dL 12/28/2024 5:07 PM EST [facility] CALCIUM 8.1(L) 8.4 - 10.2 mg/dL 12/28/2024 5:07 PM EST [facility] Protein 5.4(L) 6.0 - 8.3 g/dL 12/28/2024 5:07 PM EST [facility] ALT 55(H) 10 - 50 U/L 12/28/2024 5:07 PM EST [facility] Blood Venous blood specimen / Unknown Venipuncture / Unknown 12/28/2024 12:48 PM EST 12/28/2024 12:48 PM EST us Kolby Cartagena MD LAB BLOOD ORDERABLES Terese l Result [facility]ATORY [facility] [address] [facility] [place] [address] documented in this encounter Visit Diagnoses Diagnosis Malignant neoplasm of colon (HCC) Malignant neoplasm of colon, unspecified site documented in this encounter Care Teams Rehab Care Assistant Relationship Specialty Start Date End Date Stoney Abdullahi MD [address] [facility] [address] [place] [phone] PCP - General Family Medicine 09/08/23 documented as of this encounter
--- OUTSIDE RECORDS SUMMARY | 2025-01-18 06:21 | External Medical Summary | Summary of Care ---
Author Name Unknown Organization [facility] Address [address] [place] [address] Phone [phone] Care Team Providers Care Top Lift And Automatic Window Repairer Name Role Phone Stoney Abdullahi MD Primary Care Provider Encounter Details Date Type Department Care Team (Late st Contact Info) Description 01/10/2025 Orders Only Laboratory, [place] [address] [place] [address] [place], [address] [place] [address] Malignant neoplasm of colon (HCC)* Allergies Active Allergy Reactions Criticality Noted Date [...] No 11/20/2023 Does the household have a [facility] source of income? (Household - for [...] Name Type Priority Associated Diagnoses Date /Time MAGNESIUM Lab Routine Malignant neoplasm of colon (HCC) 01/10/2025 11:24 AM EST Scheduled Orders Name Type Priority Associated Diagnoses Orde r Schedule MAGNESIUM Lab Routine Malignant neoplasm of colon (HCC) Other, Please specify in Comments field for 52 Occurrences starting 01/10/2025 until 01/10/2026 Health Maintenance Due Date Last Done Comments [...] as of this encounter Visit Diagnoses Diagnosis Malignant neoplasm of colon (HCC)- Primary Malignant neoplasm of colon, unspecified site documented in this encounter Care Teams Top Lift And Automatic Window Repairer Relationship Specialty Start Date End Date Stoney Abdullahi MD PCP - General Family Medicine 09/08/23 documented as of this encounter
--- OUTSIDE RECORDS SUMMARY | 2025-01-18 06:21 | External Medical Summary | Continuity of Care Document ---
Author Name Unknown Organization [facility] Address [address] [place] [address] MIKHAIL WADE [id number] Care Team Providers Care Tobacco Blender Name Role Phone KaylenStoney I Primary Care Physician [phone] Encounter [facility] [id number] Date(s): 01/12/25 - 01/12/25 [facility] [place] [facility] [address] MIKHAIL Oleary [id number]- [phone] Encounter Diagnosis Cancer of colon(Discharge Diagnosis) - 01/12/25 Discharge Disposition: Home or Self Care Attending Physician: MD Cartagena Joseph J Referring Physician: MD Cartagena Joseph J Encounter Type: [facility] [place] Allergies, Adverse Reactions, Alerts Substance Criticality Severity Reaction Reaction Severity Status penicillin Unable to assess criticality Mild unknown Active levoFLOXacin difficulty breathing Active Functional Status 01/12/25 Gait Unsteady Medications BD Normal Saline Flush 0.9% injectable solution Start: 01/06/25 3:40:00 PM EST, 10cc, intracatheter, Daily, Disp# 30 each, Refills: 3, Pharmacy: [id number] Start Date: 01/06/25 Status: Ordered Quantity: 30.0 Unit: each Repeat number: 4 dexAMETHasone 4 mg oral tablet Start: 11/29/24 6:56:00 PM EST, 2 tab, PO, Daily, Disp# 60 tab, Refills: 0, TAKE 2 tablets daily on days 2, 3 & 4., Pharmacy: [facility] Start Date: 11/29/24 Stop Date: 12/29/24 Status: Ordered Quantity: 60.0 Unit: tab Repeat number: 1 Imodium 2 mg oral capsule Start: 12/20/24 11:14:00 AM EST, See Instructions, Disp# 30 cap, Refills: 0, 1 cap PO after each loose stool not to exceed 8 capsules, or 16 mg, in 24 hours, Pharmacy: [facility] Start Date: 12/20/24 Status: Ordered Quantity: 30.0 Unit: cap Repeat number: 1 ondansetron 4 mg oral tablet Start: 11/25/24 9:45:00 AM EST, 2 tab, PO, tid, Disp# 30 tab, Refills: 1, PRN: as needed for nausea/vomiting, Pharmacy: [facility] Start Date: 11/25/24 Status: Ordered Quantity: 30.0 Unit: tab Repeat number: 2 tamsulosin 0.4 mg oral capsule Start: 01/06/25 1:29:00 PM EST, 1 cap, PO, Daily Start Date: 01/06/25 Status: Ordered Repeat number: 1 Problem List Condition Confirmation Course Effective Dates [...] Service Informant Cancer of colon Discharge Diagnosis 01/12/25 Non-Specified Procedures Procedure Date Related Diagnosis Body [...] colorectal surgery Results Laboratory List Name Date Magnesium Level (MAGNESIUM) 01/12/25 Most recent to oldest [Reference Range]: 1 Mg [1.6-2.6 mg/dL] 2.1 mg/dL (01/12/25 4:08 PM) Vital Signs Most recent to oldest [Reference Range]: 1 Temperature [36.5-37.9 DegC] 37.3 DegC (01/12/25 3:31 PM) Heart Rate 105 bpm (01/12/25 3:31 PM) Respiratory Rate 20 br/min (01/12/25 3:31 PM) Blood Pressure 123/75mmHg (01/12/25 3:31 PM) Cuff Pulse Pressure 48 mmHg (01/12/25 3:31 PM) BP Location # 1 Right Arm (01/12/25 3:31 PM) Social History Social History Type Response Smoking Status Never smoked cigaret sai Sex Male Sex Representation Male (finding) Patient Care team information Care Team Personnel Name: MD Kaylen, Stoney Feng Position: Referring DIRECT Member Role: Primary Care Provider Address: [address] [place] [address] Telecom: [phone] Name: Hai Mcneal Kyle Position: Pharmacist Member Role: Pharmacy - Lifetime Address: [address] [place] [address] Name: MD Rich Ying Position: Physician - Pathologist Member Role: Lifetime Relationship Address: [address] [place] [address] Telecom: [phone] Care Team Related Persons Name: NAHED ZHANG Name: NAHED ACUÑA Insurance Providers Guarantor name: DOMINIC Ybarra ASHLEE Health Plan Information #: 1 Payer: [employer] Member Number: [id number] Policy Number: NA Group Number: [id number] Health Plan Information #: 2 Payer: [employer] Member Number: [id number] Policy Number: NA Group Number: NA
--- OUTSIDE RECORDS SUMMARY | 2025-01-18 06:21 | External Medical Summary | Summary of Care ---
Author Name Unknown Organization [facility] Address [address] [place] [address] Phone [phone] Care Team Providers Care Wedger Machine Name Role Phone Stoney Abdullahi MD Primary Care Provider Encounter Details Date Type Department Care Team (Late st Contact Info) Description 01/17/2025 Orders Only Outcomes Research Department [address] [place] [address] Pamela Mendoza CHRA [facility] Other*[id number] Allergies Active Allergy Reactions Criticality Noted Date Comments Levofloxacin 07/30/2022 Other reaction(s): difficulty breathing Penicillins 03/02/2021 documented as of this encounter (statuses as of 01/17/2025) Medications Pantoprazole Sodium 20 MG Oral Tablet [...] as of this encounter (statuses as of 01/17/2025) Active Problems Problem Noted Date Diagnosed Date [...] as of this encounter (statuses as of 01/17/2025) Resolved Problems Problem Noted Date Diagnosed Date Resolved Date INFORMATION 09/09/2023 09/10/2023 Overview (09/10/2023): Metastatic colon cancer to liver 07/30/2022 09/09/2023 Diastolic congestive heart failure 05/24/2022 12/27/2024 HTN (hypertension) 05/24/2022 documented as of this encounter (statuses as of 01/17/2025) Social History Tobacco Use Types Packs/Day Years [...] as of this encounter Plan of Treatment Scheduled Orders Name Type Priority Associated Diagnoses Orde r Schedule MYCODE SUBSEQUENT ADULT Lab Routine [facility] Other*[id number] Every 6 Months for 2 Occurrences starting 01/17/2025 until 02/06/2026 Health Maintenance Due Date Last Done Comments [...] (#1) 2024 Depression Screening 11/20/2024 11/20/2023 GFR 01/10/2026 01/10/2025, 12/18, 10/21/2024, Additional history exists Diabetes Screening 01/10/2028 01/10/2025, 0 12/28/2024, 10/21/2024, Additional history exists Hepatitis C Screening Completed [...] this encounter Visit Diagnoses Diagnosis [facility] Other*[id number] documented in this encounter Care Teams Wedger Machine Relationship Specialty Start Date End Date Stoney Abdullahi MD PCP - General Family Medicine 09/08/23 documented as of this encounter
--- OUTSIDE RECORDS SUMMARY | 2025-01-18 06:21 | External Medical Summary | Summary of Care ---
Author Name Unknown Organization [facility] Address [address] [place] [address] Phone [phone] Care Team Providers Care Call Center Rn Name Role Phone Stoney Abdullahi MD Primary Care Provider Reason for Visit * Reason Comments Outpatient Testing Encounter Details Date Type Department Care Team (Late st Contact Info) Description 12/28/2024 1:30 PM EST Laboratory Laboratory, [place] [address] [place] [address] [facility] [address] [place] Gardner [phone] Malignant neoplasm of colon (HCC) Allergies Active [...] lesion, decr R lobe lesions;S/p Y90 mapping [place] Impaired fasting glucose 09/09/2023 Congestive heart failure [...] ORDERABLES Terese l Result Performing Organization Address City/[facility] Co de Phone Number LABORATORY [address] [address] * DIFFERENTIAL, AUTOMATED (12/28/2024 12:48 PM EST) Blood Venous blood specimen / Unknown Venipuncture / Unknown 12/28/2024 12:48 PM EST 12/28/2024 12:48 PM EST Kolby Cartagena MD LAB BLOOD ORDERABLES Terese l Result Performing Organization Address City/[facility]/ZIP Co de Phone Number LABORATORY [address] [address] * (ABNORMAL) CBC (12/28/2024 12:48 PM EST) [...] 36.0 g/dL 12/28/2024 4:49 PM EST LABORATORY [facility] RDW 17.2 11.5 - 15.5 % 12/28/2024 4:49 PM EST LABORATORY [facility] PLT 168 140 - 400 K/uL [...] LAB BLOOD ORDERABLES Terese l Result LABORATORY [facility] [address] [place] [address] * (ABNORMAL) COMPREHENSIVE METABOLIC PANEL [...] ORDERABLES Terese l Result LABORATORY [facility] [address] [facility] [place] [address] documented in this encounter Visit Diagnoses Diagnosis Malignant neoplasm of colon (HCC) Malignant neoplasm of colon, unspecified site documented in this encounter Care Teams Call Center Rn Relationship Specialty Start Date End Date Stoney Abdullahi MD [address] [facility] [address] MIKHAIL RING [phone] PCP - General Family Medicine 09/08/23 documented as of this encounter
--- OUTSIDE RECORDS SUMMARY | 2025-01-18 06:21 | External Medical Summary | Continuity of Care Document ---
Author Name Unknown Organization [facility] [address] Address [address] [place], [place] [id number] Care Team Providers Care Engineer Systems Name Role Phone Kaylen, Stoney Jung Primary Care Physician [phone] Encounter [facility] [id number] Date(s): 01/06/25 - 01/06/25 [facility] [address] [facility] [address] [facility] [address] [facility] 1 [place], [place] [phone] Encounter Diagnosis Malignant neoplasm of colon, unspecified(Final) - Discharge Disposition: Home or Self Care Attending Physician: MD Cartagena Joseph J Referring Physician: MD Cartagena Joseph J Encounter Type: Clinic Allergies, Adverse Reactions, Alerts Substance Criticality Severity Reaction Reaction Severity Status penicillin Unable to assess criticality Mild unknown Active levoFLOXacin difficulty breathing Active Medications BD Normal Saline Flush 0.9% injectable solution Start: 01/06/25 3:40:00 PM EST, 10cc, intracatheter, Daily, Disp# 30 each, Refills: 3, Pharmacy: [facility] Start Date: 01/06/25 Status: Ordered Quantity: 30.0 Unit: each Repeat number: 4 dexAMETHasone 4 mg oral tablet Start: 11/29/24 6:56:00 PM EST, 2 tab, PO, Daily, Disp# 60 tab, Refills: 0, TAKE 2 tablets daily on days 2, 3 & 4., Pharmacy: [facility] Start Date: 11/29/24 Stop Date: 12/29/24 Status: Ordered Quantity: 60.0 Unit: tab Repeat number: 1 Imodium 2 mg oral capsule Start: 12/20/24 11:14:00 AM EST, See Instructions, Disp# 30 cap, Refills: 0, 1 cap PO after each loose stool not to exceed 8 capsules, or 16 mg, in 24 hours, Pharmacy: [facility] Start Date: 12/20/24 Status: Ordered Quantity: 30.0 Unit: cap Repeat number: 1 ondansetron 4 mg oral tablet Start: 11/25/24 9:45:00 AM EST, 2 tab, PO, tid, Disp# 30 tab, Refills: 1, PRN: as needed for nausea/vomiting, Pharmacy: [facility] Start Date: 11/25/24 Status: Ordered Quantity: 30.0 [...] Laboratory List Name Date Carcinoembryonic Antigen (CEA) 01/06/25 Most recent to oldest [Reference Range]: 1 CEA [<4.8 ng/mL] 217.5 ng/mL 1 *HI* (01/06/25 2:07 PM) 1Result Comment: NON-SMOKERS (PAST/NEVER SMOKERS) 20-69 (YEARS) 3.8 NG/ML (95TH PERCENTILE) 40-69 (YEARS) 5.0 NG/ML (95TH PERCENTILE) SMOKERS (CURRENT) 20-69 (YEARS) 5.5 NG/ML (95TH PERCENTILE) 40-69 (YEARS) 6.5 NG/ML (95TH PERCENTILE) "Methodology: Fina Elecsys CEA assay performed on the afshan e 601/602 analyzerutilizing electrochemiluminescence immunoassay technology (ECLIA). Results obtained with different assay methods or kitscannot be used interchangeably." Social History Social History Type Response Smoking Status Never smoked cigaret sai Sex Male Sex Representation Male (finding) Patient Care team information Care Team Personnel Name: MD Kaylen, Stoney Feng Position: Referring DIRECT Member Role: Primary Care Provider Address: [address] [place] [address] Telecom: [phone] Name: Hai Mcneal Kyle Position: Pharmacist Member Role: Pharmacy - Lif[facility] Address: [address] [place] [address] Name: MD Hilario, Shannon Position: Physician - Pathologist Member Role: Lifetime Relationship Address: [address] [place] [address] Telecom: [phone] Care Team Related Persons Name: NAHED ZHANG Name: NAHED ACUÑA Insurance Providers Guarantor name: DOMINIC Ybarra ASHLEE Health Plan Information #: 1 Payer: [employer] Member Number: [id number] Policy Number: NA Group Number: [id number] Health Plan Information #: 2 Payer: [employer] Member Number: [id number] Policy Number: NA Group Number: NA
--- OUTSIDE RECORDS SUMMARY | 2025-01-18 06:21 | External Medical Summary | Continuity of Care Document ---
Author Name Unknown Organization [facility] Address [address] [place] [address] MIKHAIL WADE [phone] Care Team Providers Care Market Analyst Name Role Phone Kaylen, Stoney Feng Primary Care Physician [phone] Encounter [facility] [id number] Date(s): 01/14/25 - 01/14/25 [facility] [place] [facility] [address] MIKHAIL Oleary [id number]- [phone] Encounter Diagnosis Cancer of colon(Discharge Diagnosis) - 01/14/25 Discharge Disposition: Home or Self Care Attending Physician: MD Cartagena Joseph J Referring Physician: MD Cartagena Joseph J Encounter Type: [facility] [place] Allergies, Adverse Reactions, Alerts Substance Criticality Severity Reaction Reaction Severity Status penicillin Unable to assess criticality Mild unknown Active levoFLOXacin difficulty breathing Active Medications BD Normal Saline Flush 0.9% injectable solution Start: 01/06/25 3:40:00 PM EST, 10cc, intracatheter, Daily, Disp# 30 each, Refills: 3, Pharmacy: [email or web address] Start Date: 01/06/25 Status: Ordered Quantity: 30.0 Unit: each Repeat number: 4 dexAMETHasone 4 mg oral tablet Start: 11/29/24 6:56:00 PM EST, 2 tab, PO, Daily, Disp# 60 tab, Refills: 0, TAKE 2 tablets daily on days 2, 3 & 4., Pharmacy: [email or web address] Start Date: 11/29/24 Stop Date: 12/29/24 Status: Ordered Quantity: 60.0 Unit: tab Repeat number: 1 Imodium 2 mg oral capsule Start: 12/20/24 11:14:00 AM EST, See Instructions, Disp# 30 cap, Refills: 0, 1 cap PO after each loose stool not to exceed 8 capsules, or 16 mg, in 24 hours, Pharmacy: [email or web address] Start Date: 12/20/24 Status: Ordered Quantity: 30.0 Unit: cap Repeat number: 1 ondansetron 4 mg oral tablet Start: 11/25/24 9:45:00 AM EST, 2 tab, PO, tid, Disp# 30 tab, Refills: 1, PRN: as needed for nausea/vomiting, Pharmacy: [email or web address] Start Date: 11/25/24 Status: Ordered Quantity: [...] Service Informant Cancer of colon Discharge Diagnosis 01/14/25 Non-Specified Procedures Procedure Date Related Diagnosis Body [...] DIRECT Member Role: Primary Care Provider Address: [address] [place] [address] Telecom: [phone] Name: Hai Mcneal Kyle Position: Pharmacist Member Role: Pharmacy - Lifetime Address: [address] [place] [address] Name: MD Hilario, Shannon Position: Physician - Pathologist Member Role: Lifetime Relationship Address: [address] [place] [address] Telecom: [phone] Care Team Related Persons Name: NAHED ZHANG Name: NAHED ACUÑA Insurance Providers Guarantor name: DOMINIC Ybarra [facility] Health Plan Information #: 1 Payer: [employer] Member Number: [id number] Policy Number: NA Group Number: [id number] Health Plan Information #: 2 Payer: [employer] Member Number: [id number] Policy Number: NA Group Number: NA
--- OUTSIDE RECORDS SUMMARY | 2025-01-18 06:21 | External Medical Summary ---
Author Name Unknown Address Unknown Organization K01:LABORATORY [facility] - [address] [place] [address] Laboratory Report Ordering Provider Test Date Status DEBORAH KAUFMAN 01/10/2025 11:24:41 Final Observation Date Value Abnormality Reference (Units ) Status MYCODE SPECIMEN-SST 01/10/2025 11:24:41 Freezing of extracted DNA, whole blood and/or serum. Final Performing Location LABORATORY [facility] - [address] [facility] [address]
--- OUTSIDE RECORDS SUMMARY | 2025-01-18 06:21 | External Medical Summary ---
Author Name Unknown Address Unknown Organization [id number]:LABORATORY [facility] - [address] [place] [address] Laboratory Report Ordering Provider Test Date Status CASPER MARTIN 01/10/2025 11:24:41 Final Observation Date Value Abnormality Reference (Units ) Status SYNC LEUKOCYTES IN BLOOD BY AUTOMATED COUNT 01/10/2025 11:24:41 7.15 4.00-10.80 (K/uL) Final Segs 01/10/2025 11:24:41 84.6 Above high normal 40.0-75.0 (%) Final Lymphs % 01/10/2025 11:24:41 6.2 Below low normal 18.0-42.0 (%) Final Monos 01/10/2025 11:24:41 6.6 1.0-11.0 (%) Final Eosinophils 01/10/2025 11:24:41 1.1 0.0-6.0 (%) Final Basos 01/10/2025 11:24:41 0.4 0.0-2.0 (%) Final Immature Granulocyte, Percent 01/10/2025 11:24:41 1.1 0.0-2.0 (%) Final Absolute Segs 01/10/2025 11:24:41 6.05 1.80-7.70 (K/uL) Final Lymphs, absolute 01/10/2025 11:24:41 0.44 Below low normal 1.00-4.80 (K/ul) Final Monos, Abs 01/10/2025 11:24:41 0.47 0.00-1.10 (K/uL) Final Eos, Abs 01/10/2025 11:24:41 0.08 0.00-0.70 (K/uL) Final Basos, Abs 01/10/2025 11:24:41 0.03 0.00-0.20 (K/uL) Final Immature Granulocytes, Number 01/10/2025 11:24:41 0.08 0.00-0.20 (K/uL) Final Performing Location LABORATORY [facility] [address] [place] [address]
--- OUTSIDE RECORDS SUMMARY | 2025-01-18 06:21 | External Medical Summary | Continuity of Care Document ---
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 Unfortunately he has progressive metastatic colon cancer. I did discuss if he were to feel more short of breath after chemotherapy he may need some diuretics in the immediate post chemo. Watching for dehydration as well. Sounds like he got pretty dry and had severe diarrhea after his last chemo treatment. Unfortunately given his metastatic disease there is no indication for cardiac intervention at this point. He is an incredibly nice gentleman but unfortunately significant metastatic colon cancer. We did discuss signs and symptoms of heart failure in detail along with unexplained weight gain. Will see him back in 6 months. Medications BD Normal Saline Flush 0.9% injectable solution Start: 01/06/25 3:40:00 PM EST, 10cc, intracatheter, Daily, Disp# 30 each, Refills: 3, Pharmacy: [facility] Start Date: 01/06/25 Status: Ordered Quantity: 30.0 Unit: each Repeat number: 4 dexAMETHasone 4 mg oral tablet Start: 11/29/24 6:56:00 PM EST, 2 tab, PO, Daily, Disp# 60 tab, Refills: 0, TAKE 2 tablets daily on days 2, 3 & 4., Pharmacy: [facility] Start Date: 11/29/24 Stop Date: 12/29/24 Status: Ordered Quantity: 60.0 Unit: tab Repeat number: 1 Imodium 2 mg oral capsule Start: 12/20/24 11:14:00 AM EST, See Instructions, Disp# 30 cap, Refills: 0, 1 cap PO after each loose stool not to exceed 8 capsules, or 16 mg, in 24 hours, Pharmacy: [facility] Start Date: 12/20/24 Status: Ordered Quantity: 30.0 Unit: cap Repeat number: 1 ondansetron 4 mg oral tablet Start: 11/25/24 9:45:00 AM EST, 2 tab, PO, tid, Disp# 30 tab, Refills: 1, PRN: as needed for nausea/vomiting, Pharmacy: [facility] Start Date: 11/25/24 Status: Ordered Quantity: 30.0 Unit: tab Repeat number: 2 tamsulosin 0.4 mg oral capsule Start: 01/06/25 1:29:00 PM EST, 1 cap, PO, Daily Start Date: 01/06/25 Status: Ordered Repeat number: 1 Mental Status 01/06/25 Barriers to Learning one year Vision imp airment Problem List Condition Confirmation Course Effective Dates [...] of colon metastatic to liver Discharge Diagnosis 01/06/25 Mitral regurgitation Discharge Diagnosis 01/06/25 CHF due to valvular disease Discharge Diagnosis 01/06/25 Procedures Procedure Date Related Diagnosis Body Site [...] to oldest [Reference Range]: 1 Patient Weight 87 kg (01/06/25 1:36 PM) Heart Rate 96 bpm (01/06/25 1:36 PM) Blood Pressure 122/66mmHg (01/06/25 1:36 PM) BP Location # 1 Left Arm (01/06/25 1:36 PM) Social History Social History Type Response Smoking Status Never smoked cigaret sia Sex Male Sex Representation Male (finding) Cardiology Outpatient Note * DO Olivares Jason D: PERFORM Event Display: Cardiology Outpt Note Authored Date: [id number] Primary Care Provider MD Kaylen, Stoney Feng Chief Complaint 6 mon f/u MVR htn colon ca w/ liver mets History of Present Illness His records were reviewed. Progressive metastatic Colon CA to liver and pancreas. Terrible side effects with recent chemo. Intermittent cough. No chf sx's with sleeping. sleeps on couch with 2 pillows. No CP. Fall on ice. Review of Systems PAST MEDICAL HISTORY: 1. [...] N1 Physical Exam Vitals & Measurements HR:96(Monitored) BP:122/66 SpO2:98% WT:87kg WT:87.000kg(Dosing) PHYSICAL EXAMINATION: He is awake, alert, oriented x3, he looks gaunt and chronically ill. He did not appear short of breath talking in sentences. HEENT: His carotid upstrokes felt normal but not hyperdynamic. Lungs:CTA bilaterally. Heart: Regular rate and rhythm with a harsh grade 3/6 holosystolic murmur loudest at the apex. Extremities: No clubbing, cyanosis or edema. Psychiatric: His affect appeared appropriate. Assessment/Plan 1.CHF due to valvular disease 2.Mitral regurgitation 3.Adenocarcinoma of colon metastatic to liver From a cardiac stand point he is stable. Unfortunately he has progressive metastatic colon cancer. I did discuss if he were to feel more short of breath after chemotherapy he may need some diuretics in the immediate post chemo. Watching for dehydration as well. Sounds like he got pretty dryand had severe diarrhea after his last chemo treatment. Unfortunately given his metastatic disease there is no indication for cardiac intervention at this point. He is an incredibly nice gentleman but unfortunately significant metastatic colon cancer. We did discuss signs and symptoms of heart failure in detail along with unexplained weight gain. Will see him back in 6 months. Problem List/Past Medical History Ongoing Adenocarcinoma of colon metastatic to liver CHF due to valvular disease History of colon cancer, stage III Impaired fasting glucose Mitral regurgitation Mitral valve problem Weight disorder Procedure/Surgical History Colonoscopy| Service Date: 2CT of chest, abdomen and pelvis| Service Date: 08/22/2020Pathology biopsy report colon| Service Date: 08/14/2020Colonoscopy| Service Date: 08/14/2020 Medications dexAMETHasone(dexAMETHasone 4 mg oral tablet), 8 mg= 2 tab, PO, Daily loperamide(Imodium 2 mg oral capsule), See Instructions ondansetron(ondansetron 4 mg oral tablet), 8 mg= 2 tab, PO, tid, PRN, 1 refills tamsulosin(tamsulosin 0.4 mg oral capsule), 0.4 mg= 1 cap, PO, Daily Allergies penicillin (Mild)unknown levoFLOXacindifficulty breathing Social History Smoking Status Never smoked cigarettes Alcohol - Denies Alcohol Use 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 HLD - Hyperlipidemia: Negative: Mother and Father. Heart attack: MGF and PGF.Negative: Mother and Father. Hypertension: Negative: Mother and Father. 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 miner [facility]-[address], [address] [place] [address] JDF Patient Care team information Care Team Personnel Name: MD Abdullahi Lowell I Position: Referring DIRECT Member Role: Primary Care Provider Address: [address] [place] [address] Telecom: [phone] Name: Hai Mcneal Kyle Position: Pharmacist Member Role: Pharmacy - [facility] Address: [address] [place] [address] Name: MD Rich Ying Position: Physician - Pathologist Member Role: Lifetime Relationship Address: [address] [place] [address] Telecom: [phone] Care Team Related Persons Name: NAHED ZHANG Name: NAHED ACUÑA Insurance Providers Guarantor name: DOMINIC ROSADO Health Plan Information #: 1 Payer: [employer] Member Number: [id number] Policy Number: NA Group Number: [id number] Health Plan Information #: 2 Payer: [employer] Member Number: [id number] Policy Number: NA Group Number: [id number]"
--- OUTSIDE RECORDS SUMMARY | 2025-01-18 06:21 | External Medical Summary ---
Author Name Unknown Address Unknown Organization K1F:LABORATORY [facility] - [address] [place] [address] Laboratory Report Ordering Provider Test Date Status CASPER MARTIN 01/10/2025 11:24:41 Final Observation Date Value Abnormality Reference (Units ) Status WBC, Total 01/10/2025 11:24:41 7.15 4.00-10.8 0 (K/uL) Final RBC 01/10/2025 11:24:41 3.19 4.50-5.25 (M/uL) Final Hemoglobin 01/10/2025 11:24:41 9.4 Below low normal 14 .0-16.8 (g/dL) Final HCT 01/10/2025 11:24:41 31.0 Below low normal 40. 0-48.4 (%) Final MCV 01/10/2025 11:24:41 97.2 82.0-99.5 (fL) Final MCH 01/10/2025 11:24:41 29.5 27.0-34.0 (pg) Final MCHC 01/10/2025 11:24:41 30.3 32.0-36.0 (g/dL) Final RDW 01/10/2025 11:24:41 17.5 11.5-15.5 (%) Final Platelets 01/10/2025 11:24:41 122 Below low normal 140 -400 (K/uL) Final MPV 01/10/2025 11:24:41 Final No result - abnormal platele t distribution. Nucleated erythrocytes/100 l eukocytes [Ratio] in Blood by Automated count 01/10/2025 11:24:41 0 <=0 (/100 WBCs) Final Performing Location LABORATORY [facility] - [address] [place] [address]
--- OUTSIDE RECORDS SUMMARY | 2025-01-18 06:22 | External Medical Summary | Continuity of Care Document ---
Author Name Unknown Organization [facility] [address] Address [address] [place], [place] [id number] Care Team Providers Care Capacitor Repairer Name Role Phone Stoney Abdullahi I Primary Care Physician [phone] [id number] Date(s): 12/24/24 - 12/24/24 [facility] [address] [facility] [address] [place], [facility] 1 [place], [place] [phone] Encounter Diagnosis Malignant neoplasm of colon, unspecified(Final) [...] BY MOUTH 1 HOUR BEFORE CHEMO, Pharmacy: [facility] Start Date: 11/29/24 Status: Ordered aprepitant 80 mg oral capsule Start: 11/29/24 6:53:00 PM EST, 1 cap, PO, qAM, Disp# 24 cap, Refills: 0, TAKE 1 (80 MG) CAPSULE BY MOUTH ON DAYS 2 & 3., Pharmacy: [id number] Start Date: 11/29/24 Status: Ordered dexAMETHasone 4 mg oral tablet Start: 11/29/24 6:56:00 PM EST, 2 tab, PO, Daily, Disp# 60 tab, Refills: 0, TAKE 2 tablets daily on days 2, 3 & 4., Pharmacy: [facility] Start Date: 11/29/24 Stop Date: 12/29/24 Status: Ordered Imodium 2 mg oral capsule Start: 12/20/24 11:14:00 AM EST, See Instructions, Disp# 30 cap, Refills: 0, 1 cap PO after each loose stool not to exceed 8 capsules, or 16 mg, in 24 hours, Pharmacy: [facility] Start Date: 12/20/24 Status: Ordered Keflex 250 mg oral capsule Start: 12/10/24 1:24:00 PM EST, 2 cap, PO, bid, Disp# 28 cap, Refills: 0, Pharmacy: [facility] Start Date: 12/10/24 Stop Date: 12/17/24 Status: Ordered ondansetron 4 mg oral tablet Start: 11/25/24 9:45:00 AM EST, 2 tab, PO, tid, Disp# 30 tab, Refills: 1, PRN: as needed for nausea/vomiting, Pharmacy: [facility] Start Date: 11/25/24 Status: Ordered Protonix 40 mg oral delayed release tablet Start: 11/29/24 5:19:00 PM EST, 1 tab, PO, Daily, Disp# 30 tab, Refills: 3, Pharmacy: [id number] Start Date: 11/29/24 Status: Ordered Problem List [...] Date Complete Blood Count w Differential (CBC ,DIFFH) 12/24/24 Comprehensive Metabolic Panel (COMP META B PANEL) 12/24/24 Magnesium Level (MAGNESIUM) 12/24/24 Most recent to oldest [Reference Range]: 1 eGFR CKD-EPI [>60 mL/min/1.73 m2] >90 mL /min/1.73 m2 (12/24/24 9:34 AM) Macrocytes FEW *Unknown* (12/24/24 9:34 AM) Polychromasia INCREASED *Unknown* (12/24/24 9:34 AM) Schistocytes FEW *Unknown* (12/24/24 9:34 AM) Platelet Morphology NORMAL *Unknown* (12/24/24 9:34 AM) Estimated CrCl 97.39 mL/min (12/24/24 4:58 PM) MPV [9.0-12.2 fL] NOT AVAILABLE fL (12/24/24 9:34 AM) Immature Gran% 3.5 % (12/24/24 9:34 AM) Neut% 53.1 % (12/24/24 9:34 AM) Lymph% 23.0 % (12/24/24 9:34 AM) [place]% 16.8 % (12/24/24 9:34 AM) Baso% 0.9 % (12/24/24 9:34 AM) Eos% 2.7 % (12/24/24 9:34 AM) Immat Gran, Abs [0.0-0.4 K/uL] 0.05 K/uL (12/24/24 9:34 AM) Neut, Abs [2.0-7.7 K/uL] 0.80 K/uL *LOW* (12/24/24 9:34 AM) Lymph, Abs [1.0-3.4 K/uL] 0.35 K/uL *LOW* (12/24/24 9:34 AM) [place], Abs [0-1.0 K/uL] 0.25 K/uL (12/24/24 9:34 AM) Baso, Abs [0-0.1 K/uL] 0.01 K/uL (12/24/24 9:34 AM) Eos, Abs [0-0.5 K/uL] 0.04 K/uL (12/24/24 9:34 AM) Type of Diff: MANUAL *Unknown* (12/24/24 AM) RDW [11.5-14.2 %] 17.2 % *HI* (12/24/24:34 AM) Anion Gap [5-14 mmol/L] 12 mmol/L (12/24/24 9:34 AM) Alb [3.5-5.2 g/dL] 3.4 g/dL *LOW* (12/24/24:34 AM) Alk Phos [40-130 unit/L] 174 unit/L 1 *HI* (12/24/24:34 AM) ALT [0-41 unit/L] 64 unit/L *HI* (12/24/24 9:34 AM) AST [0-40 unit/L] 105 unit/L *HI* (12/24/24 9:34 AM) BUN [6-23 mg/dL] 15 mg/dL (12/24/24:34 AM) Ca [8.4-10.2 mg/dL] 8.6 mg/dL (12/24/24 9:34 AM) Cl- [98-107 mmol/L] 101 mmol/L (12/24/24:34 AM) HCO3 [22-29 mmol/L] 19 mmol/L *LOW* (12/24/24 9:34 AM) Cret [0.70-1.30 mg/dL] 0.83 mg/dL 2 (12/24/24 9:34 AM) Glu [74-109 mg/dL] 139 mg/dL 3 *HI* (12/24/24 9:34 AM) Hct [39-48 %] 32.6 % *LOW* (12/24/24 9:34 AM) Hgb [13.0-17.0 g/dL] 10.2 g/dL *LOW* (12/24/24:34 AM) K [3.5-5.1 mmol/L] 3.6 mmol/L (12/24/24 9:34 AM) MCH [28-33 pg] 30.9 pg (12/24/24 9:34 AM) MCHC [32-36 g/dL] 31.3 g/dL *LOW* (12/24/24 9:34 AM) MCV [81-96 fL] 98.8 fL *HI* (12/24/24 9:34 AM) Mg [1.6-2.6 mg/dL] 1.9 mg/dL (12/24/24 9:34 AM) Na [136-145 mmol/L] 132 mmol/L *LOW* (12/24/24 9:34 AM) Plts [150-350 K/uL] 121 K/uL *LOW* (12/24/24 9:34 AM) RBC [4.40-5.60 M/uL] 3.30 M/uL *LOW* (12/24/24 9:34 AM) Smudge Cell [FEW] MODERATE *Abnormal* (12/24/24 9:34 AM) T Bili [0.0-1.2 mg/dL] 14.9 mg/dL *HI* (12/24/24 9:34 AM) Prot [6.4-8.3 g/dL] 6.4 g/dL (12/24/24 9:34 AM) WBC [4.0-10.4 K/uL] 1.51 K/uL *LOW* (12/24/24 9:34 AM) 1Result Comment: Low levels of ALKP may indicate a deficiency in zinc, magnesium, or malnutritionbutcan also be an indicator of a rare genetic disease hypophosphatasia (HPP). 2Result Comment: ICTERIC SPECIMEN 3Result Comment: ADA recommendation for FASTING Serum/Plasma Glucose: Normal: 70-100 mg/dL Prediabetes: 100-125 mg/dL Diabetes: 126 mg/dL or higher Social History Social History Type Response Smoking Status Never smoked cigaret sai Sex Male Sex Representation Male (finding) Patient Care team information Care Team Personnel Name: MD Abdullahi Lowell I Position: Referring DIRECT Member Role: Primary Care Provider Address: [address] [place] [address] Name: Hai Mcneal Kyle Position: Pharmacist Member Role: Pharmacy - [facility] Address: [address] [place] [id number] [place] Name: MD Rich Ying Position: Physician - Pathologist Member Role: Lifetime Relationship Address: [address] [place] [address] Care Team Related Persons Name: NAHED ZHANG Name: NAHED ACUÑA
--- OUTSIDE RECORDS SUMMARY | 2025-01-18 06:22 | External Medical Summary ---
Author Name Unknown Address Unknown Organization K1F:LABORATORY [facility] - [address] [facility] [place] [address] Laboratory Report Ordering Provider Test Date Status DR MARIOCALIN 12/28/2024 12:48:04 Final Observation Date Value Abnormality Reference (Units ) Status BUN 12/28/2024 12:48:04 15 6-20 (mg/d L) Final Creatinine 12/28/2024 12:48:04 0.7 0.6-1.2 ( mg/dL) Final Result may be falsely decrea sed due to icterus. Glomerular filtration rate/1 .73 sq M.predicted [Volume Rate/Area] in Serum, Plasma or Blood by Creatinine-based formula (CKD-EPI) 12/28/2024 12:48:04 >90 >=60 (mL/min) Final eGFR is calculated based on the CKD-EPI 2020 equation. Sodium 12/28/2024 12:48:04 134 Below low normal 135 -146 (mmol/L) Final Potassium 12/28/2024 12:48:04 3.3 Below low normal 3.5 -5.1 (mmol/L) Final Cl 12/28/2024 12:48:04 100 98-107 (mm ol/L) Final CO2 12/28/2024 12:48:04 21 Below low normal 22- 32 (mmol/L) Final Anion gap 12/28/2024 12:48:04 13 7-15 (mmol /L) Final Glucose 12/28/2024 12:48:04 165 Above high normal 70 -120 (mg/dL) Final Albumin 12/28/2024 12:48:04 2.9 Below low normal 3.8 -5.0 (g/dL) Final AST (Aspartate aminotransferase) 12/28/2024 12:48:04 101 Above high normal 10-50 (U/L) Final Alk Phos 12/28/2024 12:48:04 164 Above high normal 35 -130 (U/L) Final Bilirubin, Total 12/28/2024 12:48:04 12.1 Above high no rmal <=1.2 (mg/dL) Final Calcium 12/28/2024 12:48:04 8.1 Below low normal 8.4 -10.2 (mg/dL) Final Protein 12/28/2024 12:48:04 5.4 Below low normal 6.0 -8.3 (g/dL) Final ALT (Alanine aminotransferase) 12/28/2024 12:48:04 55 Above high normal 10-50 (U/L) Final Performing Location LABORATORY [facility] - [address] [place] [address]
--- OUTSIDE RECORDS SUMMARY | 2025-01-18 06:22 | External Medical Summary | Summary of Care ---
Author Name Unknown Organization [facility] Address [address] [place] [address] Phone [phone] Care Team Providers Care Quarrying Manager Name Role Phone Stoney Abdullahi MD Primary Care Provider Reason for Visit * Reason Onset Date Comments MyCode Consent 12/28/2024 Encounter Details Date Type Department Care Team ([facility] Contact Info) Description 12/28/2024 Orders Only Outcomes Research Department [address] [place], [place] [id number] CHRA MyCode Research Other*[id number]* Allergies Active Allergy Reactions Criticality Noted Date [...] No 11/20/2023 Does the household have a [facility] source of income? (Household - for ages [...] on file documented as of this encounter Progress Notes * Maureen [address] CHRA - 12/28/2024 12:23 PM EST MyCode Consent Documentation Jose Haque provided consent/authorization to participate in the MyCode Project. documented in this encounter Plan of Treatment Scheduled Orders Name Type Priority Associated Diagnoses Orde r Schedule MYCODE INITIAL ADULT Lab Routine MyCode Research Other*[id number] Expected: 12/28/2024 (Approximate), Expires: 01/17/2026 Health Maintenance Due Date Last Done Comments [...] this encounter Visit Diagnoses Diagnosis MyCode Research Other*[id number]- Primary documented in this encounter Care Teams Quarrying Manager Relationship Specialty Start Date End Date Stoney Abdullahi MD [facility] [address] [address] PCP - General Family Medicine 09/08/23 documented as of this encounter
--- OUTSIDE RECORDS SUMMARY | 2025-01-18 06:22 | External Medical Summary ---
Author Name Unknown Address Unknown Organization K01:LABORATORY C - [address] [facility] [address] Laboratory Report Ordering Provider Test Date Status CASPER MARTIN 12/28/2024 12:48:04 Final Observation Date Value Abnormality Reference (Units ) Status CEA 12/28/2024 12:48:04 163.7 Above high normal <= 5.2 (ng/mL) Final Performing Location [facility]ORY [facility] - [address] [facility] [address]
--- OUTSIDE RECORDS SUMMARY | 2025-01-18 06:22 | External Medical Summary | Summary of Care ---
Author Name Unknown Organization [facility] Address [address] [place] [address] Phone [phone] Care Team Providers Care Jumpbasting Facing Baster Name Role Phone Stoney Abdullahi MD Primary Care Provider Reason for Visit * Reason Comments Outpatient Testing Encounter Details Date Type Department Care Team (Late st Contact Info) Description 12/28/2024 1:30 PM EST Laboratory Laboratory, [facility] [address] [place] [address] [facility] [address] [place] [id number] Malignant neoplasm of colon (HCC) Allergies Active [...] lesion, decr R lobe lesions;S/p Y90 mapping [place] Impaired fasting glucose 09/09/2023 Congestive heart failure [...] ORDERABLES Terese l Result Performing Organization Address City/[facility] Co de Phone Number LABORATORY [address] [address] * DIFFERENTIAL, AUTOMATED (12/28/2024 12:48 PM EST) Blood Venous blood specimen / Unknown Venipuncture / Unknown 12/28/2024 12:48 PM EST 12/28/2024 12:48 PM EST Kolby Cartagena MD LAB BLOOD ORDERABLES Terese l Result Performing Organization Address City/[facility]/ZIP Co de Phone Number LABORATORY [address] [address] * (ABNORMAL) CBC (12/28/2024 12:48 PM EST) [...] 36.0 g/dL 12/28/2024 4:49 PM EST LABORATORY [facility] RDW 17.2 11.5 - 15.5 % 12/28/2024 4:49 PM EST LABORATORY [facility] PLT 168 140 - 400 K/uL 12/28/2024 [...] LAB BLOOD ORDERABLES Terese l Result LABORATORY [facility] [address] [place] [address] * (ABNORMAL) COMPREHENSIVE METABOLIC PANEL [...] ORDERABLES Terese l Result LABORATORY [facility] [address] [place] [address] documented in this encounter Visit Diagnoses Diagnosis Malignant neoplasm of colon (HCC) Malignant neoplasm of colon, unspecified site documented in this encounter Care Teams Jumpbasting Facing Baster Relationship Specialty Start Date End Date Stoney Abdullahi MD [address] [facility] [address] [phone] PCP - General Family Medicine 09/08/23 documented as of this encounter
--- OUTSIDE RECORDS SUMMARY | 2025-01-18 06:22 | External Medical Summary ---
Author Name Unknown Address Unknown Organization K1F:LABORATORY [facility] - [address] [place] [address] Laboratory Report Ordering Provider Test Date Status CSAPER MARTIN 12/28/2024 12:48:04 Final Observation Date Value Abnormality Reference (Units ) Status WBC, Total 12/28/2024 12:48:04 6.18 4.00-10.8 0 (K/uL) Final RBC 12/28/2024 12:48:04 2.95 4.50-5.25 (M/uL) Final Hemoglobin 12/28/2024 12:48:04 9.0 Below low normal 14 .0-16.8 (g/dL) Final HCT 12/28/2024 12:48:04 28.7 Below low normal 40. 0-48.4 (%) Final MCV 12/28/2024 12:48:04 97.3 82.0-99.5 (fL) Final MCH 12/28/2024 12:48:04 30.5 27.0-34.0 (pg) Final MCHC 12/28/2024 12:48:04 31.4 32.0-36.0 (g/dL) Final RDW 12/28/2024 12:48:04 17.2 11.5-15.5 (%) Final Platelets 12/28/2024 12:48:04 168 140-400 (K /uL) Final MPV 12/28/2024 12:48:04 Final No result - abnormal platele t distribution. Nucleated erythrocytes/100 l eukocytes [Ratio] in Blood by Automated count 12/28/2024 12:48:04 0 <=0 (/100 WBCs) Final Performing Location LABORATORY [facility] - [address] [place] [address]
--- OUTSIDE RECORDS SUMMARY | 2025-01-18 06:22 | External Medical Summary | Summary of Care ---
Author Name Unknown Organization [facility] Address [address] [place] [address] Phone [phone] Care Team Providers Care Linen Checker Name Role Phone Stoney Abdullahi MD Primary Care Provider Reason for Visit * Reason Comments Outpatient Testing Encounter Details Date Type Department Care Team (Late st Contact Info) Description 12/28/2024 1:30 PM EST Laboratory Laboratory, [facility] [address] [place] [address] [facility] [address] [place] [phone] Malignant neoplasm of colon (HCC) Allergies Active [...] lesion, decr R lobe lesions;S/p Y90 mapping [place] Impaired fasting glucose 09/09/2023 Congestive heart failure [...] ORDERABLES Terese l Result Performing Organization Address City/[facility] Co de Phone Number LABORATORY [address] [address] * DIFFERENTIAL, AUTOMATED (12/28/2024 12:48 PM EST) Blood Venous blood specimen / Unknown Venipuncture / Unknown 12/28/2024 12:48 PM EST 12/28/2024 12:48 PM EST Kolby Cartagena MD LAB BLOOD ORDERABLES Terese l Result Performing Organization Address City/[facility]/ZIP Co de Phone Number LABORATORY [address] [address] * (ABNORMAL) CBC (12/28/2024 12:48 PM EST) [...] 36.0 g/dL 12/28/2024 4:49 PM EST LABORATORY [facility] RDW 17.2 11.5 - 15.5 % 12/28/2024 4:49 PM EST LABORATORY [facility] PLT 168 140 - 400 K/uL 12/28/2024 [...] LAB BLOOD ORDERABLES Terese l Result LABORATORY [facility] [address] [place] [address] * (ABNORMAL) COMPREHENSIVE METABOLIC PANEL [...] ORDERABLES Terese l Result LABORATORY [facility] [address] [place] [address] documented in this encounter Visit Diagnoses Diagnosis Malignant neoplasm of colon (HCC) Malignant neoplasm of colon, unspecified site documented in this encounter Care Teams Linen Checker Relationship Specialty Start Date End Date Stoney Abdullahi MD [address] [facility] [address] [place] [phone] PCP - General Family Medicine 09/08/23 documented as of this encounter
--- OUTSIDE RECORDS SUMMARY | 2025-01-18 06:22 | External Medical Summary ---
Author Name Unknown Address Unknown Organization [id number]:LABORATORY [facility] - [address] [facility] [place] [address] Laboratory Report Ordering Provider Test Date Status CASPER MARTIN 12/28/2024 12:48:04 Final Observation Date Value Abnormality Reference (Units ) Status SYNC LEUKOCYTES IN BLOOD BY AUTOMATED COUNT 12/28/2024 12:48:04 6.18 4.00-10.80 (K/uL) Final Neutrophils/100 leukocytes in Blood by Manual count 12/28/2024 12:48:04 79.0 Above high normal 40.0-75.0 (%) Final Lymphocytes/100 leukocytes in Blood by Manual count 12/28/2024 12:48:04 9.0 Below low normal 18.0-42.0 (%) Final Monocytes/100 leukocytes in Blood by Manual count 12/28/2024 12:48:04 8.0 1.0-11.0 (%) Final Eosinophils/100 leukocytes in Blood by Manual count 12/28/2024 12:48:04 1.0 0.0-6.0 (%) Final Metamyelocytes/100 leukocytes in Blood by Manual count 12/28/2024 12:48:04 3.0 Above high normal <=0.0 (%) Final Neutrophils [#/volume] in Blood by Manual count 12/28/2024 12:48:04 4.88 1.80-7.70 (K/uL) Final Lymphocytes [#/volume] in Blood by Manual count 12/28/2024 12:48:04 0.56 Below low normal 1.00-4.80 (K/uL) Final Monocytes [#/volume] in Blood by Manual count 12/28/2024 12:48:04 0.49 0.00-1.10 (K/uL) Final Eosinophils [#/volume] in Blood by Manual count 12/28/2024 12:48:04 0.06 0.00-0.70 (K/uL) Final Metamyelocytes [#/volume] in Blood by Manual count 12/28/2024 12:48:04 0.19 Above high normal <=0.00 (K/uL) Final Neutrophils.vacuolated [Presence] in Blood by Light microscopy 12/28/2024 12:48:04 Present Abnormal None Seen Final Performing Location LABORATORY [facility] - [address] [place] [address]
--- OUTSIDE RECORDS SUMMARY | 2025-01-18 06:22 | External Medical Summary | Summary of Care ---
Author Name Unknown Organization [facility] Address [address] [place] [address] Phone [phone] Care Team Providers Care Senior Backup Administrator Name Role Phone Stoney Abdullahi MD Primary Care Provider Reason for Visit * Reason Onset Date Comments Hospital Follow-Up 12/20/2024 [facility] 12/17 Encounter Details Date Type Department Care Team ([facility] Contact Info) Description 12/20/2024 Telephone [facility] [address] [place] [address] Qing Tee RN Hospital Follow-Up ([facility] 12/17) Allergies Active Allergy Reactions Criticality Noted Date Comments Levofloxacin 07/30/2022 Other reaction(s): difficulty breathing Penicillins 03/02/2021 documented as of this encounter (statuses as of 12/20/2024) Medications Spironolactone 25 MG Oral Tablet (Aldactone) [...] Oral Capsule (Flomax) 1 Capsule. 4 Active Imodium A-D 2 MG Oral Capsule Take 1 Capsule by mouth 4 times a day as needed for Diarrhea. 4 Active Ondansetron HCl 4 MG Oral Tablet (Zofran) Take 2 Tablets by mouth every 8 hours as needed for Nausea. 5 Active documented as of this encounter (statuses as of 12/20/2024) Active Problems Problem Noted Date Diagnosed Date [...] as of this encounter (statuses as of 12/20/2024) Resolved Problems Problem Noted Date Diagnosed Date Resolved Date INFORMATION 09/09/2023 09/10/2023 Overview (09/10/2023): Metastatic colon cancer to liver 07/30/2022 09/09/2023 HTN (hypertension) 05/24/2022 3 documented as of this encounter (statuses as of 12/20/2024) Social History Tobacco Use Types Packs/Day Years [...] No 11/20/2023 Does the household have a [facility] source of income? (Household - for ages [...] on file documented as of this encounter Miscellaneous Notes * Telephone Encounter - Qing Tee RN - 12/20/2024 11:24 AM EST Transitions of Care Note Reason for Referral:Recent Admission Phone visit for follow up: SAMY Admitted to: [facility], Date: 12/15 Discharged to: home, Date: 12/17 Diagnosis driving hospitalization: Generalized weakness post chemotherapy Source/Contact: Patient SUBJECTIVE Consent: Verbal consent for review of hospital discharge: Yes REVIEW OF SYSTEMS Patient/Other Reports: Current patient/caregiver problems or concerns: pt having problems with diarrhea. He takes Lomotil and "another medicine". He is going to call his Oncologist's office to get refills CV: Denies problems Pulmonary: Denies problems Chills/Sweats/Fever:Denies chills/sweats Denies fever Appetite: his appetite is slowing returning Current diet: as before Bowel: denies problems Bladder: denies problems Wound (If applicable): N/A Pain:Denies Sleep:Denies problems FUNCTIONAL STATUS: ADL'S: Needs Assistance With:N/A as pt is independent IADL'S: Needs Assistance With:N/A as pt is independent Cognitive and Mental Health: denies problems, alert and oriented x 3, and able to communicate, understand instructions, process information. MEDICATION RECONCILIATION Medications: Discharge med list reviewed with patient or caregiver New medication(s) filled since hospitalization- magic mouthwash and lidocaine swish and swallow Pt did not pick them up as he says he cannot take them. He did not want to elaborate as to the problems OBJECTIVE ASSESSMENT Medication Risk Assessment: No risks identified Did patient fail outpatient treatment? No Discharge instructions available for review? Yes PLAN Symptom Monitoring Interventions:Member/caregiver education - signs and symptoms to contact PrimaryCare (DO NOT DELETE-Three rogers symptoms patient is to report to PCP) 1. N/V/D 2. Worsening weakness 3. syncope Still Operator BrandyManager Labor Delivery of Care interventions/Action Plan: Medication reconciliation and 5 - 7 day follow-up with PCP in place - Date: 05/09 offered to set him up with something sooner with another provider but he wanted to wait until he could see his pcp Educated on role of SAMY completed with patient/caregiver. Educated patient/caregiver on patient right to have input on SAMY plan of care. Verification of Home Health/DME if indicated: NO Identified Care Gaps: Yes Care Gaps closed this call: Appointment made or confirmed, Medication adherence, and Transition of Care follow-up communication Re-evaluation of Plan of Care and progress towards goals achievement: Patient education this visit: Verbal, as above Plan to follow-up as previously scheduled, instructed to call Primary Care Provider with change in symptoms or as needed before next follow-up, discharge needs met, verbalizes understanding and agrees with plan. Qing Tee RN documented in this encounter Plan of Treatment Upcoming Encounters Date Type Department Care Team (Late st Contact Info) Description 12/27/2024 11:20 AM EST Office Visit [facility] [address] [place] [address] Stoney Abdullahi MD [address] [place] [phone] Health Maintenance Due Date Last Done Comments Lipid Panel 1968 HIV Screening 1983 Albumin/Creatinine Ratio 1986 DTap/Tdap Vaccines (1 - Tdap) 1987 Hepatitis B Vaccine (1 of 3 - 19+ 3-dose series) 1987 Cologuard 2013 Colonoscopy 2013 Colorectal Cancer Screening 2013 Fecal Occult Blood Test 2013 Sigmoidoscopy 2013 Pneumococcal Vaccine: 50+ Years (1 of 1 - PCV) 2018 Zoster Vaccines (1 of 2) 2018 COVID-19 Vaccine (1 - season) 2024 Influenza Vaccine (FLU shot) (#1) 2024 Depression Screening 11/20/2024 11/20/2023 GFR 10/21/2025 10/21/2024, 10/17, 07/01/2022, Additional history exists Diabetes Screening 10/21/2027 10/21/2024, 1 01/05/2022, 01/08/2022, Additional history exists Hepatitis C Screening Completed 10/21/2024 HPV (Gardasil) Vaccine Aged Out No lo nger eligible based on patient's age to complete this topic MENINGOCOCCAL (MENACTRA/MENVEO) Aged Out No longer eligible based on patient's age to complete this topic documented as of this encounter Medical Devices Not on filedocumented as of this encounter Care Teams Senior Backup Administrator Relationship Specialty Start Date End Date Stoney Abdullahi MD [address] [facility] [address] [place] [address] PCP - General Family Medicine 09/08/23 documented as of this encounter
--- OUTSIDE RECORDS SUMMARY | 2025-01-18 06:22 | External Medical Summary | Summary of Care ---
Author Name Unknown Organization [facility] Address [address] [place] [address] Phone [phone] Care Team Providers Care Ramp And Cargo Supervisor Name Role Phone Stoney Abdullaih MD Primary Care Provider Reason for Visit * Reason Onset Date Comments Health Maintenance 12/23/2024 Encounter Details Date Type Department Care Team ([facility] st Contact Info) Description 12/23/2024 Telephone [facility] [address] [place] [address] Stoney Abdullahi MD [address] [place] [address] Health Maintenance Allergies Active Allergy Reactions Criticality Noted Date Comments Levofloxacin 07/30/2022 Other reaction(s): difficulty breathing Penicillins 03/02/2021 documented as of this encounter (statuses as of 12/23/2024) Medications Spironolactone 25 MG Oral Tablet (Aldactone) [...] as of this encounter (statuses as of 12/23/2024) Active Problems Problem Noted Date Diagnosed Date Essential hypertension 09/10/2023 Thrombocytopenia 09/10/2023 History of colon cancer, stage III 09/09/2023 Overview (09/10/2023): 53M hx met colon adenoca w/liver mets s/p sigmoid colectomy & chemo w/R hepatic mets,s/p lobar R Y90 01/29/2023,PET CT 03/2023 w/increased size segm 4 lesion, decr R lobe lesions;S/p Y90 mapping [place] Impaired fasting glucose 09/09/2023 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 06/21/2022 Pulmonary HTN 06/14/2022 Diastolic CHF 05/24/2022 Mitral valve insufficiency 05/24/2022 documented as of this encounter (statuses as of 12/23/2024) Resolved Problems Problem Noted Date Diagnosed Date Resolved Date INFORMATION 09/09/2023 09/10/2023 Overview (09/10/2023): Metastatic colon cancer to liver 07/30/2022 09/09/2023 HTN (hypertension) 05/24/2022 3 documented as of this encounter (statuses as of 12/23/2024) Social History Tobacco Use Types Packs/Day Years [...] encounter Miscellaneous Notes * Telephone Encounter - Natali Montgomery LPN - 12/23/2024 10:35 AM EST Care Gaps Comprehensive Care Outreach Last Office/Telemedicine Visit: Visit date not found (in office), Visit date not found (telemedicine) Next Office Visit: 12/27/2024 Hemoglobin AIC Results: No results found for: "HEMOGLOBIN A1C" BP Readings from Last 1 Encounters: 10/21/24 130/79 Reviewed Health Maintenance below: Health Maintenance Topic Date Due Lipid Panel Never done Albumin/Creatinine Ratio Never done Colorectal Cancer Screening Never done Care Gap Outreach Action Taken: Outreach not indicated documented in this encounter Plan of Treatment Upcoming Encounters Date Type Department Care Team (Late st Contact Info) Description 12/27/2024 11:20 AM EST Office Visit [facility] [address] [place] [address] Stoney Abdullahi MD [address] [place] [address] Health Maintenance Due Date Last Done Comments [...] filedocumented as of this encounter Care Teams Ramp And Cargo Supervisor Relationship Specialty Start Date End Date Stoney Abdullahi MD [address] [facility] [address] [place] [phone] PCP - General Family Medicine 09/08/23 documented as of this encounter
[2025-01-18] MEDS: PANTOprazole 40 MG TAB PO SCH (08:02)
[2025-01-18] MEDS: TAMSULOSIN HCL 0.4 MG CAP PO SCH (08:02)
[2025-01-18] MEDS: CEFEPIME 2000MG 2,000 MG/20 ML SYR IV SCH (08:02)
[2025-01-18] MEDS: metroNIDAZOLE 500 MG/100 ML BAG IV SCH (08:02)
[2025-01-18] MEDS: ENOXAPARIN INJ 40 MG/0.4 ML SYR SQ SCH (08:06)
[2025-01-18 08:20] LABS: Basophils # (auto) 0.04 K/uL (0.00-0.20); Basophils % (auto) 0.2 %; Hematocrit (blood only) 28.9 % (42.0-52.0); Hemoglobin 9.1 g/dl (14.0-18.0); Immature Granulocytes # (auto) 0.64 K/uL (0.01-0.20); Immature Granulocytes % (auto) 3.2 %; Lymphocytes # (auto) 1.37 K/uL (1.20-3.40); Lymphocytes % (auto) 6.8 %; Mean Corpuscular Hemoglobin 29.3 pg (25.0-34.0); Mean Corpuscular Hgb Conc 31.5 g/dL (32.0-36.0); Mean Corpuscular Volume 92.9 fL (80.0-100.0); Mean Platelet Volume 12.2 fL (9.4-12.4); Neutrophils # (auto) 16.96 K/uL (1.40-6.50); Neutrophils % (auto) 84.8 %; Nucleated RBC # (auto) 0.24 K/uL (0.00-0.12); Nucleated RBC % (auto) 1.2 %; Platelet Count 296 K/uL (130-400); RDW Coefficient of Variation 17.2 % (11.5-14.5); RDW Standard Deviation 56.8 fL (36.4-46.3); Red Blood Count 3.11 M/uL (4.70-6.10); White Blood Count 20.01 K/ul (4.8-10.8)
[2025-01-18 08:34] LABS: BUN Creatinine Ratio 45.7 (10-20); Calcium 8.6 mg/dl (8.6-10.3); Creatinine Clr Calc Pharmacy 108.3 ml/min; Magnesium 2.1 mg/dl (1.7-2.4); Potassium 3.5 mmol/L (3.5-5.1)
[2025-01-18] MEDS: HYDROmorphone INJ 0.5 MG/0.5 ML SYR IV PRN (11:51)
[2025-01-18] MEDS: LORazepam 2 MG/1 ML VIAL IV PRN (12:58)
--- NOTE | 2025-01-18 17:17 | Communication Note ---
Date of Service: January 18, 2025 evaluated at bedside very anxious at bedside, reports feeling need to move and wander stated that there is no reason patient cannot walk at this time Patient admitted in November due to pain urinating and mouth pain. Patient with chronic transaminitis iso metastatic disease to the liver s/p 11/25/2024 and now repositioning 01/17 Patient pain free on exam Advancing diet as tolerated continue abx at this time continue IVF lipase elevated since 12/15 at [facility] will repeat in am
--- NOTE | 2025-01-18 17:42 | Gastrointestinal Consultation ---
Date of Consultation January 18, 2025 Assessment & Plan (1) Pancreatitis: Pleasant unfortunate gentleman with postprocedural pancreatitis. This is treated like any other pancreatitis with fluid and pain control. Advance diet as tolerated. There is nothing I can offer him that is different History of Present Illness Reason for Consultation: pancreatitis Attending Physician: Pattie Bush MD History of Present Illness 54 year old man with wide spread metastatic colon cancer that seems to be worsening admitted with abdominal pain and CT findings of acute pancreatitis. He had percutaneous stent exchange done yesterday at [facility] and developed pain afterward. As I am seeing him his pain is a little better. He has not had this problem before. He tells me his cancer is growing. Allergies Allergy/AdvReac Type Severity Reaction Status Date / Time levofloxacin Allergy Intermediate Difficulty Unverified 04/13/22 21:51 Breathing Penicillins Allergy Intermediate Difficulty Unverified 04/13/22 21:51 Breathing Home Medications Medication Instructions Recorded Confirmed Type dexamethasone 4 mg tablet 4 mg PO DIRECTED 12/15/24 01/18/25 History ondansetron HCl 4 mg tablet 8 mg PO TID PRN n/v 12/15/24 01/18/25 History pantoprazole 40 mg tablet,delayed 40 mg PO DAILY 12/15/24 01/18/25 History release tamsulosin 0.4 mg capsule 0.4 mg PO QAM 12/15/24 01/18/25 History loperamide 2 mg capsule 2 mg PO UD PRN Loose Stool 01/18/25 01/18/25 History Patient History Social History Smoking Status: Never smoker Second Hand Exposure: No; Do You Dip or Chew Tobacco: No; Hx Alcohol Use: No Hx Substance Use: No Preferred Language: Irish Communication Ability: Effective Repairer Helper Required: No Beliefs That Will Affect Care: None Current Living Situation: Family Current Living Situation Comment: lives with mother Feels Safe at Home: Yes Safety Concerns: Feels Safe At This Time Assistive Devices: None Review of Systems Review of Systems: All systems reviewed & are unremarkable except as noted in HPI & below Physical Exam Physical Exam: Markedly jaundiced man in no distress Constitutional: WD/WN, vitals as above Eyes: sclerae not anicteric Neck: trachea midline, no thyromegaly Respiratory: normal respiratory effort, lungs clear to auscultation Cardiovascular: Rate/Rhythm: + tachycardic Heart Sounds: + murmur Gastrointestinal (Abdomen): normal bowel sounds, soft, nontender, no hepatosplenomegaly Drain in place Results & Data Vital Signs (Past 12 Hours) Vital Signs Temp Pulse Resp BP Pulse Ox O2 Del Method 01/18/25 14:53 36.2 C L 114 H 20 161/89 H 99 Room Air 01/18/25 07:30 Room Air 01/18/25 07:07 115 H 20 158/94 H 99 Room Air Laboratory Results 01/18/25 01/18/25 01/18/25 Range/Units 07:59 02:30 01:35 WBC 20.01 H (4.8-10.8) K/ul RBC 3.11 L (4.70-6.10) M/uL Hgb 9.1 L (14.0-18.0) g/dl Hct 28.9 L (42.0-52.0) % MCV 92.9 (80.0-100.0) fL MCH 29.3 (25.0-34.0) pg MCHC 31.5 L (32.0-36.0) g/dL RDW Std Deviation 56.8 H (36.4-46.3) fL RDW Coeff of Cris 17.2 H (11.5-14.5) % Plt Count 296 (130-400) K/uL MPV 12.2 (9.4-12.4) fL Immature Gran % (Auto) 3.2 % Neut % (Auto) 84.8 % Lymph % (Auto) 6.8 % [place] % (Auto) 5.0 % Eos % (Auto) 0.0 % Baso % (Auto) 0.2 % Neut # (Auto) 16.96 H (1.40-6.50) K/uL Lymph # (Auto) 1.37 (1.20-3.40) K/uL [place] # (Auto) 1.00 H (0.11-0.59) K/uL Eos # (Auto) 0.00 (0.00-0.50) K/uL Baso # (Auto) 0.04 (0.00-0.20) K/uL Immature Gran # (Auto) 0.64 H (0.01-0.20) K/uL Absolute Nucleated RBC 0.24 H (0.00-0.12) K/uL Nucleated RBC % (auto) 1.2 % Sodium 137 (136-145) mmol/L Potassium 3.5 (3.5-5.1) mmol/L Chloride 109 H (98-107) mmol/L Carbon Dioxide 24 (21-32) mmol/L Anion Gap 4 (3-11) BUN 32 H (6-23) mg/dl Creatinine 0.70 (0.6-1.4) mg/dl Est Cr Clr Drug Dosing 108.3 ml/min eGFR 108.14 BUN/Creatinine Ratio 45.7 H (10-20) Glucose 158 H (70-99(Fasting)) mg/dl Calcium 8.6 (8.6-10.3) mg/dl Magnesium 2.1 (1.7-2.4) mg/dl Total Bilirubin (0.2-1.0) mg/dl AST (13-39) U/L ALT (7-52) U/L Alkaline Phosphatase (34-104) U/L Total Protein (6.0-8.3) gm/dl Albumin (3.4-5.0) gm/dl Globulin (2.5-4.0) gm/dl Albumin/Globulin Ratio (0.9-2) Lipase Urine Color Dark Yellow Urine Appearance Clear (Clear) Urine pH 5.5 (4.5-7.5) Ur Specific [place] > 1.045 H (1.000-1.030) Urine Protein 1+ H (Negative) Urine Glucose (UA) Trace H (Negative) Urine Ketones Negative (Negative) Urine Blood Negative (Negative) Urine Nitrite Positive A (Negative) Urine Bilirubin 3+ H (Negative) Urine Urobilinogen Negative (Negative) Ur Leukocyte Esterase 1+ H (Negative) Urine WBC (Auto) 0-5 (0-5) /hpf Urine RBC (Auto) 0-2 (0-2) /hpf U Hyaline Cast (Auto) 0-2 (0-2) /lpf U Epithel Cells (Auto) 0-2 (0-2) /hpf Urine Bacteria (Auto) None Seen (None Seen) Calcium Oxalate Crystal Present A (None Prsent) Nasal Screen MRSA (PCR) Negative (Negative) 01/17/25 Range/Units 20:56 WBC 15.81 H (4.8-10.8) K/ul RBC 3.07 L (4.70-6.10) M/uL Hgb 9.2 L (14.0-18.0) g/dl Hct 28.7 L (42.0-52.0) % MCV 93.5 (80.0-100.0) fL MCH 30.0 (25.0-34.0) pg MCHC 32.1 (32.0-36.0) g/dL RDW Std Deviation 55.6 H (36.4-46.3) fL RDW Coeff of Cris 16.6 H (11.5-14.5) % Plt Count 264 (130-400) K/uL MPV 13.5 H (9.4-12.4) fL Immature Gran % (Auto) 1.7 % Neut % (Auto) 87.0 % Lymph % (Auto) 6.5 % [place] % (Auto) 4.7 % Eos % (Auto) 0.0 % Baso % (Auto) 0.1 % Neut # (Auto) 13.76 H (1.40-6.50) K/uL Lymph # (Auto) 1.02 L (1.20-3.40) K/uL [place] # (Auto) 0.74 H (0.11-0.59) K/uL Eos # (Auto) 0.00 (0.00-0.50) K/uL Baso # (Auto) 0.02 (0.00-0.20) K/uL Immature Gran # (Auto) 0.27 H (0.01-0.20) K/uL Absolute Nucleated RBC 0.14 H (0.00-0.12) K/uL Nucleated RBC % (auto) 0.9 % Sodium 134 L (136-145) mmol/L Potassium 3.6 (3.5-5.1) mmol/L Chloride 105 (98-107) mmol/L Carbon Dioxide 21 (21-32) mmol/L Anion Gap 8 (3-11) BUN 33 H (6-23) mg/dl Creatinine 0.83 (0.6-1.4) mg/dl Est Cr Clr Drug Dosing 95.2 ml/min eGFR 102.72 BUN/Creatinine Ratio 39.8 H (10-20) Glucose 275 H (70-99(Fasting)) mg/dl Calcium 9.2 (8.6-10.3) mg/dl Magnesium (1.7-2.4) mg/dl Total Bilirubin 13.3 H (0.2-1.0) mg/dl AST 82 H (13-39) U/L ALT 58 H (7-52) U/L Alkaline Phosphatase 147 H (34-104) U/L Total Protein 6.2 (6.0-8.3) gm/dl Albumin 3.2 L (3.4-5.0) gm/dl Globulin 3.0 (2.5-4.0) gm/dl Albumin/Globulin Ratio 1.1 (0.9-2) Lipase TNP Urine Color Urine Appearance (Clear) Urine pH (4.5-7.5) Ur Specific [place] (1.000-1.030) Urine Protein (Negative) Urine Glucose (UA) (Negative) Urine Ketones (Negative) Urine Blood (Negative) Urine Nitrite (Negative) Urine Bilirubin (Negative) Urine Urobilinogen (Negative) Ur Leukocyte Esterase (Negative) Urine WBC (Auto) (0-5) /hpf Urine RBC (Auto) (0-2) /hpf U Hyaline Cast (Auto) (0-2) /lpf U Epithel Cells (Auto) (0-2) /hpf Urine Bacteria (Auto) (None Seen) Calcium Oxalate Crystal (None Prsent) Nasal Screen MRSA (PCR) (Negative) Diagnostic Findings Abdomen/Pelvis CT 01/17/25 22:50 Exam(s): CT ABDOMEN + PELVIS With Contrast IV Amt: 93 ML OPTIRAY 320 EXAM: CT Abdomen and Pelvis With Intravenous Contrast CLINICAL HISTORY: RUQ pain, elev WBC, biliary stent, colon ca. TECHNIQUE: Axial computed tomography images of the abdomen and pelvis with intravenous contrast. CTDI is 27.7 mGy and DLP is 1420.65 mGy-cm. Automated exposure control was utilized for the study. A dose lowering technique was utilized adhering to the principles of ALARA. CONTRAST: Patient received 93 ML OPTIRAY 320 of IV contrast COMPARISON: CT abdomen and pelvis with contrast dated 08/31/2023 FINDINGS: Lung bases: As below. Pleural space: Moderate right pleural effusion now identified posteriorly. No loculation. ABDOMEN: Liver: There has been interval progression of disease involving the right lobe of the liver with relative interval atrophy of the right lobe and hypertrophy of the left lobe. Irregular hypodense metastatic involvement noted. There are scattered areas of calcification which are new from the previous examination, suggesting intervening endovascular directed therapy. However, no intervening imaging available. There is a new irregular hypodense area centrally in the left lobe measuring 1.4 cm. In addition to the confluent disease in segment 4 of the liver, there is a somewhat isolated rounded hypodense area at the anterior dome of the diaphragm measuring 1.4 cm at the junction of segment 4A and the left lobe of the liver. Gallbladder and bile ducts: An internal/external biliary stent is noted via left-sided approach which extends through the common bile duct into the duodenum. Mild intrahepatic biliary ectasia noted in the left lobe without significant dilation. Common bile duct is completely decompressed. No calcified stones. Pancreas: There is peripancreatic fat stranding noted most prominently surrounding the tail the pancreas. There is 9 retroperitoneal fat stranding and edema along the anterior pararenal fascia bilaterally. No pancreatic ductal dilation. Spleen: Unremarkable. No splenomegaly. Adrenals: Unremarkable. No mass. Kidneys and ureters: Unremarkable. No solid mass. No hydronephrosis. Stomach and bowel: Postsurgical changes involving the sigmoid colon, stable. No bowel obstruction. Evaluation of bowel mucosa is limited. Mild mucosal prominence of the colon is presumed related to under distention or portal hypertension rather than inflammatory infectious process. PELVIS: Appendix: Not clearly delineated. No significant findings to suggest an acute process. Bladder: Unremarkable. No mass. Reproductive: Unremarkable as visualized. ABDOMEN and PELVIS: Intraperitoneal space: Mild ascites. No loculation. Mild free fluid in the dependent pelvis. No free air. Bones/joints: No acute fracture. No dislocation. Soft tissues: Unremarkable. Vasculature: Unremarkable. No abdominal aortic aneurysm. Lymph nodes: Unremarkable. No enlarged lymph nodes. IMPRESSION: 1. There has been interval progression of disease involving the right lobe of the liver with relative interval atrophy of the right lobe and hypertrophy of the left lobe. Irregular hypodense metastatic involvement noted. There are scattered areas of calcification which are new from the previous examination, suggesting intervening endovascular directed therapy. However, no intervening imaging available. There is a new irregular hypodense area centrally in the left lobe measuring 1.4 cm. In addition to the confluent disease in segment 4 of the liver, there is a somewhat isolated rounded hypodense area at the anterior dome of the diaphragm measuring 1.4 cm at the junction of segment 4A and the left lobe of the liver. 2. An internal/external biliary stent is noted via left-sided approach which extends through the common bile duct into the duodenum. Mild intrahepatic biliary ectasia noted in the left lobe without significant dilation. Common bile duct is completely decompressed. 3. There is peripancreatic fat stranding noted most prominently surrounding the tail the pancreas. There is 9 retroperitoneal fat stranding and edema along the anterior pararenal fascia bilaterally. The findings are highly suggestive of acute pancreatitis. Please correlate with laboratory findings. No ductal dilation or loculated pseudocyst. 4. Mild ascites. No loculation. 5. Moderate right pleural effusion now identified posteriorly. No loculation. Electronically signed by: Mahamed Bailey MD 01/18/25 00:50 AM
[2025-01-19 08:20] LABS: Albumin Level 2.7 gm/dl (3.4-5.0); BUN Creatinine Ratio 38.5 (10-20); Calcium 7.3 mg/dl (8.6-10.3); Creatinine Clr Calc Pharmacy 116.6 ml/min; Globulin 2.6 gm/dl (2.5-4.0); Magnesium 1.8 mg/dl (1.7-2.4); Potassium 3.3 mmol/L (3.5-5.1); Total Protein 5.3 gm/dl (6.0-8.3)
[2025-01-19 08:25] LABS: Hematocrit (blood only) 26.1 % (42.0-52.0); Hemoglobin 8.6 g/dl (14.0-18.0); Mean Corpuscular Hemoglobin 30.5 pg (25.0-34.0); Mean Corpuscular Volume 92.6 fL (80.0-100.0); Nucleated RBC # (auto) 0.04 K/uL (0.00-0.12); Nucleated RBC % (auto) 0.2 %; Platelet Count 140 K/uL (130-400); Platelet Estimate Decreased (Normal); RDW Coefficient of Variation 18.3 % (11.5-14.5); RDW Standard Deviation 58.4 fL (36.4-46.3); Red Blood Count 2.82 M/uL (4.70-6.10); White Blood Count 18.56 K/ul (4.8-10.8)
[2025-01-19] MEDS ORDERED: POTASSIUM PHOS 3 MMOL/1 ML INFUSION IV STA (09:00)
[2025-01-19] MEDS: POTASSIUM CHLORIDE CRTAB 20 MEQ TABCR PO STA (09:28)
[2025-01-19] MEDS: POTASSIUM PHOSPHATE 24 MMOL in SODIUM CHLORIDE 0.9% 500 ML IV ONE (10:32)
[2025-01-19] MEDS: POT PHOSPHATE MONOBASIC W/ SOD TAB PO SCH (13:15)
--- NOTE | 2025-01-19 13:36 | Gastroenterology Progress Note ---
Date of Service January 19, 2025 Assessment & Plan (1) Pancreatitis: Plan: Seems better. Probably home soon Admission and Anticipated Discharge Date Admission Date: January 18, 2025 Subjective Says he is anxious but pain free. Tolerating full liquids Physical Exam Constitutional: + ill appearing Results & Data Vital Signs (Past 12 Hours) Vital Signs Temp Pulse Resp BP Pulse Ox O2 Del Method 01/19/25 07:43 36.6 C 117 H 20 126/80 96 Room Air
--- NOTE | 2025-01-19 13:51 | Palliative Care Consultation ---
Date of Consultation January 19, 2025 Assessment & Plan (1) Weakness generalized: (2) Abdominal pain, RUQ: (3) Advanced care planning/counseling discussion: I met with patient [id number] at bedside for a 60-minute goals of care discussion and he had extreme difficulty remaining focused or following the conversation. He remained very focused on wanting to leave. he also referenced consuming too much alcohol and that he knows that is what caused his pancreatitis but he feels he can better manage it once he gets out and "make better choices about what to drink." he had very little insight into his illness and could not engage in any substantive [facility] discussion other than to say "he was sick of this sh*t being here and wants to leave today." I will revisit tomorrow if i get some time in between clinic but otherwise on friday (4) Palliative care by specialist: Introduced Palliative Medicine and explained our role in patient's care. Patient and/or family were receptive to palliative services for goals of care discussions. Reviewed we are different from hospice, a home health nurse visiting service. (5) Metastatic colorectal cancer: (6) Pancreatitis: Plan Jose had a very hard time engaging in discussion today and was perseverating on returning home "no matter what" and said "i can figure it out from there" Will try to revisit Friday (I am in OP clinic tomorrow) Thank you for allowing us to participate in the ongoing care of this patient. Please page with any additional concerns. Sheryl Brown DNP Director, Palliative Medicine History of Present Illness Attending Physician: Pattie Bush MD History of Present Illness Per admission note, Jose Haque is a 54yo male "with past medical history significant for metastatic colon cancer mets to liver and lung and on chemo, history of mitral regurgitation, impaired fasting glucose, pulmonary hypertension, hypertension, who had reposition of biliary stent at [facility] by interventional radiology Dr. Smith yesterday comes because of abdominal pain. Patient reports developing very severe abdominal pain post procedure and he came to the ER. With the pain medicine currently pain is under control. Denies any diarrhea or constipation. Micturating okay. Denies any nausea. Denies chest pain or shortness of breath. Denies fevers. No headache or runny nose. No sore throat. Hemodynamics are okay. Patient has leukocytosis. CAT scan showing possible pancreatitis. Er discussed the CAT scan findings with Dr. Smith. It was felt was reasonable to observe the patient here for pain management and antibiotics and to call Dr. Smith if any issue arises." Jose is seen bedside, no family present He is agitated and confused at times He is tangential and has a hard time focusing on discussions He repeatedly states he wants to go home and he is only here bc he drank too much and without discretion Allergies Allergy/AdvReac Type Severity Reaction Status Date / Time levofloxacin Allergy Intermediate Difficulty Unverified 04/13/22 21:51 Breathing Penicillins Allergy Intermediate Difficulty Unverified 04/13/22 21:51 Breathing Home Medications Medication Instructions Recorded Confirmed Type dexamethasone 4 mg tablet 4 mg PO DIRECTED 12/15/24 01/18/25 History ondansetron HCl 4 mg tablet 8 mg PO TID PRN n/v 12/15/24 01/18/25 History pantoprazole 40 mg tablet,delayed 40 mg PO DAILY 12/15/24 01/18/25 History release tamsulosin 0.4 mg capsule 0.4 mg PO QAM 12/15/24 01/18/25 History loperamide 2 mg capsule 2 mg PO UD PRN Loose Stool 01/18/25 01/18/25 History Patient History Social History Smoking Status: Never smoker Second Hand Exposure: No; Do You Dip or Chew Tobacco: No; Hx Alcohol Use: No Hx Substance Use: No Preferred Language: Swazi Communication Ability: Effective Youth Care Specialist Required: No Beliefs That Will Affect Care: None Current Living Situation: Family Current Living Situation Comment: lives with mother Feels Safe at Home: Yes Safety Concerns: Feels Safe At This Time Assistive Devices: None Review of Systems Review of Systems: Unobtainable due to cognitive status (cannot consistently focus) Physical Exam Physical Exam: Appears older than stated age + jaundiced +mild distress Constitutional: + acute distress, + altered mental statu s, + frail appearing, + disheveled, + diaphoretic and + malnourished Eyes: + scleral abnormality (icteric), + anict sarah sclerae and PERRL ENMT: Mouth: + dry oral mucous membranes, + dental caries and + poor dentition Neck: trachea midline, no thyromegaly Respiratory: normal respiratory effort, lungs clear to auscultation Cardiovascular: Rate/Rhythm: + tachycardic Heart Sounds: + murmur Gastrointestinal (Abdomen): Inspection/Auscultation: + abdomen distended Percussion/Palpation: + guarding and + ascites +drain Musculoskeletal: Gen weakness Skin: + turgor decreased jaundice+ Neurologic: Confused at times tangential and difficulty focusing Psychiatric: Orientation: oriented to person and oriented to place Apperance: + disheveled Eye Contact: + poor eye contact Speech: + pressured speech Affect: + labile affect Mood: + depressed mood, + anxious mood and + irritable mood Thought Process: + thought blocking, + circumstantial thought process, + tangential thought process, + looseness of associations and + perseveration Thought Content: + preoccupation, + obsessions and + cognitive distortions Estimated Intelligence: + below average estimated intelligence Insight: + poor insight Judgment: + poor judgement Results & Data Vital Signs (Past 12 Hours) Vital Signs Temp Pulse Resp BP Pulse Ox O2 Del Method 01/19/25 07:43 36.6 C 117 H 20 126/80 96 Room Air Laboratory Results 01/19/25 01/18/25 01/18/25 Range/Units 07:33 07:59 02:30 WBC 18.56 H 20.01 H (4.8-10.8) K/ul RBC 2.82 L 3.11 L (4.70-6.10) M/uL Hgb 8.6 L 9.1 L (14.0-18.0) g/dl Hct 26.1 L 28.9 L (42.0-52.0) % MCV 92.6 92.9 (80.0-100.0) fL MCH 30.5 29.3 (25.0-34.0) pg MCHC 33.0 31.5 L (32.0-36.0) g/dL RDW Std Deviation 58.4 H 56.8 H (36.4-46.3) fL RDW Coeff of Cris 18.3 H 17.2 H (11.5-14.5) % Plt Count 140 D 296 (130-400) K/uL MPV 12.2 (9.4-12.4) fL Immature Gran % (Auto) 3.2 % Neut % (Auto) 84.8 % Lymph % (Auto) 6.8 % [place] % (Auto) 5.0 % Eos % (Auto) 0.0 % Baso % (Auto) 0.2 % Neut # (Auto) 16.96 H (1.40-6.50) K/uL Lymph # (Auto) 1.37 (1.20-3.40) K/uL [place] # (Auto) 1.00 H (0.11-0.59) K/uL Eos # (Auto) 0.00 (0.00-0.50) K/uL Baso # (Auto) 0.04 (0.00-0.20) K/uL Immature Gran # (Auto) 0.64 H (0.01-0.20) K/uL Absolute Nucleated RBC 0.04 0.24 H (0.00-0.12) K/uL Nucleated RBC % (auto) 0.2 1.2 % Platelet Estimate Decreased L (Normal) Sodium 135 L 137 (136-145) mmol/L Potassium 3.3 L 3.5 (3.5-5.1) mmol/L Chloride 108 H 109 H (98-107) mmol/L Carbon Dioxide 23 24 (21-32) mmol/L Anion Gap 4 4 (3-11) BUN 25 H 32 H (6-23) mg/dl Creatinine 0.65 0.70 (0.6-1.4) mg/dl Est Cr Clr Drug Dosing 116.6 108.3 ml/min eGFR 110.59 108.14 BUN/Creatinine Ratio 38.5 H 45.7 H (10-20) Glucose 144 H 158 H (70-99(Fasting)) mg/dl Calcium 7.3 L 8.6 (8.6-10.3) mg/dl Phosphorus 2.0 L (2.5-4.9) mg/dl Magnesium 1.8 2.1 (1.7-2.4) mg/dl Total Bilirubin 13.0 H (0.2-1.0) mg/dl AST 56 H (13-39) U/L ALT 49 (7-52) U/L Alkaline Phosphatase 116 H (34-104) U/L Total Protein 5.3 L (6.0-8.3) gm/dl Albumin 2.7 L (3.4-5.0) gm/dl Globulin 2.6 (2.5-4.0) gm/dl Albumin/Globulin Ratio 1.0 (0.9-2) Lipase Urine Color Dark Yellow Urine Appearance Clear (Clear) Urine pH 5.5 (4.5-7.5) Ur Specific [place] > 1.045 H (1.000-1.030) Urine Protein 1+ H (Negative) Urine Glucose (UA) Trace H (Negative) Urine Ketones Negative (Negative) Urine Blood Negative (Negative) Urine Nitrite Positive A (Negative) Urine Bilirubin 3+ H (Negative) Urine Urobilinogen Negative (Negative) Ur Leukocyte Esterase 1+ H (Negative) Urine WBC (Auto) 0-5 (0-5) /hpf Urine RBC (Auto) 0-2 (0-2) /hpf U Hyaline Cast (Auto) 0-2 (0-2) /lpf U Epithel Cells (Auto) 0-2 (0-2) /hpf Urine Bacteria (Auto) None Seen (None Seen) Calcium Oxalate Crystal Present A (None Prsent) Nasal Screen MRSA (PCR) (Negative) 01/18/25 01/17/25 Range/Units 01:35 20:56 WBC 15.81 H (4.8-10.8) K/ul RBC 3.07 L (4.70-6.10) M/uL Hgb 9.2 L (14.0-18.0) g/dl Hct 28.7 L (42.0-52.0) % MCV 93.5 (80.0-100.0) fL MCH 30.0 (25.0-34.0) pg MCHC 32.1 (32.0-36.0) g/dL RDW Std Deviation 55.6 H (36.4-46.3) fL RDW Coeff of Cris 16.6 H (11.5-14.5) % Plt Count 264 (130-400) K/uL MPV 13.5 H (9.4-12.4) fL Immature Gran % (Auto) 1.7 % Neut % (Auto) 87.0 % Lymph % (Auto) 6.5 % [place] % (Auto) 4.7 % Eos % (Auto) 0.0 % Baso % (Auto) 0.1 % Neut # (Auto) 13.76 H (1.40-6.50) K/uL Lymph # (Auto) 1.02 L (1.20-3.40) K/uL [place] # (Auto) 0.74 H (0.11-0.59) K/uL Eos # (Auto) 0.00 (0.00-0.50) K/uL Baso # (Auto) 0.02 (0.00-0.20) K/uL Immature Gran # (Auto) 0.27 H (0.01-0.20) K/uL Absolute Nucleated RBC 0.14 H (0.00-0.12) K/uL Nucleated RBC % (auto) 0.9 % Platelet Estimate (Normal) Sodium 134 L (136-145) mmol/L Potassium 3.6 (3.5-5.1) mmol/L Chloride 105 (98-107) mmol/L Carbon Dioxide 21 (21-32) mmol/L Anion Gap 8 (3-11) BUN 33 H (6-23) mg/dl Creatinine 0.83 (0.6-1.4) mg/dl Est Cr Clr Drug Dosing 95.2 ml/min eGFR 102.72 BUN/Creatinine Ratio 39.8 H (10-20) Glucose 275 H (70-99(Fasting)) mg/dl Calcium 9.2 (8.6-10.3) mg/dl Phosphorus (2.5-4.9) mg/dl Magnesium (1.7-2.4) mg/dl Total Bilirubin 13.3 H (0.2-1.0) mg/dl AST 82 H (13-39) U/L ALT 58 H (7-52) U/L Alkaline Phosphatase 147 H (34-104) U/L Total Protein 6.2 (6.0-8.3) gm/dl Albumin 3.2 L (3.4-5.0) gm/dl Globulin 3.0 (2.5-4.0) gm/dl Albumin/Globulin Ratio 1.1 (0.9-2) Lipase TNP Urine Color Urine Appearance (Clear) Urine pH (4.5-7.5) Ur Specific [place] (1.000-1.030) Urine Protein (Negative) Urine Glucose (UA) (Negative) Urine Ketones (Negative) Urine Blood (Negative) Urine Nitrite (Negative) Urine Bilirubin (Negative) Urine Urobilinogen (Negative) Ur Leukocyte Esterase (Negative) Urine WBC (Auto) (0-5) /hpf Urine RBC (Auto) (0-2) /hpf U Hyaline Cast (Auto) (0-2) /lpf U Epithel Cells (Auto) (0-2) /hpf Urine Bacteria (Auto) (None Seen) Calcium Oxalate Crystal (None Prsent) Nasal Screen MRSA (PCR) Negative (Negative) Diagnostic Findings Abdomen/Pelvis CT 01/17/25 22:50 Exam(s): CT ABDOMEN + PELVIS With Contrast IV Amt: 93 ML OPTIRAY 320 EXAM: CT Abdomen and Pelvis With Intravenous Contrast CLINICAL HISTORY: RUQ pain, elev WBC, biliary stent, colon ca. TECHNIQUE: Axial computed tomography images of the abdomen and pelvis with intravenous contrast. CTDI is 27.7 mGy and DLP is 1420.65 mGy-cm. Automated exposure control was utilized for the study. A dose lowering technique was utilized adhering to the principles of ALARA. CONTRAST: Patient received 93 ML OPTIRAY 320 of IV contrast COMPARISON: CT abdomen and pelvis with contrast dated 08/31/2023 FINDINGS: Lung bases: As below. Pleural space: Moderate right pleural effusion now identified posteriorly. No loculation. ABDOMEN: Liver: There has been interval progression of disease involving the right lobe of the liver with relative interval atrophy of the right lobe and hypertrophy of the left lobe. Irregular hypodense metastatic involvement noted. There are scattered areas of calcification which are new from the previous examination, suggesting intervening endovascular directed therapy. However, no intervening imaging available. There is a new irregular hypodense area centrally in the left lobe measuring 1.4 cm. In addition to the confluent disease in segment 4 of the liver, there is a somewhat isolated rounded hypodense area at the anterior dome of the diaphragm measuring 1.4 cm at the junction of segment 4A and the left lobe of the liver. Gallbladder and bile ducts: An internal/external biliary stent is noted via left-sided approach which extends through the common bile duct into the duodenum. Mild intrahepatic biliary ectasia noted in the left lobe without significant dilation. Common bile duct is completely decompressed. No calcified stones. Pancreas: There is peripancreatic fat stranding noted most prominently surrounding the tail the pancreas. There is 9 retroperitoneal fat stranding and edema along the anterior pararenal fascia bilaterally. No pancreatic ductal dilation. Spleen: Unremarkable. No splenomegaly. Adrenals: Unremarkable. No mass. Kidneys and ureters: Unremarkable. No solid mass. No hydronephrosis. Stomach and bowel: Postsurgical changes involving the sigmoid colon, stable. No bowel obstruction. Evaluation of bowel mucosa is limited. Mild mucosal prominence of the colon is presumed related to under distention or portal hypertension rather than inflammatory infectious process. PELVIS: Appendix: Not clearly delineated. No significant findings to suggest an acute process. Bladder: Unremarkable. No mass. Reproductive: Unremarkable as visualized. ABDOMEN and PELVIS: Intraperitoneal space: Mild ascites. No loculation. Mild free fluid in the dependent pelvis. No free air. Bones/joints: No acute fracture. No dislocation. Soft tissues: Unremarkable. Vasculature: Unremarkable. No abdominal aortic aneurysm. Lymph nodes: Unremarkable. No enlarged lymph nodes. IMPRESSION: 1. There has been interval progression of disease involving the right lobe of the liver with relative interval atrophy of the right lobe and hypertrophy of the left lobe. Irregular hypodense metastatic involvement noted. There are scattered areas of calcification which are new from the previous examination, suggesting intervening endovascular directed therapy. However, no intervening imaging available. There is a new irregular hypodense area centrally in the left lobe measuring 1.4 cm. In addition to the confluent disease in segment 4 of the liver, there is a somewhat isolated rounded hypodense area at the anterior dome of the diaphragm measuring 1.4 cm at the junction of segment 4A and the left lobe of the liver. 2. An internal/external biliary stent is noted via left-sided approach which extends through the common bile duct into the duodenum. Mild intrahepatic biliary ectasia noted in the left lobe without significant dilation. Common bile duct is completely decompressed. 3. There is peripancreatic fat stranding noted most prominently surrounding the tail the pancreas. There is 9 retroperitoneal fat stranding and edema along the anterior pararenal fascia bilaterally. The findings are highly suggestive of acute pancreatitis. Please correlate with laboratory findings. No ductal dilation or loculated pseudocyst. 4. Mild ascites. No loculation. 5. Moderate right pleural effusion now identified posteriorly. No loculation. Electronically signed by: Mahamed Bailey MD 01/18/25 00:50 AM PG Care Time/CCT Total # of Minutes Spent Total Time Spent with Patient: Total time spent is greater than 50% in coordination of care (as documented) at patient's floor/unit and/or counseling patient: I spent 125 minutes overall addressing this case: 15 min in medical data review/discussion with referring provid er(s) and/or preparation for the visit 15 min in direct interaction with the patient/exam 60 min in Advance Care Planning/Goals of Care discussions as detailed above in note (must be >16min) 15 min in subsequent review and synthesis of assessment and plan 20 min communicating with other providers regarding the patient's case:primary team Advanced Care Planning 24118 Advanced Care Planning 30 Min 92649 Advanced Care Planning Additional 30 [place] [address] IN/OBS CONSULT LVL 4,60M (25 - SIGNIFICANT, SEPARATELY IDENTIFIABLE ) Patient Type New Medical Decision Making High Complexity Diagnoses Weakness generalized R53.1 Abdominal pain, RUQ R10.11 Advanced care planning/counseling discussion Z71.89 Palliative care by specialist Z51.5 Metastatic colorectal cancer C19 Pancreatitis K85.90 Additional Codes Advanced Care Planning - 51191 Advanced Care Planning 30 Min: 36170 Advanced Care Planning 30 Min ([id number]) Advanced Care Planning - 92376 Advanced Care Planning Additional 30 Min: 53107 Advanced Care Planning Additional 30 Min ([id number])
--- NOTE | 2025-01-19 17:13 | Hospitalist Progress Note ---
Date of Service January 19, 2025 Assessment & Plan (1) Pancreatitis: Plan: Mr Haque is a 54-year-old male with past medical history significant for metastatic colon cancer mets to liver and lung and on chemo, history of mitral regurgitation, impaired fasting glucose, pulmonary hypertension, hypertension, who had reposition of biliary stent at [facility] by interventional radiology 01/17. Patient with post-procedural pancreatitis #GoC patient with multiple ongoing medical issues and rehospitalization, patient with metastatic disease patient prognosis poor overall and reports not being established with palliative despite advanced stage follow up palliative recs #Postprocedural Pancreatitis on the CAT scan advance diet as tolerated continue IVF #Abdominal pain, improved From above Also patient had replacement biliary stent at [facility] by IR yesterday consider transition to po abx tomorrow #Metastatic colon cancer #Mets to the liver and lung Had chemo last Friday Follows with [place] oncology Dr. Boggs #HFpEF #Mitral valve insufficiency s/p fluids overload noted, but likely iso metastatic disease #Anemia anemia labs in am #Elevated bilirubin improving #Transaminitis Bilirubin 13.3 AST 82, ALT 58, alkaline phos 147 Similar as last admission Follow repeat labs Follows with heme-onc DVT prophylaxis Lovenox Disposition Medical floor Full code Admission and Anticipated Discharge Date Admission Date: January 18, 2025 Subjective Reports anxiety is ongoing, but denies any pain reports tolerating clear, and ready to move on to full liquids denies any other acute concerns out side of eagerness to go home as soon as possible Physical Exam Constitutional: chronically ill appearing gentleman Respiratory: shallow rapid breathing, however no distress Cardiovascular: SULAIMAN Gastrointestinal (Abdomen): largely protuberant Results & Data Results & Data Vital Signs (Past 12 Hours) Vital Signs Temp Pulse Resp BP Pulse Ox O2 Del Method 01/19/25 15:36 36.9 C 124 H 24 126/79 98 Room Air 01/19/25 07:43 36.6 C 117 H 20 126/80 96 Room Air Laboratory Results Short CBC 01/19/25 Range/Units 07:33 WBC 18.56 H (4.8-10.8) K/ul Hgb 8.6 L (14.0-18.0) g/dl Hct 26.1 L (42.0-52.0) % Plt Count 140 D (130-400) K/uL BMP 01/19/25 07:33 Sodium 135 L Potassium 3.3 L Chloride 108 H Carbon Dioxide 23 BUN 25 H Creatinine 0.65 Glucose 144 H Calcium 7.3 L Liver Function 01/19/25 Range/Units 07:33 Total Bilirubin 13.0 H (0.2-1.0) mg/dl AST 56 H (13-39) U/L ALT 49 (7-52) U/L Alkaline Phosphatase 116 H (34-104) U/L Albumin 2.7 L (3.4-5.0) gm/dl Medications Administered Home Medications Medication Instructions Recorded Confirmed Last Taken dexamethasone 4 mg tablet 4 mg PO DIRECTED 12/15/24 01/18/25 Unknown ondansetron HCl 4 mg tablet 8 mg PO TID PRN n/v 12/15/24 01/18/25 Unknown pantoprazole 40 mg tablet,delayed 40 mg PO DAILY 12/15/24 01/18/25 01/16/25 release tamsulosin 0.4 mg capsule 0.4 mg PO QAM 12/15/24 01/18/25 01/17/25 loperamide 2 mg capsule 2 mg PO UD PRN Loose Stool 01/18/25 01/18/25 Unknown Active Medications Generic Name Dose Route Start Last Admin Trade Name Freq PRN Reason Stop Dose Admin Enoxaparin Sodium 40 mg 01/18/25 05:28 01/19/25 09:17 Enoxaparin Inj 40 Mg/0.4 Ml Syr SQ 02/17/25 05:27 Not Given Q24H MOHAN Hydromorphone HCl 0.5 mg 01/18/25 05:28 01/19/25 04:53 Hydromorphone Inj 0.5 Mg/0.5 Ml Syr IV 02/01/25 05:27 0.5 mg Q4H PRN Administration Mod-Sev Pain (Scale 4-10) Cefepime HCl 2,000 mg in 20 mls @ 5 mls/min 01/18/25 08:00 01/19/25 16:49 Maxipime 2000mg IV 01/28/25 07:59 5 mls/min Q8H MOHAN Administration Protocol Metronidazole 500 mg in 100 mls @ 100 mls/hr 01/18/25 08:00 01/19/25 16:49 Flagyl IV 01/28/25 07:59 100 mls/hr Q8H MOHAN Administration Protocol Lorazepam 0.25 mg 01/18/25 12:02 01/19/25 13:17 Lorazepam 2 Mg/1 Ml Vial IV 02/17/25 12:01 0.25 mg Q4H PRN Administration Anxiety Pantoprazole Sodium 40 mg 01/18/25 09:00 01/19/25 09:17 Pantoprazole 40 Mg Tab PO 02/17/25 08:59 40 mg DAILY MOHAN Administration Potassium Phosphate 2 tab 01/19/25 13:00 01/19/25 13:15 Pot Phosphate Monobasic W/ Sod Tab PO 02/18/25 12:59 2 tab QID MOHAN Administration Tamsulosin HCl 0.4 mg 01/18/25 09:00 01/19/25 09:17 Tamsulosin Hcl 0.4 Mg Cap PO 02/17/25 08:59 0.4 mg QAM MOHAN Administration
[2025-01-19] MEDS: ONDANSETRON INJ 2 MG/ML 2 ML VIAL IV PRN (17:51)
--- NOTE | 2025-01-20 04:02 | Communication Note ---
Date of Service: January 20, 2025 Patient noted to be tachycardic heart rate 1 20-1 80s as per RN. Patient denies chest pain, SOB. Decreased mental status after Dilaudid and lorazepam administration overnight. EKG as per my interpretation rate 120, sinus tachycardia, normal axis, T wave flattening inferior leads, occasional PVCs AP Encephalopathy Tachycardia ? Alcohol abuse (alcohol consumption as per palliative care note) PCU transfer Narcan trial Hold parameters for sedation/confusion for Dilaudid and Ativan Thiamine 1 dose IV beta-padmini 1 dose Patient mother updated of developments. She denies EtOH abuse concerns for patient.
[2025-01-20] MEDS: POTASSIUM CHLORIDE / WTR 10 MEQ/100 ML PLCT IV SCH ×2 (05:11→09:09)
[2025-01-20] MEDS: MAGNESIUM SULFATE / D5W 1 GM/100 ML BAG IV ONE (05:12)
[2025-01-20] MEDS: METOPROLOL TARTRATE 1 MG/ML VIAL IV STA (05:19)
[2025-01-20] MEDS: NALOXONE HCL 0.4 MG/1 ML VIAL/CARP IV STA (05:26)
[2025-01-20] MEDS: THIAMINE HCL 100 MG in SYRINGE 9 ML IV ONE (05:28)
[2025-01-20] MEDS ORDERED: HYDROmorphone INJ 0.5 MG/0.5 ML SYR IV PRN (05:49)
[2025-01-20 06:02] LABS: Albumin Globulin Ratio 1.1 (0.9-2); Albumin Level 2.7 gm/dl (3.4-5.0); BUN Creatinine Ratio 36.4 (10-20); Bilirubin,Total 13.2 mg/dl (0.2-1.0); Calcium 7.7 mg/dl (8.6-10.3); Creatinine Clr Calc Pharmacy 114.9 ml/min; Globulin 2.5 gm/dl (2.5-4.0); Magnesium 2.1 mg/dl (1.7-2.4); Phosphorus 1.8 mg/dl (2.5-4.9); Potassium 3.4 mmol/L (3.5-5.1); Total Protein 5.2 gm/dl (6.0-8.3)
[2025-01-20 06:16] VITALS: RESP 20
[2025-01-20 06:16] LABS: INR 3.1 (0.9-1.1); Prothrombin Time 30.7 Seconds (9.0-12.0)
--- NOTE | 2025-01-20 06:38 | XRay Report ---
EXAM: XR chest 1V portable CLINICAL HISTORY: tachypnea TECHNIQUE: An X-ray image of the chest is obtained in AP projection. COMPARISON: prior CT 12/23/2023. FINDINGS: Pulmonary Parenchyma: Prominent both hilar bronchovascular markings. Right lung diffuse hazy opacity, more on the lower zone with air space opacity noted. Bilateral pleural effusion, more on the right side. Heart and Mediastinum: Heart size and shape are normal. No mediastinal widening or masses. No hilar or mediastinal lymphadenopathy. Bony Thorax: Bony thorax appears intact without fractures or deformities. Soft Tissues: Soft tissues overlying the chest wall are unremarkable. IMPRESSION: 1. Prominent both hilar bronchovascular markings, Likely congestion. 2. Right lung diffuse hazy opacity, more on the lower zone with airspace opacity, suggestive of pneumonic consolidation/atelectasis. 3. Bilateral pleural effusion, more on the right side. 4. Finding are interval new. Electronically signed by Jewels Choudhury 01-20-2025 06:38 AM
[2025-01-20 06:40] LABS: Hematocrit (blood only) 26.5 % (42.0-52.0); Hemoglobin 8.5 g/dl (14.0-18.0); Mean Corpuscular Hgb Conc 32.1 g/dL (32.0-36.0); Mean Corpuscular Volume 93.6 fL (80.0-100.0); Nucleated RBC # (auto) 0.02 K/uL (0.00-0.12); Nucleated RBC % (auto) 0.1 %; Platelet Count 86 K/uL (130-400); RDW Coefficient of Variation 18.6 % (11.5-14.5); RDW Standard Deviation 61.7 fL (36.4-46.3); Red Blood Count 2.83 M/uL (4.70-6.10); White Blood Count 16.11 K/ul (4.8-10.8)
[2025-01-20 06:41] LABS: Basophils # (auto) 0.01 K/uL (0.00-0.20); Basophils % (auto) 0.1 %; Immature Granulocytes # (auto) 0.17 K/uL (0.01-0.20); Immature Granulocytes % (auto) 1.1 %; Lymphocytes # (auto) 0.56 K/uL (1.20-3.40); Lymphocytes % (auto) 3.5 %; Monocytes # (auto) 0.77 K/uL (0.11-0.59); Monocytes % (auto) 4.8 %; Neutrophils % (auto) 90.5 %; Polychromasia 1+; Tear Drop Cells 1+
[2025-01-20] MEDS ORDERED: FUROSEMIDE INJ 20 MG/2 ML VIAL IV ONE (07:09)
[2025-01-20 07:28] VITALS: PULSE 106; TEMP 97.7; O2SAT 97
--- NOTE | 2025-01-20 07:41 | Electrocardiogram Report ---
Test Reason : Blood Pressure : */* mmHG Vent. Rate : 116 BPM Atrial Rate : 116 BPM P-R Int : 138 ms QRS Dur : 86 ms QT Int : 384 ms P-R-T Axes : 52 18 29 degrees QTcB Int : 533 ms Sinus tachycardia with Premature supraventricular complexes Diffuse Minor Nonspecific ST abnormality Prolonged QT Abnormal ECG When compared with ECG of 17-Dec-2024 06:04, Premature supraventricular complexes are now Present HR has increased by 34 bpm Confirmed by Igor Jimenez ([id number]) on 01/20/2025 7:41:01 AM Referred By: REFERRED SELF Confirmed By: Igor Jimenez
[2025-01-20] MEDS: FUROSEMIDE INJ 20 MG/2 ML VIAL IV ONE (08:13)
[2025-01-20] MEDS: POTASSIUM CHLORIDE CRTAB 20 MEQ TABCR PO SCH (08:29)
[2025-01-20] MEDS ORDERED: MoRPHine SULFATE 2 MG/ML CARP IV PRN (09:39)
[2025-01-20] MEDS ORDERED: MoRPHine SULFATE 10 MG/0.5 ML UDP PO PRN (09:39)
[2025-01-20] MEDS ORDERED: LORazepam 2 MG/1 ML VIAL IV PRN (09:39)
[2025-01-20] MEDS ORDERED: ONDANSETRON INJ 2 MG/ML 2 ML VIAL IV PRN (09:39)
[2025-01-20] MEDS ORDERED: GLYCOPYRROLATE 0.2 MG/ML VIAL IV PRN (09:39)
[2025-01-20] MEDS: LEVALBUTEROL 1.25 MG/3 ML NEB NEB STA (10:30)
[2025-01-20] MEDS: IPRATROPIUM BROMIDE NEB SOLN 0.02% 0.5MG/2.5ML VIAL INH STA (10:30)
--- NOTE | 2025-01-20 10:31 | Hospitalist Progress Note ---
Date of Service January 20, 2025 Assessment & Plan (1) Pancreatitis: Plan: Mr Haque is a 54-year-old male with past medical history significant for metastatic colon cancer mets to liver and lung and on chemo, history of mitral regurgitation, impaired fasting glucose, pulmonary hypertension, hypertension, who had reposition of biliary stent at [facility] by interventional radiology 01/17. Patient with post-procedural pancreatitis 65 minutes spent with family discussing goc. Discussed with mother Natacha about patients prognosis and condition--reported that patient does not wish to remain hospitalized and wishes to go home. Verbalized understanding of hospice care and comfort measures. Ultimately, family and patient agreed to DEPARTMENT COORDINATOR and ospice coordination #DEPARTMENT COORDINATOR #GoC patient with multiple ongoing medical issues and rehospitalization, patient with metastatic disease patient prognosis poor overall and reports not being established with palliative despite advanced stage discontinue po meds plan for Comfort measures and dispo to hospice #Postprocedural Pancreatitis on the CAT scan advance diet as tolerated comfort #Abdominal pain, improved From above Also patient had replacement biliary stent at [facility] by IR yesterday discontinued abx #Metastatic colon cancer #Mets to the liver and lung Had chemo last Friday Follows with [place] oncology Dr. Boggs #HFpEF #Mitral valve insufficiency s/p fluids overload noted, but likely iso metastatic disease #Anemia anemia labs in am #Elevated bilirubin improving #Transaminitis Bilirubin 13.3 AST 82, ALT 58, alkaline phos 147 Similar as last admission Follow repeat labs Follows with heme-onc Disposition Medical floor possible dispo to hospice Admission and Anticipated Discharge Date Admission Date: January 18, 2025 Subjective AMS overnight requiring transfer to PCU Discussed goals of care with patient and family--patient requests to go home and be comfortable discussed hospice and in line with goals of care Physical Exam Constitutional: extremely weak and fatigued Respiratory: diminshed, tachypnea Cardiovascular: tachycardia Results & Data Results & Data Vital Signs (Past 12 Hours) Vital Signs Temp Pulse Pulse Pulse Resp BP BP 01/20/25 07:27 36.5 C 106 H 20 119/73 01/20/25 06:15 37.2 C 110 H 20 130/83 01/20/25 05:54 01/20/25 05:51 113 H 01/20/25 05:40 115 H 130/83 01/20/25 05:19 114 H 122/78 01/20/25 04:49 01/20/25 04:38 36.8 C 115 H 30 H 122/78 01/20/25 03:53 36.9 C 164 H 188 H 20 143/88 H 01/19/25 23:09 Pulse Ox O2 Del Method O2 Del Method O2 Flow Rate 01/20/25 07:27 97 Nasal Cannula 2 01/20/25 06:15 96 01/20/25 05:54 Room Air 01/20/25 05:51 01/20/25 05:40 01/20/25 05:19 01/20/25 04:49 Room Air 01/20/25 04:38 95 Room Air 01/20/25 03:53 95 Room Air 01/19/25 23:09 Room Air Laboratory Results Short CBC 01/20/25 Range/Units 05:29 WBC 16.11 H (4.8-10.8) K/ul Hgb 8.5 L (14.0-18.0) g/dl Hct 26.5 L (42.0-52.0) % Plt Count 86 L (130-400) K/uL BMP 01/20/25 05:29 Sodium 135 L Potassium 3.4 L Chloride 109 H Carbon Dioxide 23 BUN 24 H Creatinine 0.66 Glucose 145 H Calcium 7.7 L Liver Function 01/20/25 Range/Units 05:29 Total Bilirubin 13.2 H (0.2-1.0) mg/dl AST 46 H (13-39) U/L ALT 43 (7-52) U/L Alkaline Phosphatase 113 H (34-104) U/L Albumin 2.7 L (3.4-5.0) gm/dl Medications Administered Home Medications Medication Instructions Recorded Confirmed Last Taken dexamethasone 4 mg tablet 4 mg PO DIRECTED 12/15/24 01/18/25 Unknown ondansetron HCl 4 mg tablet 8 mg PO TID PRN n/v 12/15/24 01/18/25 Unknown pantoprazole 40 mg tablet,delayed 40 mg PO DAILY 12/15/24 01/18/25 01/16/25 release tamsulosin 0.4 mg capsule 0.4 mg PO QAM 12/15/24 01/18/25 01/17/25 loperamide 2 mg capsule 2 mg PO UD PRN Loose Stool 01/18/25 01/18/25 Unknown
--- NOTE | 2025-01-20 14:13 | Discharge Summary ---
Discharge Summary Date of Service January 20, 2025 Principal Dx & Hospital Course #1 = Principal Diagnosis (1) Pancreatitis: Mr Haque is a 54-year-old male with past medical history significant for metastatic colon cancer mets to liver and lung and on chemo, history of mitral regurgitation, impaired fasting glucose, pulmonary hypertension, hypertension, who had reposition of biliary stent at [facility] by interventional radiology 01/17. Patient with post-procedural pancreatitis 65 minutes spent with family discussing goc. Discussed with mother Natacha about patients prognosis and condition--reported that patient does not wish to remain hospitalized and wishes to go home. Verbalized understanding of hospice care and comfort measures. Ultimately, family and patient agreed to GOVERNMENT GAUGER and hospice coordination Patient is discharged with home hospice #GOVERNMENT GAUGER #GoC patient with multiple ongoing medical issues and rehospitalization, patient with metastatic disease patient prognosis poor overall and reports not being established with palliative despite advanced stage discontinue po meds plan for Comfort measures and dispo to hospice #Postprocedural Pancreatitis on the CAT scan advance diet as tolerated comfort #Abdominal pain, improved From above Also patient had replacement biliary stent at [facility] by IR yesterday discontinued abx #Metastatic colon cancer #Mets to the liver and lung Had chemo last Friday Follows with [place] oncology Dr. Boggs #HFpEF #Mitral valve insufficiency s/p fluids overload noted, but likely iso metastatic disease #Anemia anemia labs in am #Elevated bilirubin improving #Transaminitis Bilirubin 13.3 AST 82, ALT 58, alkaline phos 147 Similar as last admission Follow repeat labs Follows with heme-onc Notes For Next Care Provider Medication Changes From Visit none Admission HPI Per Admitting Provider 54-year-old male with past medical history significant for metastatic colon cancer mets to liver and lung and on chemo, history of mitral regurgitation, impaired fasting glucose, pulmonary hypertension, hypertension, who had reposition of biliary stent at [facility] by interventional radiology Dr. Smith yesterday comes because of abdominal pain. Patient s states after going home developed severe abdominal pain which prompted come to the ER. With the pain medicine currently pain is under control. Denies any diarrhea or constipation. Micturating okay. Denies any nausea. Denies chest pain or shortness of breath. Denies fevers. No headache or runny nose. No sore throat. Hemodynamics are okay. Patient has leukocytosis. CAT scan showing possible pancreatitis. Er discussed the CAT scan findings with Dr. Smith. It was felt was reasonable to observe the patient here for pain management and antibiotics and to call Dr. Smith if any issue arises. Past medical history. As mentioned above Past surgical history. No surgery history on file. Social history. No smoking. No alcohol use.. No drug use. Family history. No family history on file. Admission Exam Per Admitting Provider General- Not in distress Head- atraumatic Eyes- PERRL. ENT- oropharynx clear Neck- supple, no JVD. Lungs- clear to auscultation no wheezing or crackles Heart- regular rhythm; no murmur, no gallop. Abdomen- normal bowel sounds, soft, mild diffuse discomfort, no distension. Extremities- no pretibial edema, no erythema seen Neuro- alert, oriented PERRL, no facial palsy; no dysarthria; moves extremities Discharge Exam Constitutional cachectic, thin frail Respiratory tachypneic Cardiovascular tachycardia Updated Medication List Medication Instructions Recorded Confirmed Type ondansetron HCl 4 mg tablet 8 mg PO TID PRN n/v 12/15/24 01/18/25 History loperamide 2 mg capsule 2 mg PO UD PRN Loose Stool 01/18/25 01/18/25 History morphine concentrate 100 mg/5 mL 5 mg (0.25 mL) PO Q3H PRN dyspnea 01/20/25 Rx (20 mg/mL) oral solution 10 days #30 mL Hospital Stay Data Consultations 01/18/25 08:00 Consult Gastroenterology Routine 01/18/25 17:07 Consult Palliative Care Routine Diagnostic Imagining Performed 01/17/25 22:50 CT Abd and Pelvis [CT abd pelvis IV con only] Stat Pending Results Patient Have Any Pending Studies at Discharge: No Discharge Instructions Given to Patient (Per Discharging Provider) You were admitted for pancreatitis and also noted to have progressive metastatic disease You were discharged with home hospice Total Time Total Time Spent Total Time Spent (In Minutes): 45
--- NOTE | 2025-01-20 15:00 | Palliative Care Progress Note ---
Date of Service January 20, 2025 Assessment & Plan (1) Encounter for end of life care: (2) Weakness generalized: (3) Palliative care by specialist: Plan SALES ENABLEMENT CONSULTANT underway likely home hospice dc Thank you for allowing us to participate in the ongoing care of this patient. Please page with any additional concerns. Sheryl Brown DNP Director, Palliative Medicine Admission and Anticipated Discharge Date Admission Date: January 18, 2025 Subjective acute decline overnight transitioned to SALES ENABLEMENT CONSULTANT more confused Review of Systems Review of Systems: Unobtainable due to cognitive status Physical Exam Physical Exam: jaundiced abd distension bitemp wasting icteric sclera very weak and fatigued confused unable to follow commands tachypneic with use of accessory muscle tachy s1s2 abd breathing noted gen weakness somnolent Results & Data Vital Signs (Past 12 Hours) Vital Signs Temp Pulse Pulse Pulse Resp BP BP 01/20/25 07:30 01/20/25 07:27 36.5 C 106 H 20 119/73 01/20/25 06:15 37.2 C 110 H 20 130/83 01/20/25 05:54 01/20/25 05:51 113 H 01/20/25 05:40 115 H 130/83 01/20/25 05:19 114 H 122/78 01/20/25 04:49 01/20/25 04:38 36.8 C 115 H 30 H 122/78 01/20/25 03:53 36.9 C 164 H 188 H 20 143/88 H Pulse Ox O2 Del Method O2 Del Method O2 Flow Rate 01/20/25 07:30 Nasal Cannula 2 01/20/25 07:27 97 Nasal Cannula 2 01/20/25 06:15 96 01/20/25 05:54 Room Air 01/20/25 05:51 01/20/25 05:40 01/20/25 05:19 01/20/25 04:49 Room Air 01/20/25 04:38 95 Room Air 01/20/25 03:53 95 Room Air PG Care Time/CCT Total # of Minutes Spent Total Time Spent: 55 Total Time Spent with Patient: Total time spent is greater than 50% in coordination of care (as documented) at patient's floor/unit and/or counseling patient: Coding [place] [address] SUB INP/OBS CARE 3/50MIN Patient Type Established History Comprehensive Exam Comprehensive Medical Decision Making High Complexity Diagnoses Encounter for end of life care Z51.5 Weakness generalized R53.1 Palliative care by specialist Z51.5
[2025-01-20 15:09] VITALS: BP 137/89
== END 2025-01-20 15:18 | disposition hospice, home (50) | DRG 439 ==
LOC: ED 20:22 → INTOOBSV 01-18 03:43 → 3N 01-18 03:43 → 4W 01-20 04:37